=== PATIENT | female | born 1965 | race Caucasian/White ===

== ENCOUNTER 2023-11-08 15:29 | Emergency (ER) | payer OTHER, SELFPAY ==
[2023-11-08 15:33] VITALS: BP 139/80; PULSE 80; RESP 18; TEMP 37.1; O2SAT 97; BMI 37.8
--- NOTE | 2023-11-08 15:50 | ED.BACK1 ---
HPI - Back Pain/Injury General Chief Complaint: Back Pain/Injury Stated Complaint: Back Pain Time Seen by Provider: 11/08/23 15:32 Source: patient Mode of arrival: walk-in Limitations: no limitations History of Present Illness HPI Narrative: Patient is a 58-year-old female who presents to the emergency department for the evaluation of diffuse lumbar pain for the last several days. She states her pain is increasing, not improving with NSAIDs at home. She states this pain developed after mopping. She denies fevers, chills, nausea, vomiting, urinary symptoms. She has a history of low back problems similarly, although she states her pain seems to be lasting longer than normal. She has no radicular symptoms or peripheral paresthesias. No incontinence. She denies any falls or direct injury to the low back. Related Data Previous Rx's Medication Instructions Recorded hydrocodone 5 mg-acetaminophen 325 1 tab PO Q6H PRN pain 3 days #12 11/08/23 mg tablet tabs methylprednisolone 4 mg tablets in See Rx Instructions .Route 11/08/23 a dose pack (Medrol (Ernesto)) .COMPLEX #21 ea orphenadrine citrate 100 mg 100 mg PO BID PRN muscle pain #14 11/08/23 tablet,extended release tabs Allergies Allergy/AdvReac Type Severity Reaction Status Date / Time No Known Drug Allergies Allergy Verified 11/08/23 15:33 Review of Systems ROS Constitutional Denies: fever or chills Ears, nose, mouth, and throat Denies: throat pain or nasal congestion Cardiovascular Denies: chest pain Respiratory Denies: shortness of breath or cough Gastrointestinal Denies: abdominal pain, nausea, vomiting or diarrhea Genitourinary Denies: painful urination or urinary incontinence Musculoskeletal Reports: back pain; Denies: neck pain, extremity pain or extremity swelling Integumentary/Breast Denies: rash Neurological Denies: headache Endocrine Denies: excessive urination PFSH PFSH Social History Smoking status: Never smoker Exam Narrative Exam Narrative: Gen.: Awake, alert, in no distress Head: Normocephalic, atraumatic ENT: Moist mucous membranes Respiratory: No respiratory distress Gastrointestinal: Abdomen is soft, nondistended and nontender to palpation Back: Diffuse tenderness of the lumbar spine with no bony point tenderness or obvious deformity. Moderate tenderness of the left posterior hip. No step-off Extremities: Moves extremities equally, no injuries noted; Normal dorsiflexion and plantarflexion of the lower extremities with no decrease in sensation to the medial thighs Psych: Normal mood and affect Neuro: No focal neuro deficit Skin: Warm, dry, intact Constitutional Vital Signs, click to edit/add: Last Vital Signs Temp 98.7 F 11/08/23 15:33 Pulse 80 11/08/23 15:33 Resp 18 11/08/23 15:33 BP 139/80 11/08/23 15:33 Pulse Ox 97 11/08/23 15:33 O2 Del Method Room Air 11/08/23 15:33 Course Vital Signs Vital signs: Vital Signs Temperature 98.7 F 11/08/23 15:33 Pulse Rate 80 11/08/23 15:33 Respiratory Rate 18 11/08/23 15:33 Blood Pressure 139/80 11/08/23 15:33 Pulse Oximetry 97 11/08/23 15:33 Oxygen Delivery Method Room Air 11/08/23 15:33 Temperature 98.7 F 11/08/23 15:33 Pulse Rate 80 11/08/23 15:33 Respiratory Rate 18 11/08/23 15:33 Blood Pressure 139/80 11/08/23 15:33 Pulse Oximetry 97 11/08/23 15:33 Oxygen Delivery Method Room Air 11/08/23 15:33 MDM - Back Pain/Injury MDM Narrative Medical decision making narrative: Patient neurovascularly intact with stable vital signs, no abdominal tenderness, no focal neurodeficits. She is treated for pain with Percocet, Toradol, Norflex. She will be discharged home with Medrol Dosepak, muscle relaxant and a short course of analgesics. Follow-up with PCP and return to the ER if symptoms change or worsen. Medical Records Attestation: I reviewed the patient's medical records. Discharge Plan Discharge Chief Complaint: Back Pain/Injury Clinical Impression: Low back pain, Lumbosacral strain Patient Disposition: Home, Self-Care Time of Disposition Decision: 15:57 Condition: Good Prescriptions / Home Meds: New hydrocodone-acetaminophen 5-325 mg tablet 1 tab PO Q6H PRN (Reason: pain) 3 Days Qty: 12 0RF Rx Instructions: DX: M54.5 orphenadrine citrate 100 mg tablet extended release 100 mg PO BID PRN (Reason: muscle pain) Qty: 14 0RF methylprednisolone [Medrol (Ernesto)] 4 mg tablets,dose pack See Rx Instructions .ROUTE .COMPLEX Qty: 21 0RF Rx Instructions: Taper as directed Instructions: Muscle Strain (ED), Acute Low Back Pain (ED) Stand Alone Forms: Portal Instructions Referrals: Physician,Non-Staff, MD [Primary Care Provider] - 1 week
[2023-11-08] MEDS: KETOROLAC TROMETHAMINE 60 MG/2 ML VIAL IM (16:08)
[2023-11-08] MEDS: ORPHENADRINE 60 MG/ 2 ML VIAL IM (16:08)
== END 2023-11-08 16:15 | disposition home or self-care (01) ==
PROVIDERS: Emergency Provider Emergency Medicine
DX: S39.012A Strain of muscle, fascia and tendon of lower back, initial encounter (principal); X50.9XXA Other and unspecified overexertion or strenuous movements or postures, initial encounter; Y93.E5 Activity, floor mopping and cleaning
CPT/HCPCS: 96372; 99284; J1885; J2360

== ENCOUNTER 2023-11-18 06:35 | Outpatient (OUT) | payer OTHER, SELFPAY ==
--- OUTSIDE RECORDS SUMMARY | 2023-11-18 06:38 | XMS_ITS | CCD ---
Author Name Unknown Address [address] [place] [address] Organization [facility] Care Team Providers Care Package Checker Name Role Phone ANJOAQUIN DHALIWAL Unavailable Unavailable MALIKA CHAVIRA Unavailable Unavailable EMRE ., LOLA Admitting Unavailable EMRE Dunne, LOLA Attending Unavailable BRADLEY, DR ALCYE Romo Primary Care Unavailable CHENCHO, GABRIEL Consulting Unavailable LM, LISA Consulting Unavailable SAMANTHA, IVAN Admitting Unavailable SAMANTHA, IVAN Attending Unavailable SAMANTHA, IVAN Primary Care Unavailable HOUSE, IVAN Consulting Unavailable HOUSE, IVAN Admitting Unavailable HOUSE, IVAN Attending Unavailable HOUSE, IVAN Primary Care Unavailable HOUSE, IVAN Consulting Unavailable Frank Bennett Consulting Unavailable Alyce HUERTA Attending Unavailable Alyce HUERTA Attending Unavailable Vicky Jimenez Attending Unavailable Roxanne Couch Attending Unavailable NONE, XXXX Referring Unavailable Alyce HUERTA Referring Unavailable Alyce HUERTA Admitting Unavailable Alyce HUERTA Attending Unavailable Mayra Orellana Attending Unavailable Esteban, Mayra Amaya Attending Unavailable Esteban, Mayra Amaya Attending Unavailable Esteban, Mayra Amaya Attending Unavailable Alyce HUERTA Referring Unavailable SALKRISTIN, Priya Attending Unavailable SALAM, Priya Referring Unavailable Alyce HUERTA Attending Unavailable Alyce HUERTA Attending Unavailable Guillermina Wong Attending Unavailab Alyce William Attending Unavailable Guillermina Wong Admitting Unavailab Guillermina Cagle Attending Unavailab le SALAMPriya Admitting Unavailable SALAMPriya Attending Unavailable Alyce HUERTA Attending Unavailable Alyce HUERTA Admitting Unavailable Alyce HUERTA Admitting Unavailable Alyce HUERTA Attending Unavailable Alyce Lovell Attending Unavailable Roxanne Couch Admitting Unavailable Roxanne Couch Attending Unavailable Alyce HUERTA Referring Unavailable Roxanne Couch Attending Unavailable KhoaRoxanne FUzair Referring Unavailable KhoaRoxanne F. Attending Unavailable KhoaRoxanne FUzair Referring Unavailable Roxanne Couch Admitting Unavailable Allergies Allergy Classification Reported Allergen(s) Allergy Type Date of Onset Reaction(s) Facility (1 source) No Known Medication Allergies; Translations: [No Known Medication Allergies] Propensity to adverse reactions (disorder) [facility] Repository Problems Active Problems Problem Classification Problem Date Documented Da te Episodic/Chronic Disorders of lipid metabolism (1 source) Hyperlipidemia, unspecified; Translations: [HYPERLIPIDEMIA UNSPECIFIED] Onset: 2 Chronic Menopausal disorders (1 source) Hormone replacement therapy; Translations: [HORMONE REPLACEMENT THERAPY] Onset: 3 Episodic Other aftercare (1 source) retirement (current) use of aspirin; Translations: [PLATE GAUGER CURRENT USE OF ASPIRIN] Onset: 3 Episodic Other aftercare (1 source) Other long-term (current) drug therapy; Translations: [OTH PLATE GAUGER CURRENT DRUG THERAPY] Onset: 3 Episodic Other connective tissue disease (3 sources) Other specified soft tissue disorders; Translations: [OTHER SPEC SOFT TISSUE DISORDERS] Onset: 3 Episodic Phlebitis; thrombophlebitis and thromboembolism (2 sources) Phlebitis and thrombophlebitis of superficial vessels of left lower extremity; Translations: [Personal history of other venous thrombosis and embolism] Onset: 3 Episodic Screening and history of mental health and substance abuse codes (1 source) Personal history of nicotine dependence; Translations: [PERSONAL HISTORY OF NICOTINE DEPEND] Onset: 3 Episodic Skin and subcutaneous tissue infections (1 source) Cellulitis of left lower limb; Translations: [CELLULITIS OF LEFT LOWER LIMB] Onset: 3 Episodic Thyroid disorders (4 sources) Hypothyroidism, unspecified; Translations: [HYPOTHYROIDISM UNSPECIFIED] Onset: 2 Chronic Past or Other Problems Problem Classification Problem Date Documented Da te Episodic/Chronic Other screening for suspected conditions (not mental disorders or infectious disease) (4 sources) Encounter for screening mammogram for malignant neoplasm of breast; Translations: [ENC SCR MAMMO MALIG NEOPLASM BREAST] Onset: 02-12-2022 Episodic Residual codes; unclassified (1 source) Family history of malignant neoplasm of trachea, bronchus and lung; Translations: [FAM HX MALIG NEOPLSM TRACH BRON LNG] Onset: 02-13-2022 Episodic Results Test Name Value Interpretation Reference Range Facil felipe Family Medicine Video Visit - Telehealthon 10-21-2023 Family Medicine Video Visit - Telehealth Chief Complaint Cold symptoms HPI Staff Reason for Visit: Covid Positive 10/18/2023. One time visit. PCP Bradley. Pt has positive exposure as well with family How Lon days Symptoms: Sinus congestion, sinus drainage, SOB, sinus pressure, non productive cough, chills, achy, OTC Meds: Mucinex, chloricedin At home testing: Covid positve 10/18/2023 Depression: 0 MONIQUE: N/A Last Labs done: 07/29/2023 Covid Vaccine: No Flu Vaccine: No Smoker: Former History of Present Illness Daphne Edwards is a 58-year-old female who presents via video visit for evaluation of COVID-19 infection. She tested positive for COVID-19 on 10/18/2023. She is a patient of Dr. Huerta. The patient had COVID-19 infection 10/18/2021. Her symptoms started on Wednesday10/17/2023 when she woke up with a nasal congestion. She tested the next day, she assumed she had COVID-19 infection as her daughter, mother, brother, iuotrtc-pi-kic, and her sister have COVID-19 infection. She tested positive for COVID-19 on 10/18/2023. She is experiencing mild dyspnea, sinus pressure, sore throat, mild cough, headache, body aches, and fatigue. She denies any chest pain, wheezing, change in taste and smell, nausea, vomiting, diarrhea, dizziness, or loss of consciousness. She is using some apoj-wgn-sdiolrq medications, which seem to be mildly effective, but not much. She is not vaccinated against COVID-19 infection. She states this is the fourth time she has had COVID-19 infection. She has a blood pressure monitor at home. She denies feeling the worst headache of her life. She denies any history of back issues, GERD or heartburn issues, colon polyp, kidney disease, respiratory or lung problems, diabetes, high blood pressure, chronic kidney disease, or heart disease. She has thyroid issues and is on thyroid medication. She is scheduled to follow up with Dr. Huerta on 11/09/2023 and she will be retested. She had blood work done in 07/2023 which was normal. Her kidney function looks stable. Review of Systems The pertinent positive and negative findings are as noted in the HPI. Physical Exam Vitals & Measurements HT: 64 in HT: 162.5 cm WT: 100 kg WT: 220 lb BMI: 37.87 General: Well developed, well nourished, no apparent distress Head:Normocephalic, atraumatic Eyes:EOMI, sclera clear Neck: Supple Mental Status: Alert and cooperative with appropriate mood and affect Assessment/Plan This visit was conducted via two-way, real-time interactive video communications by ANGELIQUE Mims from my office? using [employer]. The patient was located at their home, located at [address] [place] [address] with Daphne Edwards in attendance. A signed authorization for treatment has been obtained via our standard authorization packet or by verbal consent by the patient or their legal wireless sales representative. The patient's identity and location in [place] has been verified by our office staff. If it is determined that the patient should be evaluated in the clinic, the patient will be directed to the appropriate clinic or venue. A limited physical exam will be conducted reviewing those areas of the body visible via telecommunications. Total time spent preparing the chart, conducting the encounter with the patient and family, and time spent documenting, reviewing, and ordering tests was 20 minutes. All records and visits comply with HIPAA standards. 1. COVID-19 (U07.1: COVID-19) The patient verbalizes consent to the use of [employer]. Prescribed patient with Paxlovid regular strength twice a day for 5 days. Informed her that the side effects of Paxlovid include headache and nausea. I encouraged plenty of fluids to stay hydrated. She will continue aloh-jxv-jppsjhz cough and cold medication like Sudafed, decongestants, and Mucinex or guaifenesin. I encouraged Tylenol or Motrin for fever if needed. Quarantine instructions were reviewed. The patient with no additional questions. Reasons to go to the ER were discussed. The patient will follow up with Dr. Huerta, previously scheduled on 11/09/2023. She had laboratory work done prior for other medical problems. 2. Obesity (BMI 30-39.9) (E66.9: Obesity, unspecified) The standard range for ages 18 and older is >=18.5 and < 25 kg/m2. Your BMI today was above this range, this falls in the overweight to obese category and there are medical benefits to weight loss. We can offer counselling, referral, and/or medical support in addressing this problem. Your BMI and weight management will be followed at subsequent visits. Reviewed importance of making a lifestyle change regarding dietary choices. Discussed goals. Encouraged routine cardio exercise with Goal: 3-5x/week for 30-45 minutes. Start out slow and increase to achieve your goals. Avoid late night snacking, do not skip breakfast and monitor cooking habits/avoid fast food and fried/fatty foods. Will monitor for progress. 3. Hypothyroid (E03.9: Hypothyroidism, unspecified) TSH was low. Sh (more content not included)... [facility] Comment on above: Result Comment: Elec tronically Signed By: Vicky Childs\.br\Date and Time Signed: 10/21/23 06:14 EST\.br\Electronically Co-Signed By: Eriberto Watson\.br\Date and Time Co-Signed: 10/20/23 12:17 EST Ambulatory Visit Summaryon 1 Ambulatory Visit Summary DAPHNE EDWARDS Martine :1965 Visit Date:08/09/2023 Ambulatory Visit Instructions Your Diagnosis Encounter for weight loss counseling Chronic kidney disease, stage 3a Hypothyroid Hyperlipemia, mixed GERD (gastroesophageal reflux disease) BMI 38.0-38.9,adult Fatigue Your Care Team Attending Physician - Alyce HUERTA MD Primary Care Physician - Alyce HUERTA MD This Is Your Medications List Contact prescribing physician if questions or concerns Misc Prescription (Semaglutide base compound) aspirin (aspirin 81 mg Oral EC Tab) furosemide (Lasix 40 mg Tab) levothyroxine (levothyroxine 75 mcg (0.075 mg) Tab) multivitamin (B 100 Complex oral tablet) multivitamin with minerals (One-A-Day Women) nystatin topical (nystatin Top 100,000 units/g Pwdr) pantoprazole (Pantoprazole [address] Tab) semaglutide valacyclovir (Valtrex 500 mg Tab) [Image Removed: STOP]Stop taking these medications atorvastatin (atorvastatin 10 mg Tab) Procedures Performed Colonoscopy (06/01/2023), EGD (esophagogastroduodenosc opy) and closure of duodenal fistula (06/01/2023). Discharge Vitals Heart Rate (Peripheral) 76 Blood Pressure 100/72 Height 162.5 cm Height 64 in Weight 102.9 kg Weight 226.38 lb BMI 38.97 What to do next Scheduled Follow-Up Appointments Wednesday 3:00 PM EDT With: Mayra Orellana CNP Where: [facility] Family Medicine Office/Clini c Noteon 08-09-2023 Family Medicine Office/Clinic Note Chief Complaint 3 month follow up History of Present Illness Here for med follow up. She has been on semaglutide for weight loss. It seems to be helping. She gets mild nausea with dose increases. She has GERD and is on pantoprazole. She states she has had a general fatigue since she had Covid a few years ago. Review of Systems PHQ Score Initial Depression Screen Score: 0 Physical Exam Vitals & Measurements HR: 76(Peripheral) BP: 100/72 SpO2: 97% HT: 64 in HT: 162.5 cm WT: 102.9 kg WT: 226.38 lb BMI: 38.97 General: Well developed, well nourished, in no acute distress Eyes: Pupils equal, round, and reactive to light. Conjunctivae and sclerae normal, and extraocular movements intact Ears: _grossly normal hearing Nose: not addressed Mouth: MMM. Oropharynx and posterior pharynx without lesions or exudates. Tongue WNL Neck: Neck supple. No lymphadenopathy. Trachea midline. No thyroid, masses, tenderness, or enlargement noted. No bruit. Lungs: Normal respiratory effort and clear to auscultation Cardio: Regular rate and rhythm, normal S1 and S2, no murmur, no rub Abdomen: Soft, non-distended, non-tender Musculoskeletal: No joint swelling or synovitis noted Extremity: No clubbing, cyanosis or edema. Neurologic: CN 2-12 intact, no focal motor or sensory defects noted. Skin: No rashes, ulcerations, or suspicious lesions Mental Status: Alert and oriented x3. Normal mood and affect Assessment/Plan 1. Encounter for weight loss counseling (Z71.3: Dietary counseling and surveillance) She is doing well on semaglutide she would like to stay on it if she can afford it 2. Chronic kidney disease, stage 3a (N18.31: Chronic kidney disease, stage 3a) lab is normal this time Ordered: Comprehensive Metabolic Panel Vitamin D 25 Hydroxy 3. Hypothyroid (E03.9: Hypothyroidism, unspecified) TSH is mildly low free T4 is ok no change yet Ordered: Free T4 Thyroid Stimulating Hormone 4. Hyperlipemia, mixed (E78.2: Mixed hyperlipidemia) She has not been taking atorvastatin due to causing nausea ok to stay off Rx for now Ordered: Lipid Panel 5. GERD (gastroesophageal reflux disease) (K21.9: Gastro-esophageal reflux disease without esophagitis) stay on pantoprazole 6. BMI 38.0-38.9,adult (Z68.38: Body mass index [BMI] 38.0-38.9, adult) The standard range for ages 18 and older is >=18.5 and < 25 kg/m2. Your BMI today was above this range, this falls in the overweight to obese category and there are medical benefits to weight loss. We can offer counselling, referral, and/or medical support in addressing this problem. Your BMI and weight management will be followed at subsequent visits. Ordered: Body Mass Index (BMI) documented 3008F Current tobacco non-user 1036F Depression Screening Negative 3352F Most recent diastolic blood pressure <80 mm Hg 3078F Systolic BP <130 mm Hg (Most Recent) 3074F 7. Fatigue (R53.83: Other fatigue) She does not want a sleep study at this time. Ordered: Vitamin B12 Level Follow-up With When Contact Information BRADLEY NATARAJAN, JACOB Sousa In 3 months [facility] [address], [place] [address]- Additional Instructions: Patient Education BMI for Adults Problem List/Past Medical History Ongoing Cellulitis of left leg Chronic kidney disease, stage 3a Colon polyp Edema of leg Encounter for weight loss counseling Family history of colonic polyps Family history of Crohn's disease Fatigue GERD (gastroesophageal reflux disease) Hemorrhoids History of DVT in adulthood Hyperlipemia, mixed Hypothyroid Low back pain Lumbar radiculopathy, right Morbid obesity Schatzki's ring Screening mammogram, encounter for Superficial phlebitis of left leg Venous stasis dermatitis of lower extremity Historical No qualifying data Procedure/Surgical History Colonoscopy (06/01/2023), EGD (esophagogastroduodenosc opy) and closure of duodenal fistula (06/01/2023). Medications aspirin 81 mg Oral EC Tab, 81 mg= 1 tab(s), Oral, Daily B 100 Complex oral tablet, 1 tab(s), Oral, Daily, 3 refills Lasix 40 mg Tab, 40 mg= 1 tab(s), Oral, Daily, PRN, 1 refills levothyroxine 75 mcg (0.075 mg) Tab, 75 mcg= 1 tab(s), Oral, Daily, 3 refills nystatin Top 100,000 units/g Pwdr, 1 carmela, Topical, BID, 1 refills One-A-Day Women, 1 tab(s), Oral, Daily Pantoprazole [address] Tab, 20 mg= 1 tab(s), Oral, Daily, 1 refills semaglutide Semaglutide base compound, See Instructions, 1 refills Valtrex 500 mg Tab, 500 mg= 1 tab(s), Oral, Daily Allergies No Known Medication Allergies Social History Alcohol Employment/School Work/School description: Works at [employer] in [place]., 05/15/2022 Home/Environment Substance Abuse Tobacco Former smoker, quit more than 30 days ago Tobacco Use:. Never Smokeless Tobacco Use:. Cigarettes, Started age 13.0 Years., 08/09/2023 Family History Hypertension: Mother. Hyperthyroidi (more content not included)... Normal [facility] Comment on above: Result Comment: Elec tronically Signed By: BRADLEY NATARAJAN, Alyce Romo\.scott\Date and Time Signed: 08/09/23 16:12 EDT Patient Educationon 08-09-20 Patient Education Nutrition BMI for Adults What is BMI? Body mass index (BMI) is a number that is calculated from a person's weight and height. BMI can help estimate how much of a person's weight is composed of fat. BMI does not measure body fat directly. Rather, it is an alternative to procedures that directly measure body fat, which can be difficult and expensive. BMI can help identify people who may be at higher risk for certain medical problems. What are BMI measurements used for? BMI is used as a screening tool to identify possible weight problems. It helps determine whether a person is obese, overweight, a healthy weight, or underweight. BMI is useful for: ? Identifying a weight problem that may be related to a medical condition or may increase the risk for medical problems. ? Promoting changes, such as changes in diet and exercise, to help reach a healthy weight. BMI screening can be repeated to see if these changes are working. How is BMI calculated? BMI involves measuring your weight in relation to your height. Both height and weight are measured, and the BMI is calculated from those numbers. This can be done either in [place] ([place] or metric measurements. Note that charts and online BMI calculators are available to help you find your BMI quickly and easily without having to do these calculations yourself. To calculate your BMI in [place]ian ([place] measurements: 1. Measure your weight in pounds (lb). 2. Multiply the number of pounds by 703. ? For example, for a person who weighs 180 lb, multiply that number by 703, which equals 126,540. 3. Measure your height in inches. Then multiply that number by itself to get a measurement called inches squared. ? For example, for a person who is 70 inches tall, the inches squared measurement is 70 inches x 70 inches, which equals 4,900 inches squared. 4. Divide the total from step 2 (number of lb x 703) by the total from step 3 (inches squared): 126,540 ? 4,900 = 25.8. This is your BMI. To calculate your BMI in metric measurements: 1. Measure your weight in kilograms (kg). 2. Measure your height in meters (m). Then multiply that number by itself to get a measurement called meters squared. ? For example, for a person who is 1.75 m tall, the meters squared measurement is 1.75 m x 1.75 m, which is equal to 3.1 meters squared. 3. Divide the number of kilograms (your weight) by the meters squared number. In this example: 70 ? 3.1 = 22.6. This is your BMI. What do the results mean? BMI charts are used to identify whether you are underweight, normal weight, overweight, or obese. The following guidelines will be used: ? Underweight: BMI less than 18.5. ? Normal weight: BMI between 18.5 and 24.9. ? Overweight: BMI between 25 and 29.9. ? Obese: BMI of 30 or above. Keep these notes in mind: ? Weight includes both fat and muscle, so someone with a muscular build, such as an athlete, may have a BMI that is higher than 24.9. In cases like these, BMI is not an accurate measure of body fat. ? To determine if excess body fat is the cause of a BMI of 25 or higher, further assessments may need to be done by a health care provider. ? BMI is usually interpreted in the same way for men and women. Where to find more information For more information about BMI, including tools to quickly calculate your BMI, go to these websites: ? Centers for Disease Control and Prevention: www.cdc.gov ? [place] Heart Association: www.heart.org ? National Heart, Lung, and Blood [place]: www.nhlbi.nih.gov Summary ? Body mass index (BMI) is a number that is calculated from a person's weight and height. ? BMI may help estimate how much of a person's weight is composed of fat. BMI can help identify those who may be at higher risk for certain medical problems. ? BMI can be measured using [place]ian measurements or metric measurements. ? BMI charts are used to identify whether you are underweight, normal weight, overweight, or obese. This information is not intended to replace advice given to you by your health care provider. Make sure you discuss any questions you have with your health care provider. Document Revised: 06/26/2020 Document Reviewed: 05/03/2020 [employer] Patient Education ? 2022 [employer] Normal [facility] Auto Diffon 07-29-2023 Basophils/100 WBC (Bld) 0.6 % Normal 0.0-2.0 [facility] Comment on above: Order Comment: Order Added by Discern Expert. Performed By: #### 2 [id number], [id number], [id number], [id number], 0455955, [id number], [id number] #### [facility] [address] [place] [address] 15851 Basophils/Leukocyt es Auto (Bld) [Pure # fraction] 0.0 E9/L Normal 0.0-0.2 [facility] Comment on above: Order Comment: Order Added by Discern Expert. Performed By: #### 2 [id number], [id number], [id number], [id number], [id number], [id number], [id number] #### [facility] [address] [place] [address] 74054 Eosinophils/100 WBC (Bld) 4.4 % Normal 0.0-8.0 [facility] Comment on above: Order Comment: Order Added by Discern Expert. Performed By: #### 2 [id number], [id number], 5508911, 5046353, 8783731, 8048464, [id number] #### [facility] [address] [place] [address] 62568 Eosinophils/Leukoc ytes Auto (Bld) [Pure # fraction] 0.3 E9/L Normal 0.0-0.5 [facility] Comment on above: Order Comment: Order Added by Jaycob Expert. Performed By: #### 2 [id number], [id number], [id number], 0051042, 3633976, 9505722, [id number] #### [facility] [address] [place] [address] 28507 Lymphocytes/100 WBC (Bld) 36.6 % Normal 14.0-50.0 [facility] Comment on above: Order Comment: Order Added by Jaycob Expert. Performed By: #### 2 297025, [id number], 5180757, 5839284, 7037300, 7978169, 6874825 #### [facility] [address] [place] [address] 28552 Lymphocytes/Leukoc ytes Auto (Bld) [Pure # fraction] 2.1 E9/L Normal 1.0-4.0 [facility] Comment on above: Order Comment: Order Added by Jaycob Expert. Performed By: #### 2 [id number], [id number], 0582889, 5507277, 9884145, 0750172, [id number] #### [facility] [address] [place] [address] 49236 Monocytes/100 WBC (Bld) 5.7 % Normal 4.0-14.0 [facility] Comment on above: Order Comment: Order Added by Discern Expert. Performed By: #### 2 [id number], [id number], 6041598, 4550472, 7764097, 3670500, 9390887 #### [facility] [address] [place] [address] Monocytes/Leukocyt es Auto (Bld) [Pure # fraction] 0.3 E9/L Normal 0.2-1.0 [facility] Comment on above: Order Comment: Order Added by Discern Expert. Performed By: #### 2 918924, [id number], 9506566, 1550599, 0626416, 7407086, [id number] #### [facility] [address] [place] [address] 25635 Neutrophils/100 WBC (Bld) 52.7 % Normal 36.0-75.0 [facility] Comment on above: Order Comment: Order Added by Discern Expert. Performed By: #### 2 658853, [id number], 5979996, 1498236, 3216766, 3948535, 1289048 #### [facility] [address] [place] [address] Neutrophils/Leukoc ytes Auto (Bld) [Pure # fraction] 3.0 E9/L Normal 2.0-7.5 [facility] Comment on above: Order Comment: Order Added by Discern Expert. Performed By: #### 2 038432, [id number], 4384690, 8246959, 0840351, 4670114, [id number] #### [facility] [address] [place] [address] 98920 CBC w/ Auto Diffon 3 Erythrocyte distribution width (RBC) [Ratio] 13.8 % Normal 10.9-14.2 [facility] Comment on above: Performed By: #### 2 [id number], [id number], 6780637, 5057372, 4877669, 0483155, 9541399 #### [facility] [address] [place] [address] Hematocrit (Bld) [Volume fraction] 41.8 % Normal 34.0-46.0 [facility] Comment on above: Performed By: #### 2 [id number], [id number], 0606393, 3151345, 8218137, 3800244, 3913743 #### [facility] [address] [place] [address] 67323 Hemoglobin (Bld) [Mass/Vol] 14.0 g/dL Normal 12.0-16.0 [facility] Comment on above: Performed By: #### 2 436528, 00386928, 0291051, 9211858, 2843420, 8213670, 8440454 #### [facility] [address] [place] [address] 86319 MCH (RBC) [Entitic mass] 31.5 pg Normal 27.0-34.0 [facility] Comment on above: Performed By: #### 2 568494, 84435614, 0418297, 0573732, 6094626, 0014183, 0178750 #### [facility] [address] [place] [address] 92869 MCHC (RBC) [Mass/Vol] 33.4 g/dL Normal 31.4-36.0 [facility] Comment on above: Performed By: #### 2 038891, 90566564, 6292033, 0587515, 7954342, 6792277, 8536047 #### [facility] [address] [place] [address] 29341 MCV (RBC) [Entitic vol] 94.4 fL Normal 80.0-100.0 [facility] Comment on above: Performed By: #### 2 138535, 35172743, 1124941, 2472266, 8678185, 9528478, 5683051 #### [facility] [address] [place] [address] 10716 Platelet mean volume (Bld) [Entitic vol] 8.0 fL Normal 6.4-10.8 [facility] Comment on above: Performed By: #### 2 425574, 56453714, 8479871, 6778650, 9392067, 3583720, 3908542 #### [facility] [address] [place] [address] Platelets (Bld) [#/Vol] 305.0 E9/L Normal 150.0-500.0 [facility] Comment on above: Performed By: #### 2 512083, 53465836, 2141644, 5584606, 1669737, 5768196, 6165656 #### [facility] [address] [place], [place] [address] RBC (Bld) [#/Vol] 4.4 E12/L Normal 4.3-5.9 [facility] Comment on above: Performed By: #### 2 301908, 02051642, 5337577, 9890453, 0153695, 4903206, 7473906 #### [facility] [address] [place], [place] [address] WBC corrected for nucl RBC Auto (Bld) [#/Vol] 5.8 E9/L Normal 4.0-11.0 [facility] Comment on above: Performed By: #### 2 017107, 45003378, 9238264, 7231748, 6997225, 9574359, 1624204 #### [facility] [address] [place] [address] 10110 CMPon 07-29-2023 Albumin [Mass/Vol] 3.9 g/dL Normal 3.3-5.0 [facility] Comment on above: Performed By: #### 2 315219, 22980523, 2681017, 1199534, 2506936, 4688128, 8527399 #### [facility] [address] [place] [address] 04809 Albumin/Globulin (S) [Mass conc ratio] 1.1 Normal 1.1-2.2 [facility] Comment on above: Performed By: #### 2 852735, 18328435, 9889633, 6459074, 7438328, 2411635, 6648815 #### [facility] [address] [place] [address] 77846 ALP [Catalytic activity/Vol] 107 Int._Unit/L High 21-98 [facility] Comment on above: Performed By: #### 2 714247, 72365185, 7428362, 6488761, 1188310, 6446008, 3704874 #### [facility] [address] [place] [address] ALT No additional P-5'-P [Catalytic activity/Vol] 23 Int._Unit/L Normal 6-46 [facility] Comment on above: Performed By: #### 2 598303, 94084842, 9796780, 1052166, 9387122, 8600538, 2429088 #### [facility] [address] [place] [address] Anion gap [Moles/Vol] 12 mmol/L Normal 6-16 [facility] Comment on above: Performed By: #### 2 987794, 32317501, 3899482, 8029289, 0041892, 4027401, 9343363 #### [facility] [address] [place] [address] AST [Catalytic activity/Vol] 21 Int._Unit/L Normal 5-43 [facility] Comment on above: Performed By: #### 2 890211, 97244631, 1493458, 9212570, 6483378, 7102249, 6313826 #### [facility] [address] [place] [address] Bilirubin [Mass/Vol] 0.5 mg/dL Normal 0.0-1.1 [facility] Comment on above: Performed By: #### 2 542637, 59362070, 9466151, 8127160, 6512148, 4731781, 4411769 #### [facility] [address] [place] [address] Calcium [Mass/Vol] 9.3 mg/dL Normal 8.9-11.1 [facility] Comment on above: Performed By: #### 2 049746, 92852572, 9047420, 9808426, 6014427, 7156491, 8484032 #### [facility] [address] [place] [address] Chloride [Moles/Vol] 109 mmol/L Normal 101-111 [facility] Comment on above: Performed By: #### 2 207552, 95989024, 6343199, 4418261, 7786476, 4499290, 2347064 #### [facility] [address] [place] [address] CO2 [Moles/Vol] 24 mmol/L Normal 21-31 [facility] Comment on above: Performed By: #### 2 916447, 11169679, 9954233, 2523249, 9766191, 3853242, 4438372 #### [facility] [address] [place] [address] Creatinine [Mass/Vol] 0.9 mg/dL Normal 0.5-1.3 [facility] Comment on above: Performed By: #### 2 922254, 08234736, 3651150, 8481662, 8267138, 0451665, 9361668 #### [facility] [address] [place] [address] Globulin (S) [Mass/Vol] 3.6 g/dL Normal 1.4-4.0 [facility] Comment on above: Performed By: #### 2 507296, 26634049, 8555649, 6312638, 4656918, 2611418, 8034201 #### [facility] [address] [place] [address] Glucose [Mass/Vol] 97 mg/dL Normal 55-199 [facility] Comment on above: Result Comment: If t his glucose result represents a fasting glucose, interpretation should refer to the following reference range: 55-99 mg/dL Performed By: #### 2 481494, 47854657, 0122922, 5700488, 5554099, 8193508, 5869226 #### [facility] [address] [place] [address] Potassium [Moles/Vol] 4.2 mmol/L Normal 3.5-5.3 [facility] Comment on above: Performed By: #### 2 099877, 51967124, 4806437, 4281743, 1493520, 5748774, 8734067 #### [facility] [address] [place] [address] Protein [Mass/Vol] 7.5 g/dL Normal 6.0-7.8 [facility] Comment on above: Performed By: #### 2 769922, 90562791, 0401427, 2166565, 5836002, 0081129, 0778602 #### [facility] [address] [place] [address] Sodium [Moles/Vol] 141 mmol/L Normal 135-145 [facility] Comment on above: Performed By: #### 2 610955, 40919055, 0857672, 6967212, 9624786, 6092231, 9823213 #### [facility] [address] [place] [address] Urea nitrogen [Mass/Vol] 13 mg/dL Normal 5-21 [facility] Comment on above: Performed By: #### 2 073551, 30799048, 1773806, 3371861, 6476069, 8009033, 8748839 #### [facility] [address] [place] [address] Urea nitrogen/Creatinin e [Mass ratio] 14 No Units Normal 10-20 [facility] Comment on above: Performed By: #### 2 964501, 50561088, 5444921, 2303097, 7029642, 9114678, 7598963 #### [facility] [address] [place] [address] Consent for Treatmenton 07-18 Consent for Treatment [id number]#[id number] F Normal [facility] Free T4on 07-29-2023 Free T4 [Mass/Vol] 0.92 ng/dL Normal 0.58-1.64 [facility] Comment on above: Performed By: #### 2 495981, 40495045, 9966816, 4662474, 1107803, 8964622, 1468297 ####[facility] [address] [place] [address] Lipid Panelon 07-29-2023 Cholesterol [Mass/Vol] 199 mg/dL Normal 120-200 [facility] Comment on above: Performed By: #### 2 088204, 37453014, 7593415, 7127866, 3145783, 7796433, 0309357 ####[facility] [address] [place] [address] Cholesterol in HDL [Mass/Vol] 58 mg/dL Invalid Interpretation Code [facility] Comment on above: Result Comment: HDL > or equal to 60 mg/dL: Low cardiovascular risk HDL < 40 mg/dL : High cardiovascular risk Performed By: #### 2 570483, 73538462, 4747180, 4241707, 0679676, 6683438, 9038051 ####[facility] [address] [place] [address] Cholesterol in LDL [Mass/Vol] 115 mg/dL Normal <=129 [facility] Comment on above: Performed By: #### 2 380090, 71844386, 9951037, 5863828, 3944951, 2453405, 6615861 ####[facility] [address] [place] [address] Cholesterol in VLDL [Mass/Vol] 22 mg/dL Normal 7-40 [facility] Comment on above: Performed By: #### 2 229377, 26650304, 1835542, 6414027, 1741655, 7490318, 8817736 ####[facility] [address] [place] [address] Triglyceride [Mass/Vol] 109 mg/dL Normal <=149 [facility] Comment on above: Performed By: #### 2 131609, 27100007, 5919588, 3581743, 1442235, 4502094, 8061214 ####[facility] [address] [place] [address] TSHon 07-29-2023 TSH Qn 0.20 m[IU]/L Low 0.34-5.60 [facility] Comment on above: Performed By: #### 2 519582, 07857872, 4105811, 8132587, 3930547, 2298146, 2936431 ####[facility] [address] [place] [address] Urinalysison 07-29-2023 Bacteria LM Ql (Urine sed) TRACE Normal Trace [facility] Comment on above: Performed By: #### 1 9011968 ####[facility] [address] [place] [address] Bilirubin Ql (U) Negative Normal Negative [facility] Comment on above: Performed By: #### 1 5753168 ####[facility] [address] [place] [address] Clarity (U) CLEAR Normal Clear [facility] Comment on above: Performed By: #### 1 2632146 ####[facility] [address] [place] [address] Color (U) YELLOW Normal Yellow [facility] Comment on above: Performed By: #### 1 5689462 ####[address] [address] Epithelial cells.squamous LM.HPF (Urine sed) [#/Area] 9-10 Normal 0-2 [facility] Comment on above: Performed By: #### 1 0423925 ####[facility] [address] [place] [address] Glucose Test strip (U) [Mass/Vol] Negative Normal Negative [facility] Comment on above: Performed By: #### 1 8172887 ####[facility] [address] [place] [address] Hemoglobin Ql (U) Negative Normal Negative [facility] Comment on above: Performed By: #### 1 0966416 ####[facility] [address] [place] [address] Ketones (U) [Mass/Vol] Negative Normal Negative [facility] Comment on above: Performed By: #### 1 0841135 ####[address] [address] Joppa.plasma/Lit hium.RBC (Bld) [Mass ratio] 0-3 Normal 0-3 [facility] Comment on above: Performed By: #### 1 2164028 ####[address] [place] [address] Mucus Ql (Urine sed) TRACE Normal [facility] Comment on above: Performed By: #### 1 6549874 ####[address] [address] Nitrite Ql (U) Negative Normal Negative [facility] Comment on above: Performed By: #### 1 0287467 ####[address] [address] pH (U) 6.5 [pH] Invalid Interpretation Code 5.0-9.0 [facility] Comment on above: Performed By: #### 1 0906329 ####[address] [address] Protein (U) [Mass/Vol] Negative Normal Negative [facility] Comment on above: Performed By: #### 1 7277406 ####[address] [address] Specific gravity (U) [Rel density] 1.010 Invalid Interpretation Code 1.005-1.030 [facility] Comment on above: Performed By: #### 1 7131697 ####[address] [address] Type of Urine collection method Clean Catch Normal [facility] Comment on above: Performed By: #### 1 9453780 ####[address] [address] Urobilinogen Qn (U) 0.2 {Jhonny'U}/dL Normal 0.0-1.0 [facility] Comment on above: Performed By: #### 1 3703801 ####[address] [place] [address] WBC Auto Ql (U) TRACE Abnormal Negative [facility] Comment on above: Performed By: #### 1 0482294 ####[facility] [address] [place] [address] WBC LM.HPF (Urine sed) [#/Area] 0-5 Normal 0-5 [facility] Comment on above: Performed By: #### 1 7240710 ####[facility] [address] [place] [address] eGFRon 07-29-2023 GFR/1.73 sq M.predicted among non-blacks MDRD (S/P/Bld) [Vol rate/Area] 75 mL/min/1.73 m2 Normal >=59 [facility] Comment on above: Order Comment: Order added by Discern Expert. Result Comment: Survival Equipment Repairer osito kidney disease could be indicated at eGFR's of less than 60 mL/min/1.73m2. Kidney failure is indicated at less than 15 mL/min/1.73m2. Performed By: #### 2 409762, 85035874, 8310483, 1603369, 9681566, 4135100, 8352280 #### [facility] [address] [place] [address] Retail - Clinical Noteon Retail - Clinical Note [id number] F Normal [facility] Nonvisit Note - OTon 023 Nonvisit Note - OT Pt cxd another appt today and has not been seen for OT lymphedema in about 4 weeks. Placed call to patient to see if she plans to attend further visits or if she would like to be DCd. Spoke w/ patient, she reports she is unable to get a ride to [place] at least 2x/wk from [place] (where she resides), so she will need to be DCd from OT Lymphedema services. Normal [facility] Nonvisit Note - OTon 023 Nonvisit Note - OT Pt cxd OT lymphedema appt this date via remind system, no reason provided. Normal [facility] Nonvisit Note - OTon 023 Nonvisit Note - OT pt cxd OT lymphedema appt scheduled for this date, no reason provided. Normal [facility] Retail - Clinical Noteon Retail - Clinical Note [id number]#1.00CD:1 27 Normal [facility] Nonvisit Note - OTon 023 Nonvisit Note - OT Pt cxd OT lymphedema appt today, no reason provided. Normal [facility] Nonvisit Note - OTon 023 Nonvisit Note - OT Pt cxd scheduled lymphedema apt this date. Normal [facility] Reminderson 06-16-2023 Reminders - From: Collins Avila To: [facility] - Reminders/Recalls; Sent: 06/16/2023 09:10:43 EDT Show up: 05/18/2028 09:10:00 EDT Subject: Ambulatory Reminder Due Date/Time: 06/01/2028 09:10:00 EDT Reminder/Recall Repeat colonoscopy in 5 years(2027) [facility] Ambulatory Visit Summaryon 0 06-15-2023 Ambulatory Visit Summary DAPHNE EDWARDS :1965 Visit Date:06/15/2023 Ambulatory Visit Instructions Your Diagnosis GERD (gastroesophageal reflux disease) Schatzki's ring Colon polyp Hemorrhoids Family history of colonic polyps Your Care Team Attending Physician - Mayra Orellana CNP Primary Care Physician - Alyce HUERTA MD This Is Your Medications List Contact prescribing physician if questions or concerns aspirin (aspirin 81 mg Oral EC Tab) atorvastatin (atorvastatin 10 mg Tab) furosemide (Lasix 40 mg Tab) levothyroxine (levothyroxine 75 mcg (0.075 mg) Tab) multivitamin (B 100 Complex oral tablet) multivitamin with minerals (One-A-Day Women) nystatin topical (nystatin Top 100,000 units/g Pwdr) pantoprazole (Pantoprazole [address] Tab) semaglutide (Ozempic 2 mg/3 mL (0.25 mg or 0.5 mg dose) subcutaneous solution) valacyclovir (Valtrex 500 mg Tab) Procedures Performed Colonoscopy (06/01/2023), EGD (esophagogastroduodenosc opy) and closure of duodenal fistula (06/01/2023). Discharge Vitals Temperature (Temporal Artery) 36.3 ?C Heart Rate (Peripheral) 69 Blood Pressure 108/75 Height 162.5 cm Height 64 in Weight 106.1 kg Weight 233.42 lb BMI 40.18 What to do next Scheduled Follow-Up Appointments Wednesday 12:00 PM EDT With: Where: [facility] Wednesday 1:30 PM EDT With: Where: [facility] 2022 3:00 PM EDT With: Where: [facility] 2022 3:00 PM EDT With: Where: [facility] Wednesday 1:30 PM EDT With: Where: [facility] Wednesday 1:30 PM EDT With: Where: [facility] 2022 2:00 PM EDT With: Where: [facility] Wednesday 1:30 PM EDT With: Where: [facility] 2022 2:00 PM EDT With: Where: [facility] Wednesday 1:30 PM EDT With: Where: [facility] 2022 2:00 PM EDT With: Where: [facility] Wednesday 12:00 PM EDT With: Alyce HUERTA MD Where: [facility] Normal [address] [place] [phone]- \.br\ You Need to Schedule the Following Appointments\.br\ Follow Up with Mayra Orellana CNP When: Within 1 year\.br\ Where:\.br\ Medications\.br\ What How Much When Why Instructions\.br\ Unchanged aspirin (aspirin 81 mg Oral EC Tab) 1 Tablets By Mouth Every day Contact prescribing physician if questions or concerns \.br\ Unchanged atorvastatin (atorvastatin 10 mg Tab) 1 Tablets By Mouth Every day Hyperlipemia, mixed Contact prescribing physician if questions or concerns \.br\ Unchanged furosemide (Lasix 40 mg Tab) 1 Tablets By Mouth Every day as needed for leg swelling Edema of leg Contact prescribing physician if questions or concerns \.br\ Unchanged levothyroxine (levothyroxine 75 mcg (0.075 mg) Tab) 1 Tablets By Mouth Every day Contact prescribing physician if questions or concerns \.br\ Unchanged multivitamin (B 100 Complex oral tablet) 1 Tablets By Mouth Every day Contact prescribing physician if questions or concerns \.br\ Unchanged multivitamin with minerals (One-A-Day Women) 1 Tablets By Mouth Every day Contact prescribing physician if questions or concerns \.br\ Unchanged nystatin topical (nystatin Top 100,000 units/ g Pwdr) 1 Application Topical 2 times a day Yeast dermatitis Contact prescribing physician if questions or concerns \.br\ Unchanged pantoprazole (Pantoprazole [address] Tab) 1 Tablets By Mouth Every day GERD (gastroesophageal reflux disease) Contact prescribing physician if questions or concerns \.br\ Unchanged semaglutide (Ozempic 2 mg/ 3 mL (0.25 mg or 0.5 mg dose) subcutaneous solution) 0.25 Milligram Subcutaneous Every week Contact prescribing physician if questions or concerns \.br\ Unchanged valacyclovir (Valtrex 500 mg Tab) 1 Tablets By Mouth Every day per dermatology Contact prescribing physician if questions or concerns \.br\ Allergies\.br\ No Known Medication Allergies\.br\ Problems\.br\ Ongoing - Any problem that you are currently receiving treatment for.\.br\ BMI 40.0-44.9, adult\.br\ Cellulitis of left leg\.br\ Cervical cancer screening\.br\ Chronic kidney disease, stage 3a\.br\ Colon polyp\.br\ Edema of leg\.br\ Encounter for weight loss counseling\.br\ Family history of colonic polyps\.br\ Family history of Crohn's disease\.br\ GERD (gastroesophageal reflux disease)\.br\ Hemorrhoids\.br\ History of DVT in adulthood\.br\ Hyperlipemia, mixed\.br\ Hypothyroid\.br\ Low back pain\.br\ Lumbar radiculopathy, right\.br\ Morbid obesity\.br\ Schatzki's ring\.br\ Screen for colon cancer\.br\ Screening mammogram, encounter for\.br\ Superficial phlebitis of left leg\.br\ Venous stasis dermatitis of lower extremity\.br\ 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 Choosing the right foods can help ease the discomfort of GERD. Consider working with a dietitian to help you make healthy food choices.\.br\ What are tips for following this plan?\.br\ Reading food labels\.br\ ? \.br\ Look for foods that are low in saturated fat. Foods that have less than 5% of daily value (DV) of fat and 0 g of trans fats may help with your symptoms.\.br\ Cooking\.br\ ? \.br\ Cook foods using methods other than frying. This may include baking, steaming, grilling, or broiling. These are all methods that do not need a lot of fat for cooking.\.br\ ? \.br\ To add flavor, try to use herbs that are low in spice and acidity.\.br\ Meal planning\.br\ \.br\ ? \.br\ Choose healthy foods that are low in fat, such as fruits, vegetables, whole grains, low-fat dairy products, lean meats, fish, and poultry.\.br\ ? \.br\ Eat frequent, small meals instead of three large meals each day. Eat your meals slowly, in a relaxed setting. Avoid bending over or lying down until 2?3 hours after eating.\.br\ ? \.br\ Limit high-fat foods such as fatty meats or fried foods.\.br\ ? \.br\ Limit your intake of fatty foods, such as oils, butter, and shortening.\.br\ ? \.br\ Avoid the following as told by your health care provider:\.br\ ? \.br\ Foods that cause symptoms. These may be different for different people. Keep a food diary to keep track of foods that cause symptoms.\.br\ ? \.br\ Alcohol.\.br\ ? \.br\ Drinking large amounts of liquid with meals.\.br\ ? \.br\ Eating meals during the 2?3 hours before bed.\.br\ Lifestyle\.br\ ? \.br\ Maintain a healthy weight. Ask your health care provider what weight is healthy for you. If you need to lose weight, work with your health care provider to do so safely.\.br\ ? \.br\ Exercise for at least 30 minutes on 5 or more days each week, or as told by your health care provider.\.br\ ? \.br\ Avoid wearing clothes that fit tightly around your waist and chest.\.br\ ? \.br\ Do not use any products that contain nicotine or tobacco. These products include cigarettes, chewing tobacco, and vaping devices, such as e-cigarettes. If you need help quitting, ask your health care provider.\.br\ ? \.br\ Sleep with the head of your bed raised. Use a wedge under the mattress or blocks under the bed frame to raise the head of the bed.\.br\ ? \.br\ Chew sugar-free gum after mealtimes.\.br\ What foods should I eat?\.br\ \.br\ Eat a healthy, well-balanced diet of fruits, vegetables, whole grains, low-fat dairy products, lean meats, fish, and poultry. Each person is different. Foods that may trigger symptoms in one person may not trigger any symptoms in another person. Work with your health care provider to identify foods that are safe for you.\.br\ The items listed above may not be a complete list of recommended foods and beverages. Contact a dietitian for more information.\.br\ What foods should I avoid?\.br\ Limiting some of these foods may help manage the symptoms of GERD. Everyone is different. Consult a dietitian or your health care provider to help you identify the exact foods to avoid, if any.\.br\ Fruits\.br\ Any fruits prepared with added fat. Any fruits that cause symptoms. For some people this may include citrus fruits, such as oranges, grapefruit, pineapple, and emmett.\.br\ Vegetables\.br\ Deep-fried vegetables. Tongan fries. Any vegetables prepared with added fat. Any vegetables that cause symptoms. For some people, this may include tomatoes and tomato products, chili peppers, onions and garlic, and horseradish.\.br\ Grains\.br\ Pastries or quick breads with added fat.\.br\ Meats and other proteins\.br\ High-fat meats, such as fatty beef or pork, hot dogs, ribs, ham, sausage, salami, and saxena. Fried meat or protein, including fried fish and fried chicken. Nuts and nut butters, in large amounts.\.br\ Dairy\.br\ Whole milk and chocolate milk. Sour cream. Cream. Ice cream. Cream cheese. Milkshakes.\.br\ Fats and oils\.br\ Butter. Margarine. Shortening. Ghee.\.br\ Beverages\.br\ Coffee and tea, with or without caffeine. Carbonated beverages. Sodas. Energy drinks. Fruit juice made with acidic fruits, such as orange or grapefruit. Tomato juice. Alcoholic drinks.\.br\ Sweets and desserts\.br\ Chocolate and cocoa. Donuts.\.br\ Seasonings and condiments\.br\ Pepper. Peppermint and spearmint. Added salt. Any condiments, herbs, or seasonings that cause symptoms. For some people, this may include warner, hot sauce, or vinegar-based salad dressings.\.br\ The items listed above may not [facility] Gastroenterology Office/Clin ic Noteon 06-15-2023 Gastroenterology Office/Clinic Note Chief Complaint EGD and colonoscopy results. HPI Staff Patient is a 58 year old female here today to review results from EGD and colonoscopy. History of Present Illness Patient is a 58-year-old female who presents for follow-up from EGD/colonoscopy completed 06/01/[address] Wiggins. Patient was previously evaluated 05/11/2023 for referral from her PCP for further evaluation of GERD. Patient had reported during visit with me that she had never had colonoscopy before. Patient reported since being put on pantoprazole 20 mg she was no longer having acid reflux and was currently taking pantoprazole every other day. Patient was ordered EGD/colonoscopy. Patient reported family history of Crohn's disease?patient's father and great niece. Previous labs 01/2023 revealed unremarkable CBC/CMP. FH colon polyps- patient's father. EGD completed 06/01/2023 revealed 2 tight esophageal rings/Schatzki's ring, No dilation related to absence of dysphagia, normal gastric mucosa, normal duodenum, distal esophagus biopsy revealed no significant pathologic changes, proximal esophagus biopsy revealed was within normal limits, gastric body biopsy revealed no significant pathologic changes, negative for H. pylori. Colonoscopy completed 06/01/23 revealed 3 mm hyperplastic polyp removed from transverse colon, hemorrhoids?patient is due for repeat colonoscopy in 2027. During today's visit, patient reports she is doing well. She reports acid reflux is well-controlled with pantoprazole 20mg daily. Is having 1 formed BM daily. Denies black/bloody stools, nausea/vomiting, fevers/chills, and denies having any GI complaints. Review of Systems ROS - Provider Constitutional: no fever, no chills. Skin: no Jaundice. ENMT: Denies dysphagia and heartburn. Respiratory: no shortness of breath. Cardiovascular: no chest pain. Gastrointestinal: no nausea, no vomiting, no diarrhea, no GI bleeding. Physical Exam Vitals & Measurements T: 36.3 ?C(Temporal Artery) HR: 69(Peripheral) BP: 108/75 HT: 64 in HT: 162.5 cm WT: 106.1 kg WT: 233.42 lb BMI: 40.18 General: Well developed, well nourished, in no acute distress Head: Normocephalic/atraumatic Lungs: Normal respiratory effort and clear to auscultation Cardio: Regular rate and rhythm, normal S1 and S2, no murmur, no rub Abdomen: Soft, non-distended, non-tender. Normoactive bowel sounds present in all 4 abdominal quadrants, bilaterally. Mental Status: Alert and oriented x3. Normal mood and affect Assessment/Plan 1. GERD (gastroesophageal reflux disease) (K21.9: Gastro-esophageal reflux disease without esophagitis) Controlled with pantoprazole 20mg daily. EGD completed 06/01/2023 revealed 2 tight esophageal rings/Schatzki's ring, No dilation related to absence of dysphagia, normal gastric mucosa, normal duodenum, distal esophagus biopsy revealed no significant pathologic changes, proximal esophagus biopsy revealed was within normal limits, gastric body biopsy revealed no significant pathologic changes, negative for H. pylori. Continue pantoprazole 20mg daily. 2. Schatzki's ring (K22.2: Esophageal obstruction) EGD completed 06/01/2023 revealed 2 tight esophageal rings/Schatzki's ring, No dilation related to absence of dysphagia, normal gastric mucosa, normal duodenum, distal esophagus biopsy revealed no significant pathologic changes, proximal esophagus biopsy revealed was within normal limits, gastric body biopsy revealed no significant pathologic changes, negative for H. pylori. Continue pantoprazole 20mg daily. 3. Colon polyp (K63.5: Polyp of colon) Colonoscopy completed 06/01/23 revealed 3 mm hyperplastic polyp removed from transverse colon, hemorrhoids?patient is due for repeat colonoscopy in 2027. Educated regarding fiber supplementation daily?Metamucil OTC 1 capsule oral daily?every 2 hours from other medications. 4. Hemorrhoids (K64.9: Unspecified hemorrhoids) Colonoscopy completed 06/01/23 revealed 3 mm hyperplastic polyp removed from transverse colon, hemorrhoids?patient is due for repeat colonoscopy in 2027. Educated regarding fiber supplementation daily?Metamucil OTC 1 capsule oral daily?every 2 hours from other medications. 5. Family history of colonic polyps (Z83.71: Family history of colonic polyps) FH colon polyps- patient's father. Colonoscopy completed 06/01/23 revealed 3 mm hyperplastic polyp removed from transverse colon, hemorrhoids?patient is due for repeat colonoscopy in 2027. Educated regarding fiber supplementation daily?Metamucil OTC 1 capsule oral daily?every 2 hours from other medications. Orders: polyethylene glycol 3350 with electrolytes, See Instructions, 1 EA, Refill(s) 0, Prior to colonoscopy., Meme #72, 162.5, cm, 05/11/23 13:09:00 EDT, Height/Length Dosing, 107.4, kg, 05/11/23 13:09:00 EDT, Weight Dosing Follow-up With When Contact Information Mayra Orellana CNP Within 1 year Additional Instructions: Patient Education Food Choices for Gastroesophageal Reflu (more content not included)... Normal [facility] Comment on above: Result Comment: Elec tronically Signed By: Mayra Orellana CNP\.br\Date and Time Signed: 06/15/23 16:11 EDT PAP [id number] 06-15-2023 Cytology report Cyto stain Doc (Cvx/Vag) Note Invalid Interpretation Code [facility] Comment on above: Result Comment: TEST S RESULT FLAG UNITS REF RANGE LAB Clinician Provided Cytology Information Source.............Cervix No. of containers..01 ThinPrep Vial DIAGNOSIS: 01 NEGATIVE FOR INTRAEPITHELIAL LESION OR MALIGNANCY. Specimen adequacy: 01 Satisfactory for evaluation. Endocervical and/or squamous metaplastic cells (endocervical component) are present. Performed by: 01 Ivan Dahl, Brick Cleaner (ASCP) . 01 Note: Note 01 The Pap smear is a screening test designed to aid in the detection of premalignant and malignant conditions of the uterine cervix. It is not a diagnostic procedure and should not be used as the sole means of detecting cervical cancer. Both false-positive and false-negative reports do occur. Test Methodology: Note 01 This liquid based ThinPrep(R) pap test was screened with the use of an image guided system. HPV Genotype Reflex Note 01 Criteria not met, HPV Genotype not performed. FLAG LEGEND: L-Low Normal,H-High Normal,LL-Alert Low,HH-Alert High <-Panic Low,>-Panic High,A-Abnormal,AA-Critical Abnormal Performed at: 01 [facility] [place] [address] Radha Hargrove MD, Performed By: #### 1 [id number] ####[address] [place] [address] HPV 16+18+31+33+35+39+ 45+51+52+56+58+59+ 66+68 DNA Probe+sig amp Ql (Cvx) Negative Invalid Interpretation Code Negative [facility] Comment on above: Result Comment: This nucleic acid amplification test detects fourteen high-risk HPV types (16,18,31,33,35,39,45,51,52,56,58,59,66,68) without differentiation. Performed at: [facility] [address] [place], [place] [id number] MD Delvin Garcia Performed at: =[facility] [address] [place], [place] [id number] MD Delvin Garcia Performed By: #### 1 [id number] ####[facility] [address] [place] [address] Patient Educationon 06-15-20 Patient Education Gastroenterology Food Choices for Gastroesophageal Reflux Disease, Adult When you have gastroesophageal reflux disease (GERD), the foods you eat and your eating habits are very important. Choosing the right foods can help ease the discomfort of GERD. Consider working with a dietitian to help you make healthy food choices. What are tips for following this plan? Reading food labels ? Look for foods that are low in saturated fat. Foods that have less than 5% of daily value (DV) of fat and 0 g of trans fats may help with your symptoms. Cooking ? Cook foods using methods other than frying. This may include baking, steaming, grilling, or broiling. These are all methods that do not need a lot of fat for cooking. ? To add flavor, try to use herbs that are low in spice and acidity. Meal planning ? Choose healthy foods that are low in fat, such as fruits, vegetables, whole grains, low-fat dairy products, lean meats, fish, and poultry. ? Eat frequent, small meals instead of three large meals each day. Eat your meals slowly, in a relaxed setting. Avoid bending over or lying down until 2?3 hours after eating. ? Limit high-fat foods such as fatty meats or fried foods. ? Limit your intake of fatty foods, such as oils, butter, and shortening. ? Avoid the following as told by your health care provider: ? Foods that cause symptoms. These may be different for different people. Keep a food diary to keep track of foods that cause symptoms. ? Alcohol. ? Drinking large amounts of liquid with meals. ? Eating meals during the 2?3 hours before bed. Lifestyle ? Maintain a healthy weight. Ask your health care provider what weight is healthy for you. If you need to lose weight, work with your health care provider to do so safely. ? Exercise for at least 30 minutes on 5 or more days each week, or as told by your health care provider. ? Avoid wearing clothes that fit tightly around your waist and chest. ? Do not use any products that contain nicotine or tobacco. These products include cigarettes, chewing tobacco, and vaping devices, such as e-cigarettes. If you need help quitting, ask your health care provider. ? Sleep with the head of your bed raised. Use a wedge under the mattress or blocks under the bed frame to raise the head of the bed. ? Chew sugar-free gum after mealtimes. What foods should I eat? Eat a healthy, well-balanced diet of fruits, vegetables, whole grains, low-fat dairy products, lean meats, fish, and poultry. Each person is different. Foods that may trigger symptoms in one person may not trigger any symptoms in another person. Work with your health care provider to identify foods that are safe for you. The items listed above may not be a complete list of recommended foods and beverages. Contact a dietitian for more information. What foods should I avoid? Limiting some of these foods may help manage the symptoms of GERD. Everyone is different. Consult a dietitian or your health care provider to help you identify the exact foods to avoid, if any. Fruits Any fruits prepared with added fat. Any fruits that cause symptoms. For some people this may include citrus fruits, such as oranges, grapefruit, pineapple, and emmett. Vegetables Deep-fried vegetables. Tongan fries. Any vegetables prepared with added fat. Any vegetables that cause symptoms. For some people, this may include tomatoes and tomato products, chili peppers, onions and garlic, and horseradish. Grains Pastries or quick breads with added fat. Meats and other proteins High-fat meats, such as fatty beef or pork, hot dogs, ribs, ham, sausage, salami, and saxena. Fried meat or protein, including fried fish and fried chicken. Nuts and nut butters, in large amounts. Dairy Whole milk and chocolate milk. Sour cream. Cream. Ice cream. Cream cheese. Milkshakes. Fats and oils Butter. Margarine. Shortening. Ghee. Beverages Coffee and tea, with or without caffeine. Carbonated beverages. Sodas. Energy drinks. Fruit juice made with acidic fruits, such as orange or grapefruit. Tomato juice. Alcoholic drinks. Sweets and desserts Chocolate and cocoa. Donuts. Seasonings and condiments Pepper. Peppermint and spearmint. Added salt. Any condiments, herbs, or seasonings that cause symptoms. For some people, this may include warner, hot sauce, or vinegar-based salad dressings. The items listed above may not be a complete list of foods and beverages to avoid. Contact a dietitian for more information. Questions to ask your health care provider Diet and lifestyle changes are usually the first steps that are taken to manage symptoms of GERD. If diet and lifestyle changes do not improve your symptoms, talk with your health care provider about taking medicines. Where to find more information ? International Foundation for Gastrointestinal Disorders: aboutgerd.org Summary ? When you have gastroesophageal reflux di (more content not included)... Normal [facility] Reminderson 06-15-2023 Reminders - From: Mayra Orellana CNP To: Stacey Duran; Sent: 06/15/2023 16:07:18 EDT Show up: 06/15/2023 16:08:00 EDT Subject: Ambulatory Reminder Reminder/Recall Colonoscopy in 2027. Normal [facility] Family Medicine Office/Clini c Noteon 06-09-2023 Family Medicine Office/Clinic Note Chief Complaint pt here pap. HPI Staff Last routine labs: 01/18/23 smoker status: former Pap (21-64yo): doing today Mammogram (qyr 45-54, q2yrs 55-75): utd colonoscopy/cologuard (45-75yo): utd flu vaccine status: due History of Present Illness Daphne is a 58 yo female here today for annual gynecological exam. Pt's PCP is Dr. Huerta. Pt reports just wanting to get up to date with her screening and has no concerns at this time. 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 Neck: supple, no masses palpable. Trachea midline. Thyroid without nodules/masses. Lungs: normal respiratory effort. Lungs clear and equal to auscultation throughout all philip anterior and posterior. Cardiovascular: S1 and S2 present, with regular rate and rhythm. No murmur. Abdomen: soft, non-distended, non-tender. No organomegaly. No guarding or rigidity. Bowel sounds active throughout. CONSTITUTIONAL LAW PROFESSOR Exam: warehouse insulation worker, Macey Copeland MA was present in room during examination. External: Normal female genitalia without lesions or masses. Normal hair distribution. Vagina: Normal without lesions or masses. Physiologic discharge. Rugated vaginal salinas. Cervix: Normal without lesions. Midposition. No CMT. Adnexa: Normal bimanual exam without masses or fullness. Uterus: Normal by palpation. Pap Smear: Performed. Comments: Patient tolerated procedure well. Rectal: Normal external exam. Breast: No mass, nodule, discharge or erythema bilaterally, and no axillary lymphadenopathy. Musculoskeletal: Gait steady without assistance. Neurologic: Cranial nerves II-XII grossly intact. Skin: [place], warm and dry. No rashes, ulcerations, or suspicious lesions noted on visible/exposed skin. Mental status: alert and oriented x 3. Normal mood and affect, normal behavior for age. Assessment/Plan 1. Visit for routine director of solutions architecture exam (Z01.419: Encounter for gynecological examination (general) (routine) without abnormal findings) GRINDING MACHINE TENDER assisted and chaperoned exam today. No concerns on pelvic exam, pap cytology cultures obtained via spatula and brush tools. Will call pt with pap cytology results. Pt verbalized understanding. F/U in 5 years if 30-65 years old. 2. Cervical cancer screening (Z12.4: Encounter for screening for malignant neoplasm of cervix) Will pt with results Ordered: PAP w/ HPV and Genotype rflx 3. BMI 40.0-44.9, adult (Z68.41: Body mass index [BMI] 40.0-44.9, adult) The standard range for ages 18 and older is >=18.5 and < 25 kg/m2. Your BMI today was above this range, this falls in the overweight to obese category and there are medical benefits to weight loss. We can offer counselling, referral, and/or medical support in addressing this problem. Your BMI and weight management will be followed at subsequent visits. 4. Morbid obesity (E66.01: Morbid (severe) obesity due to excess calories) Reviewed importance of making a lifestyle change regarding dietary choices. Discussed goals. Encouraged routine cardio exercise with Goal: 3-5x/week for 30-45 minutes. Start out slow and increase to achieve your goals. Avoid late night snacking, do not skip breakfast and monitor cooking habits/avoid fast food and fried/fatty foods. Will monitor for progress. Follow-up With When Contact Information Judith MERINO, Guillermina Fu In 5 years [address], [address] [place] [id number]- Additional Instructions: routine pap Patient Education Breast Self-Awareness Pelvic Exam Health Maintenance, Female Problem List/Past Medical History Ongoing BMI 40.0-44.9, adult Cellulitis of left leg Cervical cancer screening Chronic kidney disease, stage 3a Edema of leg Encounter for weight loss counseling Family history of Crohn's disease GERD (gastroesophageal reflux disease) History of DVT in adulthood Hyperlipemia, mixed Hypothyroid Low back pain Lumbar radiculopathy, right Morbid obesity Screen for colon cancer Screening mammogram, encounter for Superficial phlebitis of left leg Venous stasis dermatitis of lower extremity Visit for routine director of solutions architecture exam Historical No qualifying data Medications aspirin 81 mg Oral EC Tab, 81 mg= 1 tab(s), Oral, Daily atorvastatin 10 mg Tab, 10 mg= 1 tab(s), Oral, Daily, 3 refills B 100 Complex oral tablet, 1 tab(s), Oral, Daily, 3 refills Lasix 40 mg Tab, 40 mg= 1 tab(s), Oral, Daily, PRN, 5 refills lev (more content not included)... Normal [facility] Comment on above: Result Comment: Elec tronically Signed By: Judith MERINO, Guillermina Fu\.br\Date and Time Signed: 06/09/23 13:22 EDT PAP [id number] 06-09-2023 Gynecological Body Site CERVIX Normal [facility] Comment on above: Performed By: #### 1 [id number] ####[facility] [address] [place] [address] Operative Reporton 3 Operative Report [id number]#2.00CD :127 Normal [facility] Outside Colonoscopyon 2022 Outside Colonoscopy [id number]#[id number] :127 Normal [facility] Patient Educationon 06-02-20 23 Patient Education Obstetrics and Gynecology Breast Self-Awareness Breast self-awareness means being familiar with how your breasts look and feel. It involves checking your breasts regularly and telling your health care provider about any changes. Practicing breast self-awareness helps to maintain breast health. Sometimes, changes are not harmful (are benign). Other times, a change in your breasts can be a sign of a serious medical problem. Being familiar with the look and feel of your breasts can help you catch a breast problem while it is still small and can be treated. You should do breast self-exams even if you have breast implants. What you need: ? A mirror. ? A well-lit room. ? A pillow or other soft object. How to do a breast self-exam A breast self-exam is one way to learn what is normal for your breasts and whether your breasts are changing. To do a breast self-exam: Look for changes 1. Remove all the clothing above your waist. 2. ceramic design engineer front of a mirror in a room with good lighting. 3. Put your hands down at your sides. 4. Compare your breasts in the mirror. Look for differences between them (asymmetry), such as: ? Differences in shape. ? Differences in size. ? Puckers, dips, and bumps in one breast and not the other. 5. Look at each breast for changes in the skin, such as: ? Redness. ? Scaly areas. ? Skin thickening. ? Dimpling. ? Open sores (ulcers). 6. Look for changes in your nipples, such as: ? Discharge. ? Bleeding. ? Dimpling. ? Redness. ? A nipple that looks pushed in (retracted), or that has changed position. Feel for changes Carefully feel your breasts for lumps and changes. It is best to do this self-exam while lying down. Follow these steps to feel each breast: 1. Place a pillow under the shoulder of one side of your body. 2. Place the arm of that side of your body behind your head. 3. Feel the breast of that side of your body using the hand of the opposite arm. To do this: ? Start in the nipple area and use the pads of your three middle fingers to make ?-inch (2 cm) overlapping circles. ? Use light, medium, and then firm pressure as you feel your breast, gently covering the entire breast area and armpit. 4. Continue the overlapping circles, moving downward over the breast until you feel your ribs below your breast. 5. Then, make circles with your fingers going upward until you reach your collarbone. 6. Next, make circles by moving outward across your breast and into your armpit area. 7. Squeeze the nipple. Check for discharge and lumps. 8. Repeat steps 1?7 to check your other breast. 9. Sit or stand up forklift operator the tub or shower. 10. With soapy water on your skin, feel each breast the same way you did when you were lying down. Write down what you find Writing down what you find can help you remember what to discuss with your health care provider. Write down: ? What is normal for each breast. ? Any changes that you find in each breast. These include: ? The kind of changes you find. ? Any pain or tenderness. ? Size and location of any lumps. ? Where you are in your menstrual cycle, if you are still getting your menstrual period (menstruating). General tips ? If you are , the best time to examine your breasts is after a feeding or after using a breast pump. ? If you menstruate, the best time to examine your breasts is 5?7 days after your menstrual period. Breasts are generally lumpier during menstrual periods, and it may be more difficult to notice changes. ? With time and practice, you will become more familiar with the differences in your breasts and more comfortable with the exam. Contact a health care provider if: ? You see a change in the shape or size of your breasts or nipples. ? You see a change in the skin of your breast or nipples, such as a reddened or scaly area. ? You have unusual discharge from your nipples. ? You find a new lump or thick area. ? You have breast pain. ? You have any concerns about your breast health. Summary ? Breast self-awareness includes looking for physical changes in your breasts and feeling for any changes within your breasts. ? Breast self-awareness should be done in front of a mirror in a well-lit room. ? If you menstruate, the best time to examine your breasts is 5?7 days after your menstrual period. ? Tell your health care provider about any changes you notice in your breasts. Changes include changes in size, changes on the skin, pain or tenderness, or unusual fluid from your nipples. This information is not intended to replace advice given to you by your health care provider. Make sure you discuss any questions you have with your health care provider. Document Revised: 08/25/2022 Document Reviewed: 08/06/2022 [employer] Patient Education ? 2022 [employer] Pelvic Exam A pelvic exam is an exam of a woman's outer and inner genitals and reproductive organs. Pelvic exams are done to sc (more content not included)... Normal [facility] Physician Orderon 06-01-2023 Physician Order [id number]#1.00CD: 127 Normal [facility] Retail - Clinical Noteon Retail - Clinical Note [id number]#1.00CD: 127 Normal [facility] Consent for Treatmenton Consent for Treatment [id number]: 127 Normal [facility] OT - Orderson 05-25-2023 OT - Orders [id number]#1.00CD :127 Normal [facility] MA Mamm Screen w/CAD if perf and 3D Bilon 05-14-2023 MA Mamm Screen w/CAD if perf and 3D Chandana Exam Date/Time: 05/13/2023 09:13 EDT Reason for Exam: Z12.31;Screening Report IMPRESSION: BIRADS 1 NEGATIVE, NORMAL INTERVAL FOLLOW-UP.12 MONTH RECALL. CLINICAL HISTORY: Screening, Z12.31. COMPARISON: 09/15/2017 and 09/29/2017. COMMENT: Routine views and tomosynthesis views of both breasts were obtained. The breasts are almost entirely fatty. No dominant breast mass nor neoplastic calcifications are noted. There has been no significant change from the previous exam. The examination was reviewed with Computer Aided Detection. Breast Density: No Mammography is very important to your health. The current [employer] and National Comprehensive Cancer Network guidelines recommends annual mammography beginning at age 40. This facility utilizes a reminder system to ensure all patients receive reminder notifications at the appropriate time based on the recommendations of this exam. Board Certified Radiologists. Accredited by the ACR and FDA. Ordering Provider: Alyce HUERTA FINAL REPORT Dictated: 05/14/2023 3:57 pm Rahat Urena M.D. Signed (Electronic Signature): 05/14/2023 3:57 pm Signed by: Rahat Urena M.D. Transcribed by: ERLINDA Technologist: [facility] Assessment: BI-RADS Category 1-Negative Recommendation: Normal interval follow-up Normal [facility] US Renalon 05-14-2023 US Renal Exam Date/Time: 05/13/2023 07:48 EDT Reason for Exam: N18.31;Other (please specify) Report IMPRESSION: NEGATIVE ULTRASOUND OF THE KIDNEYS. CLINICAL HISTORY: N18.31. COMPARISON: NONE. COMMENT: The right kidney measures approximately 11.6 cm in length, with renal cortical thickness of approximately 1.3 cm. The left kidney measures approximately 11.6 cm in length, with renal cortical thickness of approximately 1.6 cm. 5.2 cm benign simple renal cyst in the upper pole the right kidney. No solid renal mass. No renal calculi. The echogenicity of the renal cortex is less than the adjacent liver. There is no hydronephrosis. No additional abnormal findings Ordering Provider: Alyce HUERTA FINAL REPORT Dictated: 05/14/2023 9:36 am Edwin Doherty MD Signed (Electronic Signature): 05/14/2023 9:36 am Signed by: Edwin Doherty MD Transcribed by: ERLINDA Technologist: MELECIO Normal [facility] Consent for Treatmenton 04-18 Consent for Treatment [id number]: 127 Normal [facility] Consent for Procedure/Surger yon 05-12-2023 Consent for Procedure/Surgery [id number]: 127 Normal [facility] Ambulatory Visit Summaryon 0 05-11-2023 Ambulatory Visit Summary DAPHNE EDWARDS :1965 Visit Date:05/11/2023 Ambulatory Visit Instructions Your Diagnosis Screen for colon cancer GERD (gastroesophageal reflux disease) Family history of Crohn's disease Your Care Team Attending Physician - Mayra Orellana CNP Primary Care Physician - BRADLEY NATARAJAN, Alyce Romo This Is Your Medications List aspirin (aspirin 81 mg Oral EC Tab) atorvastatin (atorvastatin 10 mg Tab) furosemide (Lasix 40 mg Tab) levothyroxine (levothyroxine 75 mcg (0.075 mg) Tab) multivitamin (B 100 Complex oral tablet) multivitamin with minerals (One-A-Day Women) pantoprazole (Pantoprazole [address] Tab) polyethylene glycol 3350 with electrolytes (Plenvu oral powder for reconstitution) semaglutide (Ozempic 2 mg/3 mL (0.25 mg or 0.5 mg dose) subcutaneous solution) valacyclovir (Valtrex 500 mg Tab) Discharge Vitals Temperature (Temporal Artery) 36.3 ?C Heart Rate (Peripheral) 70 Blood Pressure 108/73 Height 162.5 cm Height 64 in Weight 107.4 kg Weight 236.28 lb BMI 40.67 What to do next Scheduled Follow-Up Appointments 2022 7:15 AM EDT With: Where: [facility] 2022 7:30 AM EDT With: Where: [facility] Wednesday 1:30 PM EDT With: Where: [facility] Wednesday 1:00 PM EDT With: Guillermina Mock Where: [facility] [address] [place] [address]- \.br\ You Need to Schedule the Following Appointments\.br\ Follow Up with Mayra Orellana CNP When: Within 1 to 2 weeks\.br\ Comments:\.br\ Following EGD/Colonoscopy.\ .br\ Where:\.br\ Medications\.br\ What How Much When Why Instructions\.br\ New polyethylene glycol 3350 with electrolytes (Plenvu oral powder for reconstitution) See instructions Prior to colonoscopy. Pickup at [facility]\.br\ Unchanged aspirin (aspirin 81 mg Oral EC Tab) 1 Tablets By Mouth Every day\.br\ Unchanged atorvastatin (atorvastatin 10 mg Tab) 1 Tablets By Mouth Every day Hyperlipemia, mixed\.br\ Unchanged furosemide (Lasix 40 mg Tab) 1 Tablets By Mouth Every day as needed for leg swelling Edema of leg\.br\ Unchanged levothyroxine (levothyroxine 75 mcg (0.075 mg) Tab) 1 Tablets By Mouth Every day\.br\ Unchanged multivitamin (B 100 Complex oral tablet) 1 Tablets By Mouth Every day\.br\ Unchanged multivitamin with minerals (One-A-Day Women) 1 Tablets By Mouth Every day\.br\ Unchanged pantoprazole (Pantoprazole [address] Tab) 1 Tablets By Mouth Every day GERD (gastroesophageal reflux disease)\.br\ Unchanged semaglutide (Ozempic 2 mg/ 3 mL (0.25 mg or 0.5 mg dose) subcutaneous solution) 0.25 Milligram Subcutaneous Every week\.br\ Unchanged valacyclovir (Valtrex 500 mg Tab) 1 Tablets By Mouth Every day per dermatology \.br\ Pharmacy Information\.br\ [facility]: [address] [place] [id number] [phone]\.br\ Allergies\.br\ No Known Medication Allergies\.br\ Problems\.br\ Ongoing - Any problem that you are currently receiving treatment for.\.br\ Cellulitis of left leg\.br\ Chronic kidney disease, stage 3a\.br\ Edema of leg\.br\ Encounter for weight loss counseling\.br\ Family history of Crohn's disease\.br\ GERD (gastroesophageal reflux disease)\.br\ History of DVT in adulthood\.br\ Hyperlipemia, mixed\.br\ Hypothyroid\.br\ Low back pain\.br\ Lumbar radiculopathy, right\.br\ Screen for colon cancer\.br\ Screening mammogram, encounter for\.br\ Superficial phlebitis of left leg\.br\ Venous stasis dermatitis of lower extremity\.br\ Education Materials\.br\ Food Choices for Gastroesophageal Reflux Disease, Adult\.br\ When you have gastroesophageal reflux disease (GERD), the foods you eat and your eating habits are very important. Choosing the right foods can help ease the discomfort of GERD. Consider working with a dietitian to help you make healthy food choices.\.br\ What are tips for following this plan?\.br\ Reading food labels\.br\ ? \.br\ Look for foods that are low in saturated fat. Foods that have less than 5% of daily value (DV) of fat and 0 g of trans fats may help with your symptoms.\.br\ Cooking\.br\ ? \.br\ Cook foods using methods other than frying. This may include baking, steaming, grilling, or broiling. These are all methods that do not need a lot of fat for cooking.\.br\ ? \.br\ To add flavor, try to use herbs that are low in spice and acidity.\.br\ Meal planning\.br\ \.br\ ? \.br\ Choose healthy foods that are low in fat, such as fruits, vegetables, whole grains, low-fat dairy products, lean meats, fish, and poultry.\.br\ ? \.br\ Eat frequent, small meals instead of three large meals each day. Eat your meals slowly, in a relaxed setting. Avoid bending over or lying down until 2?3 hours after eating.\.br\ ? \.br\ Limit high-fat foods such as fatty meats or fried foods.\.br\ ? \.br\ Limit your intake of fatty foods, such as oils, butter, and shortening.\.br\ ? \.br\ Avoid the following as told by your health care provider:\.br\ ? \.br\ Foods that cause symptoms. These may be different for different people. Keep a food diary to keep track of foods that cause symptoms.\.br\ ? \.br\ Alcohol.\.br\ ? \.br\ Drinking large amounts of liquid with meals.\.br\ ? \.br\ Eating meals during the 2?3 hours before bed.\.br\ Lifestyle\.br\ ? \.br\ Maintain a healthy weight. Ask your health care provider what weight is healthy for you. If you need to lose weight, work with your health care provider to do so safely.\.br\ ? \.br\ Exercise for at least 30 minutes on 5 or more days each week, or as told by your health care provider.\.br\ ? \.br\ Avoid wearing clothes that fit tightly around your waist and chest.\.br\ ? \.br\ Do not use any products that contain nicotine or tobacco. These products include cigarettes, chewing tobacco, and vaping devices, such as e-cigarettes. If you need help quitting, ask your health care provider.\.br\ ? \.br\ Sleep with the head of your bed raised. Use a wedge under the mattress or blocks under the bed frame to raise the head of the bed.\.br\ ? \.br\ Chew sugar-free gum after mealtimes.\.br\ What foods should I eat?\.br\ \.br\ Eat a healthy, well-balanced diet of fruits, vegetables, whole grains, low-fat dairy products, lean meats, fish, and poultry. Each person is different. Foods that may trigger symptoms in one person may not trigger any symptoms in another person. Work with your health care provider to identify foods that are safe for you.\.br\ The items listed above may not be a complete list of recommended foods and beverages. Contact a dietitian for more information.\.br\ What foods should I avoid?\.br\ Limiting some of these foods may help manage the symptoms of GERD. Everyone is different. Consult a dietitian or your health care provider to help you identify the exact foods to avoid, if any.\.br\ Fruits\.br\ Any fruits prepared with added fat. Any fruits that cause symptoms. For some people this may include citrus fruits, such as oranges, grapefruit, pineapple, and emmett.\.br\ Vegetables\.br\ Deep-fried vegetables. Tongan fries. Any vegetables prepared with added fat. Any vegetables that cause symptoms. For some people, this may include tomatoes and tomato products, chili peppers, onions and garlic, and horseradish.\.br\ Grains\.br\ Pastries or quick breads with added fat.\.br\ Meats and other proteins\.br\ High-fat meats, such as fatty beef or pork, hot dogs, ribs, ham, sausage, salami, and saxena. Fried meat or protein, including fried fish and fried chicken. Nuts and nut butters, in large amounts.\.br\ Dairy\.br\ Whole milk and chocolate milk. Sour cream. Cream. Ice cream. Cream cheese. Milkshakes.\.br\ Fats and oils\.br\ Butter. Margarine. Shortening. Ghee.\.br\ Beverages\.br\ Coffee and tea, with or without caffeine. Carbonated beverages. Sodas. Energy drinks. Fruit juice made with acidic fruits, such as orange or grapefruit. Tomato juice. Alcoholic drinks.\.br\ Sweets and desserts\.br\ Chocolate and cocoa. Donuts.\.br\ Seasonings and condiments\.br\ Pepper. Peppermint and spearmint. Added salt. Any condiments, herbs, or seasonings that cause symptoms. For some people, this may include warner, hot sauce, or vinegar-based salad dressings.\.br\ The items listed above may not be a complete list of foods and beverages to avoid. Contact a dietitian for more information.\.br\ Questions to ask your health care provider\.br\ Diet and lifestyle changes are usually the first steps that are taken to manage symptoms of GERD. If diet and lifestyle changes do not improve your symptoms, talk with your health care provider about taking medicines.\.br\ Where to find more information\.br\ ? \.br\ [employer]: aboutgerd.org\.br \ Summary\.br\ ? \.br\ When you have gastroesophageal reflux diseas [facility] Gastroenterology Office/Clin ic Noteon 05-11-2023 Gastroenterology Office/Clinic Note Chief Complaint Schedule colonoscopy. HPI Staff Patient is a 58 year old female who was referred by Dr Huerta for GERD. Patient was referred 01/20/23 for GERD and per PCP visit on 04/27/23 GERD resolved in 2 days with Pantoprazole. Patient has never had colonoscopy and per office visit she is too reschedule colonoscopy. History of Present Illness Patient is a 58-year-old female who presents for referral from her PCP?Dr. Huerta for further evaluation of GERD. Review of record indicates patient has no noted record of EGD or colonoscopy. Review of records from patient's PCP from 04/27/2023 indicated patient's acid reflux had resolved with pantoprazole 20mg daily. FH crohn's disease- patient's father, patient's great niece. Family history of colon cancer: Denies. Family history of colon polyps: Denies. Personal history of colon cancer: Denies. Personal history of colon polyps: Denies. Takes aspirin daily. During today's visit, patient reports she has never had a colonoscopy before. Patient reports since being placed on pantoprazole 20mg, she is having no further acid reflux. Is currently taking pantoprazole every other day that is working well for her. Is having 1 formed BM daily. Denies black/bloody stools, abdominal pain, nausea/vomiting, fevers/chills, and denies having any other GI complaints. Review of Systems ROS - Provider Constitutional: no fever, no chills. Skin: no Jaundice. ENMT: Denies dysphagia and heartburn. Respiratory: no shortness of breath. Cardiovascular: no chest pain. Gastrointestinal: no nausea, no vomiting, no diarrhea, no GI bleeding. Physical Exam Vitals & Measurements T: 36.3 ?C(Temporal Artery) HR: 70(Peripheral) BP: 108/73 HT: 64 in HT: 162.5 cm WT: 107.4 kg WT: 236.28 lb BMI: 40.67 General: Well developed, well nourished, in no acute distress Head: Normocephalic/atraumatic Lungs: Normal respiratory effort and clear to auscultation Cardio: Regular rate and rhythm, normal S1 and S2, no murmur, no rub Abdomen: Soft, non-distended, non-tender. Normoactive bowel sounds present in all 4 abdominal quadrants, bilaterally. Mental Status: Alert and oriented x3. Normal mood and affect Assessment/Plan 1. Screen for colon cancer (Z12.11: Encounter for screening for malignant neoplasm of colon) Has never had colonoscopy before. Ordered Colonoscopy. Takes aspirin daily. Ordered: Colonoscopy (Hospital Procedure) 2. GERD (gastroesophageal reflux disease) (K21.9: Gastro-esophageal reflux disease without esophagitis) Controlled with pantoprazole 20mg every other day. Discussed EGD- patient is agreeable. Patient with FH crohn's disease. Continue pantoprazole 20mg every other day. Ordered: EGD Endoscopy (Hospital Procedure) 3. Family history of Crohn's disease (Z83.79: Family history of other diseases of the digestive system) FH crohn's disease- patient's father, patient's great niece. See # 1 and # 2. Ordered: Colonoscopy (Hospital Procedure) EGD Endoscopy (Hospital Procedure) Orders: polyethylene glycol 3350 with electrolytes, See Instructions, 1 EA, Refill(s) 0, Prior to colonoscopy., [facility], 162.5, cm, 05/11/23 13:09:00 EDT, Height/Length Dosing, 107.4, kg, 05/11/23 13:09:00 EDT, Weight Dosing Follow-up With When Contact Information Mayra Orellana CNP Within 1 to 2 weeks Additional Instructions: Following EGD/Colonoscopy. Patient Education Food Choices for Gastroesophageal Reflux Disease, Adult Problem List/Past Medical History Ongoing Cellulitis of left leg Chronic kidney disease, stage 3a Edema of leg Encounter for weight loss counseling Family history of Crohn's disease GERD (gastroesophageal reflux disease) History of DVT in adulthood Hyperlipemia, mixed Hypothyroid Low back pain Lumbar radiculopathy, right Screen for colon cancer Screening mammogram, encounter for Superficial phlebitis of left leg Venous stasis dermatitis of lower extremity Historical No qualifying data Medications aspirin 81 mg Oral EC Tab, 81 mg= 1 tab(s), Oral, Daily atorvastatin 10 mg Tab, 10 mg= 1 tab(s), Oral, Daily, 3 refills B 100 Complex oral tablet, 1 tab(s), Oral, Daily, 3 refills Lasix 40 mg Tab, 40 mg= 1 tab(s), Oral, Daily, PRN, 5 refills levothyroxine 75 mcg (0.075 mg) Tab, 75 mcg= 1 tab(s), Oral, Daily, 3 refills One-A-Day Women, 1 tab(s), Oral, Daily Ozempic 2 mg/3 mL (0.25 mg or 0.5 mg dose) subcutaneous solution, 0.25 mg, SubCutaneous, qWeek Pantoprazole [address] Tab, 20 mg= 1 tab(s), Oral, Daily, 6 refills Plenvu oral powder for reconstitution, See Instructions Valtrex 500 mg Tab, 500 mg= 1 tab(s), Oral, Daily Allergies No Known Medication Allergies Social History Alcohol Employment/School Work/School description: Works at [employer] 05/15/2022 Home/Environment Substance Abuse Tobacco Former smoker, quit more than 30 days ago Tobacco Use:. Never Smokeless Tobacco Use:. Cigarettes (more content not included)... Normal [facility] Comment on above: Result Comment: Elec tronically Signed By: Mayra Orellana CNP\.br\Date and Time Signed: 05/11/23 13:27 EDT Patient Educationon 05-11-20 Patient Education Gastroenterology Food Choices for Gastroesophageal Reflux Disease, Adult When you have gastroesophageal reflux disease (GERD), the foods you eat and your eating habits are very important. Choosing the right foods can help ease the discomfort of GERD. Consider working with a dietitian to help you make healthy food choices. What are tips for following this plan? Reading food labels ? Look for foods that are low in saturated fat. Foods that have less than 5% of daily value (DV) of fat and 0 g of trans fats may help with your symptoms. Cooking ? Cook foods using methods other than frying. This may include baking, steaming, grilling, or broiling. These are all methods that do not need a lot of fat for cooking. ? To add flavor, try to use herbs that are low in spice and acidity. Meal planning ? Choose healthy foods that are low in fat, such as fruits, vegetables, whole grains, low-fat dairy products, lean meats, fish, and poultry. ? Eat frequent, small meals instead of three large meals each day. Eat your meals slowly, in a relaxed setting. Avoid bending over or lying down until 2?3 hours after eating. ? Limit high-fat foods such as fatty meats or fried foods. ? Limit your intake of fatty foods, such as oils, butter, and shortening. ? Avoid the following as told by your health care provider: ? Foods that cause symptoms. These may be different for different people. Keep a food diary to keep track of foods that cause symptoms. ? Alcohol. ? Drinking large amounts of liquid with meals. ? Eating meals during the 2?3 hours before bed. Lifestyle ? Maintain a healthy weight. Ask your health care provider what weight is healthy for you. If you need to lose weight, work with your health care provider to do so safely. ? Exercise for at least 30 minutes on 5 or more days each week, or as told by your health care provider. ? Avoid wearing clothes that fit tightly around your waist and chest. ? Do not use any products that contain nicotine or tobacco. These products include cigarettes, chewing tobacco, and vaping devices, such as e-cigarettes. If you need help quitting, ask your health care provider. ? Sleep with the head of your bed raised. Use a wedge under the mattress or blocks under the bed frame to raise the head of the bed. ? Chew sugar-free gum after mealtimes. What foods should I eat? Eat a healthy, well-balanced diet of fruits, vegetables, whole grains, low-fat dairy products, lean meats, fish, and poultry. Each person is different. Foods that may trigger symptoms in one person may not trigger any symptoms in another person. Work with your health care provider to identify foods that are safe for you. The items listed above may not be a complete list of recommended foods and beverages. Contact a dietitian for more information. What foods should I avoid? Limiting some of these foods may help manage the symptoms of GERD. Everyone is different. Consult a dietitian or your health care provider to help you identify the exact foods to avoid, if any. Fruits Any fruits prepared with added fat. Any fruits that cause symptoms. For some people this may include citrus fruits, such as oranges, grapefruit, pineapple, and emmett. Vegetables Deep-fried vegetables. Tongan fries. Any vegetables prepared with added fat. Any vegetables that cause symptoms. For some people, this may include tomatoes and tomato products, chili peppers, onions and garlic, and horseradish. Grains Pastries or quick breads with added fat. Meats and other proteins High-fat meats, such as fatty beef or pork, hot dogs, ribs, ham, sausage, salami, and saxena. Fried meat or protein, including fried fish and fried chicken. Nuts and nut butters, in large amounts. Dairy Whole milk and chocolate milk. Sour cream. Cream. Ice cream. Cream cheese. Milkshakes. Fats and oils Butter. Margarine. Shortening. Ghee. Beverages Coffee and tea, with or without caffeine. Carbonated beverages. Sodas. Energy drinks. Fruit juice made with acidic fruits, such as orange or grapefruit. Tomato juice. Alcoholic drinks. Sweets and desserts Chocolate and cocoa. Donuts. Seasonings and condiments Pepper. Peppermint and spearmint. Added salt. Any condiments, herbs, or seasonings that cause symptoms. For some people, this may include warner, hot sauce, or vinegar-based salad dressings. The items listed above may not be a complete list of foods and beverages to avoid. Contact a dietitian for more information. Questions to ask your health care provider Diet and lifestyle changes are usually the first steps that are taken to manage symptoms of GERD. If diet and lifestyle changes do not improve your symptoms, talk with your health care provider about taking medicines. Where to find more information ? International Foundation [employer] Gastrointestinal Disorders: aboutgerd.org Summary ? When you have gastroesophageal reflux di (more content not included)... [facility] Retail - Clinical Noteon Retail - Clinical Note [id number]: 127 [facility] Pre-Certification Formon Pre-Certification Form [id number]: 127 Normal [facility] Medicine Office/Clini c Noteon 04-27-2023 Family Medicine Office/Clinic Note Chief Complaint Patient here for 3 month f/u on chol, thyroid, gerd--had labs done in January. Never had a colonoscopy. No recent pap or mammogram. History of Present Illness Here for med follow up She saw vascular and they referred her to lymphedema clinic. She is feeling ok She did not see GI. Her GERD resolved in 2 days with pantoprazole. She wants to lose weight. Review of Systems PHQ Score Initial Depression Screen Score: 0 Physical Exam Vitals & Measurements T: 36.6 ?C(Oral) HR: 73(Peripheral) BP: 118/74 SpO2: 98% HT: 64 in HT: 162.5 cm WT: 108.8 kg WT: 239.36 lb BMI: 41.2 General: Well developed, well nourished, in no acute distress Eyes: Pupils equal, round, and reactive to light. Conjunctivae and sclerae normal, and extraocular movements intact Ears: not assessed Nose: not addressed Mouth: MMM. Oropharynx and posterior pharynx without lesions or exudates. Tongue WNL Neck: Neck supple. No lymphadenopathy. Trachea midline. No thyroid, masses, tenderness, or enlargement noted. No bruit. Lungs: Normal respiratory effort and clear to auscultation Cardio: Regular rate and rhythm, normal S1 and S2, no murmur, no rub Abdomen: Soft, non-distended, non-tender Musculoskeletal: No joint swelling or synovitis noted Extremity: Trace edema Neurologic: CN 2-12 intact, no focal motor or sensory defects noted. Skin: No rashes, ulcerations, or suspicious lesions Mental Status: Alert and oriented x3. Normal mood and affect Assessment/Plan 1. Hyperlipemia, mixed (E78.2: Mixed hyperlipidemia) lap is a little high will change to atorvastatin 10 mg, stop lovastatin Ordered: atorvastatin, 10 mg = 1 tab(s), Oral, Daily, # 90 tab(s), Refills(s) 3, Pharmacy: [facility], 162.5, cm, 04/27/23 9:52:00 EDT, Height/Length Dosing, 108.8, kg, 04/27/23 9:52:00 EDT, Weight Dosing Comprehensive Metabolic Panel Lipid Panel 2. Hypothyroid (E03.9: Hypothyroidism, unspecified) stay on levothyroxine TSH was mildly low Ordered: Free T4 Thyroid Stimulating Hormone 3. GERD (gastroesophageal reflux disease) (K21.9: Gastro-esophageal reflux disease without esophagitis) controlled on pantoprazole Ordered: CBC w/ Auto Diff 4. Screen for colon cancer (Z12.11: Encounter for screening for malignant neoplasm of colon) She will call GI back to reschedule Also schedule female exam. 5. Adult BMI 40.0-44.9 kg/sq m (Z68.41: Body mass index [BMI] 40.0-44.9, adult) The standard range for ages 18 and older is >=18.5 and < 25 kg/m2. Your BMI today was above this range, this falls in the overweight to obese category and there are medical benefits to weight loss. We can offer counselling, referral, and/or medical support in addressing this problem. Your BMI and weight management will be followed at subsequent visits. Ordered: Body Mass Index (BMI) documented 3008F Current tobacco non-user 1036F 6. Class 3 severe obesity due to excess calories with body mass index (BMI) of 40.0 to 44.9 in adult (E66.01: Morbid (severe) obesity due to excess calories) 7. Chronic kidney disease, stage 3a (N18.31: Chronic kidney disease, stage 3a) will check renal US and u/a Ordered: Urinalysis US Renal 8. Encounter for weight loss counseling (Z71.3: Dietary counseling and surveillance) She would like Rx to help will try Ozempic Orders: semaglutide, 0.25 mg, SubCutaneous, qWeek, # 4 EA, Refills(s) 0, Pharmacy: [facility], 162.5, cm, 04/27/23 9:52:00 EDT, Height/Length Dosing, 108.8, kg, 04/27/23 9:52:00 EDT, Weight Dosing Follow-up With When Contact Information BRADLEY NATARAJAN, JACOB Sousa In 3 months [facility] [address], [place] [address]- Additional Instructions: Patient Education BMI for Adults Problem List/Past Medical History Ongoing Cellulitis of left leg Chronic kidney disease, stage 3a Edema of leg Encounter for weight loss counseling GERD (gastroesophageal reflux disease) History of DVT in adulthood Hyperlipemia, mixed Hypothyroid Low back pain Lumbar radiculopathy, right Screen for colon cancer Superficial phlebitis of left leg Venous stasis dermatitis of lower extremity Historical No qualifying data Medications aspirin 81 mg Oral EC Tab, 81 mg= 1 tab(s), Oral, Daily atorvastatin 10 mg Tab, 10 mg= 1 tab(s), Oral, Daily, 3 refills B 100 Complex oral tablet, 1 tab(s), Oral, Daily, 3 refills Lasix 40 mg Tab, 40 mg= 1 tab(s), Oral, Daily, PRN, 5 refills levothyroxine 75 mcg (0.075 mg) Tab, 75 mcg= 1 tab(s), Oral, Daily, 3 refills One-A-Day Women, 1 tab(s), Oral, Daily Ozempic 2 mg/3 mL (0.25 mg or 0.5 mg dose) subcutaneous solution, 0.25 mg, SubCutaneous, qWeek Pantoprazole [address] Tab, 20 mg= 1 tab(s), Oral, Daily, 6 refills Valtrex 500 mg Tab, 500 mg= 1 tab(s), Oral, Daily Allergies No Known Medication Allergies Social History Alcohol Employment/School Work/School description: Works at [employer] (more content not included)... [facility] Comment on above: Result Comment: Elec tronically Signed By: BRADLEY NATARAJAN, Alyce Romo\.scott\Date and Time Signed: 04/27/23 10:13 EDT Patient Educationon 04-27-20 Patient Education Nutrition BMI for Adults What is BMI? Body mass index (BMI) is a number that is calculated from a person's weight and height. BMI can help estimate how much of a person's weight is composed of fat. BMI does not measure body fat directly. Rather, it is an alternative to procedures that directly measure body fat, which can be difficult and expensive. BMI can help identify people who may be at higher risk for certain medical problems. What are BMI measurements used for? BMI is used as a screening tool to identify possible weight problems. It helps determine whether a person is obese, overweight, a healthy weight, or underweight. BMI is useful for: ? Identifying a weight problem that may be related to a medical condition or may increase the risk for medical problems. ? Promoting changes, such as changes in diet and exercise, to help reach a healthy weight. BMI screening can be repeated to see if these changes are working. How is BMI calculated? BMI involves measuring your weight in relation to your height. Both height and weight are measured, and the BMI is calculated from those numbers. This can be done either in [place] ([place] or metric measurements. Note that charts and online BMI calculators are available to help you find your BMI quickly and easily without having to do these calculations yourself. To calculate your BMI in [place]ian ([place] measurements: 1. Measure your weight in pounds (lb). 2. Multiply the number of pounds by 703. ? For example, for a person who weighs 180 lb, multiply that number by 703, which equals 126,540. 3. Measure your height in inches. Then multiply that number by itself to get a measurement called inches squared. ? For example, for a person who is 70 inches tall, the inches squared measurement is 70 inches x 70 inches, which equals 4,900 inches squared. 4. Divide the total from step 2 (number of lb x 703) by the total from step 3 (inches squared): 126,540 ? 4,900 = 25.8. This is your BMI. To calculate your BMI in metric measurements: 1. Measure your weight in kilograms (kg). 2. Measure your height in meters (m). Then multiply that number by itself to get a measurement called meters squared. ? For example, for a person who is 1.75 m tall, the meters squared measurement is 1.75 m x 1.75 m, which is equal to 3.1 meters squared. 3. Divide the number of kilograms (your weight) by the meters squared number. In this example: 70 ? 3.1 = 22.6. This is your BMI. What do the results mean? BMI charts are used to identify whether you are underweight, normal weight, overweight, or obese. The following guidelines will be used: ? Underweight: BMI less than 18.5. ? Normal weight: BMI between 18.5 and 24.9. ? Overweight: BMI between 25 and 29.9. ? Obese: BMI of 30 or above. Keep these notes in mind: ? Weight includes both fat and muscle, so someone with a muscular build, such as an athlete, may have a BMI that is higher than 24.9. In cases like these, BMI is not an accurate measure of body fat. ? To determine if excess body fat is the cause of a BMI of 25 or higher, further assessments may need to be done by a health care provider. ? BMI is usually interpreted in the same way for men and women. Where to find more information For more information about BMI, including tools to quickly calculate your BMI, go to these websites: ? Centers for Disease Control and Prevention: www.cdc.gov ? [place] [employer]: www.heart.org ? National Heart, Lung, and [employer] [place]: www.nhlbi.nih.gov Summary ? Body mass index (BMI) is a number that is calculated from a person's weight and height. ? BMI may help estimate how much of a person's weight is composed of fat. BMI can help identify those who may be at higher risk for certain medical problems. ? BMI can be measured using [place]ian measurements or metric measurements. ? BMI charts are used to identify whether you are underweight, normal weight, overweight, or obese. This information is not intended to replace advice given to you by your health care provider. Make sure you discuss any questions you have with your health care provider. Document Revised: 06/26/2020 Document Reviewed: 05/03/2020 [employer] Patient Education ? 2022 [employer] 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 Her ultrasound shows no evidence of new DVT. No significant reflux. Her iliac caval system is patent. The swelling today is more consistent with lymphedema. 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 She may need lymphedema pump in the future. She needs complex decongestive therapy first. Review of Systems PHQ Score Initial Depression Screen Score: 0 Constitutional: no fever, no chills, no sweats, no weakness Skin: no Jaundice, no rash, no lesions, nopetechiae ENMT: no ear pain, no sore throat, no congestion, no hoarseness Respiratory: no shortness of breath, no cough, no orthopnea, no wheezing Cardiovascular: no chest pain, no palpitations, no edema Gastrointestinal: no nausea, no vomiting, no diarrhea, no GI bleeding Genitourinary: no dysuria, no hematuria, no discharge, no pain Musculoskeletal: no back pain, no trauma Neurologic: no headache, no dizziness, no numbness, no weakness Psychiatric: no sleeping problems, no irritability, no mood swings/depression. Heme/Lymph: no bleeding tendency, no bruising tendency, no petechiae, no swollen nodes Allergy/Immunologic: no seasonal allergies, no food allergies, no recurrent infections, no impaired immunity Additional ROS info: Except as noted in the above Review of Systems and in the History of Present Illness all other systems have been reviewed and are negative or noncontributory. Physical Exam Vitals & Measurements HR: 69(Peripheral) BP: 120/75 SpO2: 98% HT: 64 in HT: 162.5 cm WT: 107.7 kg WT: 236.94 lb BMI: 40.79 General: alert, no acute distress Skin: warm, dry Head: no trauma, normocephalic Neck: Trachea midline, no adenopathy, no tenderness Eye: normal conjunctiva, sclera clear Cardiovascular: regular rate and rhythm, normal peripheral perfusion Respiratory: Lungs CTA, respirations non labored Chest wall: no deformity. Gastrointestinal: soft, non distended, no tenderness, no guarding. Back: No tenderness, Normal ROM, Normal alignment. Extremities: no edema,no deformity, no trauma Neurological: oriented x 4, LOC appropriate for age, motor strength equal & normal bilaterally, sensation equal & normal bilaterally, speech normal Psychiatric: cooperative, affect appropriate for age, normal judgement, normal psychiatric thoughts. Assessment/Plan 1. Lymphedema (I89.0: Lymphedema, not elsewhere classified) Referral to the lymphedema clinic 2. Venous stasis dermatitis of lower extremity (I87.2: Venous insufficiency (chronic) (peripheral)) Leg elevation exercise weight loss and compression therapy Follow-up No qualifying data available Problem List/Past Medical History Ongoing Cellulitis of left leg Edema of leg GERD (gastroesophageal reflux disease) History of DVT in adulthood Hyperlipemia, mixed Hypothyroid Low back pain Lumbar radiculopathy, right Screen for colon cancer Superficial phlebitis of left leg Venous stasis dermatitis of lower extremity Historical No qualifying data Medications aspirin 81 mg Oral EC Tab, 81 mg= 1 tab(s), Oral, Daily B 100 Complex oral tablet, 1 tab(s), Oral, Daily, 3 refills Lasix 40 mg Tab, 40 mg= 1 tab(s), Oral, Daily, PRN, 5 refills levothyroxine 75 mcg (0.075 mg) Tab, 75 mcg= 1 tab(s), Oral, Daily, 3 refills lovastatin 10 mg Tab, 10 mg= 1 tab(s), Oral, Daily, 3 refills One-A-Day Women, 1 tab(s), Oral, Daily Pantoprazole [address] Tab, 20 mg= 1 tab(s), Oral, Daily, 6 refills Valtrex 500 mg Tab, 500 mg= 1 tab(s), Oral, Daily Allergies No Known Medication Allergies Social History Alcohol Employment/School Work/School description: Works at [employer] in [place]., 05/15/2022 Home/Environment Substance Abuse Tobacco Former smoker, quit more than 30 days ago Tobacco Use:. Never Smokeless Tobacco Use:. Cigarettes, Started age 13.0 Years., 04/19/2023 Family History Hypertension: Mother. Hyperthyroidism: Mother. Primary malignant neoplasm of lung: Father. Immunizations Vaccine Date Status Comments influenza virus vaccine, inactivated - Not Given Patient Refuses [facility] Comment on above: Result Comment: Elec tronically Signed By: Khoa NATARAJAN, Roxanne Blanton\.br\Date and Time Signed: 04/19/23 09:59 EDT US LE Venous Duplex Insuffic iency Bilaton 03-29-2023 US LE Venous Duplex Insufficiency Bilat Exam Date/Time: 03/25/2023 09:49 EDT Reason for Exam: I87.2;Other (please specify) Report IMPRESSION: NO DVT OF EITHER LOWER EXTREMITY IDENTIFIED. EXAM: US LE Venous Duplex Insufficiency Bilat DATE: 03/25/2023 CLINICAL HISTORY: I87.2. COMPARISON: 05/18/2017. TECHNIQUE: Sandoval scale, compression, color and waveform Doppler analysis of the deep and superficial venous systems of both lower extremities was performed with augmentation. Spectral Doppler waveforms were evaluated for spontaneity, phasicity and appropriate augmentation. FINDINGS: There is no venous thrombus, abnormal masses, organized fluid collections, or other findings of concern identified within either lower extremity. Reflux is noted within the right greater saphenous the mid calf. Ordering Provider: Roxanne Couch FINAL REPORT Dictated: 03/29/2023 5:31 am Jimmy Pham MD Signed (Electronic Signature): 03/29/2023 5:31 am Signed by: Jimmy Pham MD Transcribed by: ERLINDA Technologist: MARIA T Technical Comments Patient Position Reverse Trendelenburg CFV Reflux (sec): None. DFV Reflux (sec): None. FV Prox Reflux (sec): None. FV Mid Reflux (sec): None. FV Dist Reflux (sec): None. Pop V Reflux (sec): None. Right Greater Saphenous: Saphenofemoral Junction (at/near): Diameter 0.9 Depth: Intrafascial Technical Comments Reflux (sec): None. Prox thigh: Diameter 0.4 Depth: Intrafascial Reflux (sec): None. Mid thigh: Diameter 0.4 Depth: Intrafascial Reflux (sec): None. Distal thigh: Diameter 0.4 Depth: Intrafascial Reflux (sec): None. At Knee Diameter 0.4 Depth: Intrafascial Reflux (sec): None. Proximal lower leg: Diameter 0.3 Depth: Intrafascial Reflux (sec): None. Mid lower leg: Diameter 0.3 Depth: Intrafascial Accessory Saphenous: Diameter none Right Small Saphenous: Connects to: Popiteal Vein Junction/Proximal Calf Diameter 0.3 Depth: Intrafascial Reflux (sec): None. Mid calf: Diameter 0.3 Depth: Intrafascial Reflux (sec): Sec 4.7 None. Patient Position Reverse Trendelenburg CFV Reflux (sec): None. DFV Reflux (sec): None. FV Prox Reflux (sec): None. FV Mid Reflux (sec): None. FV Dist Reflux (sec): None. Pop V Reflux (sec): None. Left Greater Saphenous: Saphenofemoral Junction (at/near): Diameter 0.8 Depth: Intrafascial Reflux (sec): None. Prox thigh: Diameter 0.4 Depth: Intrafascial Reflux (sec): None. Mid thigh: Diameter 0.4 Depth: Intrafascial Reflux (sec): None. Distal thigh: Diameter 0.3 Depth: Intrafascial Reflux (sec): None. At Knee Diameter 0.3 Depth: Intrafascial Reflux (sec): None. Proximal lower leg: Diameter 0.3 Depth: Intrafascial Reflux (sec): None. Mid lower leg: Diameter 0.2 Depth: Intrafascial Reflux (sec): None. Accessory Saphenous: Diameter none Left Small Saphenous: Connects to: Distal Thigh Junction/Proximal Calf Diameter 0.3 Depth: Intrafascial Reflux (sec): None. Mid calf: Diameter 0.2 Depth: Intrafascial Reflux (sec): None. [facility] US Aorta, IVC, Iliac Duplexo n 03-27-2023 US Aorta, IVC, Iliac Duplex Exam Date/Time: 03/25/2023 09:48 EDT Reason for Exam: I87.2;Other (please specify) Report IMPRESSION: NEGATIVE ULTRASOUND STUDY OF DISTAL IVC AND ILIAC VEINS DISCUSSED. CLINICAL HISTORY: I87.2 COMPARISON: NONE. FINDINGS: Sonography performed demonstrating color flow and Doppler within proximal, mid, and distal right iliac vein, and proximal right external iliac vein. Color flow and Doppler also identified within proximal, mid, and distal left iliac vein, and proximal left external iliac vein. Color flow and Doppler identified within distal inferior vena cava. Ordering Provider: Roxanne Couch FINAL REPORT Dictated: 03/27/2023 12:22 pm Matheus Tapia MD Signed (Electronic Signature): 03/27/2023 12:22 pm Signed by: Matheus Tapia MD Transcribed by: ERLINDA Technologist: MARIA T [facility] Consent for Treatmenton Consent for Treatment [id number]#[id number]: 127 [facility] RAD - MISCon 03-25-2023 RAD - MISC [id number]#[id number]: 127 [facility] [employer] 2023 Forms [id number]#[id number]: 127 [facility] Coding Summary.on 02-23-2023 Coding Summary. CD:[id number] Ww+P GhlYWQ+VS5YNIQtC52jhAZkw T5rX0GKLLlUMpnfGJEBZBeDB kJvjcOcHT3zjXFvWKBy IC8+QB1aWKEmMphixSPml2M2 xQW7C96ngg0cWSyxwUY7VGVh PyFmgaubo9qjyGe8DYhbPwse OyBt MSJmaC97CXW1bE98Eb56bPHb pPJnq9jtrWp2VlEdMEQdJBD0 gKrtCWmgv6QcWMKsW45tvXEe c2U6 NSQgiLnujVSmInFjwPO1hY3l QUxgkfnac6adovtlVky2hc04 fOOhs2N7bYK7Q0IkywP2ADCj bGQg AjjfiGGJlV5smnmyd8iqhegw VjLeLHOsTUf8BMq9TNNrtLck AmPwCF48WWJ6LEDgtiOjK0Nk LWFs vYmuGcQ9y5W6Yj9UT3HKOkho O1BCKIONMLvjqMX+RZ66mi27 S8HdWjjaMug9OXBqLHE0iDX2 aD0n CKEsCQnxf9R0mIC7Z2QhmyBo hi1lh3fcIAMdOOeyD17giGBy i7P7ZQFjjRV6FFAtxMuoWmGe aG93 Oyc+YPBltSexa5JqJpuqe3ww y8xbpKp5YclePOCynvDkmHwh WUR5d1FzWp1fUIRffJG1eBF4 aD0i PxAeQwH9GJjfW714EsAwzPXg IsfeR14yR4XrpSA+PHRyPjx0 CVUvrGhfXX1uM2EvSNDkmpwy bGVm oIpuRX7kCURmmdopUIKabD6u MONkI8a7GhRhJcK3YVhtZ1Md EFInhfwkWu44iP2kGdHeMnC7 MGlu W7XwsnF9PTDqcWVvVEmeOZP9 A93ae8F9HYVtJDGaLML2xNR8 cA4pkTjxovnwcUSthUvoquTy dGlj UAbjHOkhY186EMCuxLucDfUt ZGluZyBEYXRlOiAgMDUvMDkv MjAyMzwvdGQ+JIBtBRE5lVft PSAn mQAhDVadIk6tdTuzaAxbSJ7u ZTHazbxeUWBuxW3cWEVvhCNp pZigJW5bZHNvqhnyu376DxUm MHB0 SYWpfQIgT3UxpO0yFaQfFXIp ERErP0EekKDtLPqpT516PDnj RnP1TJBvfuYuS5IwDOHpdPgl OiB0 c9V1Kh7Lg3NbnlgfO2AqeKKb PaZpCvawLTf0F7WeBxhgsJK+ MH69AOMzPD20HOu4VIT2xPte PSdi RNAzX5NygT1rHlAbLYEtTKKa Oyc+PHRhYmxlIHdpZHRoPScx SPQcEcLilDcqMV7mNs4rSKZc LWNv pGpxvLOgYvOcq1txADKeVQmu AO9edZzyZ3YteBF8ISPmu9v6 Ww89U29cS3BqqTI+PGNvbCB3 aWR0 tY4zHoMtDqG0HMxvI319AhRh mWHdLzfgj1mtp9wbeQm3EyC8 ZPDsaxJteOfbZBB0w2UmMz46 Y29s IHdpZHRoPSIxNSUiIHZhbGln bk0rnM0rXg0+JQQupOF4eZH0 rU4vBfRdEfU8YBgtL906GgCh cCIv Wjrct7zsa7eenZi5AxIyZPSp wfSssFixHEQ9i9BcId72W1Qi nRoyj5ZjGew7ma05uVTwy1D2 bGU9 F9PhQBKulidshNLogNyuDE6d OICbvuyuCQVhzP4wRDUsE6f8 FjRwDxR3VOzsJ9LnyuT1SCUb bGQg TRGlxRNInL1wsedul8pkbpxa SjSkLJTlLOa6ANz7YVKnnUws OfIaDJY3IoW6JZQ7sUTyxT2x bGln ufmycC8zRhu+ODN0yQLmpXWO NE2xCewaaGP+NWHlZMP3jVlv KOidHUVbhV5wVBXmR0i2XrXp LjA1 TNewM2EcdtZ0GQVnmIUqOJAu xASJoN8yejmig7kujpmaNsJy WDZrMOz9VYu3VBVsbNxgVcFb ZWZ0 XnW6HRM2xLHlnC6urFmsombb vO5mPij+CzohtBfmXHR4NRd2 K0ZaOpv0YPDxmZztWE0kxNCh ZGlu Tb1qdDnlyNcxVS2dXJMwjdvp s309NmWsy1zeSUJbsFNbTPct MSA9Y58wt3S2KWGkTRMlDCK9 dGV4 xE6jcQrgmttvgTOunJipowGc dLaaKZjaYOhgN182ZRDnuWqq RoDlVCu0Z8VxFrg3WVKxqCnr ZT0n jJFxGEqiBw8iqSrdgUhvJQ3t CNMojbzvw383JdGfe3liWWOq cTBeZTolEXD4C44bz2N2THXs MDAw LIR4uAD4dD9isEldzjebvUIb oNkizuVrgGnxEAzsTQvkN086 HZAvpTotJuFbnEk9M5MbQya3 ZCBz kLfbCX9gmEWxTGkcJq3hoHsu fMjjXA4rDGVlkuebz634XhNb c4jdALJvmFWuYRuqGGS0D62l b3I6 NTRnAFGxRRY7jDQ4dD0lzHvc bjogbGVmdDsgdmVydGljYWwt DDilL239JEQbiPlfFfUgcFkk bnQg TNvtGNm5H8WqLrahkGM+PC90 MGIzQX05gSHexQFwa4pfdDt3 XxJqKLAjMBG8bMqoTPbrf2Tr ZXIt C43rmCQpz2B4CLFmiRekzVEu HgEkvLJ2oQ0cJGxybmukq0rg rjhtWhpno2smhm88bI25B80n IHdp YWRtQDDiOLBlAJZkpViqpi1r yP6yRr3+TFFppIH3eTB9zW8k IQAoBhB4YAaeQ815HeZyrQKd Pjxj j4kon4xaaVl2MuC0OMYismRq aJekNEJ0f2HoPi88Z83pUBwf KPLtMLUxPOXtDCFtcLdaxr8g dG9w Ii8+USSonJV6pXY0aG2nFySm FbN7NYfcE354SnKbhNLhDmwe M23jM9VneWZ+TQNbXtm1TDLv dHls WR4mqXVfBXjeZe2yMOD3YlPf SnJlWXneL9PtXCPaqhkgssef fVC8GXJlHADxbR59Rv0pdMiv MTBw fREWaN7jujgng8rkdrehNaOe VSNbBCl3BNo0JNIuoSvsTiHx SPI2LoR4GXF1mXWzfA1xqRpo bjog mY7sI4FwVFDvwrsnJc18mE3s WqRvDzR0LNyxKty+LUNGL9jR JLqsHCRZUwFNYFn6K5VyStx7 ZCBz sQxnRV5fmURuIMqgOt2enXdo sRqiAW6iMGSultvlBOYitG7e TQDvnVBkfExdVC0dUXAdqrdp b250 CjUwDFF6NUGuaATiJ6GiuB4p BsBrBSDjYRMoE8GolHOaZEut Y224UJjjFeF4COVrdkPhL1Tp LWFs xKhuHiC5x6Y6As2rNC5rTL8g GIZ6KW02JP60uDWvl3M4oLY3 N5KsTSVtogyiacnfpRL5CIHm MDUw lJ75fJPxHMtlVk5vc8J2b670 EZRcZLVchH07Ui2upNkgVYKo vVAHnP2wtclry2yojyebOwIk MDAw JDd8TYg6GARunJepVuYyOVE4 BlH1OZH7aOCbsT7itNiwlkcp hA1dHbt+NVQgCDPvnhA9Y0Uy Pjx0 FLErsNpqLM6fxWEaZNunIg5z pAozjGrcYX5wUAKgoujqUBLd oU1fRYEhvXXxzHovFX4lSSLd bjtm i893YuQnGGN1LEFivTOwN4Vj vM4zXeQhRVSqPPCqX3MtnZFg RYvhQ138RXhpQcO4LPVvanSc Y2Fs EAJiaRkcIqS3r8V4Zx0YFD4d qVV4M7VqMrw1ZSFebQzzIK1z iLKrMKemRj5qsPxqpQssFU5t NTBp mazvJWZejR3iZSEbgMMewEug RA2lKWWszpquj976FrGcDPZ3 DBFlzCHsU1ZkuG6pSrXhXBRw MDAw D6TcsGLjSYhaK139POykVwI1 TJOastIfT0HgNYWqdTpvSgF8 r1M6Em8FlZFaJMOlEU33VV69 ZD48 W2UqKneheGCsdMY+PHRhYmxl IHdpZHRoPScxMDAlJyBzdHls GJ3tUg2lBXKcALPpdRkhjFCn OiBj o2qtBOKgWNbjWF0asKasH1Rp lRN0QVEiw7w7Fh46J14jB2Ad dXA+QUKeqZK6oWC0uK8yBoNc IiB2 JMkoX603GwVzkUPyOmche9hq a8wcdLt3IvSaTCTbuhAyfNdm WFN4k0DeZo44T56nDLbhPBRd PSIy VJQsUHAktSygbs9eqP1uBg8+ GIFkhRW4oQV4cN1gIzJtWeR5 XLbkT582AaXwkTBgMlcxQ88d Z3Jv dXA+TXObCts4PQHidMayUG2r hDHsLHwxPw6rPNK2MhKrBkBn KRqrM8FyTUHwsnbqxsdbdXP4 IDAu XOTryQ29Dv4zfMwzFt3wXGPo KGI6UVOfkPCyQ8KcvV4hBrGg LRWcUMIrG7EcoWEqOFpuJ486 IGxl QdR4LHCudxVeJ2YrXYAtsQgy GrB9o5K3Dj3KeGsdmTXoWJ8g OzSuQNz2Y4BsTet7YNJzzDnc ZT0n lGXcCGanAq6giCdvkFqiIP3a RDIncjewc363IpCkn8xzQBOa kTKoOHuqIQS9N33hy2I2WVPp MDAw GKK6bDO4jB9uxAqevyzmiVGq bNvilvRyhWqjXDtdIHloW143 CKQlsPnrFcUSExb0R6OdXkw2 ZCBz fWljGK9neVYjPTweVe7rbDti gSlwZV2wJQXtbxuqg985BuFg p3bbJZQgxULqEYoaFLF5L55w b3I6 HKVgQTWbLCA2tLX4lK5jvWnf bjogbGVmdDsgdmVydGljYWwt SLinA618XJJkrGclMk7FSjp7 L3Rk Nym7KZJbiHcdWH8tkMXtSGmr Ud4zeVbkqLsgGW7oRPEplgcv a096UqVwn4ciDYJmfQXkMOlc ZXM7 H67ak3M1VOSiXRDkMAI6xQL2 lR7otGtgfuojwZMcfCljtbJs nAdcWLklOXddJ669CMObnPtg PlBh eWVyOjwvdGQ+KP88rk85A0Ny SwduOnr7ADNkKVX3pBA3mB9y OZJpTZfqw3Y5fTV8L4KxoaMm ci1j f7keEYSk (more content not included)... [facility] Physician Orderon 02-23-2023 Physician Order [id number]#[id number] :127 [facility] Consent for Treatmenton Consent for Treatment [id number]: 127 [facility] Heart and Vascular Office/Cl inic Noteon 02-15-2023 Heart and Vascular Office/Clinic Note Chief Complaint New Patient- establish care/ Superficial phlebitis, edema, Cellulitis, of Leg Lower Extremity History of Present Illness This is a 57-year-old lady with a history of bilateral lower extremity DVTs comes in with significant swelling and venous stasis with dermatitis of both legs. No venous ulcer. She does not use compression socks. She does not have any recent testing. Review of Systems PHQ Score Initial Depression Screen Score: 0 Constitutional: no fever, no chills, no sweats, no weakness Skin: no Jaundice, no rash, no lesions, nopetechiae ENMT: no ear pain, no sore throat, no congestion, no hoarseness Respiratory: no shortness of breath, no cough, no orthopnea, no wheezing Cardiovascular: no chest pain, no palpitations, no edema Gastrointestinal: no nausea, no vomiting, no diarrhea, no GI bleeding Genitourinary: no dysuria, no hematuria, no discharge, no pain Musculoskeletal: no back pain, no trauma Neurologic: no headache, no dizziness, no numbness, no weakness Psychiatric: no sleeping problems, no irritability, no mood swings/depression. Heme/Lymph: no bleeding tendency, no bruising tendency, no petechiae, no swollen nodes Allergy/Immunologic: no seasonal allergies, no food allergies, no recurrent infections, no impaired immunity Additional ROS info: Except as noted in the above Review of Systems and in the History of Present Illness all other systems have been reviewed and are negative or noncontributory. Physical Exam Vitals & Measurements HR: 79(Peripheral) BP: 122/80 SpO2: 99% HT: 64 in HT: 162.5 cm WT: 107.8 kg WT: 237.16 lb BMI: 40.82 General: alert, no acute distress Skin: warm, dry Head: no trauma, normocephalic Neck: Trachea midline, no adenopathy, no tenderness Eye: normal conjunctiva, sclera clear Cardiovascular: regular rate and rhythm, normal peripheral perfusion Respiratory: Lungs CTA, respirations non labored Chest wall: no deformity. Gastrointestinal: soft, non distended, no tenderness, no guarding. Back: No tenderness, Normal ROM, Normal alignment. Extremities: no edema,no deformity, no trauma Neurological: oriented x 4, LOC appropriate for age, motor strength equal & normal bilaterally, sensation equal & normal bilaterally, speech normal Psychiatric: cooperative, affect appropriate for age, normal judgement, normal psychiatric thoughts. Assessment/Plan 1. Venous stasis dermatitis of lower extremity (I87.2: Venous insufficiency (chronic) (peripheral)) Compression stockings venous reflux ultrasound and iliac veins ultrasound Follow-up No qualifying data available Problem List/Past Medical History Ongoing Cellulitis of left leg Edema of leg GERD (gastroesophageal reflux disease) History of DVT in adulthood Hyperlipemia, mixed Hypothyroid Low back pain Lumbar radiculopathy, right Screen for colon cancer Superficial phlebitis of left leg Venous stasis dermatitis of lower extremity Historical No qualifying data Medications aspirin 81 mg Oral EC Tab, 81 mg= 1 tab(s), Oral, Daily B 100 Complex oral tablet, 1 tab(s), Oral, Daily, 3 refills Lasix 40 mg Tab, 40 mg= 1 tab(s), Oral, Daily, PRN, 5 refills levothyroxine 75 mcg (0.075 mg) Tab, 75 mcg= 1 tab(s), Oral, Daily, 3 refills lovastatin 10 mg Tab, 10 mg= 1 tab(s), Oral, Daily, 3 refills One-A-Day Women, 1 tab(s), Oral, Daily Pantoprazole [address] Tab, 20 mg= 1 tab(s), Oral, Daily, 6 refills Valtrex 500 mg Tab, 500 mg= 1 tab(s), Oral, Daily Allergies No Known Medication Allergies Social History Alcohol Employment/School Work/School description: Works at [employer] in [place]., 05/15/2022 Home/Environment Substance Abuse Tobacco Former smoker, quit more than 30 days ago Tobacco Use:. Never Smokeless Tobacco Use:. Cigarettes, Started age 14.0 Years., 02/15/2023 Family History Hypertension: Mother. Hyperthyroidism: Mother. Primary malignant neoplasm of lung: Father. Immunizations Vaccine Date Status Comments influenza virus vaccine, inactivated - Not Given Patient Refuses Normal [facility] Comment on above: Result Comment: Elec tronically Signed By: Khoa NATARAJAN, Roxanne Blanton\.br\Date and Time Signed: 02/15/23 11:03 EDT Prescriptions/Work Noteson 0 02-15-2023 Prescriptions/Work Notes [id number]: 127 Normal [facility] Coding Summary.on 01-27-2023 Coding Summary. CD:[id number] Ww+P GhlYWQ+DO6IBLVuG54joXWdw Q0qG9CGXJzFClejGXPMWVmAT fGqnlFoEF0lkWEiWCTa IC8+WR2rKLBfXcrdlRIci2Y2 mXP6D91xpb7pELlvnQK8PNOs OyFzoquog7axiOp9GWdfAyrk OyBt AZAfkG97TCV3mK38Wu33lLYr vDUmb6rwcZe2UmQnUCSiIXU5 oYiuKLjuh2WbNGMqR12fdGRc c2U6 RQWftKncnDUuBaTjdPB9cR9n WLjpdoiue5xvbtrcKxv9ir82 gIItp0H7bAG0C5OqcoD4QANr bGQg ZdnbnMIUpS4gcoxgz9nqnngq TkJyASWcHWs6LYu0VVFxhTyb DoPcZT33CBJ0HGGrqwDzJ7Qw LWFs mCxtVfD1c5S6Ia2YW9WJIhzt Y1CEIFFFMZoqwGT+WN97xo33 H3BiKwlkFjt8FSEmFVB0eAV4 aD0n WMRrBDqij3L7kNX6W4OrhgZg ra8it2ndZFJkBQaxS62cfIKe j8B6DLKzkIW1IQBgsVbwKrKu aG93 Oyc+XSBazYfns8WkDwvcc9xr c7idlNr1DcpyJQSifjRvxEtj UCS4x9FtPp0nBARadFQ0aIR1 aD0i JgVpLjE7SCqoD651QrUahBEf PmbiK28rF8VlvRI+PHRyPjx0 TILzwDlwBJ3cD6WmRSZibexk bGVm wMmxKD2kYSNuecquNXTmdQ3a EWErL2m8DlUuBqW4DXxvW3Bu EUOjwnrjZz51xI0cMqOlMhX9 MGlu T3OkrpZ8EKSixJMzLErlAII8 J86ds0C4DEUrPFYjTIV4pJI6 bP8cwXkwlowbjYZmfAsdbxHc dGlj LNweYQppQ559ZCKsfIpkBvFf ZGluZyBEYXRlOiAgMDQvMTIv MjAyMzwvdGQ+KAFkQVL0mUbo PSAn zMZvDScrXm8vnVobkDngSR8q HFOunljrPURrkE8iMNItgNKs iVmgFV0bBDKwzhhpn871JpGk MHB0 AOSbbOHuE3OyqB2iFeWjCJVx ILVpH1ZwhTZbBOhhY030UZdk OtE3HNKkgyDcF9SlMCYnvAdk OiB0 s1I4Ds7Te7VanhppA4YlhMIb ImLcRnhrIOq1B0HlUlivsOA+ JR55BSWjVO30QMw6SPB8hTkc PSdi QQAfG3LokW9eMmXhRNYyPDDv Oyc+PHRhYmxlIHdpZHRoPScx URIoKxJbmBvpGX3fJg6bSZMs LWNv mQbmcPNyKlTli2viBQWnCLlr UW1nxDzbM7DmdQX0DCQkn4b0 Mf44I85rB4PzdJG+PGNvbCB3 aWR0 qB6mXqRjZpD5SNuzQ891QsVv ePKcEyclp3cdy8icwWj0LkZ5 CSVxjvPyjOguYTM4z5UpJc82 Y29s IHdpZHRoPSIxNSUiIHZhbGln vj9auM7pCo5+XUOefVO6fFJ6 pU5qVjWlEcR5VCtxE565GxBv cCIv Zxxbl6udt1jnsMr0ThTwYWAq hbAxxIqjHHK8m4GgHv92D6Dv zZftg8RvFnh3yw74kBXuu6I1 bGU9 J1BqMOLcehensJYglWfwDS5d QSIkpaznCRJaaY7wTGOnG6c6 TvXkJsN5SBbhI1PnanD5ZVNg bGQg KMOqtPZOcL1pwjtdj6jiqqrd HrZeGLMyOCi2BZo4KEKouRln NzNcSDU3DzX5WXS0zJRlkK5e bGln xjggfW4pZne+WGL7gLGfnAFN TZ7jFecwxJA+TDGfIXO7jMom JHwtNTPprS1iPQPaD7l1GgVn LjA1 ZKlrH0FymzH1GPEjnBXfZTKp wXKYnX5suhqyq5vlwyelGoKt VTAcRHl9IIf7MPTusWezSiFy ZWZ0 CmJ3UQA1yGEkeN9hbMheihea tU9rSbj+JpzcfEjoBHR6DIj4 Q6BeMye3KOApwTavSN1cwDRs ZGlu Ev5oqNnuiYohJK0dALJlxabp u870TzWeq4oxBTShkRUiQMay OMY1I61oi5S7NSIxGARqIJS1 dGV4 vD6ahZypgicomDKjxGgtveUx pMedMUmoSRuqK499XEDccMtq FmDqWBz7S6JgJwr4YNVpvAxq ZT0n pAZkGYdjWd7ilSgcaJrtCL0s BHEcefwzq583WePes2sxCGLx xUGxVVutPAZ7I80vy4U8RQJs MDAw ODL5fGN4mF1reWrcrlswqBKo vKylncSktZruLUcjJCwsD835 TWVxyDamYyXvsLg7D3WrOjs5 ZCBz oWjgYP8iiBZhUWfaBs1etMng lSgxDU5jPBMvstasn419RvNc r7zuIZIxrHIpWAylTGS5G17a b3I6 ZKTmMTMoAWS2eBD7yW7kxQmx bjogbGVmdDsgdmVydGljYWwt XQgbH228FWIwbSlqVpNxoRkc bnQg XOtzCKb3Q5NvMscadTI+PC90 YYPfXE81jBTwlSNzl2tseDy3 CtUkNNEyTUW1aIqnWInzq2Le ZXIt S27grEJqt8G3BTPicIitcYXr JnEuqHR4hV1yLHcyfdxhe5gc vhqtWpslj2bxdh32wU16Q99l IHdp XNJwNMPvZNQoDDWbdBizgh7i iF7yFn1+WFXqxTJ0jSH2oB3t IITeBuX8IEwnG088PuPleMYi Pjxj n9pkt2ghuNy2SyK4WQAwwjNi sIcxLBK7r5KxOn93Q17kSEzk EUScUVZtSTRoVTTdoEuflm7p dG9w Ii8+MUQqpPF2jZV8mC1xQgMf RiJ7RZodN538SbDzaEIqLxun Y22cX6UczEK+QEKgKwl6AJKg dHls DF5btFIeEIgvQc5hJQP9OmOq PqWnAWzkJ4GnGIWkwryzgeth mBG6LURoMBFkvW75Qp3tvVuc MTBw fDRFqP0ytxmuw3vdiizaAlNg BTZoVZx5KMo6CVDnwFiyJeYa CTT6RtP5BVA8sAOyiK5fyHjx bjog zY1dM0PeODSsqcrfKj16pE0f GsLlQeX2DCwzLgf+KWTKM5tK KCkoYBJJPtCUQKy8B2NhDbb6 ZCBz vTjsTE6ohPNhZGgnAy9xvScc qXcaQO6iSQRhwexhJNRhsG6m CKLalMGwlLzwBZ1iTHCbgpcg b250 PmHnNBZ5FZJhfYGxT8VxzR6c AmWdIRKgYXBoI6RpnTLlELhk D894VEzjKgX2URYidkCyQ0Tn LWFs dTdzOnI6t7V1Um3uUO7yKR6w PJN4MC33OU97uOQqj3Q1jOR3 W6NjWWAnfjxmqvokwOW8JWKo MDUw jS60jXFkCXwqFa8gm2M0q993 HIHxNNZhgW56Mx0eqZpvCANw uHHUdC5vdjwfa9ulfcctNiZm MDAw FUr9YLq5OKBisAooMnNuAJS4 MxX2BTS0aZMoiQ6qlXsexajn wP3rIee+CSAfNPWgfgQ2O5Xx Pjx0 YBFdpJofVP1jcJZgXUeeQy6v wWcdxQxpFX3jMNShecfpBWNe mV7ePRJiiEGkqGcvTC3eXMPz bjtm z547BaUfIOR6WATsoJAqY6Rp rY1tBvAgONAiQWQoG6PiqWVv XNkfS708WAuoOdP9TKIgsiAk Y2Fs FHFiaJkpJaY7j5A1Ks8PAO8d kDR9Y0ClGgf5TCQkyVqgNX9d zTNpJUoaRi4evGobvBmaXN7h NTBp vklzNBIowH4qPZBgkLOqfJai PM8jTXAnnldqb901CbNvKCG2 VEFngKByK8AudI1yAkHhRGLw MDAw E3HycKYkLUdjF334JCxiBwN0 RKNfdwYyC6JjEAXehNlzKtV3 w9Q5Jq4YaOHcIDDfAW70CI35 ZD48 N9VtOflneSQjcZB+PHRhYmxl IHdpZHRoPScxMDAlJyBzdHls YK7lPb7cFCEgPGOrlUrgdHDw OiBj w6txQATlDRpcDQ3diAmnK8Mt mJC1KOPmo0a7Hs08F17lJ5Jz dXA+RQDbhVI8fVK8kC7fMaNu IiB2 AZlmD182QsVsuBVfVjczv9td i4cylDa9IgMuAEUzcuPxiSzq NTP1o0UlGw93T27vXJtlQAWi PSIy MXItIHPchKcyjn9gyM6qLz3+ AGFwfZI6yBB7yJ7hUvGoBmA0 MSpmT774TtFlhLRyFnqtT48l Z3Jv dXA+HCXcSbi8JXYfgJyfAX9v rUZxDJkaOs9cTXD2YqJrPwPc JGbrN9MxSZHdbnzqtoqrgKY0 IDAu KHOcyI30Kh0jtHokXa5wJSTl ZAT0PATjpDZfC8WsnN1kJwDm IANkAFEiB4KhxMBdPJfwX490 IGxl QgD6REKtiaPwI9JdNVIesCol YiF1m9K3Pe1BhKpfoTSlJK1f IbOxJKz6Y5GvRuk3UQUobCdc ZT0n bKNyFKfiZg2kfNzopSbxPS9w PZNtucdiq331PgXih8bjBACg dGKkIDnjGJT5I75ay7F4YKYh MDAw JBY7gBL2jI1yrKyifeiunCXr wZtlofYqhJdxGGbjSKimJ435 GDZibMdfSbASXtp2H6PkJdd2 ZCBz iOtzSJ0qjQQdCHneKf3rdNpb iCukKO4nCKGohbocg439UnPx t1vxQVPgtZUeLCfaYSH4K96w b3I6 VTWkTJSpYCY5kOC9aF8faEjz bjogbGVmdDsgdmVydGljYWwt JBzhJ995RNLdyIluFb1TMme0 L3Rk Zil0MZMnlXmhQH0vbMSqOZwf As0axFpbtIrsBE7nRXVeenqu p482ZnUld1grSMWhyXYjCWvk ZXM7 Y16os4L5AFJhFQFmWEX2kHA2 bE3roJmjcrojiWVrfJkkkuGq sQmjBDnsKOkmN652ORCgwQjm PlBh eWVyOjwvdGQ+DO19vx76L9Xk XnuxXam1ZKCjEPM3xEC4mH9y IOKsIBvyt5Y4qTG3M9BaulQk ci1j x1khFURp (more content not included)... Normal [facility] Physician Referralon 023 Physician Referral [id number] :127 Normal [facility] Ambulatory Visit Summaryon 0 01-18-2023 Ambulatory Visit Summary DAPHNE EDWARDS :1965 Visit Date:01/18/2023 Ambulatory Visit Instructions Your Diagnosis Superficial phlebitis of left leg Cellulitis of left leg Edema of leg Venous stasis dermatitis of lower extremity Hypothyroid Hyperlipemia, mixed Adult BMI 40.0-44.9 kg/sq m Class 3 severe obesity due to excess calories with body mass index (BMI) of 40.0 to 44.9 in adult History of DVT in adulthood GERD (gastroesophageal reflux disease) Your Care Team Attending Physician - Alyce HUERTA MD Primary Care Physician - Alyce HUERTA MD This Is Your Medications List pantoprazole (Pantoprazole [address] Tab) Contact prescribing physician if questions or concerns aspirin (aspirin 81 mg Oral EC Tab) furosemide (Lasix 40 mg Tab) levothyroxine (levothyroxine 75 mcg (0.075 mg) Tab) lovastatin (lovastatin 10 mg Tab) multivitamin (B 100 Complex oral tablet) multivitamin with minerals (One-A-Day Women) valacyclovir (Valtrex 500 mg Tab) Discharge Vitals Temperature (Oral) 36.6 ?C Heart Rate (Peripheral) 83 Blood Pressure 112/78 Height 162.5 cm Height 64 in Weight 107.1 kg Weight 235.62 lb BMI 40.56 What to do next You Need to Schedule the Following Appointments Follow Up with BRADLEY NATARAJAN, Alyce Romo, MED When: In 3 months Where: [facility] [address] [place] [address], [place] [address]- Medications What How Much When Why Instructions New pantoprazole (Pantoprazole [address] Tab) 1 Tablets By Mouth Every day GERD (gastroesophageal reflux disease) Refills: 6 Pickup at [facility] Unchanged aspirin (aspirin 81 mg Oral EC Tab) 1 Tablets By Mouth Every day Contact prescribing physician if questions or concerns Unchanged furosemide (Lasix 40 mg Tab) 1 Tablets By Mouth Every day as needed for leg swelling Edema of leg Contact prescribing physician if questions or concerns Unchanged levothyroxine (levothyroxine 75 mcg (0.075 mg) Tab) 1 Tablets By Mouth Every day Contact prescribing physician if questions or concerns Unchanged lovastatin (lovastatin 10 mg Tab) 1 Tablets By Mouth Every day Contact prescribing physician if questions or concerns Unchanged multivitamin (B 100 Complex oral tablet) 1 Tablets By Mouth Every day Contact prescribing physician if questions or concerns Unchanged multivitamin with minerals (One-A-Day Women) 1 Tablets By Mouth Every day Contact prescribing physician if questions or concerns Unchanged valacyclovir (Valtrex 500 mg Tab) 1 Tablets By Mouth Every day per dermatology Contact prescribing physician if questions or concerns Pharmacy Information [facility]: [address] [place] [id number] [phone] Allergies No Known Medication Allergies Problems Ongoing - Any problem that you are currently receiving treatment for. Cellulitis of left leg Edema of leg GERD (gastroesophageal reflux disease) History of DVT in adulthood Hyperlipemia, mixed Hypothyroid Low back pain Lumbar radiculopathy, right Screen for colon cancer Superficial phlebitis of left leg Venous stasis dermatitis of lower extremity [employer] Stasis Dermatitis Stasis dermatitis is a long-term (chronic) skin condition that happens when veins can no longer pump blood back to the heart (poor circulation). This condition causes a red or brown scaly rash or sores (ulcers) from the pooling of blood (stasis). This condition usually affects the lower legs. It may affect one leg or both legs. Without treatment, severe stasis dermatitis can lead to other skin conditions and infections. What are the causes? This condition is caused by poor circulation. What increases the risk? You are more likely to develop this condition if: ? You are not very active. ? You stand for long periods of time. ? You have veins that have become enlarged and twisted (varicose veins). ? You have leg veins that are not strong enough to send blood back to the heart (venous insufficiency). ? You have had a blood clot. ? You have been many times. ? You have had vein surgery. ? You are obese. ? You have heart or kidney failure. ? You are 50 years of age or older. ? You have had injuries to your legs in the past. What are the signs or symptoms? Common early symptoms of this condition include: ? Itchiness in one or both of your legs. ? Swelling in your ankle or leg. This might get better overnight but be worse again during the day. ? Skin that looks thin on your ankle and leg. ? Red or brown puente that develop slowly. ? Skin that is dry, cracked, or easily irritated. ? Red, swollen skin that is sore or has a burning feeling. ? An achy or heavy feeling after you walk or stand for long periods of time. ? Pain. Later and more severe symptoms of this condition include: ? Skin that looks shiny. ? Small, open s (more content not included)... Normal [facility] Auto Diffon 01-18-2023 Basophils/100 WBC (Bld) 1.3 % Normal 0.0-2.0 [facility] Comment on above: Order Comment: Order Added by Discern Expert. Performed By: #### 2 928111, 2072169, 2647198, 1025841, 9150750, 00221139, 8042370 ####[address] [place] [address] Basophils/Leukocyt es Auto (Bld) [Pure # fraction] 0.1 E9/L Normal 0.0-0.2 [facility] Comment on above: Order Comment: Order Added by Discern Expert. Performed By: #### 2 467578, 4090425, 3544741, 6504382, 0014501, 11075700, 8938451 ####[address] [place] [address] Eosinophils/100 WBC (Bld) 3.7 % Normal 0.0-8.0 [facility] Comment on above: Order Comment: Order Added by Discern Expert. Performed By: #### 2 130866, 4560819, 4158373, 8307287, 7020607, 55953389, 2923147 ####[facility] [address] [place] [address] Eosinophils/Leukoc ytes Auto (Bld) [Pure # fraction] 0.2 E9/L Normal 0.0-0.5 [facility] Comment on above: Order Comment: Order Added by Discern Expert. Performed By: #### 2 116475, 1901499, 5027069, 8461887, 6920567, 53875195, 9443998 ####[facility] [address] [place] [address] Lymphocytes/100 WBC (Bld) 39.4 % Normal 14.0-50.0 [facility] Comment on above: Order Comment: Order Added by Discern Expert. Performed By: #### 2 744387, 8128320, 7340377, 1092628, 4305199, 19750484, 7045315 ####[address] [place] [address] Lymphocytes/Leukoc ytes Auto (Bld) [Pure # fraction] 2.0 E9/L Normal 1.0-4.0 [facility] Comment on above: Order Comment: Order Added by Discern Expert. Performed By: #### 2 477912, 4114682, 2564037, 6964694, 2642952, 94910699, 9168704 ####[address] [address] Monocytes/100 WBC (Bld) 8.8 % Normal 4.0-14.0 [facility] Comment on above: Order Comment: Order Added by Discern Expert. Performed By: #### 2 124830, 4186946, 2780538, 3845425, 0511213, 64700401, 8720656 ####[address] [address] Monocytes/Leukocyt es Auto (Bld) [Pure # fraction] 0.4 E9/L Normal 0.2-1.0 [facility] Comment on above: Order Comment: Order Added by Discern Expert. Performed By: #### 2 529605, 0790760, 1551912, 2156096, 0292007, 37302267, 0385639 ####[address] [place] [address] Neutrophils/100 WBC (Bld) 46.8 % Normal 36.0-75.0 [facility] Comment on above: Order Comment: Order Added by Jaycob Expert. Performed By: #### 2 623315, 8128948, 1372856, 3486978, 1322146, 03997748, 5604841 ####[facility] [address] [place] [address] Neutrophils/Leukoc ytes Auto (Bld) [Pure # fraction] 2.3 E9/L Normal 2.0-7.5 [facility] Comment on above: Order Comment: Order Added by Discern Expert. Performed By: #### 2 305154, 1425809, 5682148, 0230428, 8132118, 46818155, 0825338 ####[address] [address] CBC w/ Auto Diffon 3 Erythrocyte distribution width (RBC) [Ratio] 13.0 % Normal 10.9-14.2 [facility] Comment on above: Performed By: #### 2 022633, 6371873, 6587882, 9429483, 7089919, 05841972, 8767842 ####[address] [address] Hematocrit (Bld) [Volume fraction] 40.5 % Normal 34.0-46.0 [facility] Comment on above: Performed By: #### 2 071772, 8403706, 7087390, 7361702, 6998518, 81070066, 3178442 ####[address] [address] Hemoglobin (Bld) [Mass/Vol] 13.2 g/dL Normal 12.0-16.0 [facility] Comment on above: Performed By: #### 2 611305, 7459565, 2704688, 7156827, 9728576, 37488892, 9789087 ####[address] [place] [address] MCH (RBC) [Entitic mass] 32.2 pg Normal 27.0-34.0 [facility] Comment on above: Performed By: #### 2 287999, 8219104, 1579482, 6933539, 2355998, 76981769, 7806550 ####[address] [address] MCHC (RBC) [Mass/Vol] 32.7 g/dL Normal 31.4-36.0 [facility] Comment on above: Performed By: #### 2 651938, 6426325, 2281082, 2717970, 9693732, 72137859, 1378838 ####[facility] [address] [place] [address] MCV (RBC) [Entitic vol] 98.5 fL Normal 80.0-100.0 [facility] Comment on above: Performed By: #### 2 838367, 0647278, 5033652, 3074393, 8081819, 55076369, 2283950 ####[facility] [address] [place] [address] Platelet mean volume (Bld) [Entitic vol] 7.4 fL Normal 6.4-10.8 [facility] Comment on above: Performed By: #### 2 968966, 2038691, 4825090, 0121485, 6327833, 08732427, 3135947 ####[facility] [address] [place] [address] Platelets (Bld) [#/Vol] 326.0 E9/L Normal 150.0-500.0 [facility] Comment on above: Performed By: #### 2 797830, 7250601, 5541315, 7014145, 4805348, 75318927, 1168496 ####[facility] [address] [place] [address] RBC (Bld) [#/Vol] 4.1 E12/L Low 4.3-5.9 [facility] Comment on above: Performed By: #### 2 194307, 3708068, 9977999, 2823490, 4732903, 33218916, 1183555 ####[facility] [address] [place] [address] WBC corrected for nucl RBC Auto (Bld) [#/Vol] 5.0 E9/L Normal 4.0-11.0 [facility] Comment on above: Performed By: #### 2 203685, 5515614, 1831499, 0315584, 9690502, 54309656, 2554525 ####[facility] [address] [place] [address] CMPon 01-18-2023 Albumin [Mass/Vol] 4.3 g/dL Normal 3.3-5.0 [facility] Comment on above: Performed By: #### 2 954194, 7378349, 7381178, 5625300, 4077642, 55969313, 8554620 ####[facility] [address] [place] [address] Albumin/Globulin (S) [Mass conc ratio] 1.2 Normal 1.1-2.2 [facility] Comment on above: Performed By: #### 2 471154, 7280113, 9938194, 5909178, 3087098, 11341517, 2197353 ####[facility] [address] [place] [address] ALP [Catalytic activity/Vol] 83 Int._Unit/L Normal 21-98 [facility] Comment on above: Performed By: #### 2 472028, 4926815, 5821590, 8908807, 2463859, 12957989, 8996716 ####[facility] [address] [place] [address] ALT No additional P-5'-P [Catalytic activity/Vol] 33 Int._Unit/L Normal 6-46 [facility] Comment on above: Performed By: #### 2 132826, 1474905, 6252878, 1939720, 3766389, 86842265, 2735687 ####[facility] [address] [place] [address] Anion gap [Moles/Vol] 14 mmol/L Normal 6-16 [facility] Comment on above: Performed By: #### 2 861801, 1933697, 4139131, 4834893, 2886851, 09977161, 0667021 ####[facility] [address] [place] [address] AST [Catalytic activity/Vol] 31 Int._Unit/L Normal 5-43 [facility] Comment on above: Performed By: #### 2 788709, 8462325, 1717940, 5844667, 7400212, 65715286, 4955805 ####[facility] [address] [place] [address] Bilirubin [Mass/Vol] 0.4 mg/dL Normal 0.0-1.1 [facility] Comment on above: Performed By: #### 2 560402, 6566285, 3606634, 4411144, 2383430, 46686525, 6365086 ####[facility] [address] [place] [address] Calcium [Mass/Vol] 9.4 mg/dL Normal 8.9-11.1 [facility] Comment on above: Performed By: #### 2 736309, 2194666, 8992245, 1860894, 0840574, 34341013, 3548888 ####[facility] [address] [place] [address] Chloride [Moles/Vol] 108 mmol/L Normal 101-111 [facility] Comment on above: Performed By: #### 2 815785, 9721390, 2333542, 8107853, 6529192, 68640891, 4097143 ####[facility] [address] [place] [address] CO2 [Moles/Vol] 20 mmol/L Low 21-31 [facility] Comment on above: Performed By: #### 2 587262, 3434357, 9677294, 9439044, 0161175, 08892367, 0749852 ####[facility] [address] [place] [address] Creatinine [Mass/Vol] 1.0 mg/dL Normal 0.5-1.3 [facility] Comment on above: Performed By: #### 2 314738, 7337199, 6018032, 2324210, 1583759, 45358559, 9056744 ####[facility] [address] [place] [address] Globulin (S) [Mass/Vol] 3.5 g/dL Normal 1.4-4.0 [facility] Comment on above: Performed By: #### 2 467372, 2729099, 7496649, 0314764, 7830311, 99577404, 9449096 ####[facility] [address] [place] [address] Glucose [Mass/Vol] 90 mg/dL Normal 55-199 [facility] Comment on above: Result Comment: If t his glucose result represents a fasting glucose, interpretation should refer to the following reference range: 55-99 mg/dL Performed By: #### 2 460677, 8681688, 6758061, 1718539, 7338833, 03603016, 8744939 ####[facility] [address] [place] [address] Potassium [Moles/Vol] 4.4 mmol/L Normal 3.5-5.3 [facility] Comment on above: Performed By: #### 2 071308, 3546913, 9401250, 1894580, 6785648, 94812811, 0349794 ####[facility] [address] [place] [address] Protein [Mass/Vol] 7.8 g/dL Normal 6.0-7.8 [facility] Comment on above: Performed By: #### 2 680171, 0601974, 0629723, 6297435, 6956780, 46063919, 0844154 ####[facility] [address] [place] [address] Sodium [Moles/Vol] 138 mmol/L Normal 135-145 [facility] Comment on above: Performed By: #### 2 [id number], [id number], [id number], [id number], [id number], [id number], [id number] ####[facility] [id number] [place] [address] Urea nitrogen [Mass/Vol] 21 mg/dL Normal 5-21 [facility] Comment on above: Performed By: #### 2 [id number], [id number], [id number], [id number], [id number], [id number], [id number] ####[facility] [id number] [place] [address] Urea nitrogen/Creatinin e [Mass ratio] 21 No Units High 10-20 [facility] Comment on above: Performed By: #### 2 [id number], [id number], [id number], [id number], [id number], [id number], [id number] ####[facility] [id number] [place] [address] Consent for Treatmenton Consent for Treatment [id number]: 127 Normal [facility] Family Medicine Office/Clini c Noteon 01-18-2023 Family Medicine Office/Clinic Note Chief Complaint Patient here for 1 month f/u on cellulitis of left leg. Went to Urgent Care in [facility] & given more abx's--finished a couple days ago. Still having swelling--taking Lasix everyday. Stopped smoking end of Oct 2022. History of Present Illness Here for med follow up. She did not get her labs done. she states her leg is still swollen When she finished my abx she had an increase of redness and swelling in her left leg and some stinging pain. She went back to urgent care and was given more abx that she finished last week. It helped but the redness and swelling linger. On questioning she does report burning in her esophagus when she eats. It is getting worse. She does not take anything for it. Review of Systems PHQ Score Initial Depression Screen Score: 0 Physical Exam Vitals & Measurements T: 36.6 ?C(Oral) HR: 83(Peripheral) BP: 112/78 SpO2: 99% HT: 64 in HT: 162.5 cm WT: 107.1 kg WT: 235.62 lb BMI: 40.56 General: Well developed, well nourished, in no acute distress Eyes: Pupils equal, round, and reactive to light. Conjunctivae and sclerae normal, and extraocular movements intact Ears: TM clear, grossly normal hearing Nose: No deformity, discharge, inflammation, or lesions Mouth: MMM. Oropharynx and posterior pharynx without lesions or exudates. Tongue WNL Neck: Neck supple. No lymphadenopathy. Trachea midline. No thyroid, masses, tenderness, or enlargement noted. No bruit. Lungs: Normal respiratory effort and clear to auscultation Cardio: Regular rate and rhythm, normal S1 and S2, no murmur, no rub Abdomen: Soft, non-distended, non-tender Musculoskeletal: No joint swelling or synovitis noted Extremity: No clubbing, cyanosis or edema. Neurologic: CN 2-12 intact, no focal motor or sensory defects noted. Skin: No rashes, ulcerations, or suspicious lesions Mental Status: Alert and oriented x3. Normal mood and affect Assessment/Plan 1. Superficial phlebitis of left leg (I80.02: Phlebitis and thrombophlebitis of superficial vessels of left lower extremity) will refer to vascular to evaluate she has been on two rounds of Clindamycin and one round of Bactrim Ordered: [facility] [place] 2. Cellulitis of left leg (L03.116: Cellulitis of left lower limb) improved no need for abx today. Ordered: [facility] [place] 3. Edema of leg (R60.0: Localized edema) stay on lasix prn Ordered: [facility] [place] Ref[place] 4. Venous stasis dermatitis of lower extremity (I87.2: Venous insufficiency (chronic) (peripheral)) refer to vascular surgery Ordered: [facility] [place] 5. Hypothyroid (E03.9: Hypothyroidism, unspecified) try to get labs done 6. Hyperlipemia, mixed (E78.2: Mixed hyperlipidemia) try to get labs done. 7. Adult BMI 40.0-44.9 kg/sq m (Z68.41: Body mass index [BMI] 40.0-44.9, adult) The standard range for ages 18 and older is >=18.5 and < 25 kg/m2. Your BMI today was above this range, this falls in the overweight to obese category and there are medical benefits to weight loss. We can offer counselling, referral, and/or medical support in addressing this problem. Your BMI and weight management will be followed at subsequent visits. Ordered: Body Mass Index (BMI) documented 3008F Current tobacco non-user 1036F 8. Class 3 severe obesity due to excess calories with body mass index (BMI) of 40.0 to 44.9 in adult (E66.01: Morbid (severe) obesity due to excess calories) 9. History of DVT in adulthood (Z86.718: Personal history of other venous thrombosis and embolism) 10. GERD (gastroesophageal reflux disease) (K21.9: Gastro-esophageal reflux disease without esophagitis) Ordered: pantoprazole, 20 mg = 1 tab(s), Oral, Daily, # 30 tab(s), Refills(s) 6, [facility]acy: [facility], 162.5, cm, 01/18/23 9:54:00 EDT, Height/Length Dosing, 107.1, kg, 01/18/23 9:54:00 EDT, Weight Dosing [facility] [place]ulatory Referral Follow-up With When Contact Information BRADLEY NATARAJAN, Alyce Romo, JACOB In 3 months [facility] [address] [facility], [address] [place] [id number]- Additional Instructions: Patient Education Stasis Dermatitis Problem List/Past Medical History Ongoing Cellulitis of left leg Edema of leg GERD (gastroesophageal reflux disease) History of DVT in adulthood Hyperlipemia, mixed Hypothyroid Low back pain Lumbar radiculopathy, right Screen for colon cancer Superficial phlebitis of left leg Venous stasis dermatitis of lower extremity Historical No qualifying data Medications aspirin 81 mg Oral EC Tab, 81 mg= 1 tab(s), Oral, Daily B 100 Complex oral tablet, 1 tab(s), Oral, Daily, 3 refills Lasix 40 mg Tab, 40 mg= 1 tab(s), Oral, Daily, PRN, 1 refills levothyroxine 75 mcg (0.075 mg) Tab, 75 mcg= 1 tab(s), Oral, Daily, 3 refills lovastatin 10 mg Tab, 10 mg= 1 tab(s), Oral, Daily, 3 refills One-A-Day Women, 1 tab(s), Oral, Daily Pantoprazole [address] Urrutia (more content not included)... Normal [facility] Comment on above: Result Comment: Elec tronically Signed By: BRADLEY NATARAJAN, Alyce Romo\.br\Date and Time Signed: 01/18/23 10:12 EDT Free T4on 01-18-2023 Free T4 [Mass/Vol] 0.78 ng/dL Normal 0.58-1.64 [facility] Comment on above: Performed By: #### 2 [id number], [id number], [id number], [id number], [id number], [id number], [id number] ####[facility] [address] [place] [address] Lipid Panelon 01-18-2023 Cholesterol [Mass/Vol] 227 mg/dL High 120-200 [facility] Comment on above: Performed By: #### 2 [id number], [id number], [id number], [id number], [id number], [id number], [id number] ####[facility] [address] [place] [address] Cholesterol in HDL [Mass/Vol] 70 mg/dL Invalid Interpretation Code [facility] Comment on above: Result Comment: HDL > or equal to 60 mg/dL: Low cardiovascular risk HDL < 40 mg/dL : High cardiovascular risk Performed By: #### 2 [id number], [id number], [id number], 6113107, [id number], [id number], [id number] ####[facility] [address] [place] [address] Cholesterol in LDL [Mass/Vol] 133 mg/dL High <=129 [facility] Comment on above: Performed By: #### 2 [id number], [id number], 7369613, [id number], 6870141, [id number], [id number] ####[facility] [address] [place] [address] Cholesterol in VLDL [Mass/Vol] 20 mg/dL Normal 7-40 [facility] Comment on above: Performed By: #### 2 347650, [id number], 9823044, 5456605, 6677952, [id number], [id number] ####[facility] [address] [place] [address] Triglyceride [Mass/Vol] 102 mg/dL Normal <=149 [facility] Comment on above: Performed By: #### 2 277762, [id number], 0668482, 2211740, 9241260, [id number], [id number] ####[facility] [address] [place] [address] Patient Educationon 01-19-20 Patient Education Dermatology Stasis Dermatitis Stasis dermatitis is a long-term (chronic) skin condition that happens when veins can no longer pump blood back to the heart (poor circulation). This condition causes a red or brown scaly rash or sores (ulcers) from the pooling of blood (stasis). This condition usually affects the lower legs. It may affect one leg or both legs. Without treatment, severe stasis dermatitis can lead to other skin conditions and infections. What are the causes? This condition is caused by poor circulation. What increases the risk? You are more likely to develop this condition if: ? You are not very active. ? You stand for long periods of time. ? You have veins that have become enlarged and twisted (varicose veins). ? You have leg veins that are not strong enough to send blood back to the heart (venous insufficiency). ? You have had a blood clot. ? You have been many times. ? You have had vein surgery. ? You are obese. ? You have heart or kidney failure. ? You are 50 years of age or older. ? You have had injuries to your legs in the past. What are the signs or symptoms? Common early symptoms of this condition include: ? Itchiness in one or both of your legs. ? Swelling in your ankle or leg. This might get better overnight but be worse again during the day. ? Skin that looks thin on your ankle and leg. ? Red or brown puente that develop slowly. ? Skin that is dry, cracked, or easily irritated. ? Red, swollen skin that is sore or has a burning feeling. ? An achy or heavy feeling after you walk or stand for long periods of time. ? Pain. Later and more severe symptoms of this condition include: ? Skin that looks shiny. ? Small, open sores (ulcers). These are often red or purple and leak fluid. ? Skin that feels hard. ? Severe itching. ? A change in the shape or color of your lower legs. ? Severe pain. ? Difficulty walking. How is this diagnosed? This condition may be diagnosed based on: ? Your symptoms and medical history. ? A physical exam. You may also have tests, including: ? Blood tests. ? Imaging tests to check blood flow (Doppler ultrasound). ? Allergy tests. You may need to see a health care provider who specializes in skin diseases (cream dipper). How is this treated? This condition may be treated with: ? Compression stockings or an elastic wrap to improve circulation. ? Medicines, such as: ? Corticosteroid creams and ointments. ? Non-corticosteroid medicines applied to the skin (topical). ? Medicine to reduce swelling in the legs (diuretics). ? Antibiotics. ? Medicine to relieve itching (antihistamines). ? A bandage (dressing). ? A wrap that contains zinc and gelatin (Unna boot). Follow these instructions at home: Skin care ? Moisturize your skin as told by your health care provider. Do not use moisturizers with fragrance. This can irritate your skin. ? Apply a cool, wet cloth (cool compress) to the affected areas. ? Do not scratch your skin. ? Do not rub your skin dry after a bath or shower. Gently pat your skin dry. ? Do not use scented soaps, detergents, or perfumes. Medicines ? Take or use nsxw-ssv-mnggqwf and prescription medicines only as told by your health care provider. ? If you were prescribed an antibiotic medicine, take or use it as told by your health care provider. Do not stop taking or using the antibiotic even if your condition improves. Activity ? Walk as told by your health care provider. Walking increases blood flow. ? Do calf and ankle exercises throughout the day as told by your health care provider. This will help increase blood flow. ? Raise (elevate) your legs above the level of your heart when you are sitting or lying down. Lifestyle ? Work with your health care provider to lose weight, if needed. ? Do not cross your legs when you sit. ? Do not stand or sit in one position for long periods of time. ? Wear comfortable, loose-fitting clothing. Circulation in your legs will be worse if you wear tight pants, belts, and waistbands. ? Do not use any products that contain nicotine or tobacco, such as cigarettes, e-cigarettes, and chewing tobacco. If you need help quitting, ask your health care provider. General instructions ? If you were asked to use one of the following to help with your condition, follow instructions from your health care provider on how to: ? Remove and change any dressing. ? Wear compression stockings. These stockings help to prevent blood clots and reduce swelling in your legs. ? Wear the Unna boot. ? Keep all follow-up visits as told by your health care provider. This is important. Contact a health care provider if: ? Your condition does not improve with treatment. ? Your condition gets worse. ? You have signs of infection in the affected area. Watch for: ? Swelling. ? Tenderness. ? Redness. ? (more content not included)... Normal [facility] TSHon 01-18-2023 TSH Qn 0.31 m[IU]/L Low 0.34-5.60 [facility] Comment on above: Performed By: #### 2 [id number], [id number], 6078444, 9825784, 6071775, [id number], [id number] ####[facility] [address] [place] [address] eGFRon 01-18-2023 GFR/1.73 sq M.predicted among blacks MDRD (S/P/Bld) [Vol rate/Area] mL/min/{1.73_m2} Normal >=59 [facility] Comment on above: Order Comment: Order added by Discern Expert. Result Comment: eGFR is race adjusted. AA=. Performed By: #### 2 464925, 6206101, 4064241, 7910601, 1951157, [id number], [id number] ####[facility] [address] [place] [address] GFR/1.73 sq M.predicted among non-blacks MDRD (S/P/Bld) [Vol rate/Area] 57 mL/min/1.73 m2 Low >=59 [facility] Comment on above: Order Comment: Order added by Discern Expert. Result Comment: Survival Equipment Repairer ostio kidney disease could be indicated at eGFR's of less than 60 mL/min/1.73m2. Kidney failure is indicated at less than 15 mL/min/1.73m2. Performed By: #### 2 [id number], 1282553, 9240407, 0479032, 5233551, [id number], [id number] ####[facility] [address] [place] [address] Family Medicine Office/Clini c Noteon 12-16-2022 Family Medicine Office/Clinic Note Chief Complaint Patient here for ER f/u--seen [place] [facility] [place] d/t tripping up steps & injuring left lower leg. Seen again at [place] [facility] on 12-09-22 for cellulitis & given abx. Stopped smoking 11-17-22. History of Present Illness Here for follow from ED She went to ED Dec 06 due to left leg pain persisting from a fall 1 weeks prior. ED eval was unremarkable. Xray was ok. she was at home and fell going up her cement steps. that was her upper evans. She noticed some mild redness in the evans area. Her pain got worse. She went to [place] and had an US done Dec 09 that showed superficial thrombophlebitis but no DVT. She was placed on clindamycin and a pain medication. Review of Systems PHQ Score Initial Depression Screen Score: 0 Physical Exam Vitals & Measurements T: 36.7 ?C(Oral) HR: 80(Peripheral) BP: 116/78 SpO2: 97% HT: 64 in HT: 162.5 cm WT: 108.6 kg WT: 238.92 lb BMI: 41.13 General: Well developed, well nourished, in no acute distress Eyes: Pupils equal, round, and reactive to light. Conjunctivae and sclerae normal, and extraocular movements intact Ears: TM clear, grossly normal hearing Nose: No deformity, discharge, inflammation, or lesions Mouth: MMM. Oropharynx and posterior pharynx without lesions or exudates. Tongue WNL Neck: Neck supple. No lymphadenopathy. Trachea midline. No thyroid, masses, tenderness, or enlargement noted. No bruit. Lungs: Normal respiratory effort and clear to auscultation Cardio: Regular rate and rhythm, normal S1 and S2, no murmur, no rub Abdomen: Soft, non-distended, non-tender Musculoskeletal: No joint swelling or synovitis noted Extremity: One plus edema bilateral RLE 2 + edema LLE, mild erythema and tenderness. Neurologic: CN 2-12 intact, no focal motor or sensory defects noted. Skin: No rashes, ulcerations, or suspicious lesions Mental Status: Alert and oriented x3. Normal mood and affect Assessment/Plan 1. Superficial phlebitis of left leg (I80.02: Phlebitis and thrombophlebitis of superficial vessels of left lower extremity) will put on medrol pack finish clindamycin will also put on lasix. Ordered: methylPREDNISolone, = 1 packet(s), Oral, As Directed, as directed on package labeling, X 6 day(s), # 21 tab(s), Refills(s) 0, [facility]: [facility], 162.5, cm, 12/16/22 13:16:00 EST, Height/Length Dosing, 108.6, kg, 12/16/22 13:16:00 EST, Weight Dosing CBC w/ Auto Diff Comprehensive Metabolic Panel 2. Cellulitis of left leg (L03.116: Cellulitis of left lower limb) as above 3. Edema of leg (R60.0: Localized edema) will put on lasix Ordered: furosemide, 40 mg = 1 tab(s), Oral, Daily, PRN leg swelling, # 30 tab(s), Refills(s) 1, [facility]: [facility], 162.5, cm, 12/16/22 13:16:00 EST, Height/Length Dosing, 108.6, kg, 12/16/22 13:16:00 EST, Weight Dosing Comprehensive Metabolic Panel 4. Adult BMI 40.0-44.9 kg/sq m (Z68.41: Body mass index [BMI] 40.0-44.9, adult) The standard range for ages 18 and older is >=18.5 and < 25 kg/m2. Your BMI today was above this range, this falls in the overweight to obese category and there are medical benefits to weight loss. We can offer counselling, referral, and/or medical support in addressing this problem. Your BMI and weight management will be followed at subsequent visits. 5. Class 3 severe obesity due to excess calories with body mass index (BMI) of 40.0 to 44.9 in adult (E66.01: Morbid (severe) obesity due to excess calories) 6. Hyperlipemia, mixed (E78.2: Mixed hyperlipidemia) Ordered: Lipid Panel 7. Hypothyroid (E03.9: Hypothyroidism, unspecified) Ordered: Free T4 Thyroid Stimulating Hormone Orders: buPROPion, 150 mg = 1 tab(s), Oral, BID, take once a day for the first week., # 180 tab(s), Refills(s) 1, [facility]: [facility], 162.5, cm, 05/15/22 13:42:00 EDT, Height/Length Dosing, 97.8, kg, 05/15/22 13:42:00 EDT, Weight Dosing Follow-up With When Contact Information BRADLEY NATARAJAN, Alyce Romo, JACOB In 1 month [facility] [address], [place] [address]- Additional Instructions: Patient Education Phlebitis, Gydt-bh-Cxtv Problem List/Past Medical History Ongoing Cellulitis of left leg Edema of leg Hyperlipemia, mixed Hypothyroid Low back pain Lumbar radiculopathy, right Screen for colon cancer Smoker Superficial phlebitis of left leg Historical No qualifying data Medications aspirin 81 mg Oral EC Tab, 81 mg= 1 tab(s), Oral, Daily B 100 Complex oral tablet, 1 tab(s), Oral, Daily, 3 refills Lasix 40 mg Tab, 40 mg= 1 tab(s), Oral, Daily, PRN, 1 refills levothyroxine 75 mcg (0.075 mg) Tab, 75 mcg= 1 tab(s), Oral, Daily, 3 refills lovastatin 10 mg Tab, 10 mg= 1 tab(s), Oral, Daily, 3 refills Medrol 4 mg Tab, 1 packet(s), Oral, As Directed One-A-Day Women, 1 tab(s), Oral, Daily Valtrex 500 mg Tab, 500 mg= 1 tab(s), Oral, Daily Allergies No Known Medication Allergies Social History Alcoh (more content not included)... Normal [facility] Comment on above: Result Comment: Elec tronically Signed By: BRADLEY NATARAJAN, Alyce Romo\.br\Date and Time Signed: 12/16/22 13:37 EST Patient Educationon 12-17-19 Patient Education Emergency Medicine Phlebitis Phlebitis is soreness and swelling (inflammation) of a vein. Follow these instructions at home: Managing pain, stiffness, and swelling ? If told, apply heat to the affected area. Do this as often as told by your doctor. Use the heat source that your doctor tells you to use. This may include a moist heat pack or a heating pad. ? Place a towel between your skin and the heat source. ? Leave the heat on for 20?30 minutes. ? Take off the heat if your skin turns bright red. This is very important if you cannot feel pain, heat, or cold. You may be more likely to get burned. ? Raise (elevate) the affected area above the level of your heart while you are sitting or lying down. Medicines ? Take wzrb-bhe-ywroaof and prescription medicines only as told by your doctor. ? If you were prescribed an antibiotic medicine, take it as told by your doctor. Do not stop taking the antibiotic even if your condition gets better. ? If you take medicines to thin your blood, carry a medical alert card or wear your medical alert jewelry. General instructions ? If you have phlebitis in your legs: ? Do not stand or sit for a long time. ? Keep your legs moving. ? Get up and take short walks if you have to sit for a long time. ? Try to avoid bed rest that lasts for a long time. Regular sleep is not bed rest. ? Wear compression stockings as told by your doctor. These stockings help: ? To reduce swelling in your legs. ? To prevent blood clots. ? To stop the condition from coming back. ? Do not use any products that contain nicotine or tobacco, such as cigarettes and e-cigarettes. If you need help quitting, ask your doctor. ? Keep all follow-up visits as told by your doctor. This is important. This may include any follow-up blood tests. Contact a doctor if: ? You have strange bruises. ? You have bleeding problems. ? Your symptoms do not get better. ? Your symptoms get worse. ? You are taking medicine to treat swelling (anti-inflammatory medicine) and you get belly (abdominal) pain. Get help right away if: ? You have sudden chest pain. ? You suddenly have trouble breathing. ? You have a fever and your symptoms get worse. ? You cough up blood. ? You feel dizzy or you pass out. ? You have very bad pain and swelling in the affected arm or leg. These symptoms may be an emergency. Do not wait to see if the symptoms will go away. Get medical help right away. Call your local emergency services (911 in the [place] Do not drive yourself to the hospital. Summary ? Phlebitis is soreness and swelling (inflammation) of a vein. ? Raise (elevate) the affected area above the level of your heart while you are sitting or lying down. ? If told, apply heat to the affected area. Do this as often as told by your doctor. Use the heat source that your doctor tells you to use. This may include a moist heat pack or a heating pad. ? Take xjcr-trh-jkrptay and prescription medicines only as told by your doctor. This information is not intended to replace advice given to you by your health care provider. Make sure you discuss any questions you have with your health care provider. Document Released: 09/22/2010 Document Revised: 11/14/2019 Document Reviewed: 11/09/2017 Elsevier Patient Education ? 2019 [employer]. [facility] RAD - MISCon 12-10-2022 [facility] [id number] 2051 [id number]: 127 Normal [facility] CBC AUTO DIFFon 12-09-2022 BASO # 0.0 103/ul Normal 0.0-0.1 [facility] Comment on above: Performed By: #### C BC #### [facility] [address] [place] [address] Dr. Marquis Josue Basophils/100 WBC (Bld) 0.5 % Normal 0.2-2.0 [facility] Comment on above: Performed By: #### C BC #### [facility] [address] [place] [address] Dr. Marquis Josue EO # 0.3 103/ul Normal 0.0-0.7 [facility] Comment on above: Performed By: #### C BC #### [facility] [address] [place] [address] Dr. Marquis Josue Eosinophils/100 WBC (Bld) 3.8 % Normal 0.9-7.0 [facility] Comment on above: Performed By: #### C BC #### [facility] [address] [place] [address] Dr. Marquis Josue Erythrocyte distribution width (RBC) [Ratio] 12.7 % Normal 11.0-15.0 [facility] Comment on above: Performed By: #### C BC #### [facility] [address] [place] [address] Dr. Marquis Josue Hematocrit (Bld) [Volume fraction] 39.0 % Normal 36.0-48.0 [facility] Comment on above: Performed By: #### C BC #### [facility] [address] [place] [address] Dr. Marquis Josue Hemoglobin (Bld) [Mass/Vol] 13.1 g/dL Normal 12.0-16.0 [facility] Comment on above: Performed By: #### C BC #### [facility] [address] [place] [address] Dr. Marquis Josue IG # 0.02 10e3/ul Normal 0.00-0.03 [facility] Comment on above: Performed By: #### C BC #### [facility] [address] [place] [address] Dr. Marquis Josue IG % 0.3 % Normal 0.0-0.5 [facility] Comment on above: Performed By: #### C BC #### [facility] [address] [place] [address] Dr. Marquis Josue LYMPH # 3.0 103/ul Normal 1.2-3.8 [facility] Comment on above: Performed By: #### C BC #### [facility] [address] [place] [address] Dr. Marquis Josue Lymphocytes/100 WBC (Bld) 40.9 % Normal 20.5-60.0 [facility] Comment on above: Performed By: #### C BC #### [facility] [address] [place] [address] Dr. Marquis Josue MANUAL DIFF REQ NO Normal [facility] Comment on above: Performed By: #### C BC #### [facility] [address] [place] [address] Dr. Marquis Josue MCH (RBC) [Entitic mass] 32.8 pg Normal 26.7-34.0 [facility] Comment on above: Performed By: #### C BC #### [facility] [address] [place] [address] [address] Marquis Josue MCHC (RBC) [Mass/Vol] 33.6 g/dL Normal 29.9-35.2 [facility] Comment on above: Performed By: #### C BC #### [facility] [address] [place] [address] [address] Marquis Josue MCV (RBC) [Entitic vol] 97.5 fL Normal 81.0-99.0 [facility] Comment on above: Performed By: #### C BC #### [facility] [address] [place] [address] [address] Marquis Josue MONO # 0.5 103/ul Normal 0.3-0.8 [facility] Comment on above: Performed By: #### C BC #### [facility] [address] [place] [address] Dr. Marquis Josue Monocytes/100 WBC (Bld) 6.5 % Normal 1.7-12.0 [facility] Comment on above: Performed By: #### C BC #### [facility] [address] [place] [address] Dr. Marquis Josue NEUT # 3.6 103/ul Normal 1.4-6.5 [facility] Comment on above: Performed By: #### C BC #### [facility] [address] [place] [address] Dr. Marquis Josue Neutrophils/100 WBC (Bld) 48.0 % Normal 43.0-75.0 [facility] Comment on above: Performed By: #### C BC #### [facility] [address] [place] [address] [address] Marquis Josue Platelet mean volume (Bld) [Entitic vol] 9.2 fL Critically low 9.5-13.5 [facility] Comment on above: Performed By: #### C BC #### [facility] [address] [place] [address] [address] Marquis Josue PLT 303 103/ul Normal 150-450 [facility] Comment on above: Performed By: #### C BC #### [facility] [address] [place] [address] [address] Marquis Josue RBC 4.00 106/ul Critically low 4.20-5.40 [facility] Comment on above: Performed By: #### C BC #### [facility] [address] [place] [address] Dr. Marquis Josue WBC 7.4 103/ul Normal 4.0-11.0 [facility] Comment on above: Performed By: #### C BC #### [facility] [address] [place] [address] Dr. Marquis Josue CRPon 12-09-2022 CRP 0.2 mg/dL Normal <=1.0 [facility] Comment on above: Performed By: #### B MP, CRP #### [facility] [address] [place] [address] Dr. Marquis Josue PROF CHEM 8 (BAS METB)on Anion gap [Moles/Vol] 12.1 mmol/L Normal [facility] Comment on above: Performed By: #### B MP, CRP #### [facility] [address] [place] [address] Dr. Marquis Josue Calcium [Mass/Vol] 9.2 mg/dL Normal 8.5-10.1 [facility] Comment on above: Performed By: #### B MP, CRP #### [facility] [address] [place] [address] Dr. Marquis Josue Chloride [Moles/Vol] 109 mmol/L Critically high 98-107 [facility] Comment on above: Performed By: #### B MP, CRP #### [facility] [address] [place] [address] Dr. Marquis Josue CO2 [Moles/Vol] 25.6 mmol/L Normal 21.0-32.0 [facility] Comment on above: Performed By: #### B MP, CRP #### [facility] [address] [place] [address] Dr. Marquis Josue Creatinine [Mass/Vol] 0.83 mg/dL Normal 0.55-1.02 [facility] Comment on above: Performed By: #### B MP, CRP #### [facility] [address] [address] [address] Marquis Josue EGFR-AF BRITISH >60 Normal >=60 [facility] Comment on above: Performed By: #### B MP, CRP #### [facility] [address] [address] [address] Marquis Josue EGFR-NON AF BRITISH >60 Normal >=60 [facility] Comment on above: Performed By: #### B MP, CRP #### [facility] [address] [address] [address] Marquis Josue Glucose [Mass/Vol] 108 mg/dL Critically high 74-106 T [facility] Comment on above: Performed By: #### B MP, CRP #### [facility] [address] [address] [address] Marquis Josue Potassium [Moles/Vol] 4.7 mmol/L Normal 3.5-5.1 [facility] Comment on above: Performed By: #### B MP, CRP #### [facility] [address] [address] [address] Marquis Josue Sodium [Moles/Vol] 142 mmol/L Normal 136-145 [facility] Comment on above: Performed By: #### B MP, CRP #### [facility] [address] [address] [address] Marquis Josue Urea nitrogen [Mass/Vol] 20.0 mg/dL Critically high 7.0-18.0 [facility] Comment on above: Performed By: #### B MP, CRP #### [facility] [address] [address] [address] Marquis Josue Urea nitrogen/Creatinin e [Mass ratio] 24.1 mg/mg Normal [facility] Comment on above: Performed By: #### B MP, CRP #### [facility] [address] [address] [address] Marquis Josue PROTIMEon 12-09-2022 INR Coag (PPP) [Relative time] {INR} Normal [facility] Comment on above: Performed By: #### P TT, PT #### [facility] [address] [place] [address] Dr. Marquis Josue INR GUIDELINES SEE BELOW Normal [facility] Comment on above: Result Comment: FREDDY RED INR: 2.0 - 3.0 CONDITIONS NOT LISTED BELOW 2.5 - 3.5 FOR PROSTHETIC HEART VALVE REPLACEMENT 2.5 - 3.5 RECURRENT THROMBOSIS Performed By: #### P TT, PT #### [facility] [address] [place] [address] Dr. Marquis Josue PT Coag (PPP) [Time] 9.8 s Normal 9.0-11.6 [facility] Comment on above: Performed By: #### P TT, PT #### [facility] [address] [place] [address] Dr. Marquis Josue PTTon 12-09-2022 aPTT Coag (Bld) [Time] 24.8 s Normal 22.3-36.2 [facility] Comment on above: Performed By: #### P TT, PT #### [facility] [address] [place] [address] Dr. Marquis Josue SED RATE [facility] 2022 SED RATE 35 mm/hr Critically high <=30 [facility] Comment on above: Performed By: #### S EDR #### [facility] [address] [place] [address] Dr. Marquis Josue US RAY DOP LEG LTon 12-09-19 23 US RAY DOP LEG LT EXAM: US RAY DOP LEG LT TECHNIQUE: Grayscale, color flow and Doppler ultrasound of the left lower extremity venous system. HISTORY: Deep venous thrombosis COMPARISON: None. FINDINGS: The left common femoral vein, left superficial femoral vein, left popliteal vein, left peroneal and left posterior tibial veins are compressible without filling defect. There is hypoechoic filling defect of the great saphenous vein in the proximal portion of the left lower leg as well as within a varicose vein of the proximal portion of the left lower leg. _ IMPRESSION: No evidence for left lower extremity acute deep vein thrombosis. Superficial thrombophlebitis involving the great saphenous vein and a varicose vein of the proximal portion of the left lower leg. Electronically authenticated by: LISA AMATO Date: 2022-12-09 20:[address] [facility] Coding Summary.on 12-08-2022 Coding Summary. [id number] Gh0b Ww+PGhlYWQ+NU8OYIUtS80dv TMuzF2YW2oGAK9GWWKEFFEGZ Z6JOP2scEO6PQutX3TcfcUd XemlePXmPD89EMn1YTA0nGdw HSkdlM3gsICbK2n9QdXzCR36 kI29WNjgYTMzLgJ9VjDdbnip bWFy T6ekWaQtkJYrSbm+PHRhYmxl IHdpZHRoPScxMDAlJyBzdHls VW0tQc6aYIAfVJJmnFzawNCl OiBj g4zeHSSsXBhlBE0nhVsgQ4Nr wGZ8SPEqp6a7Nr27iEX+PHRk JLE0fFrrVNckt965BeVir7sk IDM3 vIGcOFdyVXI4F98ba2Q4WHSr LCDfSVE8aQK3xY7arJnulofu P9ImjTByAdV6AXF2oZGccY5s bGln kqdwfT6dMot+X34DOP2YYBIO OP8UObv6R4WlLjmwaCM+PC90 USBdIB64mYZfgXYjw6cevNh6 JzEw WUCyMQQ2uJicCIjqa8OqWDOh I43xeNUpq9O5IVWhgJrkmVPx VyZlxTA3mJ1rFWcpjyokv0gm dzsn Mmwkv9hbct63bH40R89iEYra PEWzWYE3FVJtDGBmhVmgep8z eT6wNk5+EPuhw1jug0zvoNn5 IjIw ANQspnJxdXqaMQF2v5XtCt40 L9KamOlpo1JuHjj6eh52qFXp p1F9aTK2NVbtUXAgfH9mDZhh ZnQ6 EUAtZnItdE11bGWvXWsiPz7i vAmyxLjgKM3mEFMszsycLULd sP1wMLGfnMCpvGlwKO0xHXYq bjtm b429XfKuKWF8IINhhUHxI4Rz mU1uZuDfBKBuZQVqC2GlyLSr XQehU598QRltYjE0TMMpktBy Y2Fs SHKipJmoQqB0n8J4Sv1Ws2Pj nldtFMW3LWukZXHkXgYtApAf GpX3R8YqCss7CVVwgGbwOE7b J3Bh BNIbbpvnhwnqmLO6PTKeCBOe aJ09kYSlCGrpFg1dm4X5f005 EHTeDTSvpG55Fc1fvBfeXGJj dCBU kZ0hqwsql9jrmjrbIuRhTOZp WIe0IJu2XJMvaVooOsTgJCL5 HvX6IHV5iEBowX3qeHzbncgj dG9w Oyc+F46mjS7aXTB7NGA8qyzg CIExqmLcHF76XJ13M4JkRfpu dGFibGU+WVPucqRiwPpbNT5q YmFj p3rne3QcZSrsG1HmKKPfGFbt Blq5WRBxEDD1eWR5bA0hTMGo KQwqc0J6hSR3R9UxtrRtoh6n b2xs AHPdOEimJ20hsVRbk1N2HILb lSA4OUEypFpjGiIkqD12Gmy+ EYPyqTuhi1GeIxsio3nhh3gw dGg9 BuDyDVRvmmGfbGfrNPE8b0Cc Iy68E10dZYciBNZeIUAoBLYj GWCrpPdplz0wdP8uEs7+PGNv bCB3 sRC7mK8dQXNmJaG0EVwsJ769 HoSqqVGlYbbsq1idl8xraOs8 LyArSOKnrcQsmChxLPI7g8Gy Lz48 S58lAMllDRUxZESlXCSnJNDj hNqisr6pfG7bFs5+VN0it2mj wm44sD90yUP+FUAgNPG4eIzb PSdw XPAwaV7pSLxvTmT6YKIoZhJh sQ19vZQkSEcaKe3mnZylkLoi JO6vTTIfxirdg309WuBzs2da IDEw yJFxIJpeISL1T63ek3E6AGIw ZOTsKTE8sYT3iP8ecQttkslg bGVmdDsgdmVydGljYWwtYWxp Z246 IHRvcDsnPlBhdGllbnQgTmFt FNx0Y2TlDgg6GGCrhVzpLV8j cVNrKTegOu4yfEekrJlxAH1x NTBp viotz025QwPdh3jtUEIldQXs RPeuEIQ6E11kr1G6LTOlLHMk MEX9nBG1zE1djOvzyljerJCt dDsg obTfuApqQLlqPRtbH339LADe oQloZoOljzHrHORcvHL5MA83 RE86bTHcn4C8jYQ8H2DjAJDg bmct hsxoyES3HOQdMEEltR84Ao8c wQcuQd8oMGZlHOV0CXPzjDZo G5LetL1aOaSwTETvRMRbL2Hy eHQt PUzrH124SCuwJfM3OJVjowBg T9RoAMNkcLynEzB4u9B6Yc4V R2M6RA98FU75jIFme4I0iXO4 J3Bh GRFfbavucjxuaXM0FZTtIAVt vI47Wn4caNglLh4cBDDbETZ2 HPErhVNxF3XxkL8gWpSwMAAy MDAw D4IuhOLrMTjiX458ZLzrZcL4 WXDjmqBdL3IdBAFqtIjdIuE8 g1O3Lr1YMXu6ZF97LM34cBNi c3R5 nAC4M1KrGQStykbwstiipLK8 AHLyZIWguP72Jz7wdPlpDp7h ICXjQTS9WHTlwVFlG4JlhN9c OiAj QLTnASBuU6CncBLwELfzH970 FFtlIoW0LJZgbgKpU6VqOJRq eEzwFeK5t8G3Xs8REYOwNQ02 IFR5 pQS2FV28PY13C0EgCknvkZTa bGU+PHRhYmxlIHdpZHRoPScx DLJePyYewJhdVM3jOo1nJLJx LWNv lYbuqJGpSqZna5hlZSDaJBes LK8lsZjmM4WicAP3RZSgd1r6 Bh20W98cI3MdzDX+PGNvbCB3 aWR0 yM8uDpPwDiL7UNqeL827DiQk rDAeBrqqg6vjg3lleDr4LdO8 ABYxvrJhfJapCWT2h2ZjEd53 Y29s IHdpZHRoPSIxNSUiIHZhbGln sd7wpU0aTb5+IQOsaTE2hIR6 tT2qKaZdGxT2MWkfX565ImIn cCIv Qmfeb4ujm9fgvDx7UwIlMPFp vpTgfKpuSON3o2ZkNn80A2Uf mBxle3MdCpb7jk52xIAbr5W9 bGU9 M6FePHRkvebivXJgcUcgAI7v WUGnmqebDLIqaU4aVWKlG0r8 OaVgSbE6QRrzS0SuxsN7JWAm cHQg OAqhOQF1D14qf3A9MRGcJWFh DGD9kSZ9dX0ynCyckaezsVVw pUabslJgwTgsLMjyTNbgY926 IHRv aCqhIEObbY5yRFVxfIGrbRpx MP3rGPKkezdoSw7HLbLMJSbK LCBURVJSSTwvdGQ+PHRkIHN0 eWxl RNcvUWJnaO4sKGFyJ2w3WrYb GzB9ZNdpC9QwKYMibmdjCu69 mU8lSlWjRwX0WDffU4QnweP3 IDEw sABcJBbkCCN1T58wr1A1MUIw URHwDVJ7aEN6aY1qgDbdlivb bGVmdDsgdmVydGljYWwtYWxp Z246 QXXsgUquCgL8DjI7HjR9InF7 J0ItMch9GQVqvJlnZK1jkRGa ZOsuXe2wvBemkZxfVU6cNOWi bjtw JGPwwO9hHZHkxMSyqNxhKG9a VXEjhsjoh724KxSySVI8ARSr bCUyR6ObtG9fMeVuTYMsDQVw O3Rl bFYeYNliT344MFdoLqA2YSUd jdPiV1UnTNLwfKtfXsB1k0J2 Zk12PkCSUUUnxpvqiQW+PHRk IHN0 uOsiPZenUFHuhZ9sTXCtQ2i3 NeEtIoM1HQuaC7LfEIHurxyx Oq25yM4zCiWbWyB6EOvuD4Cv bnQ6 NJIlzEOvPSgzZMQ3D78nu7J3 KBYeLTJtEJI1aSG8oC1wwNed bjogbGVmdDsgdmVydGljYWwt YWxp L648KFEefUjgDwVxuQVhNZkm dGQ+FRUzGFV5ePleMLpxQJQf oF9hLIElC5t9VoTkCsE2AUpm O3Bh QLAdwpuqGt80aH1mZtYmInS6 TNabE7EbfzJ6RIVbwXLtKApw SAB2C82ku8P2UUPnACPcHIC2 dGV4 yB3itLmtccsqoBRnrRgjocOc kUmsMFzjBBnpU318XUGnjTxz TeKrFXMgBK4ztNdsnWD+PC90 cj48 F7FcTstaRco7UNRfFKB5oHH4 wN1pHVIkHJhfn5M9dIP4U4Zg kfZpog0qe1qbSQOzARxuN16a bGFw r4N4FONonEL2FFSgoXvpQkDj oO38Cld+TOBrrAuez0GcHsrw n3gkg7gpmHn0FpIpDTYxkkKi aWdu CIL8a9JgWk83L41cHGsxWTBd QWIvWOQeMOQlhHkcvq1wqV2c Ii8+CITliUH3mFX0lP4hUaUu IiB2 WBdeF427NeAzeXCiApvbj9bo o3tfcWk6PsAkZRIpihFxmZff JXJ4d6XxRm52Q3RkfQbki8Mf Pjx0 qs31sRHem5N4wAW3C2TuXMLy iuevyEVglIfeRO6mGINdgoxn TYAccO9zJROcA1r7NbBkPlV1 MGlu N6GmlsL7WRTctAEoGFUswWBY uB0vtmdot2wysdynOxKuNHWo OKi6ELf8MCZmoRuwYkUgYOY0 OyB2 LKN7dGNlcK5cdTaumcwxjT3t Oyc+NXz9r7ubqKQrKT2ulEK5 QB72JS98bORdc3P5iAQ9L0Qu ZGRp faozujmjjBZ1TFTpACYikM99 Nz5buHkcEd3kPXAnQOM1TMBa yPWeA3ZdsG1tXcGsABWaIEYx O3Rl pHSmLTgrT793RBzjDjO1FBZf eoToB0HnMEKxuSsgWkD7s8Q5 Og8FEC21UP94XO67qGFez5F0 bGU9 O1XzBVBkkpuyhnynaHB9AYMa SEAfbS11Eb8drJskNd0eAVCg EAO2MCSpmRQlH2OksI6eOoMd MDAw OAZrJ5WctQCtUQlbH056TWok RnQ4KXVurmQnC9HiRAVjlAia FyO7l0M9Mp8CCy15ZU69NW64 dGQg b5D7vUP3R1GuOCHesqaygdwc aWX9RZDcSQHteW13Ai1prJav Ia5oGNRsEOT9HEEhjSDcU1Sf bG9y WgPlEVQhDGEcJ1WaiCCrDKbx Z020UHgvCrO3ESKejkHmT6Fh USJdgDgnXcT5i3F3Nr5QVUms cjo8 C7KeRdslmSE+FB33WRCiQF50 vJFzbHUvt5jgfWk9XvBvKEZi LFW7fCorSBzji8OnBHGgX34i bGFw c2U6 (more content not included)... Normal [facility] ED Note-Physicianon 12-07-19 ED Note-Physician Basic Information Time Seen: Eduardo Ness PA-C 12/06/2022 10:59 Chief Complaint pt presents with left leg pain and swelling for 3 days. pt vebralized a fall about 2 weeks ago and hit evans area to left leg History of Present Illness 57-year-old female comes to the ED for evaluation of left leg pain. The patient states she fell approximate 2 weeks ago striking her left evans on the edge of a stair. Pain was minimal until last few days when she had increased discomfort and has noted some soft tissue swelling as well. She complains of pain over the proximal third of the tibia. No tenderness of the ankle or foot. She does have chronic lower extremity edema. No acute calf tenderness. No numbness or tingling. No difficulty with weightbearing. Review of Systems A 10 point review of systems is negative except as noted above. Medical and Surgical History: Reviewed and noted Social history: Lives at home Tobacco: Denies Physical Exam Vitals & Measurements T: 36.8 ?C(Oral) HR: 81(Peripheral) RR: 16 BP: 157/88 SpO2: 97% HT: 162.5 cm WT: 97.8 kg BMI: 37.04 Nurses notes and vital signs reviewed and patient is not hypoxic. General: The patient appears well, resting comfortably. Skin: Warm, dry. Head: Atraumatic. Neck: No JVD. Eye: Normal conjunctiva. Ears, Nose, Mouth, and Throat: Moist mucous membranes. Cardiovascular: Strong distal pulses. Chest wall: Respiratory: Respirations are nonlabored. Back: Normal range of motion. Musculoskeletal: Tenderness over the left evans/tibia. There is some mild soft tissue swelling and ecchymosis proximally. No tenderness over the knee joint. No test of the ankle or foot. Strong pedal pulses. There is generalized chronic edema. No overlying erythema or warmth. Gastrointestinal: Urological: Neurological: Awake and alert. No focal deficits. Follows commands. Psychiatric: Cooperative. Medical Decision Making Imaging shows no fracture or dislocation. Examination shows no evidence of neurovascular compromise. No calf tenderness. Strong pedal pulses. She is educated to elevation ice and anti-inflammatories. Discharged home PCP follow-up. Patient was encouraged to return to the ED if symptoms worsen or change. Assessment/Plan Contusion of tibia (S80.10XA: Contusion of unspecified lower leg, initial encounter) Orders: XR Tib/Fib Left 2 View Disposition Plan Patient Discharge Condition Disposition: Discharged home Condition: Improved and stable Counseled: Patient and/or family were counseled to workup, results, treatment plan and follow-up recommendations Discharge Prescription List Prescriptions No active prescription medications Follow-up With When Contact Information Alyce HUERTA In 3 days 12/09/2022 [facility] [address] [facility] [address] [place] [id number] [facility] (1) Additional Instructions: Patient Education Periosteal Hematoma Contusion Attestation Patient seen and evaluated by the physician assistant printer floor covering. Attending physician was present in the emergency department and supervised care. This visit was performed by both the physician and an APC. I performed all aspects of the MDM as documented. This report was transcribed using voice recognition software. Every effort was made to ensure accuracy, however, inadvertently computerized automatic spreader operator mistakes may be present. Appropriate healthcare PPE was used in evaluating this patient. The patient was placed in a mask. The healthcare provider was wearing mask, gloves, and utilizing proper hand hygiene. All equipment was properly cleansed. Problem List/Past Medical History Ongoing Hyperlipemia, mixed Hypothyroid Low back pain Lumbar radiculopathy, right Screen for colon cancer Smoker Historical No qualifying data Medications Inpatient No active inpatient medications Home aspirin 81 mg Oral EC Tab, 81 mg= 1 tab(s), Oral, Daily B 100 Complex oral tablet, 1 tab(s), Oral, Daily, 3 refills levothyroxine 75 mcg (0.075 mg) Tab, 75 mcg= 1 tab(s), Oral, Daily, 3 refills lovastatin 10 mg Tab, 10 mg= 1 tab(s), Oral, Daily, 3 refills One-A-Day Women, 1 tab(s), Oral, Daily Valtrex 500 mg Tab, 500 mg= 1 tab(s), Oral, Daily Wellbutrin SR 150 mg Tab-ER, 150 mg= 1 tab(s), Oral, BID, 1 refills Allergies No Known Medication Allergies Social History Alcohol Employment/School Work/School description: Works at [employer] in [place]., 05/15/2022 Home/Environment Substance Abuse Tobacco 10 or more cigarettes (1/2 pack or more)/day in last 30 days Tobacco Use:. Never Smokeless Tobacco Use:. Cigarettes, Started age 13.0 Years. Yes, 05/15/2022 Lab Results No qualifying data available. Diagnostic Results XR Tibia/Fibula Left * Preliminary * 12/06/22 11:57:17 NEGATIVE: No fracture, dislocation or other acute abnormality Read By: Eduardo Ness PA-C Normal [facility] Comment on above: Result Comment: Elec tronically Signed By: Eduardo Ness PA-C\.br\Date and Time Signed: 12/06/22 12:01 EST\.br\Electronically Co-Signed By: Alyce Lovell DO\.br\Date and Time Co-Signed: 12/07/22 07:33 EST Consent for Treatmenton 11-18 Consent for Treatment [id number]: 127 Normal [facility] Discharge Instructionson Discharge Instructions [id number] D:127 Normal [facility] ED Clinical Summaryon 2022 ED Clinical Summary [place] [id number] ED Clinical Summary Person Information Name: DAPHNE EDWARDS/[facility] Age: 57 Years : 1965 Sex: Female Language: Ghanaian PCP: Alyce HUERTA MD Marital Status: Single Visit Id: Visit Reason: Leg pain-swelling; LEFT LEG PAIN Speciality: Acuity: 4 Enc Type: Emergency Med Service: Emergency Arrival: 12/06/2022 10:56:50 Discharge: 12/06/2022 12:05:19 LOS: 000 01:09 Checkin: 12/06/2022 10:56:50 Checkout: 12/06/2022 12:05:19 Dispo Type: Home (Routine DC) EVENTS: Event Name Event Status Request Date/Time Start Date/Time Complete Date/Time Arrive Complete 12/06/2022 10:56:50 12/06/2022 10:56:50 12/06/2022 10:56:50 Document Home Meds Request 12/06/2022 10:56:50 Triage Complete 12/06/2022 10:56:50 12/06/2022 11:05:01 12/06/2022 11:05:01 Bed Assign Complete 12/06/2022 10:59:24 12/06/2022 10:59:24 12/06/2022 10:59:24 Dr Exam Complete 12/06/2022 10:59:24 12/06/2022 10:59:50 12/06/2022 10:59:50 RN Exam Complete 12/06/2022 10:59:24 12/06/2022 11:07:24 12/06/2022 11:07:24 Registration Complete 12/06/2022 10:59:50 12/06/2022 11:00:07 12/06/2022 11:00:07 Reg Complete Request 12/06/2022 11:00:07 Reg Bed Request Complete 12/06/2022 11:00:07 12/06/2022 11:00:07 12/06/2022 11:00:07 Dr Exam Complete 12/06/2022 11:03:27 12/06/2022 11:03:27 12/06/2022 11:03:27 Registration Request 12/06/2022 11:03:27 X-Ray Complete 12/06/2022 11:04:29 12/06/2022 11:42:05 12/06/2022 11:56:21 Wet Read Complete 12/06/2022 11:56:21 12/06/2022 12:03:26 12/06/2022 12:03:26 Discharge Complete 12/06/2022 12:01:06 12/06/2022 12:05:24 12/06/2022 12:05:24 Transfer Complete 12/06/2022 12:05:24 12/06/2022 12:05:24 12/06/2022 12:05:24 ADDRESS: [address] [id number] PHYS DOC NOTES: MEDICAL INFORMATION: Prescriptions Given: Medications to Continue with No Changes Other Medications aspirin (aspirin 81 mg Oral EC Tab) 1 Tablets By Mouth every day. buPROPion (Wellbutrin SR 150 mg Tab-ER) 1 Tablets By Mouth 2 times a day. take once a day for the first week.. Refills: 1. levothyroxine (levothyroxine 75 mcg (0.075 mg) Tab) 1 Tablets By Mouth every day. Refills: 3. lovastatin (lovastatin 10 mg Tab) 1 Tablets By Mouth every day. Refills: 3. multivitamin (B 100 Complex oral tablet) 1 Tablets By Mouth every day. Refills: 3. multivitamin with minerals (One-A-Day Women) 1 Tablets By Mouth every day. valacyclovir (Valtrex 500 mg Tab) 1 Tablets By Mouth every day. per dermatology. PATIENT EDUCATION INFORMATION: Instructions: Periosteal Hematoma; Contusion Follow up: With: Address: When: Alyce HUERTA [facility] [place] [address] [facility], [facility] [place] [address] Business (1) In 3 days 12/09/2022 DIAGNOSIS: Contusion of tibia Normal [facility] ED Patient Education Noteon 12-06-2022 ED Patient Education Note Orthopedics Periosteal Hematoma Periosteal hematoma is a bone bruise that can cause tenderness and swelling close to the bone. It can result from a small, hidden break (fracture) in the bone, other injury to the bone area, or surgery. It typically occurs in bones that are close to the surface of the skin, such as evans, knee, or heel bones. It may take several weeks to heal completely. What are the causes? This condition is usually caused by: ? Bone injury (trauma), such as: ? A hard, direct hit (blow). ? A fracture. ? A sports injury, such as tearing the anterior cruciate ligament (ACL) in the knee. ? Landing improperly after a jump. ? Running too hard or too much without stretching. ? Twisting injuries. What are the signs or symptoms? Symptoms of this condition include: ? Severe pain around the injured area that usually lasts longer than a normal bruise. ? Difficulty using the bruised area. ? Tender, swollen area close to the bone. ? Discoloration of the bruised area. How is this diagnosed? This condition may be diagnosed based on: ? A physical exam. ? MRI. ? X-rays. How is this treated? Treatment for this condition depends on the severity of the injury. Your health care provider may recommend that you: ? Rest and put ice on the injured area. ? Take xwma-uwc-numbzxc medicine for pain as needed. ? Use crutches to help you walk, if needed. ? Wear splints or braces around the injured area. ? Do physical therapy. Follow these instructions at home: If you have a plaster splint: ? Wear the splint as told by your health care provider. ? For the first 24 hours, rest the splint on a soft surface, such as a pillow. ? Do not put weight on the splint. ? Do not get the splint wet. Cover the splint with a watertight plastic covering when you take a bath or shower. ? Do not stick anything inside the splint to scratch your skin. Doing that increases your risk of infection. ? Check the skin around the splint every day. Tell your health care provider about any concerns. ? You may put lotion on dry skin around the edges of the splint. Do not put lotion on the skin underneath the splint. If you have an air splint or a brace: ? Wear it as told by your health care provider. You may change the amount of air in the air splint as needed for comfort. ? You may remove your air splint or brace before bathing, before applying ice, and at night. Do not let it get wet. Managing pain, stiffness, and swelling ? If possible, raise (elevate) the injured area above the level of your heart while you are sitting or lying down. ? Wiggle your toes often. ? Use an elastic wrap as directed by your health care provider. Loosen the wrap if the area around the wrap tingles, becomes numb, or turns cold and blue. ? If directed, put ice on the injured area: ? If you have a removable splint or brace, remove it as told by your health care provider. ? Put ice in a plastic bag. ? Place a towel between your skin and the bag or between your plaster splint and the bag. ? Leave the ice on for 20 minutes, 2?3 times a day. Driving ? Do not drive or use heavy machinery while taking prescription pain medicines. ? Ask your health care provider when it is safe for you to drive if you have a splint on part of your arm or leg. Activity ? Do not participate in any activities that involve the injured area until your health care provider approves or you are fully healed. Your health care provider may recommend low-impact activities, such as swimming or cycling, instead of your normal activities. ? If physical therapy was prescribed, do exercises as told by your health care provider. ? Follow instructions from your health care provider about whether walking with crutches or a cane is required. This depends on the severity and location of your injury. ? Use crutches or a cane until you can stand without pain, or for as long as told by your health care provider. Gradually, start using or bearing weight on the injured body part. General instructions ? Take [id number] and prescription medicines only as told by your health care provider. ? Keep all follow-up visits as told by your health care provider or physical therapist. This is important. Contact a health care provider if: ? You have any of the following symptoms that get worse: ? Bruising. ? Swelling. ? Tenderness. ? Warmth in the injured area. ? Difficulty bearing weight on the injured body part. ? Your toes feel unusually cold, especially if this does not improve after removing a splint or wrap. ? You have pain that gets worse or does not improve with medicine. ? You have problems with your splint, such as: ? Itching under your splint that will not go away. ? Red or irritated skin around the splint. ? Cracks or breaks in the splint. ? A feeling that the splint is too tight. Get help right aw (more content not included)... Normal [facility] ED Patient Summaryon 023 ED Patient Summary (Inserted Image. [place] ble to display) [address] [address] Patient Discharge Instructions Person Information Name: DAPHNE EDWARDS Age: 57 Years Arrival Date: 12/06/2022 10:56:50 Discharge Diagnosis: Contusion of tibia Primary Care Physician: Alyce HUERTA MD Provider Information Primary Provider: Alyce Lovell DO Advanced Furniture Associate:Eduardo Ness PA-C The exam and treatment you received in the Emergency Department were for an urgent problem and are not intended as complete care. It is important that you follow up with a doctor, nurse practitioner, or physician?s assistant printer floor covering for ongoing care. If your symptoms become worse or you do not improve as expected and you are unable to reach your usual health care provider, you should return to the Emergency Department. We are available 24 hours a day. DAPHNE EDWARDS has been given the following list of patient education materials, prescriptions and follow-up instructions: Follow-up Instructions: With: Address: When: Alyce HUERTA [facility], [place] [address] Business (1) In 3 days 12/09/2022 In the event that this physician does not participate in your insurance network, please consult with your insurance company to find a nearby participating provider. Patient Education Materials: Periosteal Hematoma; Contusion A MESSAGE TO ALL PATIENTS REGARDING OPIOIDS PRESCRIPTION OPIOIDS: WHAT YOU NEED TO KNOW Prescription opioids can be used to help relieve eajvrilh-he-mdyqcb pain and are often prescribed following a surgery or injury, or for certain health conditions. These medications can be an important part of the treatment but also come with serious risks. It is important to work with your healthcare provider to make sure you are getting the safest, most effective care. WHAT ARE THE RISKS AND SIDE EFFECTS OF OPIOID USE? Prescription opioids carry serious risks of addiction and overdose, especially with prolonged use. An opioid overdose, often marked by slowed breathing, can cause sudden . The use of prescription opioids can have a number of side effects as well, even when taken as directed: ? Tolerance?meaning you might need to take more of the medication for the same pain relief ? Physical dependence?meaning you have symptoms of withdrawal when a medication is stopped ? Increased sensitivity to pain ? Constipation ? Nausea, vomiting, and dry mouth ? Sleepiness and dizziness ? Confusion ? Depression ? Low levels of testosterone that can result in lower sex drive, energy, and strength ? Itching and sweating RISKS ARE GREATER WITH: ? History of drug misuse, substance use disorder, or overdose ? Mental health conditions (such as depression or anxiety) ? Sleep apnea ? Older age (65 years and older) ? Avoid alcohol while taking prescription opioids. Also, unless specifically advised by your health care provider, medications to avoid include: ? Benzodiazepines (such as Xanax or Valium) ? Muscle relaxants (such as Soma or Flexeril) ? Hypnotics (such as Ambien or Lunesta) ? Other prescription opioids KNOW YOUR OPTIONS Talk to your health care provider about ways to manage your pain that don?t involve prescription opioids. Some of these options may actually work better and have fewer risks and side effects. Options may include: ? Pain relievers such as acetaminophen, ibuprofen, and naproxen ? Some medication that are also used for depression or seizures ? Physical therapy and exercise ? Cognitive behavioral therapy, a psychological, goal-directed approach, in which patients learn how to modify physical, behavioral, and emotional triggers of pain and stress. IF YOU ARE PRESCRIBED OPIOIDS FOR PAIN: ? Never take opioids in greater amounts or more often than prescribed. ? Follow up with your primary health care provider. o Work together to create a plan on how to manage your pain. o Talk about ways to help manage your pain that don?t involve prescription opioids. o Talk about any and all concerns and side effects. ? Help prevent misuse and abuse o Never sell or share prescription opioids. o Never use another person?s prescription opioids. ? Store prescription opioids in a secure place and out of reach of others (this may include visitors, children, friends, and family). ? Safely dispose of unused prescription opioids: Find your community drug take-back program or your pharmacy mail-back program, or flush them down the toilet, following guidance from the Food and Drug Administration (www.fda.gov/Drugs/Resou rcesForYou). ? Visit www.cdc.gov/drugoverdose to learn about the risks of opioids abuse and overdose. ? If you believe you may be struggling with addiction, tell your health field care advocate and ask for guidance or call [facility]?S National Helpline at 0-638-529-TZEP (more content not included)... [facility] XR Tib/Fib Left 2 Viewon XR Tib/Fib Left 2 View Exam Date/Time: 12/06/2022 11:56 EST Reason for Exam: Pain, Traumatic Report IMPRESSION: NO DISPLACED FRACTURE OR SIGNIFICANT POSTTRAUMATIC COMPLICATION IDENTIFIED. EXAM: XR Tib/Fib Left 2 View DATE: 12/06/2022 CLINICAL HISTORY: Pain, Traumatic. COMPARISON: None available. TECHNIQUE: AP and lateral radiographs of the left tibia and fibula were obtained. FINDINGS: Nonspecific soft tissue swelling/edema is noted. There is no fracture, dislocation, worrisome bone destruction, radiodense foreign bodies, or significant degenerative changes. The visualized joint spaces and ankle mortise are intact. Ordering Provider: Eduardo Ness FINAL REPORT Dictated: 12/06/2022 12:28 pm Jimmy Pham MD Signed (Electronic Signature): 12/06/2022 12:28 pm Signed by: Jimmy Pham MD Transcribed by: ERLINDA Technologist: [facility] MG MAMM SCREEN 3D CHANDANA CADon 02-12-2022 MG MAMM SCREEN 3D CHANDANA CAD Patient: DAPHNE EDWARDS Exam Date: 02/12/2022 : 1965 Gender:F Ordering : DR IVAN SINGH D.O. Admission #: [id number] Family : Order #: [id number] CLICK HERE TO VIEW EXAM RADIOLOGY REPORT PROCEDURE: MAMMOGRAM SCREENING 3D BILATERAL CAD COMPARISON: MG MAMM SCREEN CHANDANA W CAD, 09/15/2017. MG MAMM LT DIAG FU, 09/29/2017. INDICATIONS: Screening mammography Calculator Name NCI Breast Cancer Risk Assessment Tool 5 Year Breast Cancer Risk 0.80% Lifetime Breast Cancer Risk 6.00% Personal Breast Cancer No Personal Ovarian Cancer No Treatments None Family Cancers Father with lung cancer at age 70. LOCATION: [facility] BREAST COMPOSITION: Almost entirely fatty. FINDINGS: DIAGNOSTIC CATEGORY 1--NEGATIVE. RIGHT BREAST: No significant suspicious finding. No significant change has occurred. LEFT BREAST: No significant suspicious finding. No significant change has occurred. RECOMMENDATIONS: ROUTINE MAMMOGRAM AND CLINICAL EVALUATION IN 12 MONTHS. PLEASE NOTE: A NORMAL MAMMOGRAM DOES NOT EXCLUDE THE POSSIBILITY OF BREAST CANCER. A CLINICALLY SUSPICIOUS PALPABLE LUMP SHOULD BE BIOPSIED. Dictated by: Frank Bennett M.D. on 02/12/2022 at 11:50 Approved by: Frank Bennett M.D. on 02/12/2022 at 11:56 Normal [facility] CBC AUTO DIFFon 02-05-2022 BASO # 0.1 103/ul Normal 0.0-0.1 [facility] Comment on above: Performed By: #### C BC #### [facility] [address] [place] [address] Dr. Marquis Josue Basophils/100 WBC (Bld) 0.8 % Normal 0.2-2.0 [facility] Comment on above: Performed By: #### C BC #### [facility] [address] [place] [address] Dr. Marquis Josue EO # 0.3 103/ul Normal 0.0-0.7 [facility] Comment on above: Performed By: #### C BC #### [facility] [address] [place] [address] Dr. Marquis Josue Eosinophils/100 WBC (Bld) 3.8 % Normal 0.9-7.0 [facility] Comment on above: Performed By: #### C BC #### [facility] [address] [place] [address] Dr. Marquis Joseu Erythrocyte distribution width (RBC) [Ratio] 12.6 % Normal 11.0-15.0 [facility] Comment on above: Performed By: #### C BC #### [facility] [address] [place] [address] Dr. Marquis Josue Hematocrit (Bld) [Volume fraction] 42.9 % Normal 36.0-48.0 [facility] Comment on above: Performed By: #### C BC #### [facility] [address] [place] [address] Dr. Marquis Josue Hemoglobin (Bld) [Mass/Vol] 14.0 g/dL Normal 12.0-16.0 [facility] Comment on above: Performed By: #### C BC #### [facility] [address] [place] [address] Dr. Marquis Josue IG # 0.02 10e3/ul Normal 0.00-0.03 [facility] Comment on above: Performed By: #### C BC #### [facility] [address] [place] [address] Dr. Marquis Josue IG % 0.3 % Normal 0.0-0.5 [facility] Comment on above: Performed By: #### C BC #### [facility] [address] [place] [address] Dr. Marquis Josue LYMPH # 1.9 103/ul Normal 1.2-3.8 [facility] Comment on above: Performed By: #### C BC #### [facility] [address] [place] [address] Dr. Marquis Josue Lymphocytes/100 WBC (Bld) 28.8 % Normal 20.5-60.0 [facility] Comment on above: Performed By: #### C BC #### [facility] [address] [place] [address] Dr. Marquis Josue MANUAL DIFF REQ NO Normal [facility] Comment on above: Performed By: #### C BC #### [facility] [address] [place] [address] Dr. Marquis Josue MCH (RBC) [Entitic mass] 32.6 pg Normal 26.7-34.0 [facility] Comment on above: Performed By: #### C BC #### [facility] [address] [place] [address] Dr. Marquis Josue MCHC (RBC) [Mass/Vol] 32.6 g/dL Normal 29.9-35.2 [facility] Comment on above: Performed By: #### C BC #### [facility] [address] [place] [address] Dr. Marquis Josue MCV (RBC) [Entitic vol] 99.8 fL Critically high 81.0-99.0 [facility] Comment on above: Performed By: #### C BC #### [facility] [address] [place] [address] Dr. Marquis Josue MONO # 0.4 103/ul Normal 0.3-0.8 [facility] Comment on above: Performed By: #### C BC #### [facility] [address] [place] [address] Dr. Marquis Josue Monocytes/100 WBC (Bld) 6.0 % Normal 1.7-12.0 [facility] Comment on above: Performed By: #### C BC #### [facility] [address] [place] [address] Dr. Marquis Josue NEUT # 4.0 103/ul Normal 1.4-6.5 [facility] Comment on above: Performed By: #### C BC #### [facility] [address] [place] [address] Dr. Marquis Josue Neutrophils/100 WBC (Bld) 60.3 % Normal 43.0-75.0 [facility] Comment on above: Performed By: #### C BC #### [facility] [address] [place] [address] Dr. Marquis Josue Platelet mean volume (Bld) [Entitic vol] 9.3 fL Critically low 9.5-13.5 [facility] Comment on above: Performed By: #### C BC #### [facility] [address] [place] [address] Dr. Marquis Josue PLT 265 103/ul Normal 150-450 [facility] Comment on above: Performed By: #### C BC #### [facility] [address] [place] [address] Dr. Marquis Josue RBC 4.30 106/ul Normal 4.20-5.40 [facility] Comment on above: Performed By: #### C BC #### [facility] [address] [place] [address] Dr. Marquis Josue WBC 6.6 103/ul Normal 4.0-11.0 [facility] Comment on above: Performed By: #### C BC #### [facility] [address] [address] [address] Marquis Josue LIPID PROFILEon 02-05-2022 CHOL-HDL RATIO NORM SEE BELOW Normal [facility] Comment on above: Result Comment: 3.3 - 4.4 LOW RISK 4.4 - 7.1 AVERAGE RISK 7.1 - 11.0 MODERATE RISK >11.0 HIGH RISK Performed By: #### P TT, PT #### [facility] [address] [address] [address] Marquis Josue Cholesterol [Mass/Vol] 199 mg/dL Normal <=200 [facility] Comment on above: Performed By: #### P TT, PT #### [facility] [address] [address] [address] Marquis Josue Cholesterol in HDL [Mass/Vol] 72 mg/dL Critically high 40-60 [facility] Comment on above: Performed By: #### P TT, PT #### [facility] [address] [address] [address] Marquis Josue Cholesterol in LDL [Mass/Vol] 112.0 mg/dL Normal [facility] Comment on above: Performed By: #### P TT, PT #### [facility] [address] [address] [address] Marquis Josue Cholesterol.total/ Cholesterol in HDL [Mass ratio] 2.8 {ratio} Normal [facility] Comment on above: Performed By: #### P TT, PT #### [facility] [address] [address] [address] Marquis Josue HDL NORMAL > or = 60 mg/dl - LO W CARDIOVASCULAR RISK <40 mg/dl - HIGH CARDIOVASCULAR RISK Normal [facility] Comment on above: Performed By: #### P TT, PT #### [facility] [address] [address] [address] Marquis Josue LDL CALC NORMAL SEE BELOW Normal [facility] Comment on above: Result Comment: <100 mg/dl OPTIMAL 100 - 129 mg/dl NEAR OR ABOVE OPTIMAL 130 - 159 mg/dl BORDERLINE HIGH 160 - 189 mg/dl HIGH >190 mg/dl VERY HIGH Performed By: #### P TT, PT #### [facility] [address] [place] [address] Dr. Marquis Josue Triglyceride [Mass/Vol] 75 mg/dL Normal <=150 [facility] Comment on above: Performed By: #### P TT, PT #### [facility] [address] [place] [address] Dr. Marquis Josue VLDL CALC 15.0 mg/dL Normal [facility] Comment on above: Performed By: #### P TT, PT #### [facility] [address] [place] [address] Dr. Marquis Josue PROF 14(COMP METB)on 022 Albumin [Mass/Vol] 3.7 g/dL Normal 3.4-5.0 [facility] Comment on above: Performed By: #### T SH, CMP, LIPID, T4 #### [facility] [address] [place] [address] Dr. Marquis Josue Albumin/Globulin [Mass ratio] 0.9 {ratio} Normal [facility] Comment on above: Performed By: #### T SH, CMP, LIPID, T4 #### [facility] [address] [place] [address] Dr. Marquis Josue ALP [Catalytic activity/Vol] 102 U/L Normal 46-116 [facility] Comment on above: Performed By: #### T SH, CMP, LIPID, T4 #### [facility] [address] [place] [address] Dr. Marquis Josue ALT [Catalytic activity/Vol] 51 U/L Normal 14-59 [facility] Comment on above: Performed By: #### T SH, CMP, LIPID, T4 #### [facility] [address] [place] [address] Dr. Marquis Josue Anion gap [Moles/Vol] 12.7 mmol/L Normal [facility] Comment on above: Performed By: #### T SH, CMP, LIPID, T4 #### [facility] [address] [place] [address] Dr. Marquis Josue AST [Catalytic activity/Vol] 22 U/L Normal 15-37 [facility] Comment on above: Performed By: #### T SH, CMP, LIPID, T4 #### [facility] [address] [place] [address] Dr. Marquis Josue Bilirubin [Mass/Vol] 0.4 mg/dL Normal 0.2-1.3 [facility] Comment on above: Performed By: #### T SH, CMP, LIPID, T4 #### [facility] [address] [place] [address] Dr. Marquis Josue Calcium [Mass/Vol] 8.9 mg/dL Normal 8.5-10.1 [facility] Comment on above: Performed By: #### T SH, CMP, LIPID, T4 #### [facility] [address] [place] [address] Dr. Marquis Josue Chloride [Moles/Vol] 108 mmol/L Critically high 98-107 [facility] Comment on above: Performed By: #### T SH, CMP, LIPID, T4 #### [facility] [address] [place] [address] Dr. Marquis Josue CO2 [Moles/Vol] 25.9 mmol/L Normal 22.0-30.0 [facility] Comment on above: Performed By: #### T SH, CMP, LIPID, T4 #### [facility] [address] [place] [address] Dr. Marquis Josue Creatinine [Mass/Vol] 0.75 mg/dL Normal 0.52-1.04 [facility] Comment on above: Performed By: #### T SH, CMP, LIPID, T4 #### [facility] [address] [place] [address] Dr. Marquis Josue EGFR-AF BRITISH >60 Normal >=60 [facility] Comment on above: Performed By: #### T SH, CMP, LIPID, T4 #### [facility] [address] [place] [address] Dr. Marquis Josue EGFR-NON AF BRITISH >60 Normal >=60 [facility] Comment on above: Performed By: #### T SH, CMP, LIPID, T4 #### [facility] [address] [address] [address] Marquis Josue Globulin (S) [Mass/Vol] 3.9 g/dL Normal [facility] Comment on above: Performed By: #### T SH, CMP, LIPID, T4 #### [facility] [address] [address] [address] Marquis Josue Glucose [Mass/Vol] 83 mg/dL Normal 74-106 [facility] Comment on above: Performed By: #### T SH, CMP, LIPID, T4 #### [facility] [address] [address] [address] Marquis Josue Potassium [Moles/Vol] 4.6 mmol/L Normal 3.4-5.0 [facility] Comment on above: Performed By: #### T SH, CMP, LIPID, T4 #### [facility] [address] [address] [address] Marquis Josue Protein [Mass/Vol] 7.6 g/dL Normal 6.1-8.2 [facility] Comment on above: Performed By: #### T SH, CMP, LIPID, T4 #### [facility] [address] [address] [address] Marquis Josue Sodium [Moles/Vol] 142 mmol/L Normal 137-145 [facility] Comment on above: Performed By: #### T SH, CMP, LIPID, T4 #### [facility] [address] [address] [address] Marquis Josue Urea nitrogen [Mass/Vol] 12.0 mg/dL Normal 7.0-18.0 [facility] Comment on above: Performed By: #### T SH, CMP, LIPID, T4 #### [facility] [address] [address] [address] Marquis Josue Urea nitrogen/Creatinin e [Mass ratio] 16.0 mg/mg Normal [facility] Comment on above: Performed By: #### T SH, CMP, LIPID, T4 #### [facility] [address] [address] [address] Marquis Josue T4on 02-05-2022 T4 [Mass/Vol] 10.60 ug/dL Normal 5.53-11.00 [facility] Comment on above: Performed By: #### P TT, PT #### [facility] [address] [address] [address] Marquis Josue TSHon 02-05-2022 TSH 0.139 uIU/mL Critically low 0.470-4.680 [facility] Comment on above: Performed By: #### P TT, PT #### [facility] [address] [address] [address] Marquis Josue TSH RANGE SEE BELOW Normal [facility] Comment on above: Result Comment: <0.3 4 UIU/ml HYPERTHYROID 0.34-5.60 UIU/ml EUTHYROID >5.60 UIU/ml HYPOTHYROID Performed By: #### P TT, PT #### [facility] [address] [address] [address] Marquis Josue CNOVon 05-24-2017 CNOV Office Visit (GALSFT) DAPHNE EDWARDS ([id number]) 1965 [facility] Time Provider Department05/24/17 2:20 PM JOAQUIN UMAÑA During your visit today, we recorded the following information about you: Pulse Respiration Blood pressure 74/minute 16/minute 113/65Davishnu Umaña MD 05/24/2017 2:46 PM [facility] Department of Cardiovascular MedicineOUTPATIENT VISIT DATE May 24, 2017OUTPATIENT VISIT TYPEESTABLISHEDPRIMARY CARE PHYSICIAN:Malika Chavira MD[address] [place] [address]Nuiow: [phone]: [phone] PHYSICIANANTONIETTA [address] [place] [address]JVHCJ COMPLAINT:No chief complaint on file.HISTORY OF PRESENT ILLNESS:Daphne Edwards was referred for consultation by Dr. Chavira. Opinions andrecommendations in this consultation will be transmitted back to the referringphysician by [facility] notes or via mail.Ms. Edwards is a 52 year old female who is seen today for complaints of manyyear history of bilateral leg edema left worse than right.States that since last evaluation she has lost 25 lbs and with this has noteddecreased leg edema. Working on quitting smoking.DUS showed no significant venous insufficiency in the legs.Hx of DVT ~4 years ago right calf, treated with 6 months of Xarelto. She doesnot believe the episode was precipitated.Started on HCTZ recently, which has helped.Smoker, 1 PPD, 30 pack years.Works at [employer], is on feet for most of the day.Has worn compression stockings, provided only mild relief of swelling.PAST MEDICAL HISTORYDiagnosis Date- DVT (deep venous thrombosis) (HCC)- Hypothyroid- Lower extremity edema- PalpitationPAST SURGICAL HISTORYNo date: NONESOCIAL HISTORYSocial HistorySubstance Use Topics- Smoking status: Current Every Day Smoker Packs/day: 1.00 Years: 30.00- Smokeless tobacco: Not on file- Alcohol use NoNo family history on file.ALLERGIES:ALLERGIES No Known AllergiesMEDICATIONS:MARJORIE NTIX STARTING MONTH BOX 0.5 mg (11)- 1 mg (42) tablet Take by mouth asdirected.cyanocobalami n (VITAMIN B-12) 1,000 mcg tab Take 1,000 mcg by mouth once daily.levothyroxine (SYNTHROID) 100 mcg tablet Take 100 mcg by mouth daily beforebreakfast.meclizin e (ANTIVERT) 12.5 mg tab Take 25 mg by mouth twice daily as needed.aspirin, enteric coated (ASPIRIN, ENTERIC COATED) 81 mg EC tablet Take 81 mg bymouth once daily.hydroCHLOROthiazid e (HYDRODIURIL, ESIDRIX) 25 mg tablet Take 25 mg by mouthonce daily.REVIEW OF SYSTEMS:GENERAL: no acute distressAll other ROS: negativeI personally interviewed, confirmed and edited the above information asobtained by others.PHYSICAL EXAMINATION:BP 113/65 (BP Site: Right Arm, BP Position: Sitting, BP Cuff Size: Large Adult) Pulse 74 Resp 16 SpO2 98%General appearance: well nourished, alert and cooperative individual, in noacute distress.Coronary: regular rate and regular rhythmLower Extremities: Feet and toes warmPalp DP pulses bilaterallyMinimal edema of legs, skin dryCARDIOVASCULAR MEDICINE TESTING:I have personally reviewed the DUS .IMPRESSION/PLAN:Ms. Edwards is a 52 year old female with improving leg edema.No evidence of significant venous insufficiency.Recommend skin moisturizer to legs, attempt at further weight loss, regularwalking. Follow up as needed.Lobito Barnett Provider: MALIKA CHAVIRA [[id number]]Allergies As of Date: 05/24/2017(No Known Allergies)Date Reviewed: 05/24/2017Reviewed by: Joaquin Umaña - Fully AssessedPrimary Visit Diagnosis:Edema, unspecified [R60.9]Prescriptions as of 05/24/2017 Sig: CHANTIX STARTING MONTH BOX 0.* Take by mouth as directed. CYANOCOBALAMIN (VIT B-12) 1,0* Take 1,000 mcg by mouth once * LEVOTHYROXINE 100 MCG TABLET Take 100 mcg by mouth daily b* MECLIZINE 12.5 MG TABLET Take 25 mg by mouth twice simon* ASPIRIN 81 MG TABLET,DELAYED * Take 81 mg by mouth once arelis* HYDROCHLOROTHIAZIDE 25 MG TAB* Take 25 mg by mouth once arelis*Medication notes this encounter CHANTIX STARTING MONTH BOX 0.5 MG (11)-1 MG (42) TABLETS IN DOSE PACK >> Alan Sky RN 05/24/2017 2:12 PM >> ALAN SKY RN WedMay 24, 2017 2:12 PM Received from: External Pharmacy Received Sig: USE DIRECTED CYANOCOBALAMIN (VIT B-12) 1,000 MCG TABLET >> Alan Sky RN 05/24/2017 2:12 PM >> ALAN SKY RN WedMay 24, 2017 2:12 PM Received from: External Pharmacy Received Sig: TAKE 1 TABLET BY MOUTH EVERYMORNINGProblem List As Of Date: 05/24/2017(None)Medicati ons Discontinued During This Encounter cyanocobalamin (VITAMIN B-12) 1,000 * 1 03/18/2017 05/24/2017 Class: Historical Med Route: ORAL Sig: Take 1 tablet by mouth once daily. Disc: Reason for discontinue is not on file.Disposition: Return if symptoms worsen or fail to improve.Follow-up and Disposition History RecordedEncounter Number: [id number] Status:Closed by JOAQUIN UMAÑA MD on 05/24/[address] [facility] PROGRESSon 05-24-2017 PROGRESS HNO ID: [id number]: Joaquin UmañaService: (none)Author Type: PhysicianType: Progress NotesFiled: 05/24/2017 2:46 PMNote Text:[facility] Department of Cardiovascular MedicineOUTPATIENT VISIT DATE May 24, 2017OUTPATIENT VISIT TYPEESTABLHAYWOOD REGION[facility]ENTERPRCRAW[facility]ITALRY CARE PHYSICIAN:ANTONIETTA Strickland [place] [address]Rjtzb: [phone]: [phone] PHYSICIANANTONIETTA Strickland [place] [id number] COMPLAINT:No chief complaint on file.HISTORY OF PRESENT ILLNESS:Daphne Edwards was referred for consultation by Dr. Chavira. Opinions andrecommendations in this consultation will be transmitted back to thereferring physician by Epic notes or via mail.Ms. Edwards is a 52 year old female who is seen today for complaints ofmany year history of bilateral leg edema left worse than right.States that since last evaluation she has lost 25 lbs and with this hasnoted decreased leg edema. Working on quitting smoking.DUS showed no significant venous insufficiency in the legs.Hx of DVT ~4 years ago right calf, treated with 6 months of Xarelto. Shedoes not believe the episode was precipitated.Started on HCTZ recently, which has helped.Smoker, 1 PPD, 30 pack years.Works at [employer], is on feet for most of the day.Has worn compression stockings, provided only mild relief of swelling.PAST MEDICAL HISTORYDiagnosis Date- DVT (deep venous thrombosis) (HCC)- Hypothyroid- Lower extremity edema- PalpitationPAST SURGICAL HISTORYNo date: NONESOCIAL HISTORYSocial HistorySubstance Use Topics- Smoking status: Current Every Day Smoker Packs/day: 1.00 Years: 30.00- Smokeless tobacco: Not on file- Alcohol use NoNo family history on file.ALLERGIES:ALLERGIES No Known AllergiesMEDICATIONS:MARJORIE NTIX STARTING MONTH BOX 0.5 mg (11)- 1 mg (42) tablet Take by mouth asdirected.cyanocobalami n (VITAMIN B-12) 1,000 mcg tab Take 1,000 mcg by mouth oncedaily.levothyroxine (SYNTHROID) 100 mcg tablet Take 100 mcg by mouth dailybefore breakfast.meclizine (ANTIVERT) 12.5 mg tab Take 25 mg by mouth twice daily asneeded.aspirin, enteric coated (ASPIRIN, ENTERIC COATED) 81 mg EC tablet Take 81mg by mouth once daily.hydroCHLOROthiazid e (HYDRODIURIL, ESIDRIX) 25 mg tablet Take 25 mg bymouth once daily.REVIEW OF SYSTEMS:GENERAL: no acute distressAll other ROS: negativeI personally interviewed, confirmed and edited the above information asobtained by others.PHYSICAL EXAMINATION:BP 113/65 (BP Site: Right Arm, BP Position: Sitting, BP Cuff Size: LargeAdult) Pulse 74 Resp 16 SpO2 98%General appearance: well nourished, alert and cooperative individual, inno acute distress.Coronary: regular rate and regular rhythmLower Extremities: Feet and toes warmPalp DP pulses bilaterallyMinimal edema of legs, skin dryCARDIOVASCULAR MEDICINE TESTING:I have personally reviewed the DUS .IMPRESSION/PLAN:Ms. Edwards is a 52 year old female with improving leg edema.No evidence of significant venous insufficiency.Recommend skin moisturizer to legs, attempt at further weight loss,regular walking. Follow up as needed.Joaquin Umaña MD Normal [facility]-US LE Venous Duplex Insuf ficiency Bilat IMPORTon 05-18-2017 -US LE Venous Duplex Insufficiency Bilat IMPORT Images were obtained outside of [facility] Normal [facility] CNOVon 05-03-2017 CNOV Office Visit (VASSFT) DAMIAN ,DAPHNE Farley ([id number]) 1965 FDate Time Provider Department05/03/17 1:40 PM JOAQUIN UMAÑA During your visit today, we recorded the following information about you: Pulse Respiration Blood pressure Weight 93/minute 16/minute 132/79 101.2 kg Height 1.626 Basilia Umaña MD 05/03/2017 1:52 PM [facility] Department of Cardiovascular MedicineOUTPATIENT VISIT DATE May 03, 2017OUTPATIENT VISIT TYPENEWPRIMARY CARE PHYSICIAN:ANTONIETTA Strickland [place] [address]Xobll: [phone]: [phone] PHYSICIANANTONIETTA Strickland [place] [id number] COMPLAINT:No chief complaint on file.HISTORY OF PRESENT ILLNESS:Daphne Edwards was referred for consultation by Dr. Chavira. Opinions andrecommendations in this consultation will be transmitted back to the referringphysician by Epic notes or via mail.Ms. Edwards is a 52 year old female who is seen today for complaints of manyyear history of bilateral leg edema left worse than right.Hx of DVT ~4 years ago right calf, treated with 6 months of Xarelto. She doesnot believe the episode was precipitated.Started on HCTZ recently, which has helped.Smoker, 1 PPD, 30 pack years.Works at [employer], is on feet for most of the day.Has worn compression stockings, provided only mild relief of swelling.PAST MEDICAL HISTORYDiagnosis Date- DVT (deep venous thrombosis) (HCC)- Hypothyroid- Lower extremity edema- PalpitationPAST SURGICAL HISTORYNo date: NONESOCIAL HISTORYSocial HistorySubstance Use Topics- Smoking status: Current Every Day Smoker Packs/day: 1.00 Years: 30.00- Smokeless tobacco: Not on file- Alcohol use NoNo family history on file.ALLERGIES:ALLERGIES No Known AllergiesMEDICATIONS:cya nocobalamin (VITAMIN B-12) 1,000 mcg tab Take 1,000 mcg by mouth once daily.levothyroxine (SYNTHROID) 100 mcg tablet Take 100 mcg by mouth daily beforebreakfast.meclizin e (ANTIVERT) 12.5 mg tab Take 25 mg by mouth twice daily as needed.aspirin, enteric coated (ASPIRIN, ENTERIC COATED) 81 mg EC tablet Take 81 mg bymouth once daily.hydroCHLOROthiazid e (HYDRODIURIL, ESIDRIX) 25 mg tablet Take 25 mg by mouthonce daily.REVIEW OF SYSTEMS:GENERAL: no acute distressAll other ROS: negativeI personally interviewed, confirmed and edited the above information asobtained by others.PHYSICAL EXAMINATION:BP 132/79 (BP Site: Right Arm, BP Position: Sitting, BP Cuff Size: Large Adult) Pulse 93 Resp 16 Ht 162.6 cm (5' 4ANDquot;) Wt 101.2 kg (223 lb) BMI38.28 kg/m2Yxrkwdv appearance: well nourished, alert and cooperative individual, in noacute distress.Neck: no bruitsPulmonary: Lungs clear to auscultation bilaterally.Coronary: regular rate and regular rhythmLower Extremities: Feet and toes warmNegative UlcersPalp DP pulsesMild to moderate edema of the bilateral ankle area, left greaterCARDIOVASCULAR MEDICINE TESTING:There were no tests performed for review.IMPRESSION/PLAN:Macrina Edwards is a 52 year old female with complaints of bilateral ankle edema,left worse than right.DUS to assess for venous insufficiency.Compressio n stockings. Elevate legs when at rest. Cont HCTZ.Referred to smoking cessation clinic.Lobito Barnett Provider: MALIKA CHAVIRA [[id number]]Allergies As of Date: 05/03/2017(No Known Allergies)Date Reviewed: 05/03/2017Reviewed by: Joaquin Umaña - Fully AssessedPrimary Visit Diagnosis:Edema, unspecified [R60.9] Other Visit Diagnosis:Smoker [F17.200]Order(s):US VENOUS INCOMPETENCY [facility] [[id number]] Order #: [id number] FUTURE CONSULT TO SMOKING CESSATION [[id number]] Order #: [id number]: 1Prescriptions as of 05/03/2017 Sig: CYANOCOBALAMIN (VIT B-12) 1,0* Take 1,000 mcg by mouth once * LEVOTHYROXINE 100 MCG TABLET Take 100 mcg by mouth daily b* MECLIZINE 12.5 MG TABLET Take 25 mg by mouth twice simon* ASPIRIN 81 MG TABLET,DELAYED * Take 81 mg by mouth once arelis* HYDROCHLOROTHIAZIDE 25 MG TAB* Take 25 mg by mouth once arelis*Problem List As Of Date: 05/03/2017(None)Disposit ion: Return in about 2 weeks (around 05/17/2017).Follow-up and Disposition History RecordedEncounter Number: [id number] Status:Closed by JOAQUIN UMAÑA MD on 05/03/17 [facility] PROGRESSon 05-03-2017 PROGRESS HNO ID: [id number]: Joaquin UmañaSer: (none)Author Type: PhysicianType: Progress NotesFiled: 05/03/2017 1:52 PMNote Text:[facility] Department of Cardiovascular MedicineOUTPATIENT VISIT DATE May 03, 2017OUTPATIENT VISIT TYPENEWPRIMARY CARE PHYSICIAN:ANTONIETTA Strickland [place] [address]Qtfpz: [phone]: [phone] PHYSICIANANTONIETTA Strickland [place] [id number] COMPLAINT:No chief complaint on file.HISTORY OF PRESENT ILLNESS:Daphne Edwards was referred for consultation by Dr. Chavira. Opinions andrecommendations in this consultation will be transmitted back to thereferring physician by [facility] notes or via mail.Ms. Edwards is a 52 year old female who is seen today for complaints ofmany year history of bilateral leg edema left worse than right.Hx of DVT ~4 years ago right calf, treated with 6 months of Xarelto. Shedoes not believe the episode was precipitated.Started on HCTZ recently, which has helped.Smoker, 1 PPD, 30 pack years.Works at [employer], is on feet for most of the day.Has worn compression stockings, provided only mild relief of swelling.PAST MEDICAL HISTORYDiagnosis Date- DVT (deep venous thrombosis) (HCC)- Hypothyroid- Lower extremity edema- PalpitationPAST SURGICAL HISTORYNo date: NONESOCIAL HISTORYSocial HistorySubstance Use Topics- Smoking status: Current Every Day Smoker Packs/day: 1.00 Years: 30.00- Smokeless tobacco: Not on file- Alcohol use NoNo family history on file.ALLERGIES:ALLERGIES No Known AllergiesMEDICATIONS:cya nocobalamin (VITAMIN B-12) 1,000 mcg tab Take 1,000 mcg by mouth oncedaily.levothyroxine (SYNTHROID) 100 mcg tablet Take 100 mcg by mouth dailybefore breakfast.meclizine (ANTIVERT) 12.5 mg tab Take 25 mg by mouth twice daily asneeded.aspirin, enteric coated (ASPIRIN, ENTERIC COATED) 81 mg EC tablet Take 81mg by mouth once daily.hydroCHLOROthiazid e (HYDRODIURIL, ESIDRIX) 25 mg tablet Take 25 mg bymouth once daily.REVIEW OF SYSTEMS:GENERAL: no acute distressAll other ROS: negativeI personally interviewed, confirmed and edited the above information asobtained by others.PHYSICAL EXAMINATION:BP 132/79 (BP Site: Right Arm, BP Position: Sitting, BP Cuff Size: LargeAdult) Pulse 93 Resp 16 Ht 162.6 cm (5' 4 ) Wt 101.2 kg (223 lb) BMI 38.28 kg/q0Ztgkbeq appearance: well nourished, alert and cooperative individual, inno acute distress.Neck: no bruitsPulmonary: Lungs clear to auscultation bilaterally.Coronary: regular rate and regular rhythmLower Extremities: Feet and toes warmNegative UlcersPalp DP pulsesMild to moderate edema of the bilateral ankle area, left greaterCARDIOVASCULAR MEDICINE TESTING:There were no tests performed for review.IMPRESSION/PLAN:Macrina Edwards is a 52 year old female with complaints of bilateral ankleedema, left worse than right.DUS to assess for venous insufficiency.Compressio n stockings. Elevate legs when at rest. Cont HCTZ.Referred to smoking cessation clinic.Joaquin Umaña MD [facility] Encounters Encounter Date Encounter Type Care Provider Facility Start: 10-20-2023 End: 10-21-2023 ambulatory Vicky Jimenez Facility:[facility] Start: 08-09-2023 End: 08-10-2023 ambulatory Alyce HUERTA Facility:[facility] Start: 07-29-2023 End: 07-30-2023 ambulatory Alyce HUERTA Facility:[facility] [place] Start: 06-15-2023 End: 06-16-2023 ambulatory Mayra Orellana [facility] Start: 06-09-2023 End: 06-10-2023 ambulatory Guillermina Wong Facility:[facility] [place] Start: 06-01-2023 End: 06-02-2023 ambulatory Priya WIGGINS Facility:[facility] [place] Start: 05-25-2023 End: 08-18-2023 ambulatory Roxanne Couch Facility:[facility] [place] Start: 05-13-2023 End: 05-14-2023 ambulatory Alyce HUERTA Facility:[facility] [place] Start: 05-11-2023 End: 05-12-2023 ambulatory Mayra Orellana [facility] Start: 04-27-2023 End: 04-28-2023 ambulatory Alyce HUERTA [facility] Start: 04-19-2023 End: 04-20-2023 ambulatory Roxanne Couch Facility:[facility] [place] Start: 03-25-2023 End: 03-26-2023 ambulatory Roxanne Couch Facility:[facility] [place] Start: 03-11-2023 End: 03-12-2023 ambulatory Mayra Orellana [facility] Start: 02-15-2023 End: 02-16-2023 ambulatory Roxanne Couch Facility:[facility] [place] Start: 01-18-2023 End: 01-19-2023 ambulatory Alyce HUERTA Facility:[facility] [place] Start: 01-18-2023 End: 01-19-2023 ambulatory Alyce Clarissa [facility]A Facility:[facility] Start: 12-16-2022 End: 12-17-2022 ambulatory Alyce Clarissa [facility]ERTA Facility:[facility] Start: 12-09-2022 End: 12-09-2022 ambulatory LOLA Dunne Facility:[facility] Start: 12-06-2022 End: 12-06-2022 Emergency department patient visit Alyce Lovell Facility:[facility] [place] Start: 02-12-2022 End: 02-13-2022 ambulatory IVAN SAMANTHA Facility: Start: 02-05-2022 End: 02-06-2022 ambulatory IVAN DOWNS Facility:[facility] Start: 05-24-2017 Ambulatory JOAQIUN UMAÑA [facility] Start: 05-03-2017 End: 05-04-2017 Ambulatory JOAQUIN UMAÑA [facility] Plan of Treatment Date Care Activity Detail Author Start: 06-13-2024 ambulatory Ambulatory Facility:[facility] Start: 11-09-2023 ambulatory Ambulatory Facility:[facility] Payers Date Payer Category Payer Unknown [id number] 2.16.84 [id number] 1965 Unknown [id number] 2.16.84 0.1.875656.3.579.2.59 1966 Unknown [id number] 2.16.84 0.1.955725.3.579.2.59 1966 Unknown [id number] 2.16.8 40.1.377040.3.579.2. 1966 Unknown [id number] 2.16.8 40.1.609655.3.579.2 1966 Unknown [id number] 2.16.8 40.1.535646.3.579.2 1966 Unknown [id number] 2.16.8 40.1.236012.3.579.2 1966 Unknown [id number] 2.16.8 40.1.611726.3.579.2 1966 Unknown [id number] 2.16.8 40.1.399291.3.579.2 1966 Unknown [id number] 2.16.8 40.1.300633.3.579.2 1966 Unknown [id number] 2.16.8 40.1.214095.3.579.2 1966 Unknown [id number] 2.16.8 40.1.267157.3.579.2.72 1966 Unknown [id number] 2.16.8 40.1.117116.3.579.2 1966 Unknown [id number] 2.16.8 40.1.410342.3.579.2 1966 Unknown [id number] 2.16.8 40.1.150983.3.579.2. 1966 Unknown [id number] 2.16.8 40.1.669039.3.579.2. 1966 Unknown [id number] 2.16.8 40.1.168871.3.579.2. 1966 Unknown [id number] 2.16.8 40.1.156045.3.579.2. 1966 Unknown [id number] 2.16.8 40.1.021541.3.579.2. 1966 Unknown [id number] 2.16.8 40.1.243490.3.579.2. 1966 Unknown [id number] 2.16.8 40.1.098416.3.579.2. 1966 Unknown [id number] 2.16.8 40.1.106952.3.579.2. 1966 Unknown [id number] 2.16.8 40.1.982966.3.579.2. 1966 Unknown [id number] 2.16.8 40.1.066808.3.579.2. 1966 Unknown [id number] 2.16.8 40.1.642597.3.579.2.7 1959 Unknown [id number] Summary Purpose Family History No Family History Records FoundNo Family History Records FoundNo Family History Records Found Advance Directives No Advanced Directives Records FoundNo Advanced Directives Records FoundNo Advanced Directives Records Found Additional Source Comments INFORMATION SOURCE (unrecogn ized section and content) DATE CREATED AUTHOR 04/13/[address] [facility] DATE CREATED AUTHOR AUTHOR'S ORGANIZ ATION 12/10/2022 [facility] DATE CREATED AUTHOR AUTHOR'S ORGANIZ ATION 10/22/2023 [facility] FOR RECORDS PERTAINING TO PATIENTS WHO ARE OR HAVE BEEN ENROLLED IN A CHEMICAL DEPENDENCY/SUBSTANCEABUSE PROGRAM, SOME INFORMATION MAY BE OMITTED. This clinical summary was aggregated from multiple sources. Caution should be exercised in using it in the provision of clinical care. This summary normalizes information from multiple sources, and as a consequence, information in this document may materially change the coding, format and clinical context of patient data. In addition, data may be omitted in some cases. CLINICAL DECISIONS SHOULD BE BASED ON THE PRIMARY CLINICAL RECORDS. [facility] [employer] [facility]. provides no warranty or guarantee of the accuracy or completeness of information in this document.
[2023-11-18 09:13] LABS: Alanine Aminotransferase 29 U/L (14-59); Albumin Globulin Ratio 0.9; Albumin Level 3.7 g/dL (3.4-5.0); Alkaline Phosphatase 120 U/L (46-116); Anion Gap 15.4; Aspartate Amino Transferase 14 U/L (15-37); Bilirubin Total 0.4 mg/dL (0.2-1.0); Calcium 8.9 mg/dL (8.5-10.1); Carbon Dioxide 25.9 mmol/L (21.0-32.0); Chloride 107 mmol/L (98-107); Chol HDL Ratio 3.6; Cholesterol 268 mg/dL (<=200); Estimated GFR (African America >60 (>=60); Estimated GFR (Non-African Ame >60 (>=60); Globulin 4.1 g/dL; Glucose 86 mg/dL (74-106); HDL Cholesterol 75 mg/dL (40-60); Potassium 4.3 mmol/L (3.5-5.1); Sodium 144 mmol/L (136-145); Thyroid Stimulating Hormone 0.236 uIU/mL (0.358-3.740); Total Protein 7.8 g/dL (6.4-8.2); Triglycerides 179 mg/dL (<=150); VLDL CHOLESTEROL 35.8 mg/dL
[2023-11-18 13:41] LABS: Free T4 1.13 ng/dL (0.76-1.46)
== END 2023-11-18 06:36 | disposition home or self-care (01) ==
LOC: LAB 06:37
DX: E03.9 Hypothyroidism, unspecified (principal); E78.2 Mixed hyperlipidemia; N18.31 Chronic kidney disease, stage 3a; R53.83 Other fatigue
CPT/HCPCS: 36415; 80053; 80061; 82306; 82607; 84439; 84443

== ENCOUNTER 2024-08-21 06:34 | Outpatient (OUT) | payer OTHER, SELFPAY ==
--- OUTSIDE RECORDS SUMMARY | 2024-08-21 06:38 | XMS_ITS | CCD ---
Author Organization [facility] CliniSyde Care Team Providers Care Signal Operator Name Role Phone ANJOAQUIN DHALIWAL Unavailable Unavailable SAID, HOLLIE H Unavailable Unavailable EMRE ., LOLA Admitting Unavailable EMRE ., LOLA Attending Unavailable BRADLEY, DR ALYCE Romo Primary Care Unavailable CHENCHO, GABRIEL Consulting Unavailable LM, LISA Consulting Unavailable HOUSE, SINDHU Admitting Unavailable HOUSE, SINDHU Attending Unavailable HOUSE, SINDHU Primary Care Unavailable HOUSE, SINDHU Consulting Unavailable HOUSE, SINDHU Admitting Unavailable HOUSE, SINDHU Attending Unavailable HOUSE, SINDHU Primary Care Unavailable HOUSE, SINDHU Consulting Unavailable Frank Bennett Consulting Unavailable Alyce HUERTA Primary Care Physician ISRAEL PINEDA Attending Unavailable GUILLERMINA WONG Referring Unavailable RUSHER, ISRAEL Szymanski Referring Unavailable RUSHER, ISRAEL S Referring Unavailable RUSHER, ISRAEL S Attending Unavailable HILLS, ISRAEL D Referring Unavailable HILLS, ISRAEL D Attending Unavailable ADAMES, JUSTIN Attending Unavailable HILLS, ISRAEL D Referring Unavailable ADAMES, JUSTIN Attending Unavailable HILLS, ISRAEL D Referring Unavailable ZULEIMA, ROLANDO Attending Unavailable HILLS, ISRAEL D Referring Unavailable ZULEIMA, ROLANDO Attending Unavailable HILLS, ISRAEL D Referring Unavailable ZULEIMA, ROLANDO Attending Unavailable HILLS, ISRAEL D Referring Unavailable ADAMES, JUSTIN Attending Unavailable HILLS, ISRAEL D Referring Unavailable ADAMES, JUSTIN Attending Unavailable HILLS, ISRAEL D Referring Unavailable HILLS, ISRAEL D Attending Unavailable ENA ROLLINS Attending Unavailable HILLS, ISRAEL D Referring Unavailable RUSHER, ISRAEL S Attending Unavailable ZULEIMA, ROLANDO Attending Unavailable HILLS, ISRAEL D Referring Unavailable ZULEIMA, ROLANDO Attending Unavailable HILLS, ISRAEL D Referring Unavailable ZULEIMA, ROLANDO Attending Unavailable HILLS, ISRAEL D Referring Unavailable ZULEIMA, ROLANDO Attending Unavailable HILLS, ISRAEL D Referring Unavailable Alyce HUERTA Attending Unavailable Guillermina Wong Attending Unavailab Alyce William Attending Unavailable Guillermina Wong Admitting UnavailGuillermina Hill Attending Alyce Balderrama Attending Unavailable Alyce HUERTA Admitting Kyra Branch Attending Alyce Zamarripa Attending Unavailable Alyce HUERTA Attending Unavailable Alyce HUERTA Attending Unavailable BRADLEY, Alyce Romo Attending Unavailable Vicky Jimenez Attending Unavailable Vicky Jimenez Attending Unavailable Alyce HUERTA Attending Unavailable BRADLEY, Alyce Romo Attending Unavailable Alyce HUERTA Attending Unavailable Alyce HUERTA Attending Unavailable Allergies Allergy Classification Reported Allergen(s) Allergy Type Date of Onset Reaction(s) Facility (1 source) No Known Medication Allergies; Translations: [No Known Medication Allergies] Propensity to adverse reactions (disorder) [facility] Repository Medications Current Medications Medication Drug Class(es) Dates Sig (Normalized) Sig (Original) aspirin 81 mg delayed release oral tablet (5 sources) Platelet Aggregation Inhibitor, Nonsteroidal Anti-inflammatory Drug Start: 05-15-2022 take 1 tablet by mouth once daily aspirin 81 mg Oral EC Tab 81 mg = 1 tab(s), Oral, Daily Start Date: 05/15/22 Status: Ordered atorvastatin 10 mg oral tablet (5 sources) HMG-CoA Reductase Inhibitor Start: 02-09-2024 take 1 tablet by mouth once daily atorvastatin 10 mg Tab 10 mg = 1 tab(s), Oral, Daily, # 90 tab(s), Refills(s) 4, Pharmacy: [facility], 162.5, cm, 04/05/24 13:42:00 EDT, Height/Length Dosing, 95.3, kg, 04/05/24 13:42:00 EDT, Weight Dosing Start Date: 04/06/24 Status: Ordered B 100 Complex oral tablet (5 sources) Start: 02-09-2024 B 100 Complex oral tablet 1 tab(s), Oral, Daily, 90 tab(s), Refill(s) 3, [facility], 162.5, cm, 02/09/24 12:08:00 EDT, Height/Length Dosing, 102.8, kg, 02/09/24 12:08:00 EDT, Weight Dosing Start Date: 02/09/24 Status: Ordered diclofenac sodium 0.01 mg/mg topical gel (5 sources) Nonsteroidal Anti-inflammatory Drug Start: 02-07-2024 Voltaren Gel 1% Gel 1 rafat, Topical, QID for pain, 100 gram, Refill(s) 0, [facility], 162.5, cm, 02/07/24 11:37:00 EDT, Height/Length Dosing, 105.1, kg, 02/07/24 11:37:00 EDT, Weight Dosing Start Date: 02/07/24 Status: Ordered furosemide 40 mg oral tablet (5 sources) Loop Diuretic Start: 01-18-2024 take 1 tablet by mouth once daily as needed Lasix 40 mg Tab 40 mg = 1 tab(s), Oral, Daily, PRN leg swelling, # 90 tab(s), Refills(s) 1, Pharmacy: [facility], 162.5, cm, 10/20/23 8:01:00 EST, Height/Length Dosing, 100, kg, 10/20/23 8:01:00 EST, Weight Dosing Start Date: 01/18/24 Status: Ordered levothyroxine sodium 0.05 mg oral tablet (5 sources) l-Thyroxine Start: 02-09-2024 take 1 tablet by mouth once daily levothyroxine 50 mcg (0.05 mg) Tab 50 mcg = 1 tab(s), Oral, Daily, # 90 tab(s), Refills(s) 3, Pharmacy: [facility], 162.5, cm, 02/09/24 12:08:00 EDT, Height/Length Dosing, 102.8, kg, 02/09/24 12:08:00 EDT, Weight Dosing Start Date: 02/09/24 Status: Ordered nystatin 100 unt/mg topical powder (5 sources) Polyene Antifungal Start: 07-27-2023 nystatin Top 100,000 units/g Pwdr 1 rafat, Topical, BID, 30 gram, Refill(s) 1, [facility], 162.5, cm, 06/15/23 15:32:00 EDT, Height/Length Dosing, 106.1, kg, 06/15/23 15:32:00 EDT, Weight Dosing Start Date: 07/27/23 Status: Ordered One-A-Day Women (5 sources) Start: 05-15-2022 take 1 tablet by mouth once daily One-A-Day Women 1 tab(s), Oral, Daily Start Date: 05/15/22 Status: Ordered pantoprazole 20 mg delayed release oral tablet (5 sources) Proton Pump Inhibitor Start: 07-05-2024 take 1 tablet by mouth once daily Pantoprazole [address] Tab See Instructions, TAKE 1 TABLET BY MOUTH DAILY, # 90 tab(s), Refills(s) 1, Pharmacy: [facility], 162.5, cm, 06/28/24 14:23:00 EDT, Height/Length Dosing, 94.5, kg, 06/28/24 14:23:00 EDT, Weight Dosing Start Date: 07/05/24 Status: Ordered Start: 01-18-2024 take 1 tablet by yasmani th once daily Pantoprazole [address] Tab 20 mg = 1 tab(s), Oral, Daily, # 90 tab(s), Refills(s) 1, Pharmacy: [facility], 162.5, cm, 10/20/23 8:01:00 EST, Height/Length Dosing, 100, kg, 10/20/23 8:01:00 EST, Weight Dosing Start Date: 01/18/24 Status: Ordered phentermine hydrochloride 37.5 mg oral tablet (5 sources) Sympathomimetic Amine Anorectic Start: 08-01-2024 take 1 tablet by mouth once daily Adipex-P 37.5 mg Tab 37.5 mg = 1 tab(s), Oral, Daily, # 30 tab(s), Refills(s) 0, Pharmacy: [facility], 162.5, cm, 08/01/24 10:47:00 EDT, Height/Length Dosing, 95.3, kg, 08/01/24 10:47:00 EDT, Weight Dosing Start Date: 08/01/24 Status: Ordered Start: 06-28-2024 take 1 tablet by yasmani th once daily Adipex-P 37.5 mg Tab 37.5 mg = 1 tab(s), Oral, Daily, # 30 tab(s), Refills(s) 0, Pharmacy: [facility], 162.5, cm, 06/28/24 14:23:00 EDT, Height/Length Dosing, 94.5, kg, 06/28/24 14:23:00 EDT, Weight Dosing Start Date: 06/28/24 Status: Ordered Start: 06-05-2024 take 1 tablet by yasmani th once daily Adipex-P 37.5 mg Tab 37.5 mg = 1 tab(s), Oral, Daily, # 30 tab(s), Refills(s) 0, Pharmacy: [facility], 162.5, cm, 06/05/24 9:18:00 EDT, Height/Length Dosing, 95.3, kg, 06/05/24 9:18:00 EDT, Weight Dosing Start Date: 06/05/24 Status: Ordered Start: 05-04-2024 take 1 tablet by yasmani th once daily Adipex-P 37.5 mg Tab 37.5 mg = 1 tab(s), Oral, Daily, # 30 tab(s), Refills(s) 0, Pharmacy: [facility], 162.5, cm, 05/04/24 9:55:00 EDT, Height/Length Dosing, 94.9, kg, 05/04/24 9:55:00 EDT, Weight Dosing Start Date: 05/04/24 Status: Ordered Start: 04-05-2024 Adipex-P 37.5 mg Tab 37.5 mg = 1 tab(s), Oral, Daily, before breakfast OARRS reviewed= 100 kg #2 RX, # 30 tab(s), Refills(s) 0, Pharmacy: [facility], 162.5, cm, 04/05/24 13:42:00 EDT, Height/Length Dosing, 95.3, kg, 04/05/24 13:42:00 EDT, Weight Dosing Start Date: 04/05/24 Status: Ordered valACYclovir 500 mg oral tablet (5 sources) Herpesvirus Nucleoside Analog DNA Polymerase Inhibitor, Herpes Simplex Virus Nucleoside Analog DNA Polymerase Inhibitor, Herpes Zoster Virus Nucleoside Analog DNA Polymerase Inhibitor Start: 05-15-2022 take 1 tablet by mouth once Valtrex 500 mg Tab 500 mg = 1 tab(s), Oral, Daily, per dermatology Start Date: 05/15/22 Status: Ordered Problems Active Problems Problem Classification Problem Date Documented Da te Episodic/Chronic Administrative/social admission (5 sources) Patient encounter status; Translations: [Persons encountering health services in other specified circumstances] Onset: 4 Episodic Disorders of lipid metabolism (7 sources) Hyperlipidemia, unspecified; Translations: [Mixed hyperlipidemia] Onset: 2 05-15-2022 Chronic Esophageal disorders (10 sources) Gastroesophageal reflux disease; Translations: [Lower esophageal ring] 01-18-2023 Chronic Hemorrhoids (5 sources) Hemorrhoids 06-15-2023 Episodic Malaise and fatigue (5 sources) Fatigue 08-09-2023 Episodic Menopausal disorders (1 source) Hormone replacement therapy; Translations: [HORMONE REPLACEMENT THERAPY] Onset: 3 Episodic Other aftercare (1 source) 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; Translations: [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 CURRENT USE OF ASPIRIN] Onset: 3 Episodic Other aftercare (1 source) Other retirement (current) drug therapy; Translations: [OTH SENIOR LIVING CURRENT DRUG THERAPY] Onset: 3 Episodic Other and unspecified benign neoplasm (5 sources) Polyp of colon 06-15-2023 Episodic Other connective tissue disease (3 sources) Other specified soft tissue disorders; Translations: [OTHER SPEC SOFT TISSUE DISORDERS] Onset: 3 Episodic Other connective tissue disease (6 sources) Foot pain; Translations: [Pain in unspecified foot] Onset: 4 02-07-2024 Episodic Other diseases of veins and lymphatics (5 sources) Disorder of vein of lower extremity 01-18-2023 Episodic Other non-traumatic joint disorders (1 source) Pain of right shoulder joint; Translations: [Pain in right shoulder] Onset: 4 Episodic Other nutritional; endocrine; and metabolic disorders (5 sources) Obese class II; Translations: [Body mass index (BMI) 36.0-36.9, adult] Onset: 4 Chronic Other nutritional; endocrine; and metabolic disorders (6 sources) Morbid obesity; Translations: [Morbid (severe) obesity due to excess calories] Onset: 4 Chronic Other nutritional; endocrine; and metabolic disorders (6 sources) Body mass index 30+ - obesity 02-09-2024 Chronic Other nutritional; endocrine; and metabolic disorders (5 sources) Obesity; Translations: [Other obesity] Onset: 4 Chronic Phlebitis; thrombophlebitis and thromboembolism (12 sources) Phlebitis and thrombophlebitis of superficial vessels of left lower extremity; Translations: [Personal history of other venous thrombosis and embolism] Onset: 3 01-18-2023 Episodic Residual codes; unclassified (5 sources) Edema of lower extremity 12-16-2022 Episodic Residual codes; unclassified (5 sources) Family history of polyp of colon 06-15-2023 Episodic Residual codes; unclassified (5 sources) FH: Crohn's disease 05-11-2023 Episodic Screening and history of mental health and substance abuse codes (1 source) Personal history of nicotine dependence; Translations: [PERSONAL HISTORY OF NICOTINE DEPEND] Onset: 3 Episodic Skin and subcutaneous tissue infections (1 source) Cellulitis of left lower limb; Translations: [CELLULITIS OF LEFT LOWER LIMB] Onset: 3 Episodic Spondylosis; intervertebral disc disorders; other back problems (10 sources) Low back pain; Translations: [Lumbar radiculopathy] 05-15-2022 Episodic Thyroid disorders (10 sources) Hypothyroidism, unspecified; Translations: [Hypothyroidism] Onset: 2 Chronic Unclassified (5 sources) Pain of right shoulder region 04-05-2024 Unclassified (10 sources) Patient encounter status 04-27-2023 Past or Other Problems Problem Classification Problem [...] Test Name Value Interpretation Reference Range Facil ity Ambulatory Visit Summaryon 1 Ambulatory Visit Summary Ambulatory Visit Summary DAPHNE EDWARDS :1965 Visit Date:08/01/2024 Ambulatory Visit Instructions Your Diagnosis Encounter for weight management Adult BMI 36.0-36.9 kg/sq m Other obesity due to excess calories Hypothyroid Hyperlipemia, mixed Your Care Team Attending Physician - Alyce HUERTA MD Primary Care Physician - Alyce HUERTA MD This Is Your Medications List phentermine (Adipex-P 37.5 mg Tab) Contact prescribing physician if questions or concerns aspirin (aspirin 81 mg Oral EC Tab) atorvastatin (atorvastatin 10 mg Tab) diclofenac topical (Voltaren Gel 1% Gel) furosemide (Lasix 40 mg Tab) levothyroxine (levothyroxine 50 mcg (0.05 mg) Tab) multivitamin (B 100 Complex oral tablet) multivitamin with minerals (One-A-Day Women) nystatin topical (nystatin Top 100,000 units/g Pwdr) pantoprazole (Pantoprazole [address] Tab) valacyclovir (Valtrex 500 mg Tab) Procedures Performed Colonoscopy (06/01/2023), EGD (esophagogastroduodenosco py) and closure of duodenal fistula (06/01/2023). Discharge Vitals Temperature (Oral) 36.5 ?C Heart Rate (Peripheral) 74 Blood Pressure 116/78 Height 162.5 cm Height 64 in Weight 95.3 kg Weight 209.66 lb BMI 36.09 What to do next Scheduled Follow-Up Appointments Wednesday 12:00 PM EST With: Alyce HUERTA MD Where: [facility] [address] [facility], [facility] [place] [address]- You Need to Schedule the Following Appointments Follow Up with Alyce HUERTA MD, MED When: In 1 month Where: Critical access hospital [address], [facility] [place] [address]- Medications What How Much When Why Instructions Unchanged phentermine (Adipex-P 37.5 mg Tab) 1 Tablets By Mouth Every day Encounter for weight management Adult BMI 36.0-36.9 kg/sq m Pickup at [facility] Unchanged aspirin (aspirin 81 mg Oral EC Tab) 1 Tablets By Mouth Every day Contact prescribing physician if questions or concerns Unchanged atorvastatin (atorvastatin 10 mg Tab) 1 Tablets By Mouth Every day Contact prescribing physician if questions or concerns Unchanged diclofenac topical (Voltaren Gel 1% Gel) 1 Application Topical 4 times a day as needed for for pain Pain of foot Contact prescribing physician if questions or concerns Unchanged furosemide (Lasix 40 mg Tab) 1 Tablets By Mouth Every day as needed for leg swelling Edema of leg Contact prescribing physician if questions or concerns Unchanged levothyroxine (levothyroxine 50 mcg (0.05 mg) Tab) 1 Tablets By Mouth Every day Contact prescribing physician if questions or concerns Unchanged multivitamin (B 100 Complex oral tablet) 1 Tablets By Mouth Every day Contact prescribing physician if questions or concerns Unchanged multivitamin with minerals (One-A-Day Women) 1 Tablets By Mouth Every day Contact prescribing physician if questions or concerns Unchanged nystatin topical (nystatin Top 100,000 units/ g Pwdr) 1 Application Topical 2 times a day Yeast dermatitis Contact prescribing physician if questions or concerns Unchanged pantoprazole (Pantoprazole [address] Tab) See instructions TAKE 1 TABLET BY MOUTH DAILY Contact prescribing physician if questions or concerns Unchanged valacyclovir (Valtrex 500 mg Tab) 1 Tablets By Mouth Every day per dermatology Contact prescribing physician if questions or concerns Pharmacy Information [facility]: [address] [place], [place] [id number] [phone] Allergies No Known Allergies No Known Medication Allergies Problems Ongoing - Any problem that you are currently receiving treatment for. Colon polyp Edema of leg Encounter for weight management Family history of colonic polyps Family history of Crohn's disease Fatigue GERD (gastroesophageal reflux disease) Hemorrhoids History of DVT in adulthood Hyperlipemia, mixed Hypothyroid Low back pain Lumbar radiculopathy, right Morbid obesity Pain of foot Pain of right shoulder region Schatzki's ring Screening mammogram, encounter for Superficial phlebitis of left leg Venous stasis dermatitis of lower extremity Historical - Any problem that you are no longer receiving treatment for. BMI 39.0-39.9,adult Patient Survey You may receive a survey via text or e-mail asking about your office visit. Please share your experience with us by completing your survey. We appreciate your feedback and thank you for choosing us for your care. Education Materials Hypothyroidism Hypothyroidism is when the thyroid gland does not make enough of certain hormones. This is called an underactive thyroid. The thyroid gland is a small gland located in the lower front part of the neck, just in front of the windpipe (trachea). This gland makes hormones that help control how the body uses food for energy (metabolism) as well as how the heart and brain function. These ho (more content not included)... Normal [facility] Family Medicine Office/Clini c Noteon 10-15-2024 Family Medicine Office/Clinic Note Family Medicine Office/Clinic Note Chief Complaint Patient here for 1 month f/u on wgt--Adipex #7. Gained 2 lbs. History of Present Illness Here for follow up on her Adipex. She gained two pounds. She was on vacation so was eating out a lot. She feels well. She denies CP or SOB. Review of Systems PHQ Score Initial Depression Screen Score: 3 SCORE Physical Exam Vitals & Measurements T: 36.5 ?C(Oral) HR: 74(Peripheral) BP: 116/78 SpO2: 98% HT: 64 in HT: 162.5 cm WT: 95.3 kg WT: 209.66 lb BMI: 36.09 General: Well developed, well nourished, in no acute distress Eyes: Pupils equal, round, and reactive to light. Conjunctivae and sclerae normal, and extraocular movements intact Ears: not assessed Nose: not addressed Mouth: MMM. Oropharynx and posterior pharynx without lesions or exudates. Tongue WNL Neck: _supple, no bruit Lungs: Normal respiratory effort and clear to auscultation Cardio: Regular rate and rhythm, normal S1 and S2, no murmur, no rub Abdomen: Soft, non-distended, non-tender Musculoskeletal: No joint swelling or synovitis noted Extremity: No clubbing, cyanosis or edema. Neurologic: Grossly normal Skin: No rashes, ulcerations, or suspicious lesions Mental Status: Alert and oriented x3. Normal mood and affect Assessment/Plan 1. Encounter for weight management (Z76.89: Persons encountering health services in other specified circumstances) She gained two pounds but looking back she is maintaining 5% weight loss while on it so is ok to stay on it. 08/01/2024 11:12:20 I certify that I have reviewed the OAR[place] report and all PDMP information in this chart. Ordered: phentermine, 37.5 mg = 1 tab(s), Oral, Daily, # 30 tab(s), Refills(s) 0, Pharmacy: [facility], 162.5, cm, 08/01/24 10:47:00 EDT, Height/Length Dosing, 95.3, kg, 08/01/24 10:47:00 EDT, Weight Dosing 2. Adult BMI 36.0-36.9 kg/sq m (Z68.36: Body mass index [BMI] 36.0-36.9, adult) The standard range for ages 18 and older is >=18.5 and < 25 kg/m2. Your BMI today was above this range, this falls in the overweight to obese category and there are medical benefits to weight loss. We can offer counselling, referral, and/or medical support in addressing this problem. Your BMI and weight management will be followed at subsequent visits. Ordered: phentermine, 37.5 mg = 1 tab(s), Oral, Daily, # 30 tab(s), Refills(s) 0, Pharmacy: [facility], 162.5, cm, 08/01/24 10:47:00 EDT, Height/Length Dosing, 95.3, kg, 08/01/24 10:47:00 EDT, Weight Dosing 3. Other obesity due to excess calories (E66.09: Other obesity due to excess calories) 4. Hypothyroid (E03.9: Hypothyroidism, unspecified) stay on levothyroxine get labs Ordered: Comprehensive Metabolic Panel TSH With T4fr Reflex 5. Hyperlipemia, mixed (E78.2: Mixed hyperlipidemia) stay on atorvastatin get labs Ordered: Comprehensive Metabolic Panel Lipid Panel Follow-up With When Contact Information BRADLEY NATARAJAN, JACOB Sousa In 1 month Critical access hospital [facility] [address] [facility], [address] [place] [id number]- Additional Instructions: Patient Education Hypothyroidism Problem List/Past Medical History Ongoing Colon polyp Edema of leg Encounter for weight management Family history of colonic polyps Family history of Crohn's disease Fatigue GERD (gastroesophageal reflux disease) Hemorrhoids History of DVT in adulthood Hyperlipemia, mixed Hypothyroid Low back pain Lumbar radiculopathy, right Morbid obesity Pain of foot Pain of right shoulder region Schatzki's ring Screening mammogram, encounter for Superficial phlebitis of left leg Venous stasis dermatitis of lower extremity Historical BMI 39.0-39.9,adult Procedure/Surgical History Colonoscopy (06/01/2023), EGD (esophagogastroduodenosco py) and closure of duodenal fistula (06/01/2023). Medications Adipex-P 37.5 mg Tab, 37.5 mg= 1 tab(s), Oral, Daily aspirin 81 mg Oral EC Tab, 81 mg= 1 tab(s), Oral, Daily atorvastatin 10 mg Tab, 10 mg= 1 tab(s), Oral, Daily, 4 refills B 100 Complex oral tablet, 1 tab(s), Oral, Daily, 3 refills Lasix 40 mg Tab, 40 mg= 1 tab(s), Oral, Daily, PRN, 1 refills levothyroxine 50 mcg (0.05 mg) Tab, 50 mcg= 1 tab(s), Oral, Daily, 3 refills nystatin Top 100,000 units/g Pwdr, 1 rafat, Topical, BID, 1 refills One-A-Day Women, 1 tab(s), Oral, Daily Pantoprazole [address] Tab, See Instructions Valtrex 500 mg Tab, 500 mg= 1 tab(s), Oral, Daily Voltaren Gel 1% Gel, 1 rafat, Topical, QID, PRN Allergies No Known Allergies No Known Medication Allergies Social History Alcohol Never., 08/01/2024 Employment/School Work/School description: Works at [employer] 05/15/2022 Home/Environment Substance Abuse Never., 08/01/2024 Tobacco Former smoker, quit more than 30 days ago Tobacco Use:. Never Smokeless Tobacco Use:., 08/01/2024 Family History Hypertension: Mother. Hyperthyroidism: Mother. Primary malign (more content not included)... Normal [facility] Comment on above: Result Comment: Electronically Signed By : BRADLEY NATARAJAN, Alyce Romo\.br\Date and Time Signed: 08/01/24 11:16 EDT Ambulatory Visit Summaryon 0 06-28-2024 Ambulatory Visit Summary Ambulatory Visit Summary DAPHNE EDWARDS :1965 Visit Date:06/28/2024 Ambulatory Visit Instructions Your Diagnosis Encounter for weight management Adult BMI 35.0-35.9 kg/sq m Other obesity Your Care Team Attending Physician - Alyce HUERTA MD Primary Care Physician - Alyce HUERTA MD This Is Your Medications List phentermine (Adipex-P 37.5 mg Tab) Contact prescribing physician if questions or concerns aspirin (aspirin 81 mg Oral EC Tab) atorvastatin (atorvastatin 10 mg Tab) diclofenac topical (Voltaren Gel 1% Gel) furosemide (Lasix 40 mg Tab) levothyroxine (levothyroxine 50 mcg (0.05 mg) Tab) multivitamin (B 100 Complex oral tablet) multivitamin with minerals (One-A-Day Women) nystatin topical (nystatin Top 100,000 units/g Pwdr) pantoprazole (Pantoprazole [address] Tab) valacyclovir (Valtrex 500 mg Tab) Procedures Performed Colonoscopy (06/01/2023), EGD (esophagogastroduodenosco py) and closure of duodenal fistula (06/01/2023). Discharge Vitals Temperature (Oral) 36.7 ?C Heart Rate (Peripheral) 90 Blood Pressure 130/84 Height 162.5 cm Height 64 in Weight 94.5 kg Weight 207.9 lb BMI 35.79 What to do next Scheduled Follow-Up Appointments Wednesday 9:40 AM EDT With: Alyce HUERTA MD Where: [facility] [address], [facility] [place] [address]- You Need to Schedule the Following Appointments Follow Up with BRADLEY NATARAJAN, Alyce Romo, MED When: In 1 month Where: Critical access hospital [address], [facility] [place] [address]- Medications What How Much When Why Instructions Unchanged phentermine (Adipex-P 37.5 mg Tab) 1 Tablets By Mouth Every day Encounter for weight management Adult BMI 35.0-35.9 kg/sq m Pickup at [facility] Unchanged aspirin (aspirin 81 mg Oral EC Tab) 1 Tablets By Mouth Every day Contact prescribing physician if questions or concerns Unchanged atorvastatin (atorvastatin 10 mg Tab) 1 Tablets By Mouth Every day Contact prescribing physician if questions or concerns Unchanged diclofenac topical (Voltaren Gel 1% Gel) 1 Application Topical 4 times a day as needed for for pain Pain of foot Contact prescribing physician if questions or concerns Unchanged furosemide (Lasix 40 mg Tab) 1 Tablets By Mouth Every day as needed for leg swelling Edema of leg Contact prescribing physician if questions or concerns Unchanged levothyroxine (levothyroxine 50 mcg (0.05 mg) Tab) 1 Tablets By Mouth Every day Contact prescribing physician if questions or concerns Unchanged multivitamin (B 100 Complex oral tablet) 1 Tablets By Mouth Every day Contact prescribing physician if questions or concerns Unchanged multivitamin with minerals (One-A-Day Women) 1 Tablets By Mouth Every day Contact prescribing physician if questions or concerns Unchanged nystatin topical (nystatin Top 100,000 units/ g Pwdr) 1 Application Topical 2 times a day Yeast dermatitis Contact prescribing physician if questions or concerns Unchanged pantoprazole (Pantoprazole [address] Tab) 1 Tablets By Mouth Every day GERD (gastroesophageal reflux disease) Contact prescribing physician if questions or concerns Unchanged valacyclovir (Valtrex 500 mg Tab) 1 Tablets By Mouth Every day per dermatology Contact prescribing physician if questions or concerns Pharmacy Information [facility]: [address] [place], [place] [id number] [phone] Medications and Immunizations Administered Not Given influenza virus vaccine, inactivated, Patient Refuses Allergies No Known Allergies No Known Medication Allergies Problems Ongoing - Any problem that you are currently receiving treatment for. Colon polyp Edema of leg Encounter for weight management Family history of colonic polyps Family history of Crohn's disease Fatigue GERD (gastroesophageal reflux disease) Hemorrhoids History of DVT in adulthood Hyperlipemia, mixed Hypothyroid Low back pain Lumbar radiculopathy, right Morbid obesity Pain of foot Pain of right shoulder region Schatzki's ring Screening mammogram, encounter for Superficial phlebitis of left leg Venous stasis dermatitis of lower extremity Historical - Any problem that you are no longer receiving treatment for. BMI 39.0-39.9,adult Patient Survey You may receive a survey via text or e-mail asking about your office visit. Please share your experience with us by completing your survey. We appreciate your feedback and thank you for choosing us for your care. Education Materials BMI for Adults Body mass index (BMI) is a number found using a person's weight and height. BMI can help tell how much of a person's weight is made up of fat. BMI does not measure body fat directly. It is used instead of tests that directly measure body fat, which can be difficult and expensive. What are BMI measurements used for? BMI is u (more content not included)... Normal [facility] Family Medicine Office/Clini c Noteon 06-28-2024 Family Medicine Office/Clinic Note Family Medicine Office/Clinic Note Chief Complaint Patient here for 1 month f/u on wgt--Adipex #6. Down 2 lbs. History of Present Illness Here for follow up on her weight. She is on Adipex and feels it is helping control her appetite. No side effects. No CP. Review of Systems PHQ Score Initial Depression Screen Score: 0 SCORE Physical Exam Vitals & Measurements T: 36.7 ?C(Oral) HR: 90(Peripheral) BP: 130/84 SpO2: 96% HT: 64 in HT: 162.5 cm WT: 94.5 kg WT: 207.9 lb BMI: 35.79 General: Well developed, well nourished, in no acute distress Eyes: Pupils equal, round, and reactive to light. Conjunctivae and sclerae normal, and extraocular movements intact Ears: not assessed Nose: not addressed Mouth: MMM. Oropharynx and posterior pharynx without lesions or exudates. Tongue WNL Neck: not assessed Lungs: Normal respiratory effort and clear to auscultation Cardio: Regular rate and rhythm, normal S1 and S2, no murmur, no rub Abdomen: Soft, non-distended, non-tender Musculoskeletal: not assessed Extremity: No clubbing, cyanosis or edema. Neurologic: Grossly normal Skin: No rashes, ulcerations, or suspicious lesions Mental Status: Alert and oriented x3. Normal mood and affect Assessment/Plan 1. Encounter for weight management (Z76.89: Persons encountering health services in other specified circumstances) ok to stay on Adipex She lost 2 more pounds Ordered: phentermine, 37.5 mg = 1 tab(s), Oral, Daily, # 30 tab(s), Refills(s) 0, Pharmacy: [facility], 162.5, cm, 06/28/24 14:23:00 EDT, Height/Length Dosing, 94.5, kg, 06/28/24 14:23:00 EDT, Weight Dosing 2. Adult BMI 35.0-35.9 kg/sq m (Z68.35: Body mass index [BMI] 35.0-35.9, adult) The standard range for ages 18 and older is >=18.5 and < 25 kg/m2. Your BMI today was above this range, this falls in the overweight to obese category and there are medical benefits to weight loss. We can offer counselling, referral, and/or medical support in addressing this problem. Your BMI and weight management will be followed at subsequent visits. Ordered: phentermine, 37.5 mg = 1 tab(s), Oral, Daily, # 30 tab(s), Refills(s) 0, Pharmacy: [facility], 162.5, cm, 06/28/24 14:23:00 EDT, Height/Length Dosing, 94.5, kg, 06/28/24 14:23:00 EDT, Weight Dosing 3. Other obesity (E66.8: Other obesity) Follow-up With When Contact Information BRADLEY NATARAJAN, JACOB Sousa In 1 month [facility] [employer] [facility] [address], [place] [address]- Additional Instructions: Patient Education BMI for Adults Problem List/Past Medical History Ongoing Colon polyp Edema of leg Encounter for weight management Family history of colonic polyps Family history of Crohn's disease Fatigue GERD (gastroesophageal reflux disease) Hemorrhoids History of DVT in adulthood Hyperlipemia, mixed Hypothyroid Low back pain Lumbar radiculopathy, right Morbid obesity Pain of foot Pain of right shoulder region Schatzki's ring Screening mammogram, encounter for Superficial phlebitis of left leg Venous stasis dermatitis of lower extremity Historical BMI 39.0-39.9,adult Procedure/Surgical History Colonoscopy (06/01/2023), EGD (esophagogastroduodenosco py) and closure of duodenal fistula (06/01/2023). Medications Adipex-P 37.5 mg Tab, 37.5 mg= 1 tab(s), Oral, Daily aspirin 81 mg Oral EC Tab, 81 mg= 1 tab(s), Oral, Daily atorvastatin 10 mg Tab, 10 mg= 1 tab(s), Oral, Daily, 4 refills B 100 Complex oral tablet, 1 tab(s), Oral, Daily, 3 refills Lasix 40 mg Tab, 40 mg= 1 tab(s), Oral, Daily, PRN, 1 refills levothyroxine 50 mcg (0.05 mg) Tab, 50 mcg= 1 tab(s), Oral, Daily, 3 refills nystatin Top 100,000 units/g Pwdr, 1 rafat, Topical, BID, 1 refills One-A-Day Women, 1 tab(s), Oral, Daily Pantoprazole [address] Tab, 20 mg= 1 tab(s), Oral, Daily, 1 refills Valtrex 500 mg Tab, 500 mg= 1 tab(s), Oral, Daily Voltaren Gel 1% Gel, 1 rafat, Topical, QID, PRN Allergies No Known Allergies No Known Medication Allergies Social History Alcohol Employment/School Work/School description: Works at [employer] 05/15/2022 Home/Environment Substance Abuse Tobacco Former smoker, quit more than 30 days ago Tobacco Use:. Never Smokeless Tobacco Use:. Cigarettes, Started age 14.0 Years., 06/28/2024 Family History Hypertension: Mother. Hyperthyroidism: Mother. Primary malignant neoplasm of lung: Father. Immunizations Vaccine Date Status Comments influenza virus vaccine, inactivated - Not Given Patient Refuses influenza virus vaccine, inactivated - Not Given Postpone due to refusal influenza virus vaccine, inactivated - Not Given Patient Refuses Normal [facility] Comment on above: Result Comment: Electronically Signed By : BRADLEY NATARAJAN, Alyce Romo\.br\Date and Time Signed: 06/28/24 14:37 EDT Ambulatory Visit Summaryon 0 06-05-2024 Ambulatory Visit Summary Ambulatory Visit Summary DAPHNE EDWARDS :1965 Visit Date:06/05/2024 Ambulatory Visit Instructions Your Diagnosis Encounter for weight management BMI 36.0-36.9,adult Obesity Your Care Team Attending Physician - Alyce HUERTA MD Primary Care Physician - Alyce HUERTA MD This Is Your Medications List phentermine (Adipex-P 37.5 mg Tab) Contact prescribing physician if questions or concerns aspirin (aspirin 81 mg Oral EC Tab) atorvastatin (atorvastatin 10 mg Tab) diclofenac topical (Voltaren Gel 1% Gel) furosemide (Lasix 40 mg Tab) levothyroxine (levothyroxine 50 mcg (0.05 mg) Tab) multivitamin (B 100 Complex oral tablet) multivitamin with minerals (One-A-Day Women) nystatin topical (nystatin Top 100,000 units/g Pwdr) pantoprazole (Pantoprazole [address] Tab) valacyclovir (Valtrex 500 mg Tab) Procedures Performed Colonoscopy (06/01/2023), EGD (esophagogastroduodenosco py) and closure of duodenal fistula (06/01/2023). Discharge Vitals Temperature (Oral) 36.3 ?C Heart Rate (Peripheral) 72 Blood Pressure 116/64 Height 162.5 cm Height 64 in Weight 95.3 kg Weight 209.66 lb BMI 36.09 What to do next Scheduled Follow-Up Appointments Wednesday 2:45 PM EDT With: Dillon NATARAJAN, Kyra Hernandez Where: [facility] [address] [place] [address]- Wednesday 2:00 PM EDT With: Alyce HUERTA MD Where: [facility] [address] [place] [address]- You Need to Schedule the Following Appointments Follow Up with BRADLEY NATARAJAN, Alyce Romo, MED When: In 1 month Where: [facility] [address], [place] [address]- Medications What How Much When Why Instructions Unchanged phentermine (Adipex-P 37.5 mg Tab) 1 Tablets By Mouth Every day Encounter for weight management Pickup at [facility] Unchanged aspirin (aspirin 81 mg Oral EC Tab) 1 Tablets By Mouth Every day Contact prescribing physician if questions or concerns Unchanged atorvastatin (atorvastatin 10 mg Tab) 1 Tablets By Mouth Every day Contact prescribing physician if questions or concerns Unchanged diclofenac topical (Voltaren Gel 1% Gel) 1 Application Topical 4 times a day as needed for for pain Pain of foot Contact prescribing physician if questions or concerns Unchanged furosemide (Lasix 40 mg Tab) 1 Tablets By Mouth Every day as needed for leg swelling Edema of leg Contact prescribing physician if questions or concerns Unchanged levothyroxine (levothyroxine 50 mcg (0.05 mg) Tab) 1 Tablets By Mouth Every day Contact prescribing physician if questions or concerns Unchanged multivitamin (B 100 Complex oral tablet) 1 Tablets By Mouth Every day Contact prescribing physician if questions or concerns Unchanged multivitamin with minerals (One-A-Day Women) 1 Tablets By Mouth Every day Contact prescribing physician if questions or concerns Unchanged nystatin topical (nystatin Top 100,000 units/ g Pwdr) 1 Application Topical 2 times a day Yeast dermatitis Contact prescribing physician if questions or concerns Unchanged pantoprazole (Pantoprazole [address] Tab) 1 Tablets By Mouth Every day GERD (gastroesophageal reflux disease) Contact prescribing physician if questions or concerns Unchanged valacyclovir (Valtrex 500 mg Tab) 1 Tablets By Mouth Every day per dermatology Contact prescribing physician if questions or concerns Pharmacy Information [facility]: [address] [place] [id number] [phone] Allergies No Known Allergies No Known Medication Allergies Problems Ongoing - Any problem that you are currently receiving treatment for. BMI 36.0-36.9,adult Colon polyp Edema of leg Encounter for weight management Family history of colonic polyps Family history of Crohn's disease Fatigue GERD (gastroesophageal reflux disease) Hemorrhoids History of DVT in adulthood Hyperlipemia, mixed Hypothyroid Low back pain Lumbar radiculopathy, right Morbid obesity Obesity Pain of foot Pain of right shoulder region Schatzki's ring Screening mammogram, encounter for Superficial phlebitis of left leg Venous stasis dermatitis of lower extremity Historical - Any problem that you are no longer receiving treatment for. BMI 39.0-39.9,adult Patient Survey You may receive a survey via text or e-mail asking about your office visit. Please share your experience with us by completing your survey. We appreciate your feedback and thank you for choosing us for your care. Education Materials BMI for Adults What is BMI? Body mass index (BMI) is a number that is calculated from a person's weight and height. BMI can help estimate how much of a person's weight is composed of fat. BMI does not measure body fat directly. Rather, it is an alternative to pr (more content not included)... Normal [facility] Family Medicine Office/Clini c Noteon 06-05-2024 Family Medicine Office/Clinic Note Family Medicine Office/Clinic Note Chief Complaint pt here for 1 month f/u History of Present Illness Here for follow up on her weight. She is on Adipex. She was not able to lose weight this time. It is helping her appetite control. She has not been able to be as active due to her foot pain and shoulder pain. Review of Systems PHQ Score Initial Depression Screen Score: 0 SCORE Physical Exam Vitals & Measurements T: 36.3 ?C(Oral) HR: 72(Peripheral) BP: 116/64 SpO2: 98% HT: 64 in HT: 162.5 cm WT: 95.3 kg WT: 209.66 lb BMI: 36.09 General: Well developed, well nourished, in no [...] rub Abdomen: Soft, non-distended, non-tender Musculoskeletal: No deformity or scoliosis noted. Normal range of motion. Joints normal. No erythema, edema, effusion, or ecchymosis Extremity: No clubbing, cyanosis or edema. Neurologic: Grossly normal Skin: No rashes, ulcerations, or suspicious lesions Mental Status: Alert and oriented x3. Normal mood and affect Assessment/Plan 1. Encounter for weight management (Z76.89: Persons encountering health services in other specified circumstances) She is benefitting from the Adipex. It is controlling her Appetite. She can not be active due to her foot. also has Shoulder pain and is seeing ortho. Her weight is the same despite this. 06/05/2024 09:38:21 I certify that I have reviewed the OARRS report and all PDMP information in this chart. Ordered: phentermine, 37.5 mg = 1 tab(s), Oral, Daily, # 30 tab(s), Refills(s) 0, Pharmacy: [facility], 162.5, cm, 06/05/24 9:18:00 EDT, Height/Length Dosing, 95.3, kg, 06/05/24 9:18:00 EDT, Weight Dosing 2. BMI 36.0-36.9,adult (Z68.36: Body mass index [BMI] 36.0-36.9, adult) The standard range for ages 18 and older is >=18.5 and < 25 kg/m2. Your BMI today was above this range, this falls in the overweight to obese category and there are medical benefits to weight loss. We can offer counselling, referral, and/or medical support in addressing this problem. Your BMI and weight management will be followed at subsequent visits. 3. Obesity (E66.9: Obesity, unspecified) Follow-up With When Contact Information BRADLEY NATARAJAN, JACOB Sousa In 1 month [facility] [address], [place] [address]- Additional Instructions: Patient Education BMI for Adults Problem List/Past Medical History Ongoing BMI 36.0-36.9,adult Colon polyp Edema of leg Encounter for weight management Family history of colonic polyps Family history of Crohn's disease Fatigue GERD (gastroesophageal reflux disease) Hemorrhoids History of DVT in adulthood Hyperlipemia, mixed Hypothyroid Low back pain Lumbar radiculopathy, right Morbid obesity Obesity Pain of foot Pain of right shoulder region Schatzki's ring Screening mammogram, encounter for Superficial phlebitis of left leg Venous stasis dermatitis of lower extremity Historical BMI 39.0-39.9,adult Procedure/Surgical History Colonoscopy (06/01/2023), EGD (esophagogastroduodenosco py) and closure of duodenal fistula (06/01/2023). Medications Adipex-P 37.5 mg Tab, 37.5 mg= 1 tab(s), Oral, Daily aspirin 81 mg Oral EC Tab, 81 mg= 1 tab(s), Oral, Daily atorvastatin 10 mg Tab, 10 mg= 1 tab(s), Oral, Daily, 4 refills B 100 Complex oral tablet, 1 tab(s), Oral, Daily, 3 refills Lasix 40 mg Tab, 40 mg= 1 tab(s), Oral, Daily, PRN, 1 refills levothyroxine 50 mcg (0.05 mg) Tab, 50 mcg= 1 tab(s), Oral, Daily, 3 refills nystatin Top 100,000 units/g Pwdr, 1 rafat, Topical, BID, 1 refills One-A-Day Women, 1 tab(s), Oral, Daily Pantoprazole [address] Tab, 20 mg= 1 tab(s), Oral, Daily, 1 refills Valtrex 500 mg Tab, 500 mg= 1 tab(s), Oral, Daily Voltaren Gel 1% Gel, 1 rafat, Topical, QID, PRN Allergies No Known Allergies No Known Medication Allergies Social History Alcohol Employment/School Work/School description: Works at [employer] in [place] 05/15/2022 Home/Environment Substance Abuse Tobacco Former smoker, quit more than 30 days ago Tobacco Use:. Never Smokeless Tobacco Use:. Cigarettes, Started age 14.0 Years., 06/05/2024 Family History Hypertension: Mother. Hyperthyroidism: Mother. Primary malignant neoplasm of lung: Father. Immunizations Vaccine Date Status Comments influenza virus vaccine, inactivated - Not Given Postpone due to refusal influenza virus vaccine, inactivated - No (more content not included)... Normal [facility] Comment on above: Result Comment: Electronically Signed By : Alyce HUERTA MD\.br\Date and Time Signed: 06/05/24 09:42 EDT Ambulatory Visit Summaryon 0 05-04-2024 Ambulatory Visit Summary Ambulatory Visit Summary DAPHNE EDWARDS :1965 Visit Date:05/04/2024 Ambulatory Visit Instructions Your Diagnosis Encounter for weight management Adult BMI 35.0-35.9 kg/sq m Other obesity Pain of foot Your Care Team Attending Physician - Alyce HUERTA MD Primary Care Physician - Alyce HUERTA MD This Is Your Medications List phentermine (Adipex-P 37.5 mg Tab) Contact prescribing physician if questions or concerns aspirin (aspirin 81 mg Oral EC Tab) atorvastatin (atorvastatin 10 mg Tab) diclofenac topical (Voltaren Gel 1% Gel) furosemide (Lasix 40 mg Tab) levothyroxine (levothyroxine 50 mcg (0.05 mg) Tab) multivitamin (B 100 Complex oral tablet) multivitamin with minerals (One-A-Day Women) nystatin topical (nystatin Top 100,000 units/g Pwdr) pantoprazole (Pantoprazole [address] Tab) valacyclovir (Valtrex 500 mg Tab) Procedures Performed Colonoscopy (06/01/2023), EGD (esophagogastroduodenosco py) and closure of duodenal fistula (06/01/2023). Discharge Vitals Temperature (Oral) 36.6 ?C Heart Rate (Peripheral) 76 Blood Pressure 124/84 Height 162.5 cm Height 64 in Weight 94.9 kg Weight 208.78 lb BMI 35.94 What to do next Scheduled Follow-Up Appointments Wednesday 9:20 AM EDT With: Alyce HUERTA MD Where: [facility] Normal [address] [place] [address]- \.br\ You Need to Schedule the Following Appointments\.br \ Follow Up with Alyce HUERTA MD, MED When: In 1 month\.br\ Where:\.br\ [facility] [address], [address]\.br\ [place] [address]-\.br\ \.br\ Medications\.br\ What How Much When Why Instructions\.br \ Changed phentermine (Adipex-P 37.5 mg Tab) 1 Tablets By Mouth Every day Encounter for weight management Pickup at [facility]\.br\ Unchanged aspirin (aspirin 81 mg Oral EC Tab) 1 Tablets By Mouth Every day Contact prescribing physician if questions or concerns \.br\ Unchanged atorvastatin (atorvastatin 10 mg Tab) 1 Tablets By Mouth Every day Contact prescribing physician if questions or concerns \.br\ Unchanged diclofenac topical (Voltaren Gel 1% Gel) 1 Application Topical 4 times a day as needed for for pain Pain of foot Contact prescribing physician if questions or concerns \.br\ Unchanged furosemide (Lasix 40 mg Tab) 1 Tablets By Mouth Every day as needed for leg swelling Edema of leg Contact prescribing physician if questions or concerns \.br\ Unchanged levothyroxine (levothyroxine 50 mcg (0.05 mg) Tab) 1 Tablets By Mouth Every [...] 1 Tablets By Mouth Every day GERD (gastroesophagea l reflux disease) Contact prescribing physician if questions or concerns \.br\ Unchanged valacyclovir (Valtrex 500 mg Tab) 1 Tablets By Mouth Every day per dermatology Contact prescribing physician if questions or concerns \.br\ Pharmacy Information\.br\ [facility]: [address] [place] [id number] [phone]\.br\ Allergies\.br\ No Known Allergies\.br\ No Known Medication Allergies\.br\ Problems\.br\ Ongoing - Any problem that you are currently receiving treatment for.\.br\ Colon polyp\.br\ Edema of leg\.br\ Encounter for weight management\.br\ Family history of colonic polyps\.br\ Family history of Crohn's disease\.br\ Fatigue\.br\ GERD (gastroesophagea l reflux disease)\.br\ Hemorrhoids\.br\ History of DVT in adulthood\.br\ Hyperlipemia, mixed\.br\ Hypothyroid\.br\ Low back pain\.br\ Lumbar radiculopathy, right\.br\ Morbid obesity\.br\ Pain of foot\.br\ Pain of right shoulder region\.br\ Schatzki's ring\.br\ Screening mammogram, encounter for\.br\ Superficial phlebitis of left leg\.br\ Venous stasis dermatitis of lower extremity\.br\ Historical - Any problem that you are no longer receiving treatment for.\.br\ BMI 39.0-39.9,adult\ .br\ Patient Survey\.br\ You may receive a survey via text or e-mail asking about your office visit. Please share your experience with us by completing your survey. We appreciate your feedback and thank you for choosing us for your care.\.br\ Education Materials\.br\ BMI for Adults\.br\ What is BMI?\.br\ Body mass index (BMI) is a number that is calculated from a person's weight and height. BMI can help estimate how much of a person's weight is composed of fat. BMI does not measure body fat directly. Rather, it is an alternative to procedures that directly measure body fat, which can be difficult and expensive.\.br\ BMI can help identify people who may be at higher risk for certain medical problems.\.br\ What are BMI measurements used for?\.br\ BMI is used as a screening tool to identify possible weight problems. It helps determine whether a person is obese, overweight, a healthy weight, or underweight.\.br \ BMI is useful for:\.br\ ? \.br\ Identifying a weight problem that may be related to a medical condition or may increase the risk for medical problems.\.br\ ? \.br\ Promoting changes, such as changes in diet and exercise, to help reach a healthy weight. BMI screening can be repeated to see if these changes are working.\.br\ How is BMI calculated?\.br\ BMI involves measuring your weight in relation to your height. Both height and weight are measured, and the BMI is calculated from those numbers. This can be done either in [place] ([place] or metric measurements. Note that charts and online BMI calculators are available to help you find your BMI quickly and easily without having to do these calculations yourself.\.br\ To calculate your BMI in [place] ([place] measurements:\.b r\ \.br\ 1. \.br\ Measure your weight in pounds (lb).\.br\ 2. \.br\ Multiply the number of pounds by 703.\.br\ ? \.br\ For example, for a person who weighs 180 lb, multiply that number by 703, which equals 126,540.\.br\ 3. \.br\ Measure your height in inches. Then multiply that number by itself to get a measurement called inches squared. \.br\ ? \.br\ For example, for a person who is 70 inches tall, the inches squared measurement is 70 inches x 70 inches, which equals 4,900 inches squared.\.br\ 4. \.br\ Divide the total from step 2 (number of lb x 703) by the total from step 3 (inches squared): 126,540 ? 4,900 = 25.8. This is your BMI.\.br\ To calculate your BMI in metric measurements:\.b r\ 1. \.br\ Measure your weight in kilograms (kg).\.br\ 2. \.br\ Measure your height in meters (m). Then multiply that number by itself to get a measurement called meters squared. \.br\ ? \.br\ For example, for a person who is 1.75 m tall, the meters squared measurement is 1.75 m x 1.75 m, which is equal to 3.1 meters squared.\.br\ 3. \.br\ Divide the number of kilograms (your weight) by the meters squared number. In this example: 70 ? 3.1 = 22.6. This is your BMI.\.br\ What do the results mean?\.br\ BMI charts are used to identify whether you are underweight, normal weight, overweight, or obese. The following guidelines will be used:\.br\ ? \.br\ Underweight: BMI less than 18.5.\.br\ ? \.br\ Normal weight: BMI between 18.5 and 24.9.\.br\ ? \.br\ Overweight: BMI between 25 and 29.9.\.br\ ? \.br\ Obese: BMI of 30 or above.\.br\ Keep these notes in mind:\.br\ ? \.br\ Weight includes both fat and muscle, so someone with a muscular build, such as an athlete, may have a BMI that is higher than 24.9. In cases like these, BMI is not an accurate measure of body fat.\.br\ ? \.br\ To determine if excess body fat is the cause of a BMI of 25 or higher, further assessments may need to be done by a health care provider.\.br\ ? \.br\ BMI is usually interpreted in the same way for men and women.\.br\ Where to find more information\.br\ For more information about BMI, including tools to quickly calculate your BMI, go to these websites:\.br\ ? \.br\ Centers for Disease Control and Prevention: www.cdc.gov\.br\ ? \.br\ [place] [employer]: www.heart.org\.b r\ ? \.br\ National Heart, Lung, and Blood [place]: www.nhlbi.nih.go v\.br\ Summary\.br\ ? \.br\ Body mass index (BMI) is a number that is calculated from a person's weight and height.\.br\ ? \.br\ BMI may help estimate how much of a person's weight is composed of fat. BMI can help identify those who may be at higher risk for certain medical problems.\.br\ ? \.br [facility] Family Medicine Office/Charlotte Fabian 05-04-2024 Family Medicine Office/Clinic Note Family Medicine Office/Clinic Note Chief Complaint Patient here for 1 month f/u on wgt--Adipex #4. Down 1 lb but she says down 5 lbs per her scale at home. History of Present Illness Here for med follow up. She has been on Adipex for weight loss. She is doing well on it. No side effects. She still has occasional L foot pain. She is seeing podiatry. Review of Systems PHQ Score Initial Depression Screen Score: 0 SCORE Physical Exam Vitals & Measurements T: 36.6 ?C(Oral) HR: 76(Peripheral) BP: 124/84 SpO2: 96% HT: 64 in HT: 162.5 cm WT: 94.9 kg WT: 208.78 lb BMI: 35.94 General: Well developed, well nourished, in no acute distress Eyes: Pupils equal, round, and reactive to light. Conjunctivae and sclerae normal, and extraocular movements intact Ears: not assessed Nose: No deformity, discharge, inflammation, or lesions Mouth: MMM. Oropharynx and posterior pharynx without lesions or exudates. Tongue WNL Neck: not assessed Lungs: Normal respiratory effort and clear to [...] and affect Assessment/Plan 1. Encounter for weight management (Z76.89: Persons encountering health services in other specified circumstances) She wants to do another month of Adipex She is tolerating it well. Ordered: phentermine, 37.5 mg = 1 tab(s), Oral, Daily, # 30 tab(s), Refills(s) 0, Pharmacy: [facility], 162.5, cm, 05/04/24 9:55:00 EDT, Height/Length Dosing, 94.9, kg, 05/04/24 9:55:00 EDT, Weight Dosing 2. Adult BMI 35.0-35.9 kg/sq m (Z68.35: Body mass index [BMI] 35.0-35.9, adult) The standard range for ages 18 and older is >=18.5 and < 25 kg/m2. Your BMI today was above this range, this falls in the overweight to obese category and there are medical benefits to weight loss. We can offer counselling, referral, and/or medical support in addressing this problem. Your BMI and weight management will be followed at subsequent visits. 3. Other obesity (E66.8: Other obesity) 4. Pain of foot (M79.673: Pain in unspecified foot) follow up with podiatry Follow-up With When Contact Information BRADLEY NATARAJAN, JACOB Sousa In 1 month [facility] [place] [address], [place] [address]- Additional Instructions: Patient Education BMI for Adults Problem List/Past Medical History Ongoing Colon polyp Edema of leg Encounter for weight management Family history of colonic polyps Family history of Crohn's disease Fatigue GERD (gastroesophageal reflux disease) Hemorrhoids History of DVT in adulthood Hyperlipemia, mixed Hypothyroid Low back pain Lumbar radiculopathy, right Morbid obesity Pain of foot Pain of right shoulder region Schatzki's ring Screening mammogram, encounter for Superficial phlebitis of left leg Venous stasis dermatitis of lower extremity Historical BMI 39.0-39.9,adult Procedure/Surgical History Colonoscopy (06/01/2023), EGD (esophagogastroduodenosco py) and closure of duodenal fistula (06/01/2023). Medications Adipex-P 37.5 mg Tab, 37.5 mg= 1 tab(s), Oral, Daily aspirin 81 mg Oral EC Tab, 81 mg= 1 tab(s), Oral, Daily atorvastatin 10 mg Tab, 10 mg= 1 tab(s), Oral, Daily, 4 refills B 100 Complex oral tablet, 1 tab(s), Oral, Daily, 3 refills Lasix 40 mg Tab, 40 mg= 1 tab(s), Oral, Daily, PRN, 1 refills levothyroxine 50 mcg (0.05 mg) Tab, 50 mcg= 1 tab(s), Oral, Daily, 3 refills nystatin Top 100,000 units/g Pwdr, 1 rafat, Topical, BID, 1 refills One-A-Day Women, 1 tab(s), Oral, Daily Pantoprazole [address] Tab, 20 mg= 1 tab(s), Oral, Daily, 1 refills Valtrex 500 mg Tab, 500 mg= 1 tab(s), Oral, Daily Voltaren Gel 1% Gel, 1 rafat, Topical, QID, PRN Allergies No Known Allergies No Known Medication Allergies Social History Alcohol Employment/School Work/School description: Works at [employer] in [place]., 05/15/2022 Home/Environment Substance Abuse Tobacco Former smoker, quit more than 30 days ago Tobacco Use:. Never Smokeless Tobacco Use:. Started age 14.0 Years., 05/04/2024 Family History Hypertension: Mother. Hyperthyroidism: Mother. Primary malignant neoplasm of lung: Father. Immunizations Vaccine Date Status Comments influenza virus vaccine, inactivated - Not Given Postpone due to refusal influenza virus vaccine, inactivated - Not Given Patient Refuses Normal [facility] Comment on above: Result Comment: Electronically Signed By : BRADLEY NATARAJAN, Alyce Romo\.br\Date and Time Signed: 05/04/24 10:10 EDT Physician Referralon 024 Physician Referral [id number] Normal [facility] Ambulatory Visit Summaryon 0 04-05-2024 Ambulatory Visit Summary DAPHNE EDWARDS :1965 Visit Date:04/05/2024 Ambulatory Visit Instructions Your Diagnosis Encounter for weight management Pain of right shoulder region BMI 36.0-36.9,adult Class 2 severe obesity due to excess calories with serious comorbidity and body mass index (BMI) of 36.0 to 36.9 in adult Your Care Team Attending Physician - Alyce HUERTA MD Primary Care Physician - Alyce HUERTA MD This Is Your Medications List phentermine (Adipex-P 37.5 mg Tab) Contact prescribing physician if questions or concerns aspirin (aspirin 81 mg Oral EC Tab) atorvastatin (atorvastatin 10 mg Tab) diclofenac topical (Voltaren Gel 1% Gel) furosemide (Lasix 40 mg Tab) levothyroxine (levothyroxine 50 mcg (0.05 mg) Tab) multivitamin (B 100 Complex oral tablet) multivitamin with minerals (One-A-Day Women) nystatin topical (nystatin Top 100,000 units/g Pwdr) pantoprazole (Pantoprazole [address] Tab) valacyclovir (Valtrex 500 mg Tab) Procedures Performed Colonoscopy (06/01/2023), EGD (esophagogastroduodenosco py) and closure of duodenal fistula (06/01/2023). Discharge Vitals Temperature (Oral) 36.5 ?C Heart Rate (Peripheral) 86 Blood Pressure 112/70 Height 162.5 cm Height 64 in Weight 95.3 kg Weight 209.66 lb BMI 36.09 What to do next Scheduled Follow-Up Appointments 2023 9:40 AM EDT With: Alyce HUERTA MD Where: [facility] Normal [address] [place] [address]- \.br\ You Need to Schedule the Following Appointments\.br \ Follow Up with BRADLEY NATARAJAN, Alyce Romo, [facility] When: In 1 month\.br\ Where:\.br\ [facility] [address], [address]br\ [place] [address].br\ \.br\ Someone Will Contact You Regarding These Appointments\.br \ [facility] External Ambulatory Referral, Orthopaedics, 04/05/24 13:55:00 EDT, Pain of right shoulder region\.br\ Medications\.br\ What How Much When Why Instructions\.br \ Unchanged phentermine (Adipex-P 37.5 mg Tab) 1 Tablets By Mouth Every day Encounter for weight management before breakfast OARRS reviewed= 100 kg #2 RX Pickup at [facility]\.br\ Unchanged aspirin (aspirin 81 mg Oral EC Tab) 1 Tablets By Mouth Every day Contact prescribing physician if questions or concerns \.br\ Unchanged atorvastatin (atorvastatin 10 mg Tab) 1 Tablets By Mouth Every day Contact prescribing physician if questions or concerns \.br\ Unchanged diclofenac topical (Voltaren Gel 1% Gel) 1 Application Topical 4 times a day as needed for for pain Pain of foot Contact prescribing physician if questions or concerns \.br\ Unchanged furosemide (Lasix 40 mg Tab) 1 Tablets By Mouth Every day as needed for leg swelling Edema of leg Contact prescribing physician if questions or concerns \.br\ Unchanged levothyroxine (levothyroxine 50 mcg (0.05 mg) Tab) 1 Tablets By Mouth Every [...] 1 Tablets By Mouth Every day GERD (gastroesophagea l reflux disease) Contact prescribing physician if questions or concerns \.br\ Unchanged valacyclovir (Valtrex 500 mg Tab) 1 Tablets By Mouth Every day per dermatology Contact prescribing physician if questions or concerns \.br\ Pharmacy Information\.br\ [facility]: [address] [place], [place] [id number] [phone]\.br\ Allergies\.br\ No Known Allergies\.br\ No Known Medication Allergies\.br\ Problems\.br\ Ongoing - Any problem that you are currently receiving treatment for.\.br\ Colon polyp\.br\ Edema of leg\.br\ Encounter for weight management\.br\ Family history of colonic polyps\.br\ Family history of Crohn's disease\.br\ Fatigue\.br\ GERD (gastroesophagea l reflux disease)\.br\ Hemorrhoids\.br\ History of DVT in adulthood\.br\ Hyperlipemia, mixed\.br\ Hypothyroid\.br\ Low back pain\.br\ Lumbar radiculopathy, right\.br\ Morbid obesity\.br\ Pain of foot\.br\ Pain of right shoulder region\.br\ Schatzki's ring\.br\ Screening mammogram, encounter for\.br\ Superficial phlebitis of left leg\.br\ Venous stasis dermatitis of lower extremity\.br\ Historical - Any problem that you are no longer receiving treatment for.\.br\ BMI 39.0-39.9,adult\ .br\ Patient Survey\.br\ You may receive a survey via text or e-mail asking about your office visit. Please share your experience with us by completing your survey. We appreciate your feedback and thank you for choosing us for your care.\.br\ Education Materials\.br\ Shoulder Range of Motion Exercises\.br\ Shoulder range of motion (ROM) exercises are done to keep the shoulder moving freely or to increase movement. They are recommended for people who have shoulder pain or stiffness or who are recovering from a shoulder surgery.\.br\ Ask your health care provider which exercises are safe for you. Do exercises exactly as told by your health care provider and adjust them as directed. It is normal to feel mild stretching, pulling, tightness, or discomfort as you do these exercises. Stop right away if you feel sudden pain or your pain gets worse. Do not begin these exercises until told by your health care provider.\.br\ Phase 1 exercise\.br\ When you are able, do this exercise 1?2 times a day for 30?60 seconds in each direction, or as directed by your health care provider.\.br\ Pendulum exercise\.br\ \.br\ \.br\ To do this exercise while sitting:\.br\ 1. \.br\ Sit in a chair or at the edge of your bed with your feet flat on the floor.\.br\ 2. \.br\ Let your affected arm hang down in front of you over the edge of the bed or chair.\.br\ 3. \.br\ Relax your shoulder, arm, and hand.\.br\ 4. \.br\ Rock your body so your arm gently swings in small circles. You can also use your unaffected arm to start the motion.\.br\ 5. \.br\ Repeat, changing the direction of the circles, swinging your arm left and right, and swinging your arm forward and back.\.br\ To do this exercise while standing:\.br\ 1. \.br\ Stand next to a sturdy chair or table, and hold on to it with your hand on your unaffected side.\.br\ 2. \.br\ Bend forward at the waist.\.br\ 3. \.br\ Bend your knees slightly.\.br\ 4. \.br\ Relax your shoulder, arm, and hand.\.br\ 5. \.br\ While keeping your shoulder relaxed, use body motion to swing your arm in small circles.\.br\ 6. \.br\ Repeat, changing the direction of the circles, swinging your arm left and right, and swinging your arm forward and back.\.br\ 7. \.br\ Between exercises, stand up tall and take a short break to relax your lower back.\.br\ Phase 2 exercises\.br\ Do these exercises 1?2 times a day or as told by your health care provider. Hold each stretch for 30 seconds, and repeat 3 times. Do the exercises with one or both arms as instructed by your health care provider.\.br\ For these exercises, sit at a table with your hand and arm supported by the table. A chair that slides easily or has wheels can be helpful.\.br\ External rotation\.br\ \.br\ 1. \.br\ Turn your chair so that your affected side is nearest to the table.\.br\ 2. \.br\ Place your forearm on the table to your side. Bend your arm to about a 90-degree angle (right angle) at the elbow, and place your hand palm-down on the table. Your elbow should be about 6 inches (15 cm) away from your side.\.br\ 3. \.br\ Keeping your arm on the table, lean your body forward.\.br\ Abduction\.br\ \.br\ 1. \.br\ Turn your chair so that your affected side is nearest to the table.\.br\ 2. \.br\ Place your forearm and hand on the table so that your thumb points toward the ceiling and your arm is straight out to your side.\.br\ 3. \.br\ Slide your hand out to the side and away from you.\.br\ 4. \.br\ To increase the stretch, you can slide your chair away from the table.\.br\ Flexion: forward stretch\.br\ \.br\ 1. \.br\ Sit facing the table. Place your hand and elbow on the table in front of you.\.br\ 2. \.br\ Slide your hand forward and away from you, using your unaffected arm to do the work.\.br\ 3. \.br\ To increase the stretch, you can slide your chair backward.\.br\ Phase 3 exercises\.br\ Do these exercises 1?2 times a day or as told by your health care provider. Hold each stretch for 30 seconds, and repeat 3 times. Do the exercises with one or both arms as instructed by your health care provider.\.br\ You will need a cane, a piece of PVC pipe [facility] Family Medicine Office/Clini c Noteon 04-05-2024 Family Medicine Office/Clinic Note Chief Complaint Patient here for Adipex #3. Down another 10 lbs History of Present Illness Here for follow up on her weight. She has done well on Adipex. Losing weight. No side effects. she has had R shoulder pain for about two years. No injury. It feels like it is down into her upper arm now. Sometimes at night her R arm will go numb. If she wakes up and shake it out it gets better. Review of Systems PHQ Score Initial Depression Screen Score: 0 SCORE Physical Exam Vitals & Measurements T: 36.5 ?C(Oral) HR: 86(Peripheral) BP: 112/70 SpO2: 98% HT: 64 in HT: 162.5 cm WT: 95.3 kg WT: 209.66 lb BMI: 36.09 General: Well developed, well nourished, in no acute distress Eyes: Pupils equal, round, and reactive to light. Conjunctivae and sclerae normal, and extraocular movements intact Ears: not assessed Nose: not addressed Mouth: MMM. Oropharynx and posterior pharynx without lesions or exudates. Tongue WNL Neck: not assessed Lungs: Normal respiratory effort and clear to auscultation Cardio: Regular rate and rhythm, normal S1 and S2, no murmur, no rub Abdomen: Soft, non-distended, non-tender Musculoskeletal: _L leg in boot. R shoulder appears ok. Pain with flexion > 90. Painful arc 60 to 120. Pain with max ER and IR. Extremity: No clubbing, cyanosis or edema. Neurologic: Grossly normal Skin: No rashes, ulcerations, or suspicious lesions Mental Status: Alert and oriented x3. Normal mood and affect Assessment/Plan 1. Encounter for weight management (Z76.89: Persons encountering health services in other specified circumstances) She would like to do another month of Adipex She is losing weight on it. Ordered: phentermine, 37.5 mg = 1 tab(s), Oral, Daily, before breakfast OARRS reviewed= 100 kg #2 RX, # 30 tab(s), Refills(s) 0, Pharmacy: [facility], 162.5, cm, 04/05/24 13:42:00 EDT, Height/Length Dosing, 95.3, kg, 04/05/24 13:42:00 EDT, Weight Dosing 2. Pain of right shoulder region (M25.511: Pain in right shoulder) possible rotator cuff tear will refer to ortho Ordered: [facility] External Ambulatory Referral 3. BMI 36.0-36.9,adult (Z68.36: Body mass index [BMI] 36.0-36.9, adult) The standard range for ages 18 and older is >=18.5 and < 25 kg/m2. Your BMI today was above this range, this falls in the overweight to obese category and there are medical benefits to weight loss. We can offer counselling, referral, and/or medical support in addressing this problem. Your BMI and weight management will be followed at subsequent visits. 4. Class 2 severe obesity due to excess calories with serious comorbidity and body mass index (BMI) of 36.0 to 36.9 in adult (E66.01: Morbid (severe) obesity due to excess calories) Follow-up With When Contact Information RBADLEY NATARAJAN, JACOB Sousa In [facility] month [facility] [address] [facility], [place] [address]- Additional Instructions: Patient Education Shoulder Range of Motion Exercises Problem List/Past Medical History Ongoing Colon polyp Edema of leg Encounter for weight management Family history of colonic polyps Family history of Crohn's disease Fatigue GERD (gastroesophageal reflux disease) Hemorrhoids History of DVT in adulthood Hyperlipemia, mixed Hypothyroid Low back pain Lumbar radiculopathy, right Morbid obesity Pain of foot Pain of right shoulder region Schatzki's ring Screening mammogram, encounter for Superficial phlebitis of left leg Venous stasis dermatitis of lower extremity Historical BMI 39.0-39.9,adult Procedure/Surgical History Colonoscopy (06/01/2023), EGD (esophagogastroduodenosco py) and closure of duodenal fistula (06/01/2023). Medications Adipex-P 37.5 mg Tab, 37.5 mg= 1 tab(s), Oral, Daily aspirin 81 mg Oral EC Tab, 81 mg= 1 tab(s), Oral, Daily atorvastatin 10 mg Tab, 10 mg= 1 tab(s), Oral, Daily B 100 Complex oral tablet, 1 tab(s), Oral, Daily, 3 refills Lasix 40 mg Tab, 40 mg= 1 tab(s), Oral, Daily, PRN, 1 refills levothyroxine 50 mcg (0.05 mg) Tab, 50 mcg= 1 tab(s), Oral, Daily, 3 refills nystatin Top 100,000 units/g Pwdr, 1 rafat, Topical, BID, 1 refills One-A-Day Women, 1 tab(s), Oral, Daily Pantoprazole [address] Tab, 20 mg= 1 tab(s), Oral, Daily, 1 refills Valtrex 500 mg Tab, 500 mg= 1 tab(s), Oral, Daily Voltaren Gel 1% Gel, 1 rafat, Topical, QID, PRN Allergies No Known Allergies No Known Medication Allergies Social History Alcohol Employment/School Work/School description: Works at [employer] in [place]., 05/15/2022 Home/Environment Substance Abuse Tobacco Former smoker, quit more than 30 days ago Tobacco Use:. Never Smokeless Tobacco Use:. Started age 14.0 Years., 04/05/2024 Family History Hypertension: Mother. Hyperthyroidism: Mother. Primary malignant neoplasm of lung: Father. Immunizations Vaccine Date Status Comments influenza virus vaccine, inactivated - Not Given Postpone due to refusal influenza virus vaccine, inac (more content not included)... Normal [facility] Comment on above: Result Comment: Electronically Signed By : BRADLEY NATARAJAN, Alyce Romo\.scott\Date and Time Signed: 04/05/24 13:56 EDT Patient Educationon 04-05-20 Patient Education Orthopedics Shoulder Range of Motion Exercises Shoulder range of motion (ROM) exercises are done to keep the shoulder moving freely or to increase movement. They are recommended for people who have shoulder pain or stiffness or who are recovering from a shoulder surgery. Ask your health care provider which exercises are safe for you. Do exercises exactly as told by your health care provider and adjust them as directed. It is normal to feel mild stretching, pulling, tightness, or discomfort as you do these exercises. Stop right away if you feel sudden pain or your pain gets worse. Do not begin these exercises until told by your health care provider. Phase 1 exercise When you are able, do this exercise 1?2 times a day for 30?60 seconds in each direction, or as directed by your health care provider. Pendulum exercise To do this exercise while sittin. Sit in a chair or at the edge of your bed with your feet flat on the floor. 2. Let your affected arm hang down in front of you over the edge of the bed or chair. 3. Relax your shoulder, arm, and hand. 4. Rock your body so your arm gently swings in small circles. You can also use your unaffected arm to start the motion. 5. Repeat, changing the direction of the circles, swinging your arm left and right, and swinging your arm forward and back. To do this exercise while standin. Stand next to a sturdy chair or table, and hold on to it with your hand on your unaffected side. 2. Bend forward at the waist. 3. Bend your knees slightly. 4. Relax your shoulder, arm, and hand. 5. While keeping your shoulder relaxed, use body motion to swing your arm in small circles. 6. Repeat, changing the direction of the circles, swinging your arm left and right, and swinging your arm forward and back. 7. Between exercises, stand up tall and take a short break to relax your lower back. Phase 2 exercises Do these exercises 1?2 times a day or as told by your health care provider. Hold each stretch for 30 seconds, and repeat 3 times. Do the exercises with one or both arms as instructed by your health care provider. For these exercises, sit at a table with your hand and arm supported by the table. A chair that slides easily or has wheels can be helpful. External rotation 1. Turn your chair so that your affected side is nearest to the table. 2. Place your forearm on the table to your side. Bend your arm to about a 90-degree angle (right angle) at the elbow, and place your hand palm-down on the table. Your elbow should be about 6 inches (15 cm) away from your side. 3. Keeping your arm on the table, lean your body forward. Abduction 1. Turn your chair so that your affected side is nearest to the table. 2. Place your forearm and hand on the table so that your thumb points toward the ceiling and your arm is straight out to your side. 3. Slide your hand out to the side and away from you. 4. To increase the stretch, you can slide your chair away from the table. Flexion: forward stretch 1. Sit facing the table. Place your hand and elbow on the table in front of you. 2. Slide your hand forward and away from you, using your unaffected arm to do the work. 3. To increase the stretch, you can slide your chair backward. Phase 3 exercises Do these exercises 1?2 times a day or as told by your health care provider. Hold each stretch for 30 seconds, and repeat 3 times. Do the exercises with one or both arms as instructed by your health care provider. You will need a cane, a piece of PVC pipe, or a sturdy wooden dowel for the wand exercises. Cross-body stretch: posterior capsule stretch 1. Lift your arm straight out in front of you. 2. Bend your arm in a 90-degree angle (right angle) at the elbow so your forearm moves across your body. 3. Use your other arm to gently pull the elbow across your body, toward your other shoulder. Wall climbs 1. Stand with your affected arm extended out to the side with your hand resting on a door frame. 2. Slide your hand slowly up the door frame. 3. To increase the stretch, step through the door frame. Keep your body upright and do not lean. Flexion To do this exercise while standin. Hold the wand with both of your hands, palms-down. 2. Lift the wand up and over your head, if able. Lift mostly with your affected arm, and use the other arm to help. 3. Push upward with your other arm to gently increase the stretch. To do this exercise while lying down: 1. Lie on your back with your elbows resting on the floor and the wand in both your hands. Your hands will be palm-down, or pointing toward your feet. 2. Lift your hands toward (more content not included)... Normal [facility] Medication Consenton 024 Medication Consent [id number] Normal [facility] Family Medicine Office/Clini c Noteon 03-10-2024 Family Medicine Office/Clinic Note Chief Complaint Adipex Refill HPI Staff Reason for visit: Weight management/Adipex refill PCP: Dr. Huerta Last weight: 102.8 kg (231.2 lbs) Last BMI: 38.93 kg/m2 Current Weight: 100.0 kg (220.0 lbs) Current BMI: 37.87 kg/m2 Exercise: No (Left foot broken) Diet: Patient states she has tracked her diet. She just eats smaller portions. Sleeping well:Yes, 6-8 hours Chest pain:No Tremors:No Headaches:No Heart fluttering:No Blurred Vision:No History of Present Illness Adipex #:FEBRUARY 06 Started on Adipex on: Started at102.8 kg kg- Total weight loss to date since starting Adipex: 6 lbs - 11 lbs total (self) Sleeping well: yes Chest pain: no Tremors: no Headaches: No Increased heart rate: No Increased blood pressure: No Heart fluttering: No Blurred Vision: No Insomnia: No Dry mouth: No Constipation: No Nervousness: No Eating habits-logs:No current diet, educated on eating habits Exercise-logs:no Concerns/complaints: none Diabetes- fasting blood sugars: Med contract UTD? OARRS REIVEWED AND VERIFIED TODAY*Initial, goal 1 lb/week) OR If pt does not lose 5 % of body weight after 12 weeks of therapy (at the maximum tolerated dose), drug should be tapered and D/C?d. Review of Systems PHQ Score Initial Depression Screen Score: 0 SCORE Physical Exam Vitals & Measurements T: 36.5 ?C(Temporal Artery) HR: 86(Peripheral) RR: 18 BP: 128/68 SpO2: 98% HT: 64 in HT: 162.5 cm WT: 100.0 kg WT: 220 lb BMI: 37.87 General: alert, no acute distress, well appearing, _pleasant Skin: warm, dry, intact, edema left foot and ankle Head: no trauma, normocephalic Neck: Trachea midline, Eye: normal conjunctiva, sclera clear, _PERRLA ENMT:, oral mucosa moist, no pharyngeal erythema or exudate, normal dentition Cardiovascular: regular rate and rhythm, normal peripheral perfusion, no edema Respiratory: Lungs CTA, respirations non labored Back: No tenderness, Normal ROM, Normal alignment. Extremities: no deformity, no trauma + edema left ankle and foot Neurological: oriented x 4, LOC appropriate for age, CN II-XII intact, motor strength equal & normal bilaterally, sensation equal & normal bilaterally, speech normal Psychiatric: cooperative? , affect appropriate for age? , normal? judgement, normal? psychiatric thoughts. Assessment/Plan 1. Encounter for weight management (Z76.89: Persons encountering health services in other specified circumstances) Chronic Improved since last appt after a month of adipex Exercise seems to be helping Dietary changes have helped as well OARRS have been reviewed for the preceding 12 months and documented in the record Discussed slowly increasing walking with a goal of 40 mins daily Has two more months left eligible for adipex Patient is aware this medication is prescribed 30 days at a time with monthly appointments prior to the 2nd and 3rd prescription The patient is aware they need to demonstrate weight-loss to qualify for a 3rd prescription [employer] - count calories f/u 1 month Ordered: phentermine, 37.5 mg = 1 tab(s), Oral, Daily, before breakfast OARRS reviewed= 100 kg #2 RX, # 30 tab(s), Refills(s) 0, Pharmacy: [facility], 162.5, cm, 03/10/24 15:37:00 EDT, Height/Length Dosing, 100, kg, 03/10/24 15:37:00 EDT, Weight Dosing Adult BMI 37.0-37.9 kg/sq m (Z68.37: Body mass index [BMI] 37.0-37.9, adult) The standard range for ages 18 and older is >=18.5 and < 25 kg/m2. Your BMI today was above this range, this falls in the overweight to obese category and there are medical benefits to weight loss. We can offer counselling, referral, and/or medical support in addressing this problem. Your BMI and weight management will be followed at subsequent visits. Other obesity (E66.8: Other obesity) Reviewed importance of making a lifestyle change regarding dietary choices. Discussed goals. Encouraged routine cardio exercise with Goal: 3-5x/week for 30-45 minutes. Start out slow and increase to achieve your goals. Avoid late night snacking, do not skip breakfast and monitor cooking habits/avoid fast food and fried/fatty foods. Will monitor for progress. Portions of this record may have been created with voice recognition artificial intelligence software, specifically [employer], [employer] and or [employer]. Substitutions may have occurred due to the inherent limitations of voice recognition and artificial intelligence software. Total time spent preparing the chart, conducting of the encounter with the patient and family and time spent documenting, reviewing, and ordering tests was 20 minutes. Follow-up With When Contact Information BRADLEY NATARAJAN, Alyce Romo, JACOB [facility] [address], [address] [place] [id number]- Additional Instructions: Patient Education Calorie Counting for Weight Loss Obesity, Adult BMI for Adults Problem List/Past Medical History Ongo (more content not included)... Normal [facility] Comment on above: Result Comment: Electronically Signed By : Vicky Childs\.br\Date and Time Signed: 03/10/24 16:29 EDT Patient Educationon 03-10-20 Patient Education Gastroenterology Obesity, Adult Obesity is the condition of having too much total body fat. Being overweight or obese means that your weight is greater than what is considered healthy for your body size. Obesity is determined by a measurement called BMI (body mass index). BMI is an estimate of body fat and is calculated from height and weight. For adults, a BMI of 30 or higher is considered obese. Obesity can lead to other health concerns and major illnesses, including: ? Stroke. ? Coronary artery disease (CAD). ? Type 2 diabetes. ? Some types of cancer, including cancers of the colon, breast, uterus, and gallbladder. ? High blood pressure (hypertension). ? High cholesterol. ? Gallbladder stones. Obesity can also contribute to: ? Osteoarthritis. ? Sleep apnea. ? Infertility problems. What are the causes? Common causes of this condition include: ? Eating daily meals that are high in calories, sugar, and fat. ? Drinking high amounts of sugar-sweetened beverages, such as soft drinks. ? Being born with genes that may make you more likely to become obese. ? Having a medical condition that causes obesity, including: ? Hypothyroidism. ? Polycystic ovarian syndrome (PCOS). ? Binge-eating disorder. ? Flaquito syndrome. ? Taking certain medicines, such as steroids, antidepressants, and seizure medicines. ? Not being physically active (sedentary lifestyle). ? Not getting enough sleep. What increases the risk? The following factors may make you more likely to develop this condition: ? Having a family history of obesity. ? Living in an area with limited access to: ? [place], recreation centers, or sidewalks. ? Healthy food choices, such as grocery stores and [place]. What are the signs or symptoms? The main sign of this condition is having too much body fat. How is this diagnosed? This condition is diagnosed based on: ? Your BMI. If you are an adult with a BMI of 30 or higher, you are considered obese. ? Your waist circumference. This measures the distance around your waistline. ? Your skinfold thickness. Your health care provider may gently pinch a fold of your skin and measure it. You may have other tests to check for underlying conditions. How is this treated? Treatment for this condition often includes changing your lifestyle. Treatment may include some or all of the following: ? Dietary changes. This may include developing a healthy meal plan. ? Regular physical activity. This may include activity that causes your heart to beat faster (aerobic exercise) and strength training. Work with your health care provider to design an exercise program that works for you. ? Medicine to help you lose weight if you are unable to lose one pound a week after six weeks of healthy eating and more physical activity. ? Treating conditions that cause the obesity (underlying conditions). ? Surgery. Surgical options may include gastric banding and gastric bypass. Surgery may be done if: ? Other treatments have not helped to improve your condition. ? You have a BMI of 40 or higher. ? You have life-threatening health problems related to obesity. Follow these instructions at home: Eating and drinking ? Follow recommendations from your health care provider about what you eat and drink. Your health care provider may advise you to: ? Limit fast food, sweets, and processed snack foods. ? Choose low-fat options, such as low-fat milk instead of whole milk. ? Eat five or more servings of fruits or vegetables every day. ? Choose healthy foods when you eat out. ? Keep low-fat snacks available. ? Limit sugary drinks, such as soda, fruit juice, sweetened iced tea, and flavored milk. ? Drink enough water to keep your urine pale yellow. ? Do not follow a fad diet. Fad diets can be unhealthy and even dangerous. ? Other healthful choices include: ? Eat at home more often. This gives you more control over what you eat. ? Learn to read food labels. This will help you understand how much food is considered one serving. ? Learn what a healthy serving size is. Physical activity ? Exercise regularly, as told by your health care provider. ? Most adults should get up to 150 minutes of moderate-intensity exercise every week. ? Ask your health care provider what types of exercise are safe for you and how often you should exercise. ? Warm up and stretch before being active. ? Cool down and stretch after being active. ? Rest between periods of activity. Lifestyle ? Work with your health care provider and a dietitian to set a weight-loss goal that is healthy and reasonable for you. ? Limit your screen time. ? Find ways to reward yourself that do not involve food. ? Do not drink alcohol if: ? Your health care provider tells you not to drink. ? You are , may be , or are planning to become . ? If you drink alcohol: ? Limit how much you have to (more content not included)... Normal [facility] DEXA BONE DENSITYon 03-01-20 DEXA BONE DENSITY FINDINGS: Dual Femur bone density obtained with a [employer] whole body system: Region BMD Young-Adult Age-Matched Total (g/cm2) (%) T-Score (%) Z-Score Mean 0.881 104 +0.3 123 +1.5 IMPRESSION: Impression: The mean BMD and corresponding T-score indicated above indicate Normal Bone Mass and places the patient at no significant risk for fracture. This information can serve as a baseline with which to compare future studies. FINDINGS: AP Spine bone density obtained with a [employer] whole body system: Region BMD Young-Adult Age-Matched Total (g/cm2) (%) T-Score (%) Z-Score L1-L4 1.014 97 -0.3 112 +1.0 Impression: The mean BMD and corresponding T-score indicated above indicate Normal Bone Mass and places the patient no significant risk for fracture. This information can serve as a baseline with which to compare future studies. Comment: The T-score is the primary focus of the interpretation of a patient?s bone mineral density measurement. The T-score is the number of standard deviations an individual is above or below the mean value for a young female having normal bone mass. The WHO defines osteoporosis based on the T-score value? +1.0 to ?0.9: Normal bone mass -1.0 to -2.5: Osteopenia and thus may be at future risk of fracture -2.6 to ?5: Osteoporosis and ?at significantly increased risk of fracture? TRANSCRIBED BY: ELECTRONICALLY SIGNED BY: Ivan Nicolas MD Normal Not Available Physician Referralon 024 Physician Referral [id number] Normal [facility] Ambulatory Visit Summaryon 0 02-09-2024 Ambulatory Visit Summary DAPHNE EDWARDS :1965 Visit Date:02/09/2024 Ambulatory Visit Instructions Your Diagnosis Encounter for weight loss counseling Hyperlipemia, mixed Hypothyroid GERD (gastroesophageal reflux disease) Pain of foot BMI 38.0-38.9,adult Class 2 severe obesity due to excess calories with serious comorbidity and body mass index (BMI) of 38.0 to 38.9 in adult Your Care Team Attending Physician - Alyce HUERTA MD Primary Care Physician - Alyce HUERTA MD This Is Your Medications List levothyroxine (levothyroxine 50 mcg (0.05 mg) Tab) multivitamin (B 100 Complex oral tablet) phentermine (Adipex-P 37.5 mg Tab) Contact prescribing physician if questions or concerns aspirin (aspirin 81 mg Oral EC Tab) atorvastatin (atorvastatin 10 mg Tab) diclofenac topical (Voltaren Gel 1% Gel) furosemide (Lasix 40 mg Tab) multivitamin with minerals (One-A-Day Women) nystatin topical (nystatin Top 100,000 units/g Pwdr) pantoprazole (Pantoprazole [address] Tab) valacyclovir (Valtrex 500 mg Tab) Procedures Performed Colonoscopy (06/01/2023), EGD (esophagogastroduodenosco py) and closure of duodenal fistula (06/01/2023). Discharge Vitals Temperature (Oral) 36.6 ?C Heart Rate (Peripheral) 74 Blood Pressure 112/62 Height 162.5 cm Height 64 in Weight 102.8 kg Weight 226.16 lb BMI 38.93 What to do next Scheduled Follow-Up Appointments Wednesday 3:00 PM EDT With: Mayra Orellana CNP Where: [facility] Normal [facility] Medicine Office/Clini c Noteon 02-09-2024 [facility] Medicine Office/Clinic Note Chief Complaint Patient here for 6 month f/u on gerd, thyroid-- had labs done. Saw Guillermina on 02/06 for left foot pain. Had x-ray done. History of Present Illness Here for med follow up. She saw [facility]MI[facility] INSTRUCTOR 2 days ago for foot pain. No specific injury. It started 3 weeks ago. urgent care in [place] told her it was gout. It was never red or hot. The gout Rx did not help. topical Voltaren is not helping. Pain is in top of foot. She stopped Ozempic for weight loss due to nausea. Review of Systems PHQ Score Initial Depression Screen Score: 0 SCORE Physical Exam Vitals & Measurements T: 36.6 ?C(Oral) HR: 74(Peripheral) BP: 112/62 SpO2: 99% HT: 64 in HT: 162.5 cm WT: 102.8 kg WT: 226.16 lb BMI: 38.93 General: Well developed, well nourished, in no acute distress Eyes: Pupils equal, round, and reactive to light. Conjunctivae and sclerae normal, and extraocular movements intact Ears: not assessed Nose: No deformity, discharge, inflammation, or lesions Mouth: MMM. Oropharynx and posterior pharynx without lesions or exudates. Tongue WNL Neck: _supple Lungs: Normal respiratory effort and clear to auscultation Cardio: Regular rate and rhythm, normal S1 and S2, no murmur, no rub Abdomen: Soft, non-distended, non-tender Musculoskeletal: _Left foot is mildly swollen and tender to palpate. Extremity: No clubbing, cyanosis or edema. Neurologic: Grossly normal Skin: No rashes, ulcerations, or suspicious lesions Mental Status: Alert and oriented x3. Normal mood and affect Assessment/Plan 1. Encounter for weight loss counseling (Z71.3: Dietary counseling and surveillance) she stopped Ozempic due to nausea She would like to try Adipex 02/09/2024 12:47:45 I certify that I have reviewed the OARRS report and all PDMP information in this chart. Patient is counselled on the use of Adipex. Warned of risks of this medication. It may be habit forming. It can raise HR, BP and therefore increase the risk of heart attack and stroke. Similar med has caused heart valve problems. Need to maintain calorie restricted diet. Exercise is encouraged. Side effects of palpitations and dry mouth are common. Call if any problems or concerns. Ordered: phentermine, 37.5 mg = 1 tab(s), Oral, Daily, # 30 tab(s), Refills(s) 0, Pharmacy: [facility], 162.5, cm, 02/09/24 12:08:00 EDT, Height/Length Dosing, 102.8, kg, 02/09/24 12:08:00 EDT, Weight Dosing 2. Hyperlipemia, mixed (E78.2: Mixed hyperlipidemia) she is back on atorvastatin Chol: 208 mg/dL High (02/08/24 06:15:00) HDL: 65 mg/dL (02/08/24 06:15:00) LDL Direct: 120 mg/dL (02/08/24 06:15:00) Tri mg/dL (02/08/24 06:15:00) VLDL: 27 mg/dL (02/08/24 06:15:00) 3. Hypothyroid (E03.9: Hypothyroidism, unspecified) lower dose to 50 ucg of levothyroxine 4. GERD (gastroesophageal reflux disease) (K21.9: Gastro-esophageal reflux disease without esophagitis) 5. Pain of foot (M79.673: Pain in unspecified foot) xray pending she will see podiatry in Day 6. BMI 38.0-38.9,adult (Z68.38: Body mass index [...] will be followed at subsequent visits. Ordered: phentermine, 37.5 mg = 1 tab(s), Oral, Daily, # 30 tab(s), Refills(s) 0, Pharmacy: [facility], 162.5, cm, 02/09/24 12:08:00 EDT, Height/Length Dosing, 102.8, kg, 02/09/24 12:08:00 EDT, Weight Dosing 7. Class 2 severe obesity due to excess calories with serious comorbidity and body mass index (BMI) of 38.0 to 38.9 in adult (E66.01: Morbid (severe) obesity due to excess calories) Orders: levothyroxine, 50 mcg = 1 tab(s), Oral, Daily, # 90 tab(s), Refills(s) 3, Pharmacy: [facility], 162.5, cm, 02/09/24 12:08:00 EDT, Height/Length Dosing, 102.8, kg, 02/09/24 12:08:00 EDT, Weight Dosing multivitamin, 1 tab(s), Oral, Daily, 90 tab(s), Refill(s) 3, [facility], 162.5, cm, 02/09/24 12:08:00 EDT, Height/Length Dosing, 102.8, kg, 02/09/24 12:08:00 EDT, Weight Dosing Follow-up With When Contact Information BRADLEY NATARAJAN, JACOB Sousa In 1 month [facility] [address], [place] [address]- Additional Instructions: Patient Education Hypothyroidism Problem List/Past Medical History Ongoing Colon polyp Edema of leg Encounter for weight loss counseling Family history of colonic polyps Family history of Crohn's disease Fatigue GERD (gastroesophageal reflux disease) Hemorrhoids History of DVT in adulthood Hyperlipemia, mixed Hypothyroid Low back pain Lumbar radiculopathy, right Morbid obesity Pain of foot Schatzki's ring Screening mammogram, encounter for Superficial phlebitis of left leg (more content not included)... Normal [facility] Comment on above: Result Comment: Electronically Signed By : BRADLEY NATARAJAN, Alyce Montes.scott\Date and Time Signed: 02/09/24 12:47 EDT Patient Educationon 02-09-20 Patient Education Endocrinology Hypothyroidism Hypothyroidism is when the thyroid gland does not make enough of certain hormones. This is called an underactive thyroid. The thyroid gland is a small gland located in the lower front part of the neck, just in front of the windpipe (trachea). This gland makes hormones that help control how the body uses food for energy (metabolism) as well as how the heart and brain function. These hormones also play a role in keeping your bones strong. When the thyroid is underactive, it produces too little of the hormones thyroxine (T4) and triiodothyronine (T3). What are the causes? This condition may be caused by: ? Armando's disease. This is a disease in which the body's disease-fighting system (immune system) attacks the thyroid gland. This is the most common cause. ? Viral infections. ? . ? Certain medicines. ? defects. ? Problems with a gland in the center of the brain (pituitary gland). ? Lack of enough iodine in the diet. Other causes may include: ? Past radiation treatments to the head or neck for cancer. ? Past treatment with radioactive iodine. ? Past exposure to radiation in the environment. ? Past surgical removal of part or all of the thyroid. What increases the risk? You are more likely to develop this condition if: ? You are female. ? You have a family history of thyroid conditions. ? You use a medicine called lithium. ? You take medicines that affect the immune system (immunosuppressants). What are the signs or symptoms? Common symptoms of this condition include: ? Not being able to tolerate cold. ? Feeling as though you have no energy (lethargy). ? Lack of appetite. ? Constipation. ? Sadness or depression. ? Weight gain that is not explained by a change in diet or exercise habits. ? Menstrual irregularity. ? Dry skin, coarse hair, or brittle nails. Other symptoms may include: ? Muscle pain. ? Slowing of thought processes. ? Poor memory. How is this diagnosed? This condition may be diagnosed based on: ? Your symptoms, your medical history, and a physical exam. ? Blood tests. You may also have imaging tests, such as an ultrasound or MRI. How is this treated? This condition is treated with medicine that replaces the thyroid hormones that your body does not make. After you begin treatment, it may take several weeks for symptoms to go away. Follow these instructions at home: ? Take rtqe-aka-kamyxxn and prescription medicines only as told by your health care provider. ? If you start taking any new medicines, tell your health care provider. ? Keep all follow-up visits as told by your health care provider. This is important. ? As your condition improves, your dosage of thyroid hormone medicine may change. ? You will need to have blood tests regularly so that your health care provider can monitor your condition. Contact a health care provider if: ? Your symptoms do not get better with treatment. ? You are taking thyroid hormone replacement medicine and you: ? Sweat a lot. ? Have tremors. ? Feel anxious. ? Lose weight rapidly. ? Cannot tolerate heat. ? Have emotional swings. ? Have diarrhea. ? Feel weak. Get help right away if: ? You have chest pain. ? You have an irregular heartbeat. ? You have a rapid heartbeat. ? You have difficulty breathing. These symptoms may be an emergency. Get help right away. Call 911. ? Do not wait to see if the symptoms will go away. ? Do not drive yourself to the hospital. Summary ? Hypothyroidism is when the thyroid gland does not make enough of certain hormones (it is underactive). ? When the thyroid is underactive, it produces too little of the hormones thyroxine (T4) and triiodothyronine (T3). ? The most common cause is Armando's disease, a disease in which the body's disease-fighting system (immune system) attacks the thyroid gland. The condition can also be caused by viral infections, medicine, , or past radiation treatment to the head or neck. ? Symptoms may include weight gain, dry skin, constipation, feeling as though you do not have energy, and not being able to tolerate cold. ? This condition is treated with medicine to replace the thyroid hormones that your body does not make. This information is not intended to replace advice given to you by your health care provider. Make sure you discuss any questions you have with your health care provider. Document Revised: 10/06/2022 Document Reviewed: 10/06/2022 Elsevier Patient Education ? 2022 [employer] Normal [facility] XR Foot 3+ Views Lefton - XR Foot 3+ Views Left Exam Date/Time: 02/07/2024 12:31 EDT Reason for Exam: M79.673 PAIN IN UNSPECIFIED FOOT;Pain, Non Traumatic Report IMPRESSION: NO ACUTE OSSEOUS ABNORMALITY. EXAM: XR Foot 3+ Views Left COMPARISON: None available HISTORY: Foot pain TECHNIQUE: AP, lateral and oblique views of the foot obtained. FINDINGS: No acute fracture or dislocation. Mild degenerative changes of the forefoot. Small posterior and moderate plantar calcaneal enthesophytes. Subcutaneous soft tissue edema. Ordering Provider: Guillermina Wong FINAL REPORT Dictated: 02/09/2024 3:16 pm Cisco Rojas DO Signed (Electronic Signature): 02/09/2024 3:16 pm Signed by: Cisco Rojas DO Transcribed by: ERLINDA Technologist: ERLINDAR Technical Comments Radiation Dose: Ka,r in mGy = na DAP = na Normal [facility] CMPon 02-08-2024 Albumin [Mass/Vol] 4.4 g/dL Normal 3.3-5.0 [facility] Comment on above: Performed By: #### [id number] ####[facility] [id number] [place] [address] Albumin/Globulin (S) [Mass conc ratio] 1.7 Normal 1.1-2.2 [facility] Comment on above: Performed By: #### [id number] ####[facility] [id number] [place] [address] ALP [Catalytic activity/Vol] 111 Int._Unit/L High 21-98 [facility] Comment on above: Performed By: #### [id number] ####[facility] [id number] [place] [address] ALT No additional P-5'-P [Catalytic activity/Vol] 26 Int._Unit/L Normal 6-46 [facility] Comment on above: Performed By: #### [id number], 6358740, 29 64677, 9088596, 7078166, 5642191, [id number] ####[facility] [address] [place] [address] Anion gap [Moles/Vol] 13 mmol/L Normal 6-16 [facility] Comment on above: Performed By: #### [id number], 7909509, 29 22715, 8678467, 3184614, 0281776, [id number] ####[facility] [address] [place] [address] AST [Catalytic activity/Vol] 18 Int._Unit/L Normal 5-43 [facility] Comment on above: Performed By: #### [id number], 3136172, 29 88334, 3900099, 6119336, 4080616, [id number] ####[facility] [address] [place] [address] Bilirubin [Mass/Vol] 0.7 mg/dL Normal 0.0-1.1 [facility] Comment on above: Performed By: #### [id number], 0150743, 29 62222, 6618316, 7207464, 7500121, [id number] ####[facility] [address] [place] [address] Calcium [Mass/Vol] 9.3 mg/dL Normal 8.9-11.1 [facility] Comment on above: Performed By: #### [id number], 5251809, 29 54619, 9273925, 3341028, 5685336, [id number] ####[facility] [address] [place] [address] Chloride [Moles/Vol] 109 mmol/L Normal 101-111 [facility] Comment on above: Performed By: #### [id number], 1264795, 29 47175, 0534403, 1669003, 6961305, [id number] ####[facility] [address] [place] [address] CO2 [Moles/Vol] 25 mmol/L Normal 21-31 [facility] Comment on above: Performed By: #### 40317230, 4783015, 29 87419, 6969239, 5417336, 0450923, [id number] ####[facility] [address] [place] [address] Creatinine [Mass/Vol] 0.9 mg/dL Normal 0.5-1.3 [facility] Comment on above: Performed By: #### [id number], 9840780, 29 01487, 4112354, 5441129, 5116639, [id number] ####[facility] [address] [place] [address] Globulin (S) [Mass/Vol] 2.6 g/dL Normal 1.4-4.0 [facility] Comment on above: Performed By: #### [id number], 5976099, 29 76392, 4267414, 7767465, 5905106, [id number] ####[facility] [address] [place] [address] Glucose [Mass/Vol] 78 mg/dL Normal 55-199 [facility] Comment on above: Performed By: #### 40847069, 6358539, 29 23658, 6585684, 6635161, 6593915, 065157093 ####[facility] [address] [place] [address] Potassium [Moles/Vol] 4.1 mmol/L Normal 3.5-5.3 [facility] Comment on above: Performed By: #### 17217969, 5117261, 29 83384, 7968244, 3279995, 0162661, 037995114 ####[facility] [address] [place] [address] Protein [Mass/Vol] 7.0 g/dL Normal 6.0-7.8 [facility] Comment on above: Performed By: #### 90873959, 0018631, 29 45222, 1766248, 9478871, 4848394, [id number] ####[facility] [address] [place] [address] Sodium [Moles/Vol] 143 mmol/L Normal 135-145 [facility] Comment on above: Performed By: #### 49947885, 1188193, 29 41452, 9550783, 7145134, 5539379, 395778280 ####[facility] [address] [place] [address] Urea nitrogen [Mass/Vol] 16 mg/dL Normal 5-21 [facility] Comment on above: Performed By: #### 49969491, 5120082, 33505, 6945205, 7713338, 9548472, 697728943 ####[facility] [address] [place] [address] Urea nitrogen/Creatin ine [Mass ratio] 18 No Units Normal 10-20 [facility] Comment on above: Performed By: #### [id number], 6191837, 87537, 1552221, 6427181, 7574432, [id number] ####[facility] [address] [place] [address] Consent for Treatmenton 01-17 Consent for Treatment [id number] Normal [facility] Free T4on 02-08-2024 Free T4 [Mass/Vol] 0.98 ng/dL Normal 0.58-1.64 [facility] Comment on above: Performed By: #### [id number], 2113330, 29 16220, 2005835, 0139624, 8062510, [id number] ####[facility] [address] [place] [address] Lipid Panelon 02-08-2024 Cholesterol [Mass/Vol] 208 mg/dL High 120-200 [facility] Comment on above: Performed By: #### 38070607, 5801822, 29 76763, 2076536, 5759864, 6214307, [id number] ####[facility] [address] [place] [address] Cholesterol in HDL [Mass/Vol] 65 mg/dL Invalid Interpretation Code [facility] Comment on above: Result Comment: '>= 60 LOW RISK' '<= 40 HIGH RISK' Performed By: #### 1 0438062, 5014043, 1390382, 3700362, 6722705, 9678126, [id number] ####[facility] [address] [place] [address] Cholesterol in LDL [Mass/Vol] 120 mg/dL Normal <=129 [facility] Comment on above: Performed By: #### 20755657, 1891150, 29 14179, 0994062, 0288752, 8201966, 084404831 ####[facility] [address] [place] [address] Cholesterol in VLDL [Mass/Vol] 27 mg/dL Normal 7-40 [facility] Comment on above: Performed By: #### [id number], 5893986, 29 05498, 4239653, 4388785, 1318768, [id number] ####[facility] [address] [place] [address] Triglyceride [Mass/Vol] 134 mg/dL Normal <=149 [facility] Comment on above: Performed By: #### 03137981, 6634792, 29 56090, 1137559, 3609342, 2244366, 334997048 ####[facility] [address] [place] [address] TSHon 02-08-2024 TSH Qn 0.08 m[IU]/L Low 0.34-5.60 [facility] Comment on above: Performed By: #### 08739194, 9114359, 29 97824, 4621484, 8501526, 1728650, 060101166 ####[facility] [address] [place] [address] Vit B12on 02-08-2024 Cobalamin (Vitamin B12) [Mass/Vol] 399 pg/mL Normal 50-1500 [facility] Comment on above: Performed By: #### 80360346, 4572034, 29 78952, 0836452, 2525027, 9183620, [id number] ####[facility] [address] [place] [address] Vitamin D 25 Hydroxyon 02-07 25-hydroxyvitami n D3 [Mass/Vol] 39.9 ng/mL Normal 30.0-100.0 [facility] Comment on above: Performed By: #### 75956480, 7298196, 29 05109, 5803433, 1298265, 9419808, [id number] ####[facility] [address] [place] [address] eGFRon 02-08-2024 eGFR 74 mL/min/1.73 m2 Normal >=59 [facility] Comment on above: Order Comment: Order added by Jaycob fisher. Performed By: #### 1 5046438, 0424271, 7922971, 9130277, 6613163, 1339163, [id number] ####[facility] [address] [place] [address] Ambulatory Visit Summaryon 0 02-07-2024 Ambulatory Visit Summary DAPHNE EDWARDS :1965 Visit Date:02/07/2024 Ambulatory Visit Instructions Your Diagnosis Pain of foot BMI 39.0-39.9,adult Obesity Your Care Team Attending Physician - Judith MERINO, Guillermina Fu Primary Care Physician - BRADLEY NATARAJAN, Alyce Romo This Is Your Medications List diclofenac topical (Voltaren Gel 1% Gel) Contact prescribing physician if questions or concerns aspirin (aspirin 81 mg Oral EC Tab) furosemide (Lasix 40 mg Tab) levothyroxine (levothyroxine 75 mcg (0.075 mg) Tab) multivitamin (B 100 Complex oral tablet) multivitamin with minerals (One-A-Day Women) nystatin topical (nystatin Top 100,000 units/g Pwdr) pantoprazole (Pantoprazole [address] Tab) valacyclovir (Valtrex 500 mg Tab) Procedures Performed Colonoscopy (06/01/2023), EGD (esophagogastroduodenosco py) and closure of duodenal fistula (06/01/2023). Discharge Vitals Temperature (Oral) 36.8 ?C Heart Rate (Peripheral) 90 Blood Pressure 120/64 Height 162.5 cm Height 64 in Weight 105.1 kg Weight 231.22 lb BMI 39.8 What to do next Scheduled Follow-Up Appointments Wednesday 3:00 PM EDT With: Mayra Orellana CNP Where: [facility] Normal [facility] Consent for Treatmenton 01-17 Consent for Treatment [id number] Normal [facility] Family Medicine Office/Clini c Noteon 02-07-2024 Family Medicine Office/Clinic Note Chief Complaint pt here for left foot pain, onset couple weeks. painfull to walk on, swelling. no known injury. was put on gout medication. History of Present Illness Daphne is a 58 yo female presenting today for acute visit d/t left foot pain. PCP is Dr. Huerta Pain assessment: Onset: 3 weeks Location: top of left foot Characteristics: burning pain, non radiating Aggravating factors: walking/movement Relieving factors: soaking in epsom salts, ibuprofen 400mg q4hrs, tylenol PRN Timing: constant Severity: 5/10 known injury or trauma: possible that dog may have run over foot Pt denies intake of high purine-rich foods. interventions already tried: colchicine, ibuprofen, prednisone per CC in Day - no relief form these Review of Systems PHQ Score Initial Depression Screen Score: 0 SCORE Physical Exam Vitals & Measurements T: 36.8 ?C(Oral) HR: 90(Peripheral) BP: 120/64 SpO2: 96% HT: 64 in HT: 162.5 cm WT: 105.1 kg WT: 231.22 lb BMI: 39.8 General: Well developed, well nourished, in no acute distress Eyes: Bilateral PERRLA, conjunctivae and sclerae wnl, EOMs intact, lids without stye, chalazion, ect/extropion, ptosis, xanthelasma, blepharitis. No discharge to inner canthi.Negative for corneal abrasion or foreign bodies. Ears: grossly normal hearing Nose: No deformity, discharge, inflammation, or lesions. No congestion, no erythema; pink & moist turbinates; clear rhinorrhea. Mouth: mucous membranes pink, moist and intact. [place] posterior oropharynx, no palatal inflammation, uvula midline, no cobble-stoning, no enlarged tonsils, no tonsillar exudate, no ulcers, no active post nasal drip. tongue midline and wnl. Good dentition. Neck: Neck supple. No lymphadenopathy. Trachea midline. No thyroid, masses, tenderness, or enlargement noted. No bruit. Lungs: Normal respiratory effort and clear to auscultation Cardio: Regular rate and rhythm, normal S1 and S2, no murmur, no rub Abdomen: not assessed Musculoskeletal: No deformity or scoliosis noted. No vertebral tenderness. Normal range of motion. No vertebral point tenderness. Joints normal. No erythema, edema, effusion, crepitus, or ecchymosis. Straight leg raise negative Extremity: No clubbing, cyanosis, edema, or deformity. Normal ROM with upper and lower extremities, bilaterally. Neurologic: Cranial nerves II-XII grossly intact. motor strength equal & normal bilaterally, sensation equal & normal bilaterally. Gait normal. Skin: No rashes, ulcerations, or suspicious lesions Mental Status: Alert and oriented x3. Normal mood and affect Assessment/Plan Total time spent preparing for the encounter, evaluating and assessing the patient, documenting the visit, and ordering appropriate follow-up work was 32 minutes. 1. Pain of foot (M79.673: Pain in unspecified foot) start wearing compression stockings ice 3-4x/day for 20mins at at time start voltaren QID, continue ibuprofen/tylenol intermittently PRN completed XR and uric acid levels to rule out ortho issue or gout Discussed red flags/when to report to ED - pt verbalized understanding Ordered: diclofenac topical, 1 rafat, Topical, QID for pain, 100 gram, Refill(s) 0, [facility] [employer] [facility], 162.5, cm, 02/07/24 11:37:00 EDT, Height/Length Dosing, 105.1, kg, 02/07/24 11:37:00 EDT, Weight Dosing Uric Acid XR Foot 3+ Views Left 2. BMI 39.0-39.9,adult (Z68.39: Body mass index [BMI] 39.0-39.9, adult) The standard range for ages 18 and older is >=18.5 and < 25 kg/m2. Your BMI today was above this range, this falls in the overweight to obese category and there are medical benefits to weight loss. We can offer counselling, referral, and/or medical support in addressing this problem. Your BMI and weight management will be followed at subsequent visits. 3. Obesity (E66.9: Obesity, unspecified) Reviewed importance of making a lifestyle change regarding dietary choices. Discussed goals. Encouraged routine cardio exercise with Goal: 3-5x/week for 30-45 minutes. Start out slow and increase to achieve your goals. Avoid late night snacking, do not skip breakfast and monitor cooking habits/avoid fast food and fried/fatty foods. Will monitor for progress. Follow-up With When Contact Information Guillermina Mock Only if needed [address] [facility], [address] [place] [id number]- Additional Instructions: Patient Education Foot Pain Acute Pain, Adult Problem List/Past Medical History Ongoing BMI 39.0-39.9,adult Cellulitis of left leg Colon polyp COVID-19 Edema of leg Encounter for weight loss counseling Family history of colonic polyps Family history of Crohn's disease Fatigue GERD (gastroesophageal reflux disease) Hemorrhoids History of DVT in adulthood Hyperlipemia, mixed Hypothyroid Low back pain Lumbar radiculopathy, right Morbid obesity Obesity Pain of foot Schatzki's ring Screening mammogram, encounter for Superficial phlebitis of left leg Venous rivera (more content not included)... Normal [facility] Comment on above: Result Comment: Electronically Signed By : Guillermina Mock\.br\Date and Time Signed: 02/07/24 12:01 EDT Patient Educationon 02-07-20 Patient Education Orthopedics Foot Pain Many things can cause foot pain. Some common causes are: ? An injury. ? A sprain. ? Arthritis. ? Blisters. ? Bunions. Follow these instructions at home: Managing pain, stiffness, and swelling If directed, put ice on the painful area: ? Put ice in a plastic bag. ? Place a towel between your skin and the bag. ? Leave the ice on for 20 minutes, 2?3 times a day. Activity ? Do not stand or walk for long periods. ? Return to your normal activities as told by your health care provider. Ask your health care provider what activities are safe for you. ? Do stretches to relieve foot pain and stiffness as told by your health care provider. ? Do not lift anything that is heavier than 10 lb (4.5 kg), or the limit that you are told, until your health care provider says that it is safe. Lifting a lot of weight can put added pressure on your feet. Lifestyle ? Wear comfortable, supportive shoes that fit you well. Do not wear high heels. ? Keep your feet clean and dry. General instructions ? Take uqdu-gyx-xzlbeii and prescription medicines only as told by your health care provider. ? Rub your foot gently. ? Pay attention to any changes in your symptoms. ? Keep all follow-up visits as told by your health care provider. This is important. Contact a health care provider if: ? Your pain does not get better after a few days of self-care. ? Your pain gets worse. ? You cannot stand on your foot. Get help right away if: ? Your foot is numb or tingling. ? Your foot or toes are swollen. ? Your foot or toes turn white or blue. ? You have warmth and redness along your foot. Summary ? Common causes of foot pain are injury, sprain, arthritis, blisters, or bunions. ? Ice, medicines, and comfortable shoes may help foot pain. ? Contact your health care provider if your pain does not get better after a few days of self-care. This information is not intended to replace advice given to you by your health care provider. Make sure you discuss any questions you have with your health care provider. Document Revised: 01/07/2022 Document Reviewed: 01/07/2022 [employer] Patient Education ? 2022 [employer] Acute Pain, Adult Acute pain is a type of sudden pain that may last for just a few days or for as long as six months. It is often related to an illness, injury, or medical procedure. Acute pain may be mild, moderate, or severe. Pain can make it hard for you to do your normal, daily activities. It can cause anxiety and lead to other problems if it is left untreated. Treatment depends on the cause and severity of your pain. Acute pain usually goes away once your injury has healed or you are no longer ill. Follow these instructions at home: Medicines ? Take snim-vml-fvqypvt and prescription medicines only as told by your health care provider. ? Take the lowest dose of medicine for the shortest amount of time needed to relieve the pain. ? If you are taking prescription pain medicine: ? Do not stop taking the medicine suddenly. Talk to your health care provider about how and when to discontinue prescription medicine. ? Do not take more pills than told by your health care provider even if your pain is severe. ? Do not take other ntsy-ffv-slhcwvz pain medicines in addition to prescription pain medicine unless told by your health care provider. ? Ask your health care provider if the medicine requires you to avoid driving or using heavy machinery. ? Ask your health care provider if the medicine can cause constipation. You may need to take these actions to prevent or treat constipation: ? Drink enough fluid to keep your urine pale yellow. ? Eat foods that are high in fiber, such as beans, whole grains, and fresh fruits and vegetables. ? Take zmcn-iaf-vlkfwus or prescription medicines. ? Limit foods that are high in fat and processed sugars, such as fried or sweet foods. Managing pain, stiffness, and swelling If directed, put ice on the affected area. To do this: ? Put ice in a plastic bag. ? Place a towel between your skin and the bag. ? Leave the ice on for 20 minutes, 2?3 times a day. If directed, apply heat to the affected area as often as told by your health care provider. Use the heat source that your health care provider recommends, such as a moist heat pack or a heating pad. ? Place a towel between your skin and the heat source. ? Leave the heat on for 20?30 minutes. ? Remove the heat if your skin turns bright red. This is especially important if you are unable to feel pain, heat, or cold. You may have a greater risk of getting burned. Activity ? Rest as told by your health care provider. ? Return to your normal activities as told by your health care provider. Ask your health care provider what activities are safe for you. General instructions (more content not included)... Normal [facility] Uric Acidon 02-07-2024 Urate (U) [Mass/Vol] 7.2 mg/dL Normal 2.2-7.4 [facility] Comment on above: Performed By: #### [id number] #### [facility] [address] [place] [address] Lab Reportson 11-19-2023 Lab Reports [id number] Normal [facility] Family Medicine Video Visit - Telehealthon 10-21-2023 [...] COVID-19 infection as her daughter, mother, brother, phppwrd-mj-zuh, and her sister have COVID-19 infection. She tested positive for COVID-19 on 10/18/2023. She is experiencing mild dyspnea, sinus pressure, sore throat, mild cough, headache, body aches, and fatigue. She denies any chest pain, wheezing, change in taste and smell, nausea, vomiting, diarrhea, dizziness, or loss of consciousness. She is using some iksg-hmh-zwhowja medications, which seem to be mildly effective, [...] by ANGELIQUE Mims from my office? using [employer]. The patient was located at their home, located at [address] [place] [address] with Daphne Edwards in attendance. A signed authorization for treatment has been obtained via our standard authorization packet or by verbal consent by the patient or their legal media sales representative. The patient's identity and location in [place] has been verified by our office staff. [...] fluids to stay hydrated. She will continue sgmv-wvj-uomreaw cough and cold medication like Sudafed, decongestants, [...] low. Sh (more content not included)... Normal [facility] Comment on above: Result Comment: Electronically Signed By : Vicky Childs\.br\Date and Time Signed: 10/21/23 06:14 EST\.br\Electronically Co-Signed By: Eriberto Watson\.br\Date and Time Co-Signed: 10/20/23 12:17 EST Ambulatory Visit Summaryon 1 Ambulatory Visit Summary DAMIAN DAPHNE L :1965 Visit Date:08/09/2023 Ambulatory Visit Instructions Your Diagnosis Encounter for weight loss counseling Chronic kidney disease, stage 3a Hypothyroid Hyperlipemia, mixed GERD (gastroesophageal reflux disease) BMI 38.0-38.9,adult Fatigue Your Care Team Attending Physician - HUERTA Alyce NATARAJAN Primary Care Physician - Alyce HUERTA MD [...] mg Tab) Procedures Performed Colonoscopy (06/01/2023), EGD (esophagogastroduodenosco py) and closure of duodenal fistula (06/01/2023). Discharge Vitals Heart Rate (Peripheral) 76 Blood Pressure 100/72 Height 162.5 cm Height 64 in Weight 102.9 kg Weight 226.38 lb BMI 38.97 What to do next Scheduled Follow-Up Appointments Wednesday 3:00 PM EDT With: Mayra Orellana CNP Where: [facility] Normal [facility] Family Medicine Office/Clini c Noteon 08-09-2023 [...] BRADLEY NATARAJAN, JACOB Sousa In [facility] [address], [place] [address]- Additional Instructions: Patient Education BMI for Adults [...] qualifying data Procedure/Surgical History Colonoscopy (06/01/2023), EGD (esophagogastroduodenosco py) and closure of duodenal fistula (06/01/2023). Medications aspirin 81 mg Oral EC Tab, 81 mg= 1 tab(s), Oral, Daily B 100 Complex oral tablet, 1 tab(s), Oral, Daily, 3 refills Lasix 40 mg Tab, 40 mg= 1 tab(s), Oral, Daily, PRN, 1 refills levothyroxine 75 mcg (0.075 mg) Tab, 75 mcg= 1 tab(s), Oral, Daily, 3 refills nystatin Top 100,000 units/g Pwdr, 1 rafat, Topical, BID, 1 refills One-A-Day Women, 1 tab(s), Oral, Daily Pantoprazole [address] Tab, 20 mg= 1 tab(s), Oral, Daily, 1 refills semaglutide Semaglutide base compound, See Instructions, 1 refills Valtrex 500 mg Tab, 500 mg= 1 tab(s), Oral, Daily Allergies No Known Medication Allergies Social History Alcohol Employment/School Work/School description: Works at [employer] in [place]., 05/15/2022 Home/Environment Substance Abuse Tobacco Former smoker, quit more than 30 days ago Tobacco Use:. Never Smokeless Tobacco Use:. Cigarettes, Started age 13.0 Years., 08/09/2023 Family History Hypertension: Mother. Hyperthyroidi (more content not included)... Normal [facility] Comment on above: Result Comment: Electronically Signed By : BRADLEY NATARAJAN, Alyce Hussein\Date and Time Signed: 08/09/23 16:12 EDT Patient [...] numbers. This can be done either in [place] ([place] or metric measurements. Note that charts and online BMI calculators are available to help you find your BMI quickly and easily without having to do these calculations yourself. To calculate your BMI in [place] ([place] measurements: 1. Measure your weight in [...] for Disease Control and Prevention: www.cdc.gov ? [place] [employer]: www.heart.org ? National Heart, Lung, and Blood [place]: www.nhlbi.nih.gov Summary ? Body mass index (BMI) is a number that is calculated from a person's weight and height. ? BMI may help estimate how much of a person's weight is composed of fat. BMI can help identify those who may be at higher risk for certain medical problems. ? BMI can be measured using [place]ian measurements or metric measurements. ? BMI charts are used to identify whether you are underweight, normal weight, overweight, or obese. This information is not intended to replace advice given to you by your health care provider. Make sure you discuss any questions you have with your health care provider. Document Revised: 06/26/2020 Document Reviewed: 05/03/2020 [employer] Patient Education ? 2022 [employer] Normal [facility] CBC AUTO DIFFon 12-09-2022 BASO # 0.0 103/ul Normal 0.0-0.1 [facility] Comment on above: Performed By: #### CBC #### [facility] [address] [place] [address] [address] Marquis Josue Basophils/100 WBC (Bld) 0.5 % Normal 0.2-2.0 [facility] Comment on above: Performed By: #### CBC #### [facility] [address] [place] [address] [address] Marquis Josue EO # 0.3 103/ul Normal 0.0-0.7 [facility] Comment on above: Performed By: #### CBC #### [facility] [address] [place] [address] [address] Marquis Josue Eosinophils/100 WBC (Bld) 3.8 % Normal 0.9-7.0 [facility] Comment on above: Performed By: #### CBC #### [facility] [address] [place] [address] Dr. Marquis Josue Erythrocyte distribution width (RBC) [Ratio] 12.7 % Normal 11.0-15.0 [facility] Comment on above: Performed By: #### CBC #### [facility] [address] [place] [address] Dr. Marquis Josue Hematocrit (Bld) [Volume fraction] 39.0 % Normal 36.0-48.0 [facility] Comment on above: Performed By: #### CBC #### [facility] [address] [place] [address] Dr. Marquis Josue Hemoglobin (Bld) [Mass/Vol] 13.1 g/dL Normal 12.0-16.0 [facility] Comment on above: Performed By: #### CBC #### [facility] [address] [address] [address] Marquis Josue IG # 0.02 10e3/ul Normal 0.00-0.03 [facility] Comment on above: Performed By: #### CBC #### [facility] [address] [place] [address] Dr. Marquis Josue IG % 0.3 % Normal 0.0-0.5 [facility] Comment on above: Performed By: #### CBC #### [facility] [address] [place] [address] Dr. Marquis Josue LYMPH # 3.0 103/ul Normal 1.2-3.8 [facility] Comment on above: Performed By: #### CBC #### [facility] [address] [place] [address] Dr. Marquis Josue Lymphocytes/100 WBC (Bld) 40.9 % Normal 20.5-60.0 [facility] Comment on above: Performed By: #### CBC #### [facility] [address] [place] [address] Dr. Marquis Josue MANUAL DIFF REQ NO Normal [facility] Comment on above: Performed By: #### CBC #### [facility] [address] [place] [address] Dr. Marquis Josue MCH (RBC) [Entitic mass] 32.8 pg Normal 26.7-34.0 [facility] Comment on above: Performed By: #### CBC #### [facility] [address] [place] [address] Dr. Marquis Josue MCHC (RBC) [Mass/Vol] 33.6 g/dL Normal 29.9-35.2 [facility] Comment on above: Performed By: #### CBC #### [facility] [address] [place] [address] Dr. Marquis Josue MCV (RBC) [Entitic vol] 97.5 fL Normal 81.0-99.0 [facility] Comment on above: Performed By: #### CBC #### [facility] [address] [place] [address] Dr. Marquis Josue MONO # 0.5 103/ul Normal 0.3-0.8 [facility] Comment on above: Performed By: #### CBC #### [facility] [address] [place] [address] Dr. Marquis Josue Monocytes/100 WBC (Bld) 6.5 % Normal 1.7-12.0 [facility] Comment on above: Performed By: #### CBC #### [facility] [address] [place] [address] Dr. Marquis Josue NEUT # 3.6 103/ul Normal 1.4-6.5 [facility] Comment on above: Performed By: #### CBC #### [facility] [address] [place] [address] Dr. Marquis Josue Neutrophils/100 WBC (Bld) 48.0 % Normal 43.0-75.0 [facility] Comment on above: Performed By: #### CBC #### [facility] [address] [place] [address] Dr. Marquis Josue Platelet mean volume (Bld) [Entitic vol] 9.2 fL Critically low 9.5-13.5 [facility] Comment on above: Performed By: #### CBC #### [facility] [address] [place] [address] Dr. Marquis Josue PLT 303 103/ul Normal 150-450 [facility] Comment on above: Performed By: #### CBC #### [facility] [address] [place] [address] Dr. Marquis Josue RBC 4.00 106/ul Critically low 4.20-5.40 [facility] Comment on above: Performed By: #### CBC #### [facility] [address] [place] [address] Dr. Marquis Josue WBC 7.4 103/ul Normal 4.0-11.0 [facility] Comment on above: Performed By: #### CBC #### [facility] [address] [place] [address] Dr. Marquis Josue CRPon 12-09-2022 CRP 0.2 mg/dL Normal <=1.0 [facility] Comment on above: Performed By: #### BMP, CRP #### [facility] [address] [place] [address] Dr. Marquis Josue PROF CHEM 8 (BAS METB)on Anion gap [Moles/Vol] 12.1 mmol/L Normal [facility] Comment on above: Performed By: #### BMP, CRP #### [facility] [address] [place] [address] Dr. Marquis Josue Calcium [Mass/Vol] 9.2 mg/dL Normal 8.5-10.1 [facility] Comment on above: Performed By: #### BMP, CRP #### [facility] [address] [address] [address] Marquis Josue Chloride [Moles/Vol] 109 mmol/L Critically high 98-107 [facility] Comment on above: Performed By: #### BMP, CRP #### [facility] [address] [address] [address] Marquis Josue CO2 [Moles/Vol] 25.6 mmol/L Normal 21.0-32.0 [facility] Comment on above: Performed By: #### BMP, CRP #### [facility] [address] [place] [address] Dr. Marquis Josue Creatinine [Mass/Vol] 0.83 mg/dL Normal 0.55-1.02 [facility] Comment on above: Performed By: #### BMP, CRP #### [facility] [address] [place] [address] Dr. Marquis Josue EGFR-AF JAPANESE >60 Normal >=60 [facility] Comment on above: Performed By: #### BMP, CRP #### [facility] [address] [place] [address] Dr. Marquis Josue EGFR-NON AF JAPANESE >60 Normal >=60 [facility] Comment on above: Performed By: #### BMP, CRP #### [facility] [address] [place] [address] Dr. Marquis Josue Glucose [Mass/Vol] 108 mg/dL Critically high 74-106 [facility] Comment on above: Performed By: #### BMP, CRP #### [facility] [address] [address] [address] Marquis Josue Potassium [Moles/Vol] 4.7 mmol/L Normal 3.5-5.1 [facility] Comment on above: Performed By: #### BMP, CRP #### [facility] [address] [place] [address] Dr. Marquis Josue Sodium [Moles/Vol] 142 mmol/L Normal 136-145 [facility] Comment on above: Performed By: #### BMP, CRP #### [facility] [address] [place] [address] Dr. Marquis Josue Urea nitrogen [Mass/Vol] 20.0 mg/dL Critically high 7.0-18.0 [facility] Comment on above: Performed By: #### BMP, CRP #### [facility] [address] [place] [address] Dr. Marquis Josue Urea nitrogen/Creatin ine [Mass ratio] 24.1 mg/mg Normal [facility] Comment on above: Performed By: #### BMP, CRP #### [facility] [address] [place] [address] Dr. Marquis Josue PROTIMEon 12-09-2022 INR Coag (PPP) [Relative time] {INR} Normal [facility] Comment on above: Performed By: #### PTT, PT #### [facility] [address] [place] [address] Dr. Marquis Josue INR GUIDELINES SEE BELOW Normal [facility] Comment on above: Result Comment: DESIRED INR: 2.0 - 3.0 C ONDITIONS NOT LISTED BELOW 2.5 - 3.5 FOR PROSTHETIC HEART VALVE REPLACEMENT 2.5 - 3.5 RECURRENT THROMBOSIS Performed By: #### P TT, PT #### [facility] [address] [place] [address] Dr. Marquis Josue PT Coag (PPP) [Time] 9.8 s Normal 9.0-11.6 [facility] Comment on above: Performed By: #### PTT, PT #### [facility] [address] [place] [address] Dr. Marquis Josue PTTon 12-09-2022 aPTT Coag (Bld) [Time] 24.8 s Normal 22.3-36.2 [facility] Comment on above: Performed By: #### PTT, PT #### [facility] [address] [place] [address] Dr. Marquis Josue SED RATE WESTERGRENon 2022 SED RATE 35 mm/hr Critically high <=30 [facility] Comment on above: Performed By: #### SEDR #### [facility] [address] [address] [address] Marquis Josue US RAY DOP LEG [...] proximal portion of the left lower leg. IMPRESSION: No evidence for left lower extremity acute deep vein thrombosis. Superficial thrombophlebitis involving the great saphenous vein and a varicose vein of the proximal portion of the left lower leg. Electronically authenticated by: LISA AMATO Date: 2022-12-09 20:19 Normal [facility] MAMM SCREEN 3D VISHAL CADon 02-12-2022 MG MAMM SCREEN 3D VISHAL CAD Patient: DAPHNE EDWARDS Exam Date: 02/12/2022 : 1965 Gender:F Ordering : DR SINDHU SINGH D.O. Admission #: [id number] Family : Order #: [id number] CLICK HERE TO VIEW EXAM RADIOLOGY REPORT PROCEDURE: MAMMOGRAM SCREENING 3D BILATERAL CAD COMPARISON: MG MAMM SCREEN VISHAL W CAD, 09/15/2017. MG MAMM LT DIAG FU, 09/29/2017. INDICATIONS: Screening mammography Calculator Name NCI Breast Cancer Risk Assessment Tool 5 Year Breast Cancer Risk 0.80% Lifetime Breast Cancer Risk 6.00% Personal Breast Cancer No Personal Ovarian Cancer No Treatments None Family Cancers Father with lung cancer at age 70. LOCATION: [facility] BREAST COMPOSITION: Almost entirely fatty. FINDINGS: DIAGNOSTIC [...] M.D. on 02/12/2022 at 11:56 Normal [facility] CBC AUTO DIFFon 02-05-2022 BASO # 0.1 103/ul Normal 0.0-0.1 [facility] Comment on above: Performed By: #### CBC #### [facility] [address] [address] [address] Marquis Josue Basophils/100 WBC (Bld) 0.8 % Normal 0.2-2.0 [facility] Comment on above: Performed By: #### CBC #### [facility] [address] [place] [address] Dr. Marquis Josue EO # 0.3 103/ul Normal 0.0-0.7 [facility] Comment on above: Performed By: #### CBC #### [facility] [address] [address] [address] Marquis Josue Eosinophils/100 WBC (Bld) 3.8 % Normal 0.9-7.0 [facility] Comment on above: Performed By: #### CBC #### [facility] [address] [place] [address] Dr. Marquis Josue Erythrocyte distribution width (RBC) [Ratio] 12.6 % Normal 11.0-15.0 [facility] Comment on above: Performed By: #### CBC #### [facility] [address] [address] [address] Marquis Josue Hematocrit (Bld) [Volume fraction] 42.9 % Normal 36.0-48.0 [facility] Comment on above: Performed By: #### CBC #### [facility] [address] [place] [address] Dr. Marquis Josue Hemoglobin (Bld) [Mass/Vol] 14.0 g/dL Normal 12.0-16.0 [facility] Comment on above: Performed By: #### CBC #### [facility] [address] [address] [address] Marquis Josue IG # 0.02 10e3/ul Normal 0.00-0.03 [facility] Comment on above: Performed By: #### CBC #### [facility] [address] [place] [address] Dr. Marquis Josue IG % 0.3 % Normal 0.0-0.5 [facility] Comment on above: Performed By: #### CBC #### [facility] [address] [place] [address] Dr. Marquis Josue LYMPH # 1.9 103/ul Normal 1.2-3.8 [facility] Comment on above: Performed By: #### CBC #### [facility] [address] [place] [address] Dr. Marquis Josue Lymphocytes/100 WBC (Bld) 28.8 % Normal 20.5-60.0 [facility] Comment on above: Performed By: #### CBC #### [facility] [address] [place] [address] Dr. Marquis Josue MANUAL DIFF REQ NO Normal [facility] Comment on above: Performed By: #### CBC #### [facility] [address] [place] [address] Dr. Marquis Josue MCH (RBC) [Entitic mass] 32.6 pg Normal 26.7-34.0 [facility] Comment on above: Performed By: #### CBC #### [facility] [address] [place] [address] Dr. Marquis Josue MCHC (RBC) [Mass/Vol] 32.6 g/dL Normal 29.9-35.2 [facility] Comment on above: Performed By: #### CBC #### [facility] [address] [place] [address] Dr. Marquis Josue MCV (RBC) [Entitic vol] 99.8 fL Critically high 81.0-99.0 [facility] Comment on above: Performed By: #### CBC #### [facility] [address] [address] [address] Marquis Josue MONO # 0.4 103/ul Normal 0.3-0.8 [facility] Comment on above: Performed By: #### CBC #### [facility] [address] [place] [address] Dr. Marquis Josue Monocytes/100 WBC (Bld) 6.0 % Normal 1.7-12.0 [facility] Comment on above: Performed By: #### CBC #### [facility] [address] [place] [address] Dr. Marquis Josue NEUT # 4.0 103/ul Normal 1.4-6.5 [facility] Comment on above: Performed By: #### CBC #### [facility] [address] [place] [address] Dr. Marquis Josue Neutrophils/100 WBC (Bld) 60.3 % Normal 43.0-75.0 [facility] Comment on above: Performed By: #### CBC #### [facility] [address] [place] [address] Dr. Marquis Josue Platelet mean volume (Bld) [Entitic vol] 9.3 fL Critically low 9.5-13.5 [facility] Comment on above: Performed By: #### CBC #### [facility] [address] [place] [address] Dr. Marquis Josue PLT 265 103/ul Normal 150-450 [facility] Comment on above: Performed By: #### CBC #### [facility] [address] [place] [address] Dr. Marquis Josue RBC 4.30 106/ul Normal 4.20-5.40 [facility] Comment on above: Performed By: #### CBC #### [facility] [address] [place] [address] Dr. Marquis Josue WBC 6.6 103/ul Normal 4.0-11.0 [facility] Comment on above: Performed By: #### CBC #### [facility] [address] [place] [address] Dr. Marquis Josue LIPID PROFILEon 02-05-2022 CHOL-HDL RATIO NORM SEE BELOW Normal [facility] Comment on above: Result Comment: 3.3 - 4.4 LOW RISK 4.4 - 7.1 AVERAGE RISK 7.1 - 11.0 MODERATE RISK >11.0 HIGH RISK Performed By: #### P TT, PT #### [facility] [address] [address] [address] Marquis Josue Cholesterol [Mass/Vol] 199 mg/dL Normal <=200 [facility] Comment on above: Performed By: #### PTT, PT #### [facility] [address] [place], [place] [address] Dr. Marquis Josue Cholesterol in HDL [Mass/Vol] 72 mg/dL Critically high 40-60 [facility] Comment on above: Performed By: #### PTT, PT #### [facility] [address] [address] [address] Marquis Josue Cholesterol in LDL [Mass/Vol] 112.0 mg/dL Normal [facility] Comment on above: Performed By: #### PTT, PT #### [facility] [address] [address] [address] Marquis Josue Cholesterol.tota l/Cholesterol in HDL [Mass ratio] 2.8 {ratio} Normal [facility] Comment on above: Performed By: #### PTT, PT #### [facility] [address] [address] [address] Marquis Josue HDL NORMAL > or = 60 mg/dl - LO W CARDIOVASCULAR RISK <40 mg/dl - HIGH CARDIOVASCULAR RISK Normal [facility] Comment on above: Performed By: #### PTT, PT #### [facility] [address] [address] [address] Marquis Josue LDL CALC NORMAL SEE BELOW Normal [facility] Comment on above: Result Comment: <100 mg/dl OPTIMAL 100 - 129 mg/dl NEAR OR ABOVE OPTIMAL 130 - 159 mg/dl BORDERLINE HIGH 160 - 189 mg/dl HIGH >190 mg/dl VERY HIGH Performed By: #### P TT, PT #### [facility] [address] [address] [address] Marquis Josue Triglyceride [Mass/Vol] 75 mg/dL Normal <=150 [facility] Comment on above: Performed By: #### PTT, PT #### [facility] [address] [place] [address] Dr. Marquis Josue VLDL CALC 15.0 mg/dL Normal [facility] Comment on above: Performed By: #### PTT, PT #### [facility] [address] [place] [address] Dr. Marquis Josue PROF 14(COMP METB)on 022 Albumin [Mass/Vol] 3.7 g/dL Normal 3.4-5.0 [facility] Comment on above: Performed By: #### TSH, CMP, LIPID, T4 # ### [facility] [address] [place] [address] Dr. Marquis Josue Albumin/Globulin [Mass ratio] 0.9 {ratio} Normal [facility] Comment on above: Performed By: #### TSH, CMP, LIPID, T4 # ### [facility] [address] [place] [address] Dr. Marquis Josue ALP [Catalytic activity/Vol] 102 U/L Normal 46-116 [facility] Comment on above: Performed By: #### TSH, CMP, LIPID, T4 # ### [facility] [address] [place] [address] Dr. Marquis Josue ALT [Catalytic activity/Vol] 51 U/L Normal 14-59 [facility] Comment on above: Performed By: #### TSH, CMP, LIPID, T4 # ### [facility] [address] [place] [address] Dr. Marquis Josue Anion gap [Moles/Vol] 12.7 mmol/L Normal [facility] Comment on above: Performed By: #### TSH, CMP, LIPID, T4 # ### [facility] [address] [place] [address] Dr. Marquis Josue AST [Catalytic activity/Vol] 22 U/L Normal 15-37 [facility] Comment on above: Performed By: #### TSH, CMP, LIPID, T4 # ### [facility] [address] [place] [address] Dr. Marquis oJsue Bilirubin [Mass/Vol] 0.4 mg/dL Normal 0.2-1.3 [facility] Comment on above: Performed By: #### TSH, CMP, LIPID, T4 # ### [facility] [address] [address] [address] Marquis Josue Calcium [Mass/Vol] 8.9 mg/dL Normal 8.5-10.1 [facility] Comment on above: Performed By: #### TSH, CMP, LIPID, T4 # ### [facility] [address] [address] [address] Marquis Josue Chloride [Moles/Vol] 108 mmol/L Critically high 98-107 [facility] Comment on above: Performed By: #### TSH, CMP, LIPID, T4 # ### [facility] [address] [place] [address] Dr. Marquis Josue CO2 [Moles/Vol] 25.9 mmol/L Normal 22.0-30.0 [facility] Comment on above: Performed By: #### TSH, CMP, LIPID, T4 # ### [facility] [address] [place] [address] Dr. Marquis Josue Creatinine [Mass/Vol] 0.75 mg/dL Normal 0.52-1.04 [facility] Comment on above: Performed By: #### TSH, CMP, LIPID, T4 # ### [facility] [address] [place] [address] Dr. Marquis Josue EGFR-AF JAPANESE >60 Normal >=60 [facility] Comment on above: Performed By: #### TSH, CMP, LIPID, T4 # ### [facility] [address] [place] [address] Dr. Marquis Josue EGFR-NON AF JAPANESE >60 Normal >=60 [facility] Comment on above: Performed By: #### TSH, CMP, LIPID, T4 # ### [facility] [address] [place] [address] Dr. Marquis Josue Globulin (S) [Mass/Vol] 3.9 g/dL Normal [facility] Comment on above: Performed By: #### TSH, CMP, LIPID, T4 # ### [facility] [address] [address] [address] Marquis Josue Glucose [Mass/Vol] 83 mg/dL Normal 74-106 [facility] Comment on above: Performed By: #### TSH, CMP, LIPID, T4 # ### [facility] [address] [place] [address] Dr. Marquis Josue Potassium [Moles/Vol] 4.6 mmol/L Normal 3.4-5.0 [facility] Comment on above: Performed By: #### TSH, CMP, LIPID, T4 # ### [facility] [address] [place] [address] Dr. Marquis Josue Protein [Mass/Vol] 7.6 g/dL Normal 6.1-8.2 [facility] Comment on above: Performed By: #### TSH, CMP, LIPID, T4 # ### [facility] [address] [place] [address] Dr. Marquis Josue Sodium [Moles/Vol] 142 mmol/L Normal 137-145 [facility] Comment on above: Performed By: #### TSH, CMP, LIPID, T4 # ### [facility] [address] [place] [address] Dr. Marquis Josue Urea nitrogen [Mass/Vol] 12.0 mg/dL Normal 7.0-18.0 [facility] Comment on above: Performed By: #### TSH, CMP, LIPID, T4 # ### [facility] [address] [place] [address] Dr. Marquis Josue Urea nitrogen/Creatin ine [Mass ratio] 16.0 mg/mg Normal [facility] Comment on above: Performed By: #### TSH, CMP, LIPID, T4 # ### [facility] [address] [place] [address] Dr. Marquis Josue T4on 02-05-2022 T4 [Mass/Vol] 10.60 ug/dL Normal 5.53-11.00 [facility] Comment on above: Performed By: #### PTT, PT #### [facility] [address] [place] [address] Dr. Marquis Josue TSHon 02-05-2022 TSH 0.139 uIU/mL Critically low 0.470-4.680 [facility] Comment on above: Performed By: #### PTT, PT #### [facility] [address] [place], [place] [address] Dr. Marquis Josue TSH RANGE SEE BELOW Normal [facility] Comment on above: Result Comment: <0.34 UIU/ml HYPERTHYROI D 0.34-5.60 UIU/ml EUTHYROID >5.60 UIU/ml HYPOTHYROID Performed By: #### P TT, PT #### [facility] [address] [place], [place] [address] Dr. Marquis Josue CNOVon 05-24-2017 CNOV Office Visit (VASSFT) HUBER ([id number]) 1965 [facility] Department05/24/17 2:20 PM JOAQUIN UMAÑA During your visit today, we recorded the following information about you: Pulse Respiration Blood pressure 74/minute 16/minute 113/65Davishnu Umaña MD 05/24/2017 2:46 PM [facility] Department of Cardiovascular MedicineOUTPATIENT VISIT DATE May 24, 2017OUTPATIENT VISIT TYPEESTABLFORMERLY [facility]PR[facility]ARE PHYSICIAN:ANTONIETTA Strickland EXECUTIVE [place] [id number]: [phone]: [phone] PHYSICIANANTONIETTA Strickland Executive [place] [id number] COMPLAINT:No chief complaint on file.HISTORY OF PRESENT [...] helped.Smoker, 1 PPD, 30 pack years.Works at [employer], is on feet for most of the day.Has worn compression stockings, provided only mild relief of swelling.PAST MEDICAL HISTORYDiagnosis Date- DVT (deep venous thrombosis) (HCC)- Hypothyroid- Lower extremity edema- PalpitationPAST SURGICAL HISTORYNo date: NONESOCIAL HISTORYSocial HistorySubstance Use Topics- Smoking status: Current Every Day Smoker Packs/day: 1.00 Years: 30.00- Smokeless tobacco: Not on file- Alcohol use NoNo family history on file.ALLERGIES:ALLERGIESN o Known AllergiesMEDICATIONS:ROCHA TIX STARTING MONTH BOX 0.5 mg (11)- 1 mg (42) tablet Take by mouth asdirected.cyanocobalamin (VITAMIN B-12) 1,000 mcg tab Take 1,000 mcg by mouth once daily.levothyroxine (SYNTHROID) 100 mcg tablet Take 100 mcg by mouth daily beforebreakfast.meclizine (ANTIVERT) 12.5 mg tab Take 25 mg by mouth twice daily as needed.aspirin, enteric coated (ASPIRIN, ENTERIC COATED) 81 mg EC tablet Take 81 mg bymouth once daily.hydroCHLOROthiazide (HYDRODIURIL, ESIDRIX) 25 mg tablet Take 25 [...] regularwalking. Follow up as needed.Lobito Barnett Provider: HOLLIE CHAVIRA [[id number]]Allergies As of Date: 05/24/2017(No Known Allergies)Date Reviewed: [...] BY MOUTH EVERYMORNINGProblem List As Of Date: 05/24/2017(None)Medicatio ns Discontinued During This Encounter cyanocobalamin (VITAMIN B-12) 1,000 * 1 03/18/2017 05/24/2017 Class: Historical Med Route: ORAL Sig: Take 1 tablet by mouth once daily. Disc: Reason for discontinue is not on file.Disposition: Return if symptoms worsen or fail to improve.Follow-up and Disposition History RecordedEncounter Number: [id number] Status:Closed by JOAQUIN UMAÑA MD on 05/24/17 [facility] PROGRESS 08-07-2017 PROGRESS HNO ID: [id number] thor: Joaquin UmañaLvnilson: (none)Author Type: PhysicianType: Progress NotesFiled: 05/24/2017 2:46 PMNote Text:[facility] Department of Cardiovascular MedicineOUTPATIENT VISIT DATE May 24, 2017OUTPATIENT VISIT TYPEESTABLFORMERLY [facility]PR[facility]IAN:ANTONIETTA Strickland EXECUTIVE [place] [id number]: [phone]: [phone] PHYSICIANANTONIETTA Strickland Executive [place] [id number] COMPLAINT:No chief complaint on file.HISTORY OF PRESENT [...] helped.Smoker, 1 PPD, 30 pack years.Works at [employer], is on feet for most of the day.Has worn compression stockings, provided only mild relief of swelling.PAST MEDICAL HISTORYDiagnosis Date- DVT (deep venous thrombosis) (HCC)- Hypothyroid- Lower extremity edema- PalpitationPAST SURGICAL HISTORYNo date: NONESOCIAL HISTORYSocial HistorySubstance Use Topics- Smoking status: Current Every Day Smoker Packs/day: 1.00 Years: 30.00- Smokeless tobacco: Not on file- Alcohol use NoNo family history on file.ALLERGIES:ALLERGIESN o Known AllergiesMEDICATIONS:ROCHA TIX STARTING MONTH BOX 0.5 mg (11)- 1 mg (42) tablet Take by mouth asdirected.cyanocobalamin (VITAMIN B-12) 1,000 mcg tab Take 1,000 mcg by mouth oncedaily.levothyroxine (SYNTHROID) 100 mcg tablet Take 100 mcg by mouth dailybefore breakfast.meclizine (ANTIVERT) 12.5 mg tab Take 25 mg by mouth twice daily asneeded.aspirin, enteric coated (ASPIRIN, ENTERIC COATED) 81 mg EC tablet Take 81mg by mouth once daily.hydroCHLOROthiazide (HYDRODIURIL, ESIDRIX) 25 mg tablet Take 25 [...] Follow up as needed.Joaquin Umaña MD [facility] US-US LE Venous Duplex Insuf ficiency Bilat IMPORTon 05-18-2017 US-US LE Venous Duplex Insufficiency Bilat IMPORT Images were obtained outside of [facility] CNOVon 05-03-2017 CNOV Office Visit (GALSTORI) RICHARDS GÉNESIS Farley ([id number]) 1965 FDate Time Provider Department05/03/17 1:40 PM JOAQUIN UMAÑA During your visit today, we recorded the following information about you: Pulse Respiration Blood pressure Weight 93/minute 16/minute 132/79 101.2 kg Height 1.626 Basilia Umaña MD 05/03/2017 1:52 PM SignedHeart and Vascular InstituteRobrust and Sadia Craigmar[facility] Department of Cardiovascular MedicineOUTPATIENT VISIT DATE May 03, 2017OUTPATIENT VISIT TYPENEWPRIMARY CARE PHYSICIAN:ANTONIETTA Strickland EXECUTIVE Bryson [place] [id number]: [phone]: [phone] PHYSICIANANTONIETTA Strickland Executive Bryson [place] [id number] COMPLAINT:No chief complaint on file.HISTORY OF PRESENT ILLNESS:Daphne Edwards was referred for consultation by Dr. Chavira. Opinions andrecommendations in this consultation will be transmitted back to the referringphysician by [facility] or via mail.Ms. Edwards is a 52 year old female who is seen today for complaints of manyyear history of bilateral leg edema left worse than right.Hx of DVT ~4 years ago right calf, treated with 6 months of Xarelto. She doesnot believe the episode was precipitated.Started on HCTZ recently, which has helped.Smoker, 1 PPD, 30 pack years.Works at [employer], is on feet for most of the day.Has worn compression stockings, provided only mild relief of swelling.PAST MEDICAL HISTORYDiagnosis Date- DVT (deep venous thrombosis) (HCC)- Hypothyroid- Lower extremity edema- PalpitationPAST SURGICAL HISTORYNo date: NONESOCIAL HISTORYSocial HistorySubstance Use Topics- Smoking status: Current Every Day Smoker Packs/day: 1.00 Years: 30.00- Smokeless tobacco: Not on file- Alcohol use NoNo family history on file.ALLERGIES:ALLERGIESN o Known AllergiesMEDICATIONS:cyan ocobalamin (VITAMIN B-12) 1,000 mcg tab Take 1,000 mcg by mouth once daily.levothyroxine (SYNTHROID) 100 mcg tablet Take 100 mcg by mouth daily beforebreakfast.meclizine (ANTIVERT) 12.5 mg tab Take 25 mg by mouth twice daily as needed.aspirin, enteric coated (ASPIRIN, ENTERIC COATED) 81 mg EC tablet Take 81 mg bymouth once daily.hydroCHLOROthiazide (HYDRODIURIL, ESIDRIX) 25 mg tablet Take 25 mg by mouthonce daily.REVIEW OF SYSTEMS:GENERAL: no acute distressAll other ROS: negativeI personally interviewed, confirmed and edited the above information asobtained by others.PHYSICAL EXAMINATION:BP 132/79 (BP Site: Right Arm, BP Position: Sitting, BP Cuff Size: Large Adult) Pulse 93 Resp 16 Ht 162.6 cm (5' 4ANDquot;) Wt 101.2 kg (223 lb) BMI38.28 kg/w8Mgmqmwi appearance: well nourished, alert and cooperative individual, in noacute distress.Neck: no bruitsPulmonary: Lungs clear to auscultation bilaterally.Coronary: regular rate and regular rhythmLower Extremities: Feet and toes warmNegative UlcersPalp DP pulsesMild to moderate edema of the bilateral ankle area, left greaterCARDIOVASCULAR MEDICINE TESTING:There were no tests performed for review.IMPRESSION/PLAN:Ms Uzair Edwards is a 52 year old female with complaints of bilateral ankle edema,left worse than right.DUS to assess for venous insufficiency.Compression stockings. Elevate legs when at rest. Cont HCTZ.Referred to smoking cessation clinic.Lobito Barnett Provider: HOLLIE CHAVIRA [[id number]]Allergies As of Date: 05/03/2017(No Known Allergies)Date Reviewed: 05/03/2017Reviewed by: Joaquin Umaña - Fully AssessedPrimary Visit Diagnosis:Edema, unspecified [R60.9] Other Visit Diagnosis:Smoker [F17.200]Order(s): VENOUS INCOMPETENCY [facility] [[id number]] Order #: [id number] FUTURE CONSULT TO SMOKING CESSATION [1210169] Order #: [id number]: 1Prescriptions as of 05/03/2017 Sig: CYANOCOBALAMIN (VIT [...] mouth once arelis*Problem List As Of Date: 05/03/2017(None)Dispositi on: Return in about 2 weeks (around 05/17/2017).Follow-up and Disposition History RecordedEncounter Number: [id number] Status:Closed by JOAQUIN UMAÑA MD on 05/03/17 [facility] PROGRESSon 05-03-2017 PROGRESS HNO ID: [id number] thor: Joaquin Miner: (none)Author Type: PhysicianType: Progress NotesFiled: 05/03/2017 1:52 PMNote Text:Heart and Vascular InstituteRobrust and Sadia Bentley Department of Cardiovascular MedicineOUTPATIENT VISIT DATE May 03, 2017OUTPATIENT VISIT TYPENEWPRIMARY CARE PHYSICIAN:ANTONIETTA Strickland EXECUTIVE [place] [id number]: [phone]: [phone] PHYSICIANANTONIETTA Strickland Executive Bryson [place] [id number] COMPLAINT:No chief complaint on file.HISTORY OF PRESENT [...] helped.Smoker, 1 PPD, 30 pack years.Works at [employer], is on feet for most of the day.Has worn compression stockings, provided only mild relief of swelling.PAST MEDICAL HISTORYDiagnosis Date- DVT (deep venous thrombosis) (HCC)- Hypothyroid- Lower extremity edema- PalpitationPAST SURGICAL HISTORYNo date: NONESOCIAL HISTORYSocial HistorySubstance Use Topics- Smoking status: Current Every Day Smoker Packs/day: 1.00 Years: 30.00- Smokeless tobacco: Not on file- Alcohol use NoNo family history on file.ALLERGIES:ALLERGIESN o Known AllergiesMEDICATIONS:cyan ocobalamin (VITAMIN B-12) 1,000 mcg tab Take 1,000 mcg by mouth oncedaily.levothyroxine (SYNTHROID) 100 mcg tablet Take 100 mcg by mouth dailybefore breakfast.meclizine (ANTIVERT) 12.5 mg tab Take 25 mg by mouth twice daily asneeded.aspirin, enteric coated (ASPIRIN, ENTERIC COATED) 81 mg EC tablet Take 81mg by mouth once daily.hydroCHLOROthiazide (HYDRODIURIL, ESIDRIX) 25 mg tablet Take 25 mg bymouth once daily.REVIEW OF SYSTEMS:GENERAL: no acute distressAll other ROS: negativeI personally interviewed, confirmed and edited the above information asobtained by others.PHYSICAL EXAMINATION:BP 132/79 (BP Site: Right Arm, BP Position: Sitting, BP Cuff Size: LargeAdult) Pulse 93 Resp 16 Ht 162.6 cm (5' 4 ) Wt 101.2 kg (223 lb) BMI 38.28 kg/d3Gvnexfp appearance: well nourished, alert and cooperative individual, inno acute distress.Neck: no bruitsPulmonary: Lungs clear to auscultation bilaterally.Coronary: regular rate and regular rhythmLower Extremities: Feet and toes warmNegative UlcersPalp DP pulsesMild to moderate edema of the bilateral ankle area, left greaterCARDIOVASCULAR MEDICINE TESTING:There were no tests performed for review.IMPRESSION/PLAN:Ms Uzair Edwards is a 52 year old female with complaints of bilateral ankleedema, left worse than right.DUS to assess for venous insufficiency.Compression stockings. Elevate legs when at rest. Cont HCTZ.Referred to smoking cessation clinic.Joaquin Umaña MD [facility] Vital Signs Date Time Vital Sign Value Performing Clinician Aftab olson 08-01-2024 10:38-0400 Blood Pressure Location Alyce HUERTA [facility] 08-01-2024 10:38-0400 Body temperature 97.7 [degF] Alyce HUERTA [facility] 08-01-2024 10:38-0400 Diastolic blood pressure 78 mm[Hg] Alyce HUERTA [facility] 08-01-2024 10:38-0400 Heart rate 74 /min Alyce HUERTA [facility] 08-01-2024 10:38-0400 SaO2% (BldA) [Mass fraction] 98 % Alyce HUERTA [facility] 10-15-2024 10:38-0400 Systolic blood pressure 116 mm[Hg] Alyce HUERTA [facility] 06-28-2024 14:15-0400 Blood Pressure Location Alyce HUERTA [facility] 06-28-2024 14:15-0400 Body temperature 98.06 [degF] Alyce HUERTA [facility] 06-28-2024 14:15-0400 Diastolic blood pressure 84 mm[Hg] Alyce HUERTA [facility] 06-28-2024 14:15-0400 Heart rate 90 /min Alyce HUERTA [facility] 06-28-2024 14:15-0400 SaO2% (BldA) [Mass fraction] 96 % Alyce HUERTA [facility] 06-28-2024 14:15-0400 Systolic blood pressure 130 mm[Hg] Alyce HUERTA [facility] 06-05-2024 09:13-0400 Blood Pressure Location Alyce HUERTA [facility] 06-05-2024 09:13-0400 Body temperature 97.34 [degF] Alyce HUERTA [facility] 06-05-2024 09:13-0400 Diastolic blood pressure 64 mm[Hg] Alyce HUERTA [facility] 06-05-2024 09:13-0400 Heart rate 72 /min Alyce BRADLEY [facility] 06-05-2024 09:13-0400 SaO2% (BldA) [Mass fraction] 98 % Alyce HUERTA [facility] 06-05-2024 09:13-0400 Systolic blood pressure 116 mm[Hg] Alyce HUERTA [facility] 05-04-2024 09:41-0400 Blood Pressure Location Alyce HUERTA [facility] 05-04-2024 09:41-0400 Body temperature 97.88 [degF] Alyce HUERTA [facility] 05-04-2024 09:41-0400 Diastolic blood pressure 84 mm[Hg] Alyce HUERTA [facility] 05-04-2024 09:41-0400 Heart rate 76 /min Alyce HUERTA [facility] 05-04-2024 09:41-0400 SaO2% (BldA) [Mass fraction] 96 % Alyce HUERTA [facility] 05-04-2024 09:41-0400 Systolic blood pressure 124 mm[Hg] Alyce HUERTA [facility] 04-05-2024 13:35-0400 Blood Pressure Location Alyce HUERTA [facility] 04-05-2024 13:35-0400 Body temperature 97.7 [degF] Alyce HUERTA [facility] 04-05-2024 13:35-0400 Diastolic blood pressure 70 mm[Hg] Alyce HUERTA [facility] 04-05-2024 13:35-0400 Heart rate 86 /min Alyce HUERTA [facility] 04-05-2024 13:35-0400 SaO2% (BldA) [Mass fraction] 98 % Alyce HUERTA [facility] 04-05-2024 13:35-0400 Systolic blood pressure 112 mm[Hg] Alyce BRADLEY [facility] Encounters Encounter Date Encounter Type Care Provider Facility Start: 09-04-2024 ambulatory Alyce HUERTA Facility: [facility] Start: 08-01-2024 End: 08-01-2024 ambulatory Alyce HUERTA Facility:[facility] Start: 08-01-2024 End: 08-01-2024 Patient encounter procedure Alyce HUERTA [facility] Start: 07-31-2024 ambulatory Alyce HUERTA Facility: [facility] Start: 06-28-2024 End: 06-28-2024 ambulatory Alyce HUERTA Facility:[facility] Start: 06-28-2024 End: 06-28-2024 Patient encounter procedure Alyce HUERTA [facility] Start: 06-14-2024 ambulatory Kyra Ugalde lity:[facility] Start: 06-14-2024 End: 06-14-2024 ambulatory ROLANDO ZULEIMA Not Available Start: 06-07-2024 End: 06-07-2024 ambulatory ROLANDO ZULEIMA Not Available Start: 06-05-2024 End: 06-05-2024 ambulatory Alyce HUERTA Facility:[facility] Start: 06-05-2024 End: 06-05-2024 Patient encounter procedure Alyce HUERTA [facility] Start: 05-31-2024 End: 05-31-2024 ambulatory ROLANDO ZULEIMA Not Available Start: 05-29-2024 End: 05-29-2024 ambulatory ROLANDO ZULEIMA Not Available Start: 05-24-2024 End: 05-24-2024 ambulatory ISRAEL PINEDA Not Available Start: 05-24-2024 End: 05-24-2024 ambulatory ENA ROLLINS Not Available Start: 05-22-2024 End: 05-22-2024 ambulatory ISRAEL MCKEON Not Available Start: 05-19-2024 End: 05-19-2024 ambulatory JUSTIN ADAMES Not Available Start: 05-17-2024 End: 05-17-2024 ambulatory JUSTIN ADAMES Not Available Start: 05-15-2024 End: 05-15-2024 ambulatory ROLANDO DEWEY Not Available Start: 05-10-2024 End: 05-10-2024 ambulatory ROLANDO DEWEY Not Available Start: 05-08-2024 End: 05-08-2024 ambulatory ROLANDO DEWEY Not Available Start: 05-04-2024 End: 05-04-2024 ambulatory JUSTIN ADAMES Not Available Start: 05-04-2024 End: 05-04-2024 ambulatory Alyce HUERTA Facility:[facility] Start: 05-04-2024 End: 05-04-2024 Patient encounter procedure Alyce HUERTA [facility] Start: 05-01-2024 End: 05-01-2024 ambulatory JUSTIN ADAMES Not Available Start: 04-17-2024 End: 04-17-2024 ambulatory ISRAEL MCKEON Not Available Start: 04-12-2024 End: 04-12-2024 ambulatory ISRAEL S RUSHER Not Available Start: 04-05-2024 End: 04-05-2024 ambulatory Alyce HUERTA Facility:[facility] Start: 04-05-2024 End: 04-05-2024 Patient encounter procedure Alyce HUERTA [facility] Start: 03-28-2024 End: 03-28-2024 ambulatory ISRAEL S RUSHER Not Available Start: 03-10-2024 End: 03-10-2024 ambulatory Vicky Jimenez Facility:[facility] Start: 03-01-2024 End: 03-01-2024 ambulatory ISRAEL S RUSHER Not Available Start: 02-09-2024 End: 02-09-2024 ambulatory Alyce HUERTA Facility:[facility] Start: 02-08-2024 End: 02-08-2024 ambulatory Alyce HUERTA [place] Start: 02-07-2024 End: 02-07-2024 ambulatory Guillermina Wong [place] Start: 11-09-2023 ambulatory Alyce HUERTA Facility: [facility] Start: 10-20-2023 End: 10-20-2023 ambulatory Vicky Jimenez Facility:[facility] Start: 08-09-2023 End: 08-09-2023 ambulatory Alyce HUERTA Facility:[facility] Start: 12-09-2022 End: 12-09-2022 ambulatory LOLA Dunne Facility:[facility] Start: 02-12-2022 End: 02-13-2022 ambulatory SINDHU SINGH Facility:[facility] Start: 02-05-2022 End: 02-06-2022 ambulatory SINDHU SINGH Facility:[facility] Start: 05-24-2017 Ambulatory JOAQUIN UMAÑA [facility] Start: 05-03-2017 End: 05-04-2017 Ambulatory JOAQUIN NOLANISRA [facility] Procedures Date Procedure Procedure Detail Performing Clinician Start: 06-01-2023 Colonoscopy Alyce HUERTA Start: 06-01-2023 Esophagogastroduodenoscopy and closure of duodenal fistula Alyce HUERTA Immunizations Immunization Date Immunization Notes Care Provider Yuliana mendoza NEGATED: Highlighted row has not occurred!06-28-2024 influenza virus vaccine, unspecified formulation Alyce HUERTA [facility] NEGATED: Highlighted row has not occurred!08-09-2023 influenza virus vaccine, unspecified formulation Alyce HUERTA [facility] NEGATED: Highlighted row has not occurred!12-16-2022 influenza virus vaccine, unspecified formulation Alyce HUERTA [facility] Payers Date Payer Category Payer Unknown [id number] 2.16.84 0.1.520046.3.579.2.593 1965 Unknown [id number] 2.16.84 0.1.633868.3.579.2.593 1965 Unknown [id number] 2.16.84 0.1.999723.3.579.2.593 1966 Unknown [id number] 2.16.84 0.1.135953.3.579.2.1258 1966 Unknown [id number] 2.16.84 0.1.646220.3.579.2.1258 1966 Unknown [id number] 2.16.84 0.1.255611.3.579.2.1258 1966 Unknown [id number] 2.16.84 0.1.377399.3.579.2.1258 1966 Unknown [id number] 2.16.84 0.1.857011.3.579.2.1258 1966 Unknown [id number] 2.16.84 0.1.951850.3.579.2.1258 1966 Unknown [id number] 2.16.84 0.1.278678.3.579.2.1258 1966 Unknown [id number] 2.16.84 0.1.409707.3.579.2.1258 1966 Unknown [id number] 2.16.84 0.1.477548.3.579.2.1258 1966 Unknown [id number] 2.16.84 0.1.294346.3.579.2.1258 1966 Unknown [id number] 2.16.84 0.1.839291.3.579.2.1258 1966 Unknown [id number] 2.16.84 0.1.916629.3.579.2.1258 1966 Unknown [id number] 2.16.84 0.1.661312.3.579.2.1258 1966 Unknown [id number] 2.16.84 0.1.309084.3.579.2.1258 1966 Unknown [id number] 2.16.84 0.1.313983.3.579.2.1258 1966 Unknown [id number] 2.16.84 0.1.945718.3.579.2.1258 1966 Unknown [id number] 2.16.84 0.1.574600.3.579.2.1258 1966 Unknown [id number] 2.16.84 0.1.065513.3.579.2.1258 1966 Unknown [id number] 2.16.84 0.1.172641.3.579.2.1258 1966 Unknown [id number] 2.16.84 0.1.551514.3.579.2.1258 1966 Unknown [id number] 2.16.8 40.1.260048.3.579.2. 1966 Unknown [id number] 2.16.8 40.1.278276.3.579.2. 1966 Unknown [id number] 2.16.8 40.1.504944.3.579.2 1966 Unknown [id number] 2.16.8 40.1.248697.3.579.2. 1966 Unknown [id number] 2.16.8 40.1.068759.3.579.2 1966 Unknown [id number] 2.16.8 40.1.011979.3.579.2. 1966 Unknown [id number] 2.16.8 40.1.898050.3.579.2. 1966 Unknown [id number] 2.16.8 40.1.288375.3.579.2. 1966 Unknown [id number] 2.16.8 40.1.106136.3.579.2 1966 Unknown [id number] 2.16.8 40.1.380528.3.579.2 1966 Unknown [id number] 2.16.8 40.1.615839.3.579.2 1966 Unknown [id number] 2.16.8 40.1.137767.3.579.2 1966 Unknown [id number] 2.16.8 40.1.904352.3.579.2.727 1966 Unknown [id number] 2.16.8 40.1.662725.3.579.2.727 1966 Unknown [id number] 2.16.8 40.1.357297.3.579.2.727 1966 Unknown [id number] 2.16.8 40.1.739034.3.579.2.727 1959 Unknown [id number] Social History Date Type Detail Facility Start: 04-05-2024 End: 08-01-2024 Tobacco smoking status Ex-smoker (finding) [facility] Comment on above: Quit smoking 11-17-22 smokes 1 ppd. Tobacco smoking status Never [facility] Comment on above: Quit smoking 11-17-22 smokes 1 ppd. Sex Assigned At Female [facility] Functional Status Date Assessment Result Facility 08-01-2024 Functional Status N/A [facility] 06-28-2024 Functional Status N/A [facility] 06-05-2024 Functional Status N/A [facility] 05-04-2024 Functional Status N/A [facility] 04-05-2024 Functional Status N/A [facility] Clinical Notes 04-05-2024 to 08-01-2024 Note Date & Type Note Facility 08-01-2024 Hospital Discharge instructions Patient Education 08/01/2024 11:15:20 Hypothyroidism Hypothyroidism Hypothyroidism is when the thyroid gland does not make enough of certain hormones. This is called an underactive thyroid. The thyroid gland is a small gland located in the lower front part of the neck, just in front of the windpipe (trachea). This gland makes hormones that help control how the body uses food for energy (metabolism) as well as how the heart and brain function. These hormones also play a role in keeping your bones strong. When the thyroid is underactive, it produces too little of the hormones thyroxine (T4) and triiodothyronine (T3). What are the causes? This condition may be caused by: Armando's disease. This is a disease in which the body's disease-fighting system (immune system) attacks the thyroid gland. This is the most common cause. Viral infections. . Certain medicines. defects. Problems with a gland in the center of the brain (pituitary gland). Lack of enough iodine in the diet. Other causes may include: Past radiation treatments to the head or neck for cancer. Past treatment with radioactive iodine. Past exposure to radiation in the environment. Past surgical removal of part or all of the thyroid. What increases the risk? You are more likely to develop this condition if: You are female. You have a family history of thyroid conditions. You use a medicine called lithium. You take medicines that affect the immune system (immunosuppressants). What are the signs or symptoms? Common symptoms of this condition include: Not being able to tolerate cold. Feeling as though you have no energy (lethargy). Lack of appetite. Constipation. Sadness or depression. Weight gain that is not explained by a change in diet or exercise habits. Menstrual irregularity. Dry skin, coarse hair, or brittle nails. Other symptoms may include: Muscle pain. Slowing of thought processes. Poor memory. How is this diagnosed? This condition may be diagnosed based on: Your symptoms, your medical history, and a physical exam. Blood tests. You may also have imaging tests, such as an ultrasound or MRI. How is this treated? This condition is treated with medicine that replaces the thyroid hormones that your body does not make. After you begin treatment, it may take several weeks for symptoms to go away. Follow these instructions at home: Take tdrl-syt-iubfbaf and prescription medicines only as told by your health care provider. If you start taking any new medicines, tell your health care provider. Keep all follow-up visits as told by your health care provider. This is important. ?As your condition improves, your dosage of thyroid hormone medicine may change. ?You will need to have blood tests regularly so that your health care provider can monitor your condition. Contact a health care provider if: Your symptoms do not get better with treatment. You are taking thyroid hormone replacement medicine and you: ?Sweat a lot. ?Have tremors. ?Feel anxious. ?Lose weight rapidly. ?Cannot tolerate heat. ?Have emotional swings. ?Have diarrhea. ?Feel weak. Get help right away if: You have chest pain. You have an irregular heartbeat. You have a rapid heartbeat. You have difficulty breathing. These symptoms may be an emergency. Get help right away. Call 911. Do not wait to see if the symptoms will go away. Do not drive yourself to the hospital. Summary Hypothyroidism is when the thyroid gland does not make enough of certain hormones (it is underactive). When the thyroid is underactive, it produces too little of the hormones thyroxine (T4) and triiodothyronine (T3). The most common cause is Armando's disease, a disease in which the body's disease-fighting system (immune system) attacks the thyroid gland. The condition can also be caused by viral infections, medicine, , or past radiation treatment to the head or neck. Symptoms may include weight gain, dry skin, constipation, feeling as though you do not have energy, and not being able to tolerate cold. This condition is treated with medicine to replace the thyroid hormones that your body does not make. This information is not intended to replace advice given to you by your health care provider. Make sure you discuss any questions you have with your health care provider. Document Revised: 10/06/2022 Document Reviewed: 10/06/2022 [employer] Patient Education 2023 [employer]. Follow Up Care 07/31/2024 09:24:26 With:BRADLEY NATARAJAN, Alyce Romo, [facility] Address: Critical access hospital [address] [place] [address], [place] [address]- When:Within 1 Month(s) [facility] 08-01-2024 Note Patient Education Endocrinology Hypothyroidism Hypothyroidism is when the thyroid gland does not make enough of certain hormones. This is called an underactive thyroid. The thyroid gland is a small gland located in the lower front part of the neck, just in front of the windpipe (trachea). This gland makes hormones that help control how the body uses food for energy (metabolism) as well as how the heart and brain function. These hormones also play a role in keeping your bones strong. When the thyroid is underactive, it produces too little of the hormones thyroxine (T4) and triiodothyronine (T3). What are the causes? This condition may be caused by: ? Armando's disease. This is a disease in which the body's disease-fighting system (immune system) attacks the thyroid gland. This is the most common cause. ? Viral infections. ? . ? Certain medicines. ? defects. ? Problems with a gland in the center of the brain (pituitary gland). ? Lack of enough iodine in the diet. Other causes may include: ? Past radiation treatments to the head or neck for cancer. ? Past treatment with radioactive iodine. ? Past exposure to radiation in the environment. ? Past surgical removal of part or all of the thyroid. What increases the risk? You are more likely to develop this condition if: ? You are female. ? You have a family history of thyroid conditions. ? You use a medicine called lithium. ? You take medicines that affect the immune system (immunosuppressants). What are the signs or symptoms? Common symptoms of this condition include: ? Not being able to tolerate cold. ? Feeling as though you have no energy (lethargy). ? Lack of appetite. ? Constipation. ? Sadness or depression. ? Weight gain that is not explained by a change in diet or exercise habits. ? Menstrual irregularity. ? Dry skin, coarse hair, or brittle nails. Other symptoms may include: ? Muscle pain. ? Slowing of thought processes. ? Poor memory. How is this diagnosed? This condition may be diagnosed based on: ? Your symptoms, your medical history, and a physical exam. ? Blood tests. You may also have imaging tests, such as an ultrasound or MRI. How is this treated? This condition is treated with medicine that replaces the thyroid hormones that your body does not make. After you begin treatment, it may take several weeks for symptoms to go away. Follow these instructions at home: ? Take bpxo-ngi-[id number] and prescription medicines only as told by your health care provider. ? If you start taking any new medicines, tell your health care provider. ? Keep all follow-up visits as told by your health care provider. This is important. ? As your condition improves, your dosage of thyroid hormone medicine may change. ? You will need to have blood tests regularly so that your health care provider can monitor your condition. Contact a health care provider if: ? Your symptoms do not get better with treatment. ? You are taking thyroid hormone replacement medicine and you: ? Sweat a lot. ? Have tremors. ? Feel anxious. ? Lose weight rapidly. ? Cannot tolerate heat. ? Have emotional swings. ? Have diarrhea. ? Feel weak. Get help right away if: ? You have chest pain. ? You have an irregular heartbeat. ? You have a rapid heartbeat. ? You have difficulty breathing. These symptoms may be an emergency. Get help right away. Call 911. ? Do not wait to see if the symptoms will go away. ? Do not drive yourself to the hospital. Summary ? Hypothyroidism is when the thyroid gland does not make enough of certain hormones (it is underactive). ? When the thyroid is underactive, it produces too little of the hormones thyroxine (T4) and triiodothyronine (T3). ? The most common cause is Armando's disease, a disease in which the body's disease-fighting system (immune system) attacks the thyroid gland. The condition can also be caused by viral infections, medicine, , or past radiation treatment to the head or neck. ? Symptoms may include weight gain, dry skin, constipation, feeling as though you do not have energy, and not being able to tolerate cold. ? This condition is treated with medicine to replace the thyroid hormones that your body does not make. This information is not intended to replace advice given to you by your health care provider. Make sure you discuss any questions you have with your health care provider. Document Revised: 10/06/2022 Document Reviewed: 10/06/2022 [facility] Patient Education ? 2023 [employer]. [facility] 06-28-2024 Hospital Discharge instructions Patient Education 06/28/2024 14:37:41 BMI for Adults BMI for Adults Body mass index (BMI) is a number found using a person's weight and height. BMI can help tell how much of a person's weight is made up of fat. BMI does not measure body fat directly. It is used instead of tests that directly measure body fat, which can be difficult and expensive. What are BMI measurements used for? BMI is useful to: Find out if your weight puts you at higher risk for medical problems. Help recommend changes, such as in diet and exercise. This can help you reach a healthy weight. BMI screening can be done again to see if these changes are working. How is BMI calculated? Your height and weight are measured. The BMI is found from those numbers. This can be done with U.[place] or metric measurements. Note that charts and online BMI calculators are available to help you find your BMI quickly and easily without doing these calculations. To calculate your BMI in [place] measurements: 1.Measure your weight in pounds (lb). 2.Multiply the number of pounds by 703. So, for an adult who weighs 150 lb, multiply that number by 703: 150 x 703, which equals 105,450. 3.Measure your height in inches. Then multiply that number by itself to get a measurement called inches squared. So, for an adult who is 70 inches tall, the inches squared measurement is 70 inches x 70 inches, which equals 4,900 inches squared. 4.Divide the total from step 2 (number of lb x 703) by the total from step 3 (inches squared): 105,450 4,900 = 21.5. This is your BMI. To calculate your BMI in metric measurements: 1.Measure your weight in kilograms (kg). For this example, the weight is 70 kg. 2.Measure your height in meters (m). Then multiply that number by itself to get a measurement called meters squared. So, for an adult who is 1.75 m tall, the meters squared measurement is 1.75 m x 1.75 m, which equals 3.1 meters squared. 3.Divide the number of kilograms (your weight) by the meters squared number. In this example: 70 3.1 = 22.6. This is your BMI. What do the results mean? BMI charts are used to see if you are underweight, normal weight, overweight, or obese. The following guidelines will be used: Underweight: BMI less than 18.5. Normal weight: BMI between 18.5 and 24.9. Overweight: BMI between 25 and 29.9. Obese: BMI of 30 or above. BMI is a tool and cannot diagnose a condition. Talk with your health care provider about what your BMI means for you. Keep these notes in mind: Weight includes fat and muscle. Someone with a muscular build, such as an athlete, may have a BMI that is higher than 24.9. In cases like these, BMI is not a correct measure of body fat. If you have a BMI of 25 or higher, your provider may need to do more testing to find out if excess body fat is the cause. BMI is measured the same way for males and females. Females usually have more body fat than males of the same height and weight. Where to find more information For more information about BMI, including tools to quickly find your BMI, go to: Centers for Disease Control and Prevention: cdc.gov [place] [employer]: heart.org National Heart, Lung, and Blood [place]: nhlbi.nih.gov This information is not intended to replace advice given to you by your health care provider. Make sure you discuss any questions you have with your health care provider. Document Revised: 06/24/2023 Document Reviewed: 06/17/2023 [facility] Patient Education 2023 [employer]. Follow Up Care 06/05/2024 09:43:13 With:BRADLEY NATARAJAN, Alyce Romo, [facility] Address: [facility] [address], [facility] [place] [place] [address]- When:Within 1 Month(s) [facility] 06-28-2024 Note Patient Education Nutrition BMI for Adults Body mass index (BMI) is a number found using a person's weight and height. BMI can help tell how much of a person's weight is made up of fat. BMI does not measure body fat directly. It is used instead of tests that directly measure body fat, which can be difficult and expensive. What are BMI measurements used for? BMI is useful to: ? Find out if your weight puts you at higher risk for medical problems. ? Help recommend changes, such as in diet and exercise. This can help you reach a healthy weight. BMI screening can be done again to see if these changes are working. How is BMI calculated? Your height and weight are measured. The BMI is found from those numbers. This can be done with U.S. or metric measurements. Note that charts and online BMI calculators are available to help you find your BMI quickly and easily without doing these calculations. To calculate your BMI in U.S. measurements: 1. Measure your weight in pounds (lb). 2. Multiply the number of pounds by 703. ? So, for an adult who weighs 150 lb, multiply that number by 703: 150 x 703, which equals 105,450. 3. Measure your height in inches. Then multiply that number by itself to get a measurement called inches squared. ? So, for an adult who is 70 inches tall, the inches squared measurement is 70 inches x 70 inches, which equals 4,900 inches squared. 4. Divide the total from step 2 (number of lb x 703) by the total from step 3 (inches squared): 105,450 ? 4,900 = 21.5. This is your BMI. To calculate your BMI in metric measurements: 1. Measure your weight in kilograms (kg). ? For this example, the weight is 70 kg. 2. Measure your height in meters (m). Then multiply that number by itself to get a measurement called meters squared. ? So, for an adult who is 1.75 m tall, the meters squared measurement is 1.75 m x 1.75 m, which equals 3.1 meters squared. 3. Divide the number of kilograms (your weight) by the meters squared number. In this example: 70 ? 3.1 = 22.6. This is your BMI. What do the results mean? BMI charts are used to see if you are underweight, normal weight, overweight, or obese. The following guidelines will be used: ? Underweight: BMI less than 18.5. ? Normal weight: BMI between 18.5 and 24.9. ? Overweight: BMI between 25 and 29.9. ? Obese: BMI of 30 or above. BMI is a tool and cannot diagnose a condition. Talk with your health care provider about what your BMI means for you. Keep these notes in mind: ? Weight includes fat and muscle. Someone with a muscular build, such as an athlete, may have a BMI that is higher than 24.9. In cases like these, BMI is not a correct measure of body fat. ? If you have a BMI of 25 or higher, your provider may need to do more testing to find out if excess body fat is the cause. ? BMI is measured the same way for males and females. Females usually have more body fat than males of the same height and weight. Where to find more information For more information about BMI, including tools to quickly find your BMI, go to: ? Centers for Disease Control and Prevention: cdc.gov ? [place] [employer]: heart.org ? National Heart, Lung, and Blood [place]: nhlbi.nih.gov This information is not intended to replace advice given to you by your health care provider. Make sure you discuss any questions you have with your health care provider. Document Revised: 06/24/2023 Document Reviewed: 06/17/2023 [facility] Patient Education ? 2023 [employer] [facility] 06-05-2024 Hospital Discharge instructions Patient Education 06/05/2024 09:38:49 BMI for Adults BMI for Adults What is BMI? Body [...] weight, or underweight. BMI is useful for: Identifying a weight problem that may be related to a medical condition or may increase the risk for medical problems. Promoting changes, such as changes in diet and exercise, to help reach a healthy weight. BMI screening can be repeated to see if these changes are working. How is BMI calculated? BMI involves measuring your weight in relation to your height. Both height and weight are measured, and the BMI is calculated from those numbers. This can be done either in [place] (U.[place] or metric measurements. Note that charts and online BMI calculators are available to help you find your BMI quickly and easily without having to do these calculations yourself. To calculate your BMI in [place] ([place] measurements: 1.Measure your weight in pounds (lb). 2.Multiply the number of pounds by 703. For example, for a person who weighs 180 lb, multiply that number by 703, which equals 126,540. 3.Measure your height in inches. Then multiply that number by itself to get a measurement called inches squared. For example, for a person who is 70 inches tall, the inches squared measurement is 70 inches x 70 inches, which equals 4,900 inches squared. 4.Divide the total from step 2 (number of lb x 703) by the total from step 3 (inches squared): 126,540 4,900 = 25.8. This is your BMI. To calculate your BMI in metric measurements: 1.Measure your weight in kilograms (kg). 2.Measure your height in meters (m). Then multiply that number by itself to get a measurement called meters squared. For example, for a person who is 1.75 m tall, the meters squared measurement is 1.75 m x 1.75 m, which is equal to 3.1 meters squared. 3.Divide the number of kilograms (your weight) by the meters squared number. In this example: 70 3.1 = 22.6. This is your BMI. What do the results mean? BMI charts are used to identify whether you are underweight, normal weight, overweight, or obese. The following guidelines will be used: Underweight: BMI less than 18.5. Normal weight: BMI between 18.5 and 24.9. Overweight: BMI between 25 and 29.9. Obese: BMI of 30 or above. Keep these notes in mind: Weight includes both fat and muscle, so someone with a muscular build, such as an athlete, may have a BMI that is higher than 24.9. In cases like these, BMI is not an accurate measure of body fat. To determine if excess body fat is the cause of a BMI of 25 or higher, further assessments may need to be done by a health care provider. BMI is usually interpreted in the same way for men and women. Where to find more information For more information about BMI, including tools to quickly calculate your BMI, go to these websites: Centers for Disease Control and Prevention: www.cdc.gov [place] [employer]: www.heart.org National Heart, Lung, and Blood [place]: www.nhlbi.nih.gov Summary Body mass index (BMI) is a number that is calculated from a person's weight and height. BMI may help estimate how much of a person's weight is composed of fat. BMI can help identify those who may be at higher risk for certain medical problems. BMI can be measured using [place] measurements or metric measurements. BMI charts are used to identify whether you are underweight, normal weight, overweight, or obese. This information is not intended to replace advice given to you by your health care provider. Make sure you discuss any questions you have with your health care provider. Document Revised: 06/26/2020 Document Reviewed: 05/03/2020 [facility] Patient Education 2023 [employer]. Follow Up Care 05/04/2024 10:13:45 With:BRADLEY NATARAJAN, Alyce Romo, [facility] Address: [facility] [address], [place] [address]- When:Within 1 Month(s) [facility] 06-05-2024 Note Patient Education Nutrition BMI for Adults What [...] numbers. This can be done either in [place] ([place] or metric measurements. Note that charts and online BMI calculators are available to help you find your BMI quickly and easily without having to do these calculations yourself. To calculate your BMI in [place] ([place] measurements: 1. Measure your weight in [...] for Disease Control and Prevention: www.cdc.gov ? [place] [employer]: www.heart.org ? National Heart, Lung, and Blood [place]: www.nhlbi.nih.gov Summary ? Body mass index (BMI) is a number that is calculated from a person's weight and height. ? BMI may help estimate how much of a person's weight is composed of fat. BMI can help identify those who may be at higher risk for certain medical problems. ? BMI can be measured using [place] measurements or metric measurements. ? BMI charts are used to identify whether you are underweight, normal weight, overweight, or obese. This information is not intended to replace advice given to you by your health care provider. Make sure you discuss any questions you have with your health care provider. Document Revised: 06/26/2020 Document Reviewed: 05/03/2020 [employer] Patient Education ? 2022 [employer]. [facility] 05-04-2024 Hospital Discharge instructions Patient Education 05/04/2024 10:06:09 BMI for Adults BMI for Adults What is BMI? Body [...] weight, or underweight. BMI is useful for: Identifying a weight problem that may be related to a medical condition or may increase the risk for medical problems. Promoting changes, such as changes in diet and exercise, to help reach a healthy weight. BMI screening can be repeated to see if these changes are working. How is BMI calculated? BMI involves measuring your weight in relation to your height. Both height and weight are measured, and the BMI is calculated from those numbers. This can be done either in [place] ([place] or metric measurements. Note that charts and online BMI calculators are available to help you find your BMI quickly and easily without having to do these calculations yourself. To calculate your BMI in [place] ([place] measurements: 1.Measure your weight in pounds (lb). 2.Multiply the number of pounds by 703. For example, for a person who weighs 180 lb, multiply that number by 703, which equals 126,540. 3.Measure your height in inches. Then multiply that number by itself to get a measurement called inches squared. For example, for a person who is 70 inches tall, the inches squared measurement is 70 inches x 70 inches, which equals 4,900 inches squared. 4.Divide the total from step 2 (number of lb x 703) by the total from step 3 (inches squared): 126,540 4,900 = 25.8. This is your BMI. To calculate your BMI in metric measurements: 1.Measure your weight in kilograms (kg). 2.Measure your height in meters (m). Then multiply that number by itself to get a measurement called meters squared. For example, for a person who is 1.75 m tall, the meters squared measurement is 1.75 m x 1.75 m, which is equal to 3.1 meters squared. 3.Divide the number of kilograms (your weight) by the meters squared number. In this example: 70 3.1 = 22.6. This is your BMI. What do the results mean? BMI charts are used to identify whether you are underweight, normal weight, overweight, or obese. The following guidelines will be used: Underweight: BMI less than 18.5. Normal weight: BMI between 18.5 and 24.9. Overweight: BMI between 25 and 29.9. Obese: BMI of 30 or above. Keep these notes in mind: Weight includes both fat and muscle, so someone with a muscular build, such as an athlete, may have a BMI that is higher than 24.9. In cases like these, BMI is not an accurate measure of body fat. To determine if excess body fat is the cause of a BMI of 25 or higher, further assessments may need to be done by a health care provider. BMI is usually interpreted in the same way for men and women. Where to find more information For more information about BMI, including tools to quickly calculate your BMI, go to these websites: Centers for Disease Control and Prevention: www.cdc.gov [place] [employer]: www.heart.org National Heart, Lung, and Blood [place]: www.nhlbi.nih.gov Summary Body mass index (BMI) is a number that is calculated from a person's weight and height. BMI may help estimate how much of a person's weight is composed of fat. BMI can help identify those who may be at higher risk for certain medical problems. BMI can be measured using [place] measurements or metric measurements. BMI charts are used to identify whether you are underweight, normal weight, overweight, or obese. This information is not intended to replace advice given to you by your health care provider. Make sure you discuss any questions you have with your health care provider. Document Revised: 06/26/2020 Document Reviewed: 05/03/2020 [facility] Patient Education 2023 [employer]. Follow Up Care 04/05/2024 14:01:39 With:BRADLEY NATARAJAN, Alyce Romo, [facility] Address: [facility] [address], [place] [address]- When:Within 1 Month(s) [facility] 05-04-2024 Note Patient Education Nutrition BMI for Adults What [...] numbers. This can be done either in [place] ([place] or metric measurements. Note that charts and online BMI calculators are available to help you find your BMI quickly and easily without having to do these calculations yourself. To calculate your BMI in [place] ([place] measurements: 1. Measure your weight in [...] for Disease Control and Prevention: www.cdc.gov ? [place] [employer]: www.heart.org ? National Heart, Lung, and Blood [place]: www.nhlbi.nih.gov Summary ? Body mass index (BMI) is a number that is calculated from a person's weight and height. ? BMI may help estimate how much of a person's weight is composed of fat. BMI can help identify those who may be at higher risk for certain medical problems. ? BMI can be measured using [place] measurements or metric measurements. ? BMI charts are used to identify whether you are underweight, normal weight, overweight, or obese. This information is not intended to replace advice given to you by your health care provider. Make sure you discuss any questions you have with your health care provider. Document Revised: 06/26/2020 Document Reviewed: 05/03/2020 [facility] Patient Education ? 2022 [employer]. [facility] 04-05-2024 Hospital Discharge instructions Patient Education 04/05/2024 13:55:17 Shoulder Range of Motion Exercises Shoulder Range of Motion Exercises Shoulder range of motion (ROM) exercises are done to keep the shoulder moving freely or to increase movement. They are recommended for people who have shoulder pain or stiffness or who are recovering from a shoulder surgery. Ask your health care provider which exercises are safe for you. Do exercises exactly as told by your health care provider and adjust them as directed. It is normal to feel mild stretching, pulling, tightness, or discomfort as you do these exercises. Stop right away if you feel sudden pain or your pain gets worse. Do not begin these exercises until told by your health care provider. Phase 1 exercise When you are able, do this exercise 1 2 times a day for 30 60 seconds in each direction, or as directed by your health care provider. Pendulum exercise To do this exercise while sittin.Sit in a chair or at the edge of your bed with your feet flat on the floor. 2.Let your affected arm hang down in front of you over the edge of the bed or chair. 3.Relax your shoulder, arm, and hand. 4.Rock your body so your arm gently swings in small circles. You can also use your unaffected arm to start the motion. 5.Repeat, changing the direction of the circles, swinging your arm left and right, and swinging your arm forward and back. To do this exercise while standin.Stand next to a sturdy chair or table, and hold on to it with your hand on your unaffected side. 2.Bend forward at the waist. 3.Bend your knees slightly. 4.Relax your shoulder, arm, and hand. 5.While keeping your shoulder relaxed, use body motion to swing your arm in small circles. 6.Repeat, changing the direction of the circles, swinging your arm left and right, and swinging your arm forward and back. 7.Between exercises, stand up tall and take a short break to relax your lower back. Phase 2 exercises Do these exercises 1 2 times a day or as told by your health care provider. Hold each stretch for 30 seconds, and repeat 3 times. Do the exercises with one or both arms as instructed by your health care provider. For these exercises, sit at a table with your hand and arm supported by the table. A chair that slides easily or has wheels can be helpful. External rotation 1.Turn your chair so that your affected side is nearest to the table. 2.Place your forearm on the table to your side. Bend your arm to about a 90-degree angle (right angle) at the elbow, and place your hand palm-down on the table. Your elbow should be about 6 inches (15 cm) away from your side. 3.Keeping your arm on the table, lean your body forward. Abduction 1.Turn your chair so that your affected side is nearest to the table. 2.Place your forearm and hand on the table so that your thumb points toward the ceiling and your arm is straight out to your side. 3.Slide your hand out to the side and away from you. 4.To increase the stretch, you can slide your chair away from the table. Flexion: forward stretch 1.Sit facing the table. Place your hand and elbow on the table in front of you. 2.Slide your hand forward and away from you, using your unaffected arm to do the work. 3.To increase the stretch, you can slide your chair backward. Phase 3 exercises Do these exercises 1 2 times a day or as told by your health care provider. Hold each stretch for 30 seconds, and repeat 3 times. Do the exercises with one or both arms as instructed by your health care provider. You will need a cane, a piece of PVC pipe, or a sturdy wooden dowel for the wand exercises. Cross-body stretch: posterior capsule stretch 1.Lift your arm straight out in front of you. 2.Bend your arm in a 90-degree angle (right angle) at the elbow so your forearm moves across your body. 3.Use your other arm to gently pull the elbow across your body, toward your other shoulder. Wall climbs 1.Stand with your affected arm extended out to the side with your hand resting on a door frame. 2.Slide your hand slowly up the door frame. 3.To increase the stretch, step through the door frame. Keep your body upright and do not lean. Flexion To do this exercise while standin.Hold the wand with both of your hands, palms-down. 2.Lift the wand up and over your head, if able. Lift mostly with your affected arm, and use the other arm to help. 3.Push upward with your other arm to gently increase the stretch. To do this exercise while lying down: 1.Lie on your back with your elbows resting on the floor and the wand in both your hands. Your hands will be palm-down, or pointing toward your feet. 2.Lift your hands toward the ceiling, using your unaffected arm to help if needed. 3.Bring your arms overhead as able, using your unaffected arm to help if needed. Internal rotation 1.Stand while holding the wand behind you with both hands. Your unaffected arm should be extended above your head with the arm of the affected side extended behind you at the level of your waist. The wand should be pointing straight up and down as you hold it. 2.Slowly pull the wand up behind your back by straightening the elbow of your unaffected arm and bending the elbow of your affected arm. External rotation 1.Lie on your back with your affected upper arm supported on a small pillow or rolled towel. When you first do this exercise, keep your upper arm close to your body. Over time, bring your arm up to a 90-degree angle (right angle) out to the side. 2.Hold the wand across your stomach and with both hands palm-up. Your elbow on your affected side should be bent at a 90-degree angle. 3.Use your unaffected side to help push your forearm away from you and toward the floor. Keep your elbow on your affected side bent at a 90-degree angle. This information is not intended to replace advice given to you by your health care provider. Make sure you discuss any questions you have with your health care provider. Document Revised: 11/24/2022 Document Reviewed: 11/24/2022 [employer] Patient Education 2022 [employer] Follow Up Care 02/09/2024 12:49:38 With:BRADLEY NATARAJAN, JACOB Sousa Address: [place] [address], [place] [address]- When:Within 1 Month(s) [facility] Primary Care Evaluation + Plan note Future Appointments Appointment Date:05/04/2024 09:40:00 AM Scheduled Provider:Alyce HUERTA MD [place] [employer] Appointment Type:FM Open Appointment Date:06/13/2024 03:00:00 PM Scheduled Provider:Mayra Orellana CNP [place] App[facility]ment Type:[facility] Follow Up [facility] Primary Care Evaluation + Plan note Future Appointments Appointment Date:06/05/2024 09:20:00 AM Scheduled Provider:Alyce HUERTA MD [place] [employer] Appointment Type: Open Appointment Date:06/13/2024 03:00:00 PM Scheduled Provider:Mayra Orellana CNP Location:[facility] Appointment Type:[facility] Follow Up [facility] Primary Care Evaluation + Plan note Future Appointments Appointment Date:06/14/2024 02:45:00 PM Scheduled Provider:Kyra Carranza MD Location:[facility] Appointment Type:[facility] Follow Up Appointment Date:06/28/2024 02:00:00 PM Scheduled Provider:Alyce HUERTA MD Location[place] [employer] Appointment Type: Open [facility] Primary Care Evaluation + Plan note Future Appointments Appointment Date:07/31/2024 09:40:00 AM Scheduled Provider:Alyce HUERTA MD Location[place] [employer] Appointment Type: Open [facility] Primary Care Evaluation + Plan note Future Appointments Appointment Date:09/04/2024 12:00:00 PM Scheduled Provider:Alyce HUERTA MD Location[place] [facility] Appointment Type: Open Diagnostic Tests PendingComprehensive Metabolic Panel 08/01/24Lipid Panel 08/01/24TSH With T4fr Reflex 08/01/24 [facility] Hospital course Narrative No data available for this section [facility] Progress note No data available for this section [facility] Reason for referral (narrative) Referred by: Alyce HEURTA MD-[facility] Primary Care Summary Purpose Family History No Family History Records FoundNo Family History Records Found No data available for this section No data available for this section No data available for this section No Family History Records Found No data available for this section No data available for this section No Family History Records Found Advance Directives No Advanced Directives Records FoundNo Advanced Directives Records FoundNo Advanced Directives Records FoundNo Advanced Directives Records Found Additional Source Comments INFORMATION SOURCE (unrecogn ized section and content) DATE CREATED AUTHOR 04/13/2018 [facility] DATE CREATED AUTHOR AUTHOR'S ORGANIZ ATION 12/10/2022 [facility] DATE CREATED AUTHOR AUTHOR'S ORGANIZ ATION 06/16/2024 [facility] dical [facility] EPIC DATE CREATED AUTHOR AUTHOR'S ORGANIZ ATION 08/04/2024 [facility] Patient Care team informatio n (unrecognized section and content) Personnel Name: Alyce HUERTA MD Address: Address: [place] [address], [address] Personnel Name: Alyce HUERTA MD Address: Address: [place] [address], [address] Personnel Name: Alyce HUERTA MD Address: Address: [place] [address], [address] Personnel Name: Alyce HUERTA MD Address: Address: [place] [address], [address] Personnel Name: Alyce HUERTA MD Address: Address: [place] [address], [facility] [address] FOR RECORDS PERTAINING TO PATIENTS WHO ARE [...] BE BASED ON THE PRIMARY CLINICAL RECORDS. [facility]. provides no warranty or guarantee of the accuracy or completeness of information in this document.
[2024-08-21 10:34] LABS: Carbon Dioxide 26.3 mmol/L (21.0-32.0); Chloride 107 mmol/L (98-107); Potassium 4.4 mmol/L (3.5-5.1); Sodium 145 mmol/L (136-145)
[2024-08-21 10:35] LABS: Anion Gap 16.1; BUN Creatinine Ratio 17.6; Bilirubin Total 0.5 mg/dL (0.2-1.0); Calcium 9.4 mg/dL (8.5-10.1); Estimated GFR (African America >60 (>=60 mL/min/1.73m^2); Estimated GFR (Non-African Ame >60 (>=60 mL/min/1.73m^2); Glucose 91 mg/dL (74-106)
[2024-08-21 10:36] LABS: Alanine Aminotransferase 25 U/L (14-59); Albumin Globulin Ratio 0.9; Albumin Level 3.7 g/dL (3.4-5.0); Alkaline Phosphatase 139 U/L (46-116); Aspartate Amino Transferase 14 U/L (15-37); Cholesterol 201 mg/dL (<=200); Globulin 3.9 g/dL; Total Protein 7.6 g/dL (6.4-8.2); Triglycerides 121 mg/dL (<=150); VLDL CHOLESTEROL 24.2 mg/dL
[2024-08-21 10:37] LABS: Chol HDL Ratio 2.5; HDL Cholesterol 79 mg/dL (40-60); TSH W/ REFLEX FT4 0.258 uIU/mL (0.358-3.740)
[2024-08-21 13:23] LABS: Free T4 1.04 ng/dL (0.76-1.46)
== END 2024-08-21 06:35 | disposition home or self-care (01) ==
LOC: LAB 06:35
PROVIDERS: PCP Internal Medicine; Visit Provider Internal Medicine
DX: E03.9 Hypothyroidism, unspecified (principal); E78.2 Mixed hyperlipidemia
CPT/HCPCS: 36415; 80053; 80061; 84439; 84443